=== PATIENT | male | born 1975 | race Caucasian/White ===

== ENCOUNTER 2022-02-10 12:41 | Emergency (ER) | payer OTHER, SELFPAY ==
--- NOTE | ~2022-02-10 | XR_ITS ---
EXAMINATION: XR chest 2V CLINICAL INFORMATION: Cough COMPARISON: Prior chest x-ray 04/28/2017 TECHNIQUE: XR chest 2V Lungs and Evelyn: Faint opacification over the right and left lower lobes concerning for mild infiltrates. No dense lobar consolidation. Pleura: Normal. Costophrenic angles are sharp. No pneumothorax. Heart: The heart is normal in size. Mediastinum: The mediastinum is within normal limits.. Bones: Skeletal structures included are normal for patient's age. XR/XR chest 2V IMPRESSION: Faint opacification over the right and left lower lobes concerning for mild infiltrates. No dense lobar consolidation or pleural effusion. Follow-up chest x-ray one month after completion of treatment recommended to ensure complete clearance.
--- NOTE | 2022-02-10 13:21 | ECG_ITS ---
Test Reason : cp Blood Pressure : / mmHG Vent. Rate : 089 BPM Atrial Rate : 089 BPM P-R Int : 160 ms QRS Dur : 082 ms QT Int : 360 ms P-R-T Axes : 070 034 063 degrees QTc Int : 438 ms Normal sinus rhythm Normal ECG When compared with ECG of 28-APR-2017 22:37, No significant change was found Referred By: Generic ED Physician Electronically Signed By:GRACY NAQVI
--- NOTE | 2022-02-10 13:40 | ED.GENADULT ---
HPI - General Adult General Chief complaint: Upper Respiratory Symptoms <JUAN Carpio - Last Filed: 02/10/22 13:43> Stated complaint: chest heavy cough <JUAN Carpio - Last Filed: 02/10/22 13:43> Time Seen by Provider: 02/10/22 15:56 <JUAN Carpio - Last Filed: 02/10/22 13:43> Source: patient <Alexandra Guaman NP - Last Filed: 02/10/22 16:42> Mode of arrival: ambulatory <Alexandra Guaman NP - Last Filed: 02/10/22 16:42> Limitations: no limitations <Alexandra Guaman NP - Last Filed: 02/10/22 16:42> History of Present Illness HPI narrative: 47-year-old male with history of migraines, degenerative disc disease presents with complaints of cough, chest discomfort with coughing, tactile fever and chills since Thursday evening. No shortness of breath, leg swelling or leg pain, vomiting or diarrhea. <Alexandra Guaman NP - Last Filed: 02/10/22 16:42> Related Data Home medications: Previous Rx's Medication Instructions Recorded albuterol sulfate 90 mcg/actuation 2 inh inhalation Q4H PRN shortness 02/10/22 breath activated powder inhaler of breath or wheezing #1 ea benzonatate 200 mg capsule 200 mg PO TID PRN cough #15 caps 02/10/22 doxycycline monohydrate 100 mg 100 mg PO BID #20 caps 02/10/22 capsule oseltamivir 75 mg capsule (Tamiflu) 75 mg PO BID 5 days #10 caps 02/10/22 <JUAN Carpio - Last Filed: 02/10/22 13:43> Allergies/adverse reactions: Allergies Allergy/AdvReac Type Severity Reaction Status Date / Time azithromycin [AZITHROMYCIN] Allergy Severe TACHYCARDIA Unverified 10/27/19 18:29 /HIVES penicillin V Allergy Unknown Verified 09/25/16 00:00 Penicillins [PCN] Allergy Unknown THROAT Unverified 10/27/19 18:29 CLOSES From NOVOCAIN Allergy Unknown INCEASED Uncoded 10/27/19 18:29 SEVERE MIGRAINES SEASONAL ALLERGIES Allergy Unknown RHINITIS Uncoded 10/27/19 18:29 <Zoraida Ayon PA - Last Filed: 02/10/22 13:43> Review of Systems Review of Systems: Yes all other systems are reviewed and are negative <Alexandra Guaman NP - Last Filed: 02/10/22 16:42> Constitutional: Constitutional: Reports no additional constitutional complaints, Denies body ache(s), Reports chills, Reports fever(s), Denies headache(s) and Denies weakness <Alexandra Guaman NP - Last Filed: 02/10/22 16:42> Eyes: Eyes: Reports no additional eye complaints and Denies change in vision <Alexandra Guaman NP - Last Filed: 02/10/22 16:42> ENT: Reports system reviewed and no additional complaints, except as documented, Denies dizziness, Denies headache(s), Denies nasal congestion, Denies nasal discharge and Denies neck pain <Alexandra Guaman NP - Last Filed: 02/10/22 16:42> Cardiovascular: Cardiovascular: Reports no additional cardiovascular complaints, Reports chest pain, Denies leg edema and Denies dyspnea <Alexandra Guaman NP - Last Filed: 02/10/22 16:42> Respiratory: Respiratory: Reports no additional respiratory complaints, Reports cough and Denies dyspnea <Alexandra Guaman NP - Last Filed: 02/10/22 16:42> Gastrointestinal: Gastrointestinal: Reports no additional gastrointestinal complaints, Denies abdominal pain, Denies diarrhea, Denies nausea and Denies vomiting <Alexandra Guaman NP - Last Filed: 02/10/22 16:42> Genitourinary: Genitourinary: Denies urinary incontinence <Alexandra Guaman NP - Last Filed: 02/10/22 16:42> Musculoskeletal: Musculoskeletal: Reports no additional musculoskeletal complaints, Denies back pain, Denies arthralgias, Denies joint swelling, Denies neck pain, Denies numbness and Denies tingling <Aelxandra Guaman NP - Last Filed: 02/10/22 16:42> Integumentary/Breasts: Skin/Breast: Reports system reviewed and no additional complaints, except as docu and Denies rash <Alexandra Guaman NP - Last Filed: 02/10/22 16:42> Neurologic: Reports system reviewed and no additional complaints, except as documented, Denies dizziness, Denies headache(s), Denies numbness, Denies tingling and Denies weakness <Alexandra Guaman NP - Last Filed: 02/10/22 16:42> [facility] Past Medical History Attestation statement: The following information was validated with the patient. <Alexandra Guaman NP - Last Filed: 02/10/22 16:42> Source: old records reviewed and nursing notes reviewed <Alexandra Guaman NP - Last Filed: 02/10/22 16:42> Social History Social History: Social History Advance Directives: No Advance Directives Information Provided: No <JUAN Carpio - Last Filed: 02/10/22 13:43> Physical Exam ED Vital Signs: Vital Signs - 24 hr 02/10/22 13:41 Temperature 98 F Pulse Rate 87 Respiratory Rate 20 Blood Pressure 130/99 H Pulse Oximetry 97 Oxygen Delivery Method Room Air BMI result Body Mass Index 33.7 <JUAN Carpio - Last Filed: 02/10/22 13:43> Vital Signs - 24 hr 02/10/22 13:41 Temperature 98 F Pulse Rate 87 Respiratory Rate 20 Blood Pressure 130/99 H Pulse Oximetry 97 Oxygen Delivery Method Room Air BMI result Body Mass Index 33.7 <Alexandra Guaman NP - Last Filed: 02/10/22 16:42> Const General: cooperative, healthy appearing, comfortable and no acute distress <Alexandra Guaman NP - Last Filed: 02/10/22 16:42> Orientation/consciousness: patient oriented x3 <Alexandra Guaman NP - Last Filed: 02/10/22 16:42> Limitations: no limitations <Alexandra Guaman NP - Last Filed: 02/10/22 16:42> HENMT Head: Yes normal to inspection <Alexandra Guaman NP - Last Filed: 02/10/22 16:42> Ears: hearing grossly normal bilaterally and TM's normal bilaterally <Alexandra Guaman NP - Last Filed: 02/10/22 16:42> General nose exam: Normal external nose present <Alexandra Guaman NP - Last Filed: 02/10/22 16:42> Throat: Yes posterior oropharynx normal, Yes tonsils normal and Yes uvula midline <Alexandra Guaman NP - Last Filed: 02/10/22 16:42> Eyes General: appearance normal, both eyes and all related structures <Alexandra Guaman NP - Last Filed: 02/10/22 16:42> Pupils: Equal, round and reactive pupils present <Alexandra Guaman NP - Last Filed: 02/10/22 16:42> Neck Neck: Yes normal visual inspection, Yes full ROM, Yes no lymphadenopathy and Yes no meningeal signs <Alexandra Guaman NP - Last Filed: 02/10/22 16:42> Chest Chest palpation & inspection: normal inspection of the chest and tenderness (Left chest tender to palpate) <Alexandra Guaman NP - Last Filed: 02/10/22 16:42> Resp Effort & Inspection: normal respiratory effort <Alexandra Guaman NP - Last Filed: 02/10/22 16:42> Auscultation: clear to auscultation bilaterally <Alexandra Guaman NP - Last Filed: 02/10/22 16:42> Cardio Rate: regular rate <Alexandra Guaman NP - Last Filed: 02/10/22 16:42> Rhythm: regular rhythm <Alexandra Guaman NP - Last Filed: 02/10/22 16:42> Peripheral pulses: Peripheral pulses 2+ throughout <Alexandra Guaman NP - Last Filed: 02/10/22 16:42> GI Inspection: Yes normal to inspection <Alexandra Guaman NP - Last Filed: 02/10/22 16:42> Palpation (GI): Soft to palpation and nontender <Alexandra Guaman NP - Last Filed: 02/10/22 16:42> General: Yes no CVA tenderness <Alexandra Guaman NP - Last Filed: 02/10/22 16:42> Back/Spine/Pelvis Back: no CVA tenderness <Alexandra Guaman NP - Last Filed: 02/10/22 16:42> Thoracic/Lumbar Spine: thoracic and lumbar spine normal to inspection <Alexandra Guaman NP - Last Filed: 02/10/22 16:42> Skin General skin exam: no rashes or lesions noted <Alexandra Guaman NP - Last Filed: 02/10/22 16:42> Neuro General: patient oriented x3, moves all extremities and no meningeal signs <Alexandra Guaman NP - Last Filed: 02/10/22 16:42> Cranial nerves: Yes Equal, round and reactive pupils present <Alexandra Guaman NP - Last Filed: 02/10/22 16:42> Cognition (Neuro): normal cognition <Alexandra Guaman NP - Last Filed: 02/10/22 16:42> Gait exam (Neuro): Normal gait present <Alexandra Guaman NP - Last Filed: 02/10/22 16:42> Extrem General: Yes normal to inspection, Yes no pedal edema and Yes no calf tenderness <Alexandra Guaman NP - Last Filed: 02/10/22 16:42> Course Course Course Narrative: [facility]-13:40PM - 47yoM presenting to the ED c c/o of generalized fatigue/malaise, sore throat, cough and chest congestion/rib chest wall pain and diarrhea with low grade fevers of 99.0 since Thursday. 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 Denies any other symptoms complaints or concerns at this time. Plan: Patient is stable. COVID/RSV/flu swab and chest x-ray ordered at this time. Patient can go to the waiting room to be evaluated in [facility]. <JUAN Carpio - Last Filed: 02/10/22 13:43> Reevaluation(s) Reevaluation #1: Testing for flu is positive. Chest x-ray consistent with bilateral lower lobe infiltrates. No hypoxia or tachypnea. Patient wants Tamiflu for the flu status. Aware of side effects. Will add antibiotic for the pneumonia. Reviewed worrisome signs and symptoms of when to return to the emergency room. Comfortable plan for discharge home. <Alexandra Guaman NP - Last Filed: 02/10/22 16:42> Medical Decision Making Medical Decision Making [facility] Narrative: 47-year-old male with history of migraines, degenerative disc disease here with cough, congestion, tactile temps, chills and chest discomfort with coughing since Thursday evening. Will obtain chest x-ray, send testing for flu, COVID, RSV. Vitals stable. Exam benign <Alexandra Guaman NP - Last Filed: 02/10/22 16:42> Differential Diagnosis Differential Diagnoses: The differential diagnosis associated with the presentation includes <Alexandra Guaman NP - Last Filed: 02/10/22 16:42> Pneumonia, influenza, viral syndrome Chest wall strain Perc score 0. Less likely PE <Alexandra Guaman NP - Last Filed: 02/10/22 16:42> Lab Data [facility] Lab Attestation statement: I reviewed the patient's lab results. <Alexandra Guaman NP - Last Filed: 02/10/22 16:42> Labs: Lab Results 02/10/22 Range/Units 14:08 Influenza Type A (PCR) POSITIVE A (Negative) Influenza Type B (PCR) NEGATIVE (Negative) RSV RNA Qual (PCR) NEGATIVE (Negative) SARS-CoV-2 RNA (RT-PCR) NEGATIVE (Negative) <JUAN Carpio - Last Filed: 02/10/22 13:43> Lab Results 02/10/22 Range/Units 14:08 Influenza Type A (PCR) POSITIVE A (Negative) Influenza Type B (PCR) NEGATIVE (Negative) RSV RNA Qual (PCR) NEGATIVE (Negative) SARS-CoV-2 RNA (RT-PCR) NEGATIVE (Negative) <Alexandra Guaman NP - Last Filed: 02/10/22 16:42> Independent Interpretation I performed an independent interpretation of an: EKG and Plain X-Ray (I independently reviewed the x-ray which shows infiltrate in the right and left lower lobes) <Alexandra Guaman NP - Last Filed: 02/10/22 16:42> Interpretation: I independently reviewed the EKG which shows normal sinus rhythm with a rate 89, normal MO, normal QRS, no QT <Alexandra Guaman NP - Last Filed: 02/10/22 16:42> Radiology Impression Discussion of test interpretation with radiology: I have reviewed the radiologist's reading. <Alexandra Guaman NP - Last Filed: 02/10/22 16:42> Radiologist Impression: [address] [address] XRay Report Signed Patient: Sonu Castillo MR#: [id number] : 1975 Acct:[id number] Age/Sex: 47 / M ADM Date: 02/10/22 Loc: .ED Attending Dr: Ordering Physician: Zoraida Ayon Date of Service: 02/10/22 Procedure(s): XR chest 2V Accession Number(s): [id number] cc: Zoraida Ayon~ EXAMINATION: XR chest 2V CLINICAL INFORMATION: Cough COMPARISON: Prior chest x-ray 04/28/2017? TECHNIQUE: XR chest 2V Lungs and Evelyn: Faint opacification over the right and left lower lobes concerning for mild infiltrates. No dense lobar consolidation. Pleura: Normal. Costophrenic angles are sharp. No pneumothorax. Heart: The heart is normal in size. Mediastinum: The mediastinum is within normal limits.. Bones: Skeletal structures included are normal for patient's age. XR/XR chest 2V IMPRESSION: ? Faint opacification over the right and left lower lobes concerning for mild infiltrates. No dense lobar consolidation or pleural effusion. Follow-up chest x-ray one month after completion of treatment recommended to ensure complete clearance. <Alexandra Guaman NP - Last Filed: 02/10/22 16:42> Discharge Plan Discharge Clinical Impression: Influenza, Pneumonia <JUAN Carpio - Last Filed: 02/10/22 13:43> Patient Disposition: Home, Self-Care <JUAN Carpio - Last Filed: 02/10/22 13:43> Instructions: Influenza (ED), Pneumonia (ED) <JUAN Carpio - Last Filed: 02/10/22 13:43> Additional Instructions: Testing for flu is positive. Your x-ray shows pneumonia. Your vitals are all stable Take the medications as prescribed Increase fluids, rest Motrin or Tylenol for fever <JUAN Carpio - Last Filed: 02/10/22 13:43> Prescriptions: New oseltamivir [Tamiflu] 75 mg capsule 75 mg PO BID 5 Days Qty: 10 0RF doxycycline monohydrate 100 mg capsule 100 mg PO BID Qty: 20 0RF benzonatate 200 mg capsule 200 mg PO TID PRN (Reason: cough) Qty: 15 0RF albuterol sulfate 90 mcg/actuation aerosol powdr breath activated 2 inh inhalation Q4H PRN (Reason: shortness of breath or wheezing) Qty: 1 0RF <JUAN Carpio - Last Filed: 02/10/22 13:43> Referrals: Physician,Unknown J [Primary Care Provider] - <JUAN Carpio - Last Filed: 02/10/22 13:43> Interventions: ED Discharge Assessment Last Done: 02/10/22 16:37 <JUAN Carpio - Last Filed: 02/10/22 13:43> Discharge Date/Time: 02/10/22 16:38 <JUAN Carpio - Last Filed: 02/10/22 13:43>
[2022-02-10 13:41] VITALS: BP 130/99; PULSE 87; RESP 20; TEMP 36.6; O2SAT 97; BMI 33.7
[2022-02-10 15:03] LABS: Influenza A PCR POSITIVE (Negative); Influenza B PCR NEGATIVE (Negative); Resp Syncy Virus RNA Qual PCR NEGATIVE (Negative); SARS COV2 PCR INHOUSE NEGATIVE (Negative)
== END 2022-02-10 16:38 | disposition home or self-care (01) ==
PROVIDERS: Physician Assistant Medical; Emergency Provider Internal Medicine
DX: J10.08 Influenza due to other identified influenza virus with other specified pneumonia (principal); J12.89 Other viral pneumonia; Z20.822 Contact with and (suspected) exposure to COVID-19
CPT/HCPCS: 0241U; 71046; 93005; 99283

== ENCOUNTER 2022-08-20 23:05 | Emergency (ER) | payer OTHER, SELFPAY ==
--- NOTE | ~2022-08-20 | XR_ITS ---
EXAMINATION: XR FOOT, RIGHT CLINICAL INFORMATION: Acute epigastric COMPARISON: None available. TECHNIQUE: AP, lateral, and oblique views of the right foot. FINDINGS: Osseous alignment is anatomic. No acute fracture is seen. No significant focal soft tissue abnormality identified. XR/XR foot RT 2V IMPRESSION: No acute findings identified.
[2022-08-20 23:29] VITALS: BP 127/71; PULSE 67; RESP 18; TEMP 36.8; O2SAT 97; BMI 34.3
--- NOTE | 2022-08-21 00:31 | ED.LOWEXIN ---
HPI - Extremity Injury (Lower) General Chief Complaint: Extremity Injury, Lower Stated Complaint: right foot pain Time Seen by Provider: 08/21/22 00:29 Source: patient Mode of arrival: ambulatory Limitations: no limitations History of Present Illness HPI Narrative: 47-year-old male presents with right foot pain, swelling, started few hours prior to patient's arrival, patient reports he may have rolled his ankle/foot earlier today although unsure and since then has been having some pain , tells me pains so bad he cant bear weight. He noticed the pain when he got up from his bed, since then has been having pain worse with movement and weight-bearing better at rest. Came in to ensure he didnt have a tendon tear because he says I tear tendons easily from the knee down . Denies numbness, tingling, fevers, chills chest pain, shortness of breath, calf pain, headache, vision changes, dizziness or weakness. No blunt trauma. Related Data Previous Rx's Medication Instructions Recorded albuterol sulfate 90 mcg/actuation 2 inh inhalation Q4H PRN shortness 02/10/22 breath activated powder inhaler of breath or wheezing #1 ea benzonatate 200 mg capsule 200 mg PO TID PRN cough #15 caps 02/10/22 doxycycline monohydrate 100 mg 100 mg PO BID #20 caps 02/10/22 capsule oseltamivir 75 mg capsule (Tamiflu) 75 mg PO BID 5 days #10 caps 02/10/22 ketorolac 10 mg tablet 10 mg PO TID PRN pain 5 days #15 08/21/22 tabs Allergies Allergy/AdvReac Type Severity Reaction Status Date / Time azithromycin [AZITHROMYCIN] Allergy Severe TACHYCARDIA Verified 08/20/22 23:34 /HIVES penicillin V Allergy Unknown Anaphylaxis Verified 08/20/22 23:34 Penicillins [PCN] Allergy Unknown THROAT Verified 08/20/22 23:34 CLOSES From NOVOCAIN Allergy Unknown INCEASED Uncoded 08/20/22 23:34 SEVERE MIGRAINES SEASONAL ALLERGIES Allergy Unknown RHINITIS Uncoded 08/20/22 23:34 Review of Systems Review of Systems: Constitutional : No Weight loss, No Fever, No Chills, No Fatigue, No Malaise ENT/Mouth : No sore throat, No Rhinorrhea Eyes: No Eye Pain, No Swelling, No Redness Cardiovascular : No Chest Pain, No SOB, No Dyspnea on Exertion, No Orthopnea, No Edema, No Palpitations Respiratory : No Cough, No Sputum, No Wheezing Gastrointestinal : No Nausea, No Vomiting, No Diarrhea, No Constipation, No abdominal Pain, No Hematochezia, No Melena Genitourinary : No Dysuria, No Urinary Frequency, No Hematuria, Musculoskeletal : + joint pain, No Myalgias, + Joint Swelling Skin : No Skin Lesions, No rash Neuro : No Weakness, No Numbness, No Dizziness, No Headache Psych : No Anxiety/Panic, No Depression All other systems reviewed and are negative Yes all other systems are reviewed and are negative [facility] Past Medical History Attestation statement: The following information was validated with the patient. Source: old records reviewed and nursing notes reviewed Physical Exam Vital Signs: Vital Signs: Last Vital Signs Temp 98.2 F 08/20/22 23:29 Pulse 67 08/20/22 23:29 Resp 18 08/20/22 23:29 BP 127/71 08/20/22 23:29 Pulse Ox 97 08/20/22 23:29 O2 Del Method Room Air 08/20/22 23:29 BMI result Body Mass Index 34.3 Vital signs stable Appearance: Alert.? Oriented X3.? No acute distress.? Head: Normocephalic, atraumatic, no step-offs or deformities Eyes: Pupils equal, round and reactive to light.? CVS: Normal heart rate and rhythm.? Pulses normal.? Respiratory: No respiratory distress.? Breath sounds normal.? Abdomen: Soft and nontender.? Skin: Skin warm and dry.? Normal skin color.? Normal skin turgor.? Extremities: No lower extremity edema.? No calf ttp, negative [place] b/l. 5/5 strength to bilateral upper and lower extremities 2+ dorsalis pedis, anterior tibialis and posterior tibialis pulses equal bilateral. No foot drop. Normal sensation to bilateral lower extremities distally. Capillary refill less than 2 seconds equal bilateral toe lower extremity digits. Full range of motion to bilateral ankles and toes. No appreciated step-offs, deformities, edema, laxity on exam.TTP of entire R foot, no errythema or warmth. Neuro: Oriented X 3.? No motor deficit.? No sensory deficit. CN 2-12 intact Medical Decision Making Medical Decision Making MDM Narrative: 47-year-old male presents with right foot pain for the past few hours, reports he thinks he may have rolled his ankle earlier today. Physical exam significant for No lower extremity edema.? No calf ttp. 5/5 strength to bilateral upper and lower extremities 2+ dorsalis pedis, anterior tibialis and posterior tibialis pulses equal bilateral. No foot drop. Normal sensation to bilateral lower extremities distally. Capillary refill less than 2 seconds equal bilateral toe lower extremity digits. Full range of motion to bilateral ankles and toes. No appreciated step-offs, deformities, , edema, laxity on exam. TTP of entire R foot, no errythema or warmth. Likely sprain or strain. Unlikely fractures or dislocation. History and physical exam not consistent with DVT, arterial occlusion, threatened limb, neurovascular compromise. Other differentials include inflammatory arthritis versus gout versus pseudogout. PERC negative. Plan imaging, Toradol. Differential Diagnosis Differential Diagnoses: The differential diagnosis associated with the presentation includes Likely sprain or strain. Unlikely fractures or dislocation. History and physical exam not consistent with DVT, arterial occlusion, threatened limb, neurovascular compromise.Other differentials include inflammatory arthritis versus gout versus pseudogout. Admission/Observation Consideration of admission/observation: Escalation of care including admission/observation considered Not indicated Independent Interpretation I performed an independent interpretation of an: Plain X-Ray (XR/XR foot RT 2V IMPRESSION: No acute findings identified.) Radiology Impression Discussion of test interpretation with radiology: I have reviewed the radiologist's reading. Prescription Management I considered prescription management with: Pain Medication Core Measures AMI core measures followed: Yes Measure exclusions: not indicated Critical Care Time Critical Care Time Critical Care Time: No Discharge Plan Discharge Clinical Impression: Acute pain of right foot Patient Disposition: Home, Self-Care Instructions: Arthralgia (ED), R.I.C.E. Treatment (ED) Additional Instructions: Take your medications as prescribed. If you were prescribed antibiotics today, it is important that you take your medication to their entirety, do not skip any doses, do not finish them early. Follow-up with your primary care provider this week. Return to the emergency department with new or worsening symptoms. Such as fevers, chills, chest pain, shortness of breath, nausea, vomiting, dizziness, headache, vision changes, lethargy In case of emergency call 911 Toradol has been sent to your pharmacy, you tolerated this well in the department. Please take this as prescribed do not take this with ibuprofen, or other NSAIDs, do not mix this with alcohol. Side effects of this medication including increased risk for bleeding and possible kidney injury. ?XR/XR foot RT 2V IMPRESSION: No acute findings identified. ? Prescriptions: New ketorolac 10 mg tablet 10 mg PO TID PRN (Reason: pain) 5 Days Qty: 15 0RF No Action oseltamivir [Tamiflu] 75 mg capsule 75 mg PO BID 5 Days Qty: 10 0RF doxycycline monohydrate 100 mg capsule 100 mg PO BID Qty: 20 0RF benzonatate 200 mg capsule 200 mg PO TID PRN (Reason: cough) Qty: 15 0RF albuterol sulfate 90 mcg/actuation aerosol powdr breath activated 2 inh inhalation Q4H PRN (Reason: shortness of breath or wheezing) Qty: 1 0RF Referrals: [facility] [Provider Group] - 2 days Physician,Unknown J [Primary Care Provider] - 2 days Stand Alone Forms: Work/School Release
[2022-08-21] MEDS: Ketorolac Tromethamine 30 MG/ML VIAL IM (00:46)
--- NOTE | 2022-08-21 00:49 | PC.NURSE ---
pt a&o , no sob or chest pain, no sign of distress, Reviewed discharge instructions with pt. pt verbalized understanding. Education on crutches.
[2022-08-21 00:53] VITALS: BP 138/81; PULSE 66; RESP 16; TEMP 36.2; O2SAT 98
== END 2022-08-21 00:58 | disposition home or self-care (01) ==
PROVIDERS: Emergency Provider Emergency Medicine Emergency Medical Services
DX: M79.671 Pain in right foot (principal); Z79.899 Other long term (current) drug therapy
CPT/HCPCS: 73620; 96372; 99283; 99284; J1885

== ENCOUNTER 2022-11-02 10:56 | Emergency (ER) | payer OTHER, SELFPAY ==
[2022-11-02 11:07] VITALS: BP 131/85; PULSE 84; RESP 18; TEMP 36.7; O2SAT 97; BMI 34.4
--- NOTE | 2022-11-02 11:13 | ED.GENADULT ---
HPI - General Adult General Chief complaint: Headache Stated complaint: migraine Time Seen by Provider: 11/02/22 11:31 Source: patient Limitations: no limitations History of Present Illness HPI narrative: 47-year-old male with history of migraine headaches presents with migraine headache, congestion and generalized myalgias. Symptoms started on . He was able to abort his headache with ibuprofen. However, the headache got worse again on Thursday associated with congestion. Patient describes the headache starting in the occipital area radiating to the front of his head. This is typical form. He reports having basilar headaches. He takes Zomig but his headaches are not improving with this medication. Currently he describes his headache as a 7/10. Denies any fevers or chills. Does have a cough no mucus production other than the congestion he feels. He denies any chest pain but area he does have some shortness of breath. He does have nausea but no vomiting. His headache is associated with photo and phonophobia. Currently his headache is typical for him. Related Data Previous Rx's Medication Instructions Recorded albuterol sulfate 90 mcg/actuation 2 inh inhalation Q4H PRN shortness 02/10/22 breath activated powder inhaler of breath or wheezing #1 ea benzonatate 200 mg capsule 200 mg PO TID PRN cough #15 caps 02/10/22 doxycycline monohydrate 100 mg 100 mg PO BID #20 caps 02/10/22 capsule oseltamivir 75 mg capsule (Tamiflu) 75 mg PO BID 5 days #10 caps 02/10/22 ketorolac 10 mg tablet 10 mg PO TID PRN pain 5 days #15 08/21/22 tabs nirmatrelvir 300 mg (150 mg See Rx Instructions PO .COMPLEX 11/02/22 x2)-ritonavir 100 mg tablet,dose #30 ea pack (Paxlovid) Allergies Allergy/AdvReac Type Severity Reaction Status Date / Time azithromycin [AZITHROMYCIN] Allergy Severe TACHYCARDIA Verified 11/02/22 11:07 /HIVES penicillin V Allergy Unknown Anaphylaxis Verified 11/02/22 11:07 Penicillins [PCN] Allergy Unknown THROAT Verified 11/02/22 11:07 CLOSES From NOVOCAIN Allergy Unknown INCEASED Uncoded 08/20/22 23:34 SEVERE MIGRAINES SEASONAL ALLERGIES Allergy Unknown RHINITIS Uncoded 08/20/22 23:34 Review of Systems Review of Systems: CONSTITUTIONAL: Denies weight loss, fever and chills. HEENT: Denies changes in vision and hearing. RESPIRATORY: Denies SOB + cough. CV: Denies palpitations no CP. GI: Denies abdominal pain,+ nausea, -vomiting and diarrhea. : Denies dysuria and urinary frequency. MSK: + myalgia and joint pain. SKIN: Denies rash and pruritus. NEUROLOGICAL: + headache - syncope. PSYCHIATRIC: Denies recent changes in mood. Denies anxiety and depression. All other ROS are negative unless in HPI [facility] Social History Social History Smoked in Last 30 Days: Yes Use of substances other than those prescribed or required for medical reasons: Yes Substance Use Type: Marijuana Advance Directives: No Physical Exam ED Vital Signs: Vital Signs - 24 hr 11/02/22 11:07 Temperature 98.1 F Pulse Rate 84 Respiratory Rate 18 Blood Pressure 131/85 Pulse Oximetry 97 Oxygen Delivery Method Room Air BMI result Body Mass Index 34.4 GEN: Well developed, no acute distress, alert, oriented HEENT: Normocephalic, atraumatic, normal external ears, nose appears normal, no oropharyngeal edema or exudates Eyes: Normal to appearance Neck: Supple, no lymphadenopathy Respiratory: Talks in complete sentences, no respiratory distress, clear to auscultation bilaterally Cardiovascular: Regular rate and rhythm, no murmurs rubs or gallops Abdomen: Soft, nontender, nondistended, no guarding, no rebound Back: No CVA tenderness Extremities: No clubbing cyanosis or edema Neurologic: No focal neurologic deficits, cranial nerves 2-12 intact, strength is 5/5 bilaterally Skin: No rash Course Course Course Narrative: RME: 47 yold male with pmh of complex migraines and seizure when having migraines presents to the ED for cough, bodyaches, and persistent migraines. patient was seen at [facility] and states he was escorted out before resuts were back. labs and covid and influenza ordered. Reevaluation(s) Reevaluation #1: Patient is feeling much better. Headache is at his baseline 4/10. Like to be discharged at this time. Will provide patient with a prescription for Paxil that to his pharmacy. He understands he can do [id number] symptomatic relief. Also understands the quarantine. As well. Time: 14:45 Medications Administered Discontinued Medications Generic Name Dose Route Start Last Admin Trade Name Malinda PRN Reason Stop Dose Admin Acetaminophen 975 mg 11/02/22 11:44 11/02/22 13:00 Acetaminophen 325 Mg Tablet PO 11/02/22 11:45 975 mg ONCE ONE Administration Dexamethasone Sodium Phosphate 10 mg 11/02/22 11:44 11/02/22 13:03 Dexamethasone Sod Phosphate 10 Mg/Ml Vial IVPUSH 11/02/22 11:45 10 mg ONCE ONE Administration Sodium Chloride 1,000 mls @ 999 mls/hr 11/02/22 11:45 11/02/22 13:56 Ns IV 11/02/22 12:45 Infused .Q1H1M PHU Infusion Magnesium Sulfate/Dextrose 1 gm in 100 mls @ 100 mls/hr 11/02/22 11:44 11/02/22 15:16 Magnesium Sulfate/D5w IV 11/02/22 12:43 Infused ONCE ONE Infusion Ketorolac Tromethamine 15 mg 11/02/22 11:44 11/02/22 13:02 Ketorolac Tromethamine 15 Mg/Ml Vial IVPUSH 11/02/22 11:45 15 mg ONCE ONE Administration Metoclopramide HCl 10 mg 11/02/22 11:44 11/02/22 13:05 Metoclopramide Hcl 10 Mg/2 Ml Vial IVPUSH 11/02/22 11:45 10 mg ONCE ONE Administration Medical Decision Making Medical Decision Making [facility] Narrative: 47-year-old male presents with congestion, myalgias, no fever, headache/migraine. Examination is benign. Differential diagnosis includes a viral illness including COVID, influenza, migraine, tension headache, cluster headache, sinusitis. There are no red flag symptoms to suggest subdural, epidural or subarachnoid hemorrhage. There is no definite indication for imaging studies at this time. Has no focal deficits to suggest mass effect. Plan will be to check viral serology, provide patient with analgesia and re-evaluate. Differential Diagnosis Differential Diagnoses: The differential diagnosis associated with the presentation includes (See above) Lab Data [facility] Lab Attestation statement: I reviewed the patient's lab results. 11/02/22 11:19 11/02/22 11:19 Labs: Lab Results 11/02/22 Range/Units 11:19 WBC 8.2 (4.8-10.8) X10*3/uL RBC 4.89 (4.60-5.80) X10*6/uL Hgb 14.1 (14.0-18.0) g/dl Hct 42.6 (42.0-52.0) % MCV 87.1 (80.0-98.0) fL MCH 28.8 (27.0-33.0) pg MCHC 33.1 (31.0-36.0) g/dl RDW 14.5 (11.0-16.0) % Plt Count 284 (160-400) X10*3/uL MPV 9.9 (9.4-12.4) fL Immature Gran % (Auto) 0.2 (0.0-0.4) % Neut % (Auto) 45.8 (45-73) % Lymph % (Auto) 38.2 (20-40) % Davison % (Auto) 14.7 H (2-11) % Eos % (Auto) 0.4 (0-4) % Baso % (Auto) 0.7 (0-2) % Lymph # (Auto) 3.1 (1.2-4.9) X10*3/uL Davison # (Auto) 1.2 (0.1-1.2) X10*3/uL Eos # (Auto) 0.0 (0.0-0.4) X10*3/uL Baso # (Auto) 0.1 (0.0-0.2) X10*3/uL Abs Immat Gran (auto) 0.02 (0.00-0.03) X10*3/uL Absolute Neuts (auto) 3.7 (2.0-8.3) x10*3/uL Absolute Nucleated RBC 0.000 (0.0-0.012) X10*3/uL Nucleated RBC % (auto) 0.0 (0.0-0.2) /100WBC Sodium 140 (135-145) mmol/L Potassium 3.4 (3.3-5.1) mmol/L Chloride 110 H (96-108) mmol/L Carbon Dioxide 20 L (22-29) mmol/L Anion Gap 13 (12-20) BUN 11 (9-16) mg/dL Creatinine 0.93 (0.5-1.4) mg/dL Estim Creat Clear Calc 122.5 Estimated GFR > 60 Random Glucose 107 (60-115) mg/dL Calcium 9.1 (8.4-10.2) mg/dL Total Bilirubin 0.1 (0.0-1.0) mg/dL AST 20 (5-37) U/L ALT 23 (0-40) U/L Alkaline Phosphatase 78 (39-117) U/L Total Protein 6.7 (6.5-8.0) g/dL Albumin 4.0 (3.5-5.0) g/dL COVID-19 (TEVIN) Positive A (Negative) COVID-19 Clin Com See Note Influenza Type A (NORA) Negative (Negative) Influenza Type B (NORA) Negative (Negative) Influenza A & B Note See Note Prescription Management I considered prescription management with: Pain Medication and Antiviral Chronic Conditions Patient?s care impacted by: Other (Migraine headache) Discharge Plan Discharge Clinical Impression: Migraine, COVID-19 virus infection Patient Disposition: Home, Self-Care Instructions: Migraine Headache (ED), Viral Syndrome (ED) Prescriptions: New Paxlovid 300 mg (150 mg x 2)-100 mg tablets,dose pack See Rx Instructions .ROUTE .COMPLEX Qty: 30 0RF Rx Instructions: take TWO 150 mg tablets of nirmatrelvir with ONE 100 mg tablet of ritonavir twice daily for 5 days No Action oseltamivir [Tamiflu] 75 mg capsule 75 mg PO BID 5 Days Qty: 10 0RF doxycycline monohydrate 100 mg capsule 100 mg PO BID Qty: 20 0RF benzonatate 200 mg capsule 200 mg PO TID PRN (Reason: cough) Qty: 15 0RF albuterol sulfate 90 mcg/actuation aerosol powdr breath activated 2 inh inhalation Q4H PRN (Reason: shortness of breath or wheezing) Qty: 1 0RF ketorolac 10 mg tablet 10 mg PO TID PRN (Reason: pain) 5 Days Qty: 15 0RF Referrals: Physician,None [Primary Care Provider] - (PMD 1 week if needed) Stand Alone Forms: Work/School Release
[2022-11-02 11:28] LABS: MANUAL DIFF FLAG NO
[2022-11-02 11:31] LABS: Basophils Absolute Auto 0.1 X10*3/uL (0.0-0.2); Basophils Percent Auto 0.7 % (0-2); Eosinophils Percent Auto 0.4 % (0-4); Hematocrit 42.6 % (42.0-52.0); Hemoglobin 14.1 g/dl (14.0-18.0); Imm Gran Abs Auto 0.02 X10*3/uL (0.00-0.03); Imm Gran Pct Auto 0.2 % (0.0-0.4); Lymphocytes Absolute Auto 3.1 X10*3/uL (1.2-4.9); Lymphocytes Percent Auto 38.2 % (20-40); Mean Corpuscular HGB Conc 33.1 g/dl (31.0-36.0); Mean Corpuscular Hemoglobin 28.8 pg (27.0-33.0); Mean Corpuscular Volume 87.1 fL (80.0-98.0); Mean Platelet Volume 9.9 fL (9.4-12.4); Monocytes Absolute Auto 1.2 X10*3/uL (0.1-1.2); Monocytes Percent Auto 14.7 % (2-11); Neutrophils Absolute Auto 3.7 x10*3/uL (2.0-8.3); Neutrophils Percent Auto 45.8 % (45-73); Platelet Count 284 X10*3/uL (160-400); Red Blood Count 4.89 X10*6/uL (4.60-5.80); Red Cell Distribution Width 14.5 % (11.0-16.0); White Blood Count 8.2 X10*3/uL (4.8-10.8)
[2022-11-02 11:42] LABS: COVID-19 Test Positive (Negative); IDNOW Serial# 08D9AD1C
[2022-11-02 11:48] LABS: Alanine Aminotransferase 23 U/L (0-40); Alkaline Phosphatase 78 U/L (39-117); Anion Gap 13 (12-20); Aspartate Amino Transferase 20 U/L (5-37); Bilirubin Total 0.1 mg/dL (0.0-1.0); Blood Urea Nitrogen 11 mg/dL (9-16); Calcium 9.1 mg/dL (8.4-10.2); Carbon Dioxide 20 mmol/L (22-29); Chloride 110 mmol/L (96-108); Creatinine Clr Calc Pharmacy 122.5; Estimated Glomerular Filt Rate > 60; Glucose Random 107 mg/dL (60-115); Potassium 3.4 mmol/L (3.3-5.1); Sodium 140 mmol/L (135-145); Total Protein 6.7 g/dL (6.5-8.0)
[2022-11-02 11:54] LABS: IDNOW Serial# BCCEAD1C; Influenza A Negative (Negative); Influenza B2 Negative (Negative)
[2022-11-02] MEDS: 0.9 % Sodium Chloride 1,000 ML 999 ML IV (12:55)
[2022-11-02] MEDS: Acetaminophen 325 MG TABLET 975 MG PO (13:00)
[2022-11-02] MEDS: Ketorolac Tromethamine 15 MG/ML VIAL IVPUSH (13:02)
[2022-11-02] MEDS: dexAMETHasone sod phosphate 10 MG/ML VIAL IVPUSH (13:03)
[2022-11-02] MEDS: Metoclopramide HCl 10 MG/2 ML VIAL IVPUSH (13:05)
--- NOTE | 2022-11-02 13:13 | PC.NURSE ---
pt a&o x4. 20G IV placed to LAC. pt medicated per mar. call weinstein within pt reach. rr even/unlabored. plan of care ongoing.
[2022-11-02] MEDS: Magnesium Sulfate/D5W 1 GM/100 ML PIGGYBACK IV (14:10)
== END 2022-11-02 15:19 | disposition home or self-care (01) ==
PROVIDERS: Physician Assistant; Emergency Provider Emergency Medicine
DX: G43.909 Migraine, unspecified, not intractable, without status migrainosus (principal); U07.1 COVID-19; Z79.899 Other long term (current) drug therapy
CPT/HCPCS: 80053; 85025; 87502; 87635; 96361; 96365; 96375; 99284; J1100; J1885; J2765; J3475

== ENCOUNTER 2023-08-04 18:54 | Emergency (ER) | payer OTHER, SELFPAY ==
--- NOTE | ~2023-08-04 | XR_ITS ---
EXAMINATION: XR LUMBOSACRAL SPINE CLINICAL INFORMATION: Back pain COMPARISON: None available. TECHNIQUE: Three views of the lumbosacral spine. FINDINGS: Mild retrolisthesis of L5 on S1. The sagittal alignment otherwise maintained. Vertebral body heights are maintained. No evidence of acute fracture. Moderate to-severe L5-S1 disc space narrowing. Facet degeneration at L5-S1. Sclerotic focus in the L4 vertebral body, nonspecific, could represent a bone island. Vascular calcification present. SI joints are intact. No acute pelvic fractures seen. Nonobstructive bowel gas pattern. XR/XR lumbar spine 2-3V IMPRESSION: Moderate-severe L5-S1 disc degeneration. No radiographic evidence of acute fracture.
[2023-08-04 18:57] VITALS: BP 175/100; PULSE 76; RESP 18; TEMP 36.5; O2SAT 97; BMI 35.7
[2023-08-04 21:02] VITALS: BP 158/103; PULSE 69; RESP 16; TEMP 36.1; O2SAT 97
[2023-08-04] MEDS: Cyclobenzaprine HCl 10 MG TABLET PO (21:36)
[2023-08-04] MEDS: Morphine Sulfate Immed Release 15 MG TABLET PO (21:36)
--- NOTE | 2023-08-04 21:50 | ED_ITS ---
HPI - Back Pain/Injury General Chief Complaint: Back Pain/Injury Stated Complaint: low back pain Time Seen by Provider: 08/04/23 21:08 Source: patient Mode of arrival: ambulatory Limitations: no limitations History of Present Illness ED Provider: dylan BERNSTEIN Narrative: Patient has chronic low back pain for years was doing okay otherwise woke up earlier today with increased pain in lower back no recent injury pain radiating to bilateral upper thigh no paresthesia no bladder or bowel involvement no recent injury Related Data Previous Rx's ?Medication ?Instructions ?Recorded albuterol sulfate 90 mcg/actuation 2 inh inhalation Q4H PRN shortness 02/10/22 breath activated powder inhaler of breath or wheezing #1 ea benzonatate 200 mg capsule 200 mg PO TID PRN cough #15 caps 02/10/22 doxycycline monohydrate 100 mg 100 mg PO BID #20 caps 02/10/22 capsule oseltamivir 75 mg capsule (Tamiflu) 75 mg PO BID 5 days #10 caps 02/10/22 ketorolac 10 mg tablet 10 mg PO TID PRN pain 5 days #15 08/21/22 tabs nirmatrelvir 300 mg (150 mg See Rx Instructions PO .COMPLEX 11/02/22 x2)-ritonavir 100 mg tablet,dose #30 ea pack (Paxlovid) cyclobenzaprine 10 mg tablet 10 mg PO Q8H #20 tabs 08/04/23 morphine 15 mg tablet,extended 15 mg PO Q8H #20 tabs 08/04/23 release Allergies Allergy/AdvReac Type Severity Reaction Status Date / Time azithromycin [AZITHROMYCIN] Allergy Severe TACHYCARDIA Verified 08/04/23 18:58 /HIVES penicillin V Allergy Unknown Anaphylaxis Verified 08/04/23 18:58 Penicillins [PCN] Allergy Unknown THROAT Verified 08/04/23 18:58 CLOSES From [place]OV[place]AIN Allergy Unknown INCEASED Uncoded 08/04/23 18:58 SEVERE MIGRAINES SEASONAL ALLERGIES Allergy Unknown RHINITIS Uncoded 08/04/23 18:58 Review of Systems Review of Systems: Yes all other systems are reviewed and are negative PMFSH Social History Social History Substance Use Type: Marijuana Advance Directives: No Advance Directives Information Provided: No Do you have a plan to hurt others: No Plan Physical Exam Vital Signs: Vital Signs: Last Vital Signs Temp 97.0 F 08/04/23 22:04 Pulse 69 08/04/23 22:04 Resp 16 08/04/23 22:04 BP 158/103 H 08/04/23 22:04 Pulse Ox 97 08/04/23 22:04 O2 Del Method Room Air 08/04/23 22:04 BMI result Body Mass Index 35.7 Appearance: Alert. Oriented X3. No acute distress. ENT: Pharynx normal. Oral Mucosa moist Neck: Normal inspection. Neck supple. CVS: Normal heart rate and rhythm. Pulses normal. Respiratory: No respiratory distress. Equal air entry bilateral, no wheezing/rales/rhonchi Abdomen: Soft and nontender. Bowel sounds are present, no mass palpable, no CVA tenderness Skin: Skin warm and dry. Normal skin color. Normal skin turgor. back: Diffuse lumbar spine tenderness SLR negative Extremities: No lower extremity edema. No calf tenderness Neuro: Oriented X 3. No motor deficit. No sensory deficit.No cerebellar signs , cranial nerves II-XII intact Medications Administered Discontinued Medications Generic Name Dose Route Start Last Admin Trade Name Freq PRN Reason Stop Dose Admin Cyclobenzaprine HCl 10 mg 08/04/23 21:28 08/04/23 21:36 Cyclobenzaprine Hcl 10 Mg Tablet PO 08/04/23 21:29 10 mg ONCE ONE Administration Morphine Sulfate 15 mg 08/04/23 21:28 08/04/23 21:36 Morphine Sulfate Immed Release 15 Mg Tablet PO 08/04/23 21:29 15 mg ONCE ONE Administration Medical Decision Making Differential Diagnosis Differential Diagnoses: The differential diagnosis associated with the presentation includes Lumbar canal stenosis/arthritis/lower back strain Discharge Plan Discharge Clinical Impression: Lumbar radiculopathy Patient Disposition: Home, Self-Care Instructions: Back Pain (ED), Lower Back Exercises (ED) Additional Instructions: Rest at home Take pain medication and Flexeril as prescribed Follow up with neuro remote sensing specialist Prescriptions: New morphine 15 mg tablet extended release 15 mg PO Q8H Qty: 20 0RF Rx Instructions: Partial Fill upon patient request. cyclobenzaprine 10 mg tablet 10 mg PO Q8H Qty: 20 0RF No Action oseltamivir [Tamiflu] 75 mg capsule 75 mg PO BID 5 Days Qty: 10 0RF doxycycline monohydrate 100 mg capsule 100 mg PO BID Qty: 20 0RF benzonatate 200 mg capsule 200 mg PO TID PRN (Reason: cough) Qty: 15 0RF albuterol sulfate 90 mcg/actuation aerosol powdr breath activated 2 inh inhalation Q4H PRN (Reason: shortness of breath or wheezing) Qty: 1 0RF ketorolac 10 mg tablet 10 mg PO TID PRN (Reason: pain) 5 Days Qty: 15 0RF Paxlovid 300 mg (150 mg x 2)-100 mg tablets,dose pack See Rx Instructions .ROUTE .COMPLEX Qty: 30 0RF Rx Instructions: take TWO 150 mg tablets of nirmatrelvir with ONE 100 mg tablet of ritonavir twice daily for 5 days Interventions: ED Discharge Assessment Last Done: 08/04/23 22:04 Discharge Date/Time: 08/04/23 22:05 Print Language: Telugu
[2023-08-04 22:04] VITALS: BP 158/103; PULSE 69; RESP 16; TEMP 36.1; O2SAT 97
== END 2023-08-04 22:05 | disposition home or self-care (01) ==
PROVIDERS: Emergency Provider Internal Medicine
DX: M54.16 Radiculopathy, lumbar region (principal); M54.50 Low back pain, unspecified; F12.90 Cannabis use, unspecified, uncomplicated
CPT/HCPCS: 72100; 99283; 99284

== ENCOUNTER 2023-08-13 19:15 | Emergency (ER) | payer OTHER, SELFPAY ==
[2023-08-13 19:23] VITALS: BP 186/100; PULSE 102; O2SAT 96
--- NOTE | 2023-08-13 19:26 | ED.GENADULT ---
HPI - General Adult General Chief complaint: Back Pain/Injury Stated complaint: low back pain/spasms Time Seen by Provider: 08/13/23 19:21 History of Present Illness ED Provider: Dr. Damian HPI narrative: 48 y/o M patient; PMH chronic lower back pain; presents from home reporting 24 hours of lower back spasm. Denies any direct trauma or injury. Has been ambulatory since pain began. Denies urinary or bowel incontinence. Denies: fever or chills, chest pain, SOB, cough/congestion, abdominal pain, nausea/vomiting, diarrhea. Patient last seen in this emergency department on 08/04/2023 for similar painful lower back spasms. Patient notes he does not currently have a PCP due to a recent change in his insurance. Related Data Previous Rx's ?Medication ?Instructions ?Recorded albuterol sulfate 90 mcg/actuation 2 inh inhalation Q4H PRN shortness 02/10/22 breath activated powder inhaler of breath or wheezing #1 ea benzonatate 200 mg capsule 200 mg PO TID PRN cough #15 caps 02/10/22 doxycycline monohydrate 100 mg 100 mg PO BID #20 caps 02/10/22 capsule oseltamivir 75 mg capsule (Tamiflu) 75 mg PO BID 5 days #10 caps 02/10/22 ketorolac 10 mg tablet 10 mg PO TID PRN pain 5 days #15 08/21/22 tabs nirmatrelvir 300 mg (150 mg See Rx Instructions PO .COMPLEX 11/02/22 x2)-ritonavir 100 mg tablet,dose #30 ea pack (Paxlovid) cyclobenzaprine 10 mg tablet 10 mg PO Q8H #20 tabs 08/04/23 morphine 15 mg tablet,extended 15 mg PO Q8H #20 tabs 08/04/23 release lidocaine 5 % topical patch 1 patch topical DAILY 14 days #15 08/13/23 (Lidoderm) ea oxycodone 5 mg capsule 5 mg PO Q8H PRN pain 3 days #9 caps 08/13/23 oxycodone 5 mg tablet 5 mg PO Q6H PRN pain #9 tabs 08/13/23 Allergies Allergy/AdvReac Type Severity Reaction Status Date / Time azithromycin [AZITHROMYCIN] Allergy Severe TACHYCARDIA Verified 08/13/23 19:36 /HIVES penicillin V Allergy Unknown Anaphylaxis Verified 08/13/23 19:36 Penicillins [PCN] Allergy Unknown THROAT Verified 08/13/23 19:36 CLOSES From [place]OV[place]AIN Allergy Unknown INCEASED Uncoded 08/04/23 18:58 SEVERE MIGRAINES SEASONAL ALLERGIES Allergy Unknown RHINITIS Uncoded 08/04/23 18:58 Review of Systems Review of Systems: Yes all other systems are reviewed and are negative Neurologic: Denies Sensory deficit (Neuro) [facility] Past Medical History Attestation statement: The following information was validated with the patient. Source: old records reviewed Social History Social History Alcohol intake: current Alcohol intake frequency: holidays/special occasions only Smoked in Last 30 Days: Yes Use of substances other than those prescribed or required for medical reasons: Yes Substance Use Type: Marijuana Advance Directives: No Advance Directives Information Provided: No Do you have a plan to hurt others: No Plan Physical Exam ED Vital Signs: Vital Signs - 24 hr 08/13/23 19:31 Temperature 98.1 F Pulse Rate 58 Respiratory Rate 19 Blood Pressure 170/75 H Pulse Oximetry 96 Oxygen Delivery Method Room Air BMI result Body Mass Index 35.4 Patient is afebrile and hemodynamically stable. Const General: cooperative and no acute distress Orientation/consciousness: patient oriented x3 HENMT Head: Yes normal to inspection and Yes atraumatic Eyes General: appearance normal, both eyes and all related structures Pupils: Equal, round and reactive pupils present EOM: EOMs intact bilaterally Neck Neck: Yes normal visual inspection, Yes full ROM, Yes supple and No tender Chest Chest palpation & inspection: normal inspection of the chest and normal palpation of entire chest wall Resp Effort & Inspection: normal respiratory effort, able to speak in complete sentences, no cough and no respiratory distress Auscultation: clear to auscultation bilaterally Cardio Rate: regular rate Rhythm: regular rhythm Peripheral pulses: Peripheral pulses 2+ throughout GI Inspection: Yes normal to inspection, No Abdominal wall edema and No distended Palpation (GI): Soft to palpation, not firm, nontender, no guarding and not rigid Auscultation: normal bowel sounds Back/Spine/Pelvis Other: Diffuse bilateral paraspinal tenderness without direct bony tenderness, step off or crepitus Neuro General: patient oriented x3 Cranial nerves: Yes CN's II-XII intact bilaterally and Yes Equal, round and reactive pupils present Gait exam (Neuro): Antalgic gait present Motor exam (neuro): 5/5 motor strength present throughout Sensory Exam: No Sensory deficit (Neuro) Coordination: [id number] test normal and [id number] test normal Course Course Course Narrative: Patient is afebrile and hemodynamically stable. Will attempt symptom control with lidoderm patch, tylenol, flexeril, and toradol. Reevaluation(s) Reevaluation #1: Patient reports no improvement in pain with above medications. Providing Valium 5mg PO and Oxycodone 10mg PO. Discussed providing patient with orthopedic referral and PCP referral. Reviewed patient's PDMP - patient has had one recent prescription for narcotics from 08/04/2023. Patient remains in extremis without clear followup. Discussed another one time prescription for short course narcotics. Patient voiced understanding and agreement. Patient then became agitated and chose to elope from the emergency department immediately after receiving Oxycodone and Valium. He ambulated out of the emergency department without difficulty and without assistance. Prescription for further narcotic pain medication - NOT sent to pharmacy. Medications Administered Discontinued Medications Generic Name Dose Route Start Last Admin Trade Name Freq PRN Reason Stop Dose Admin Acetaminophen 975 mg 08/13/23 19:22 08/13/23 19:43 Acetaminophen 325 Mg Tablet PO 08/13/23 19:23 975 mg ONCE ONE Administration Cyclobenzaprine HCl 10 mg 08/13/23 19:22 08/13/23 19:43 Cyclobenzaprine Hcl 10 Mg Tablet PO 08/13/23 19:23 10 mg ONCE ONE Administration Diazepam 5 mg 08/13/23 20:34 08/13/23 20:47 Diazepam 5 Mg Tablet PO 08/13/23 20:35 5 mg ONCE ONE Administration Ketorolac Tromethamine 15 mg 08/13/23 19:22 08/13/23 19:44 Ketorolac Tromethamine 15 Mg/Ml Vial IM 08/13/23 19:23 15 mg ONCE ONE Administration Lidocaine 1 patch 08/13/23 19:22 08/13/23 19:44 Lidocaine 4 % Patch Adh..Patch TRANSDERMA 08/13/23 19:23 1 patch ONCE ONE Administration Protocol Oxycodone HCl 10 mg 08/13/23 20:34 08/13/23 20:47 Oxycodone Hcl Immed Release 5 Mg Tablet PO 08/13/23 20:35 10 mg ONCE ONE Administration Discharge Plan Discharge Clinical Impression: Strain of lumbar region Patient Disposition: Elopement Instructions: Acute Low Back Pain (ED) Additional Instructions: Prescriptions: New lidocaine [Lidoderm] 5 % adhesive patch,medicated 1 patch topical DAILY 14 Days Qty: 15 0RF Rx Instructions: leave on most painful area for up to 12 hrs oxycodone 5 mg capsule 5 mg PO Q8H PRN (Reason: pain) 3 Days Qty: 9 0RF Rx Instructions: Partial Fill upon patient request. oxycodone 5 mg tablet 5 mg PO Q6H PRN (Reason: pain) Qty: 9 0RF Rx Instructions: Partial Fill upon patient request. No Action oseltamivir [Tamiflu] 75 mg capsule 75 mg PO BID 5 Days Qty: 10 0RF doxycycline monohydrate 100 mg capsule 100 mg PO BID Qty: 20 0RF benzonatate 200 mg capsule 200 mg PO TID PRN (Reason: cough) Qty: 15 0RF albuterol sulfate 90 mcg/actuation aerosol powdr breath activated 2 inh inhalation Q4H PRN (Reason: shortness of breath or wheezing) Qty: 1 0RF ketorolac 10 mg tablet 10 mg PO TID PRN (Reason: pain) 5 Days Qty: 15 0RF Paxlovid 300 mg (150 mg x 2)-100 mg tablets,dose pack See Rx Instructions .ROUTE .COMPLEX Qty: 30 0RF Rx Instructions: take TWO 150 mg tablets of nirmatrelvir with ONE 100 mg tablet of ritonavir twice daily for 5 days morphine 15 mg tablet extended release 15 mg PO Q8H Qty: 20 0RF Rx Instructions: Partial Fill upon patient request. cyclobenzaprine 10 mg tablet 10 mg PO Q8H Qty: 20 0RF Referrals: [facility] [Provider Group] - 2 days [facility] [place] [place]Provider Group] - 2 days Print Language: Bulgarian
[2023-08-13 19:31] VITALS: BP 170/75; PULSE 58; RESP 19; TEMP 36.7; O2SAT 96
[2023-08-13 19:32] VITALS: BMI 35.4
[2023-08-13] MEDS: Acetaminophen 325 MG TABLET 975 MG PO (19:43)
[2023-08-13] MEDS: Cyclobenzaprine HCl 10 MG TABLET PO (19:43)
[2023-08-13] MEDS: Lidocaine 4 % Patch ADH..PATCH 1 PATCH TRANSDERMA (19:44)
[2023-08-13] MEDS: Ketorolac Tromethamine 15 MG/ML VIAL IM (19:44)
[2023-08-13] MEDS: diazePAM 5 MG TABLET PO (20:47)
[2023-08-13] MEDS: oxyCODONE HCl Immed Release 5 MG TABLET 10 MG PO (20:47)
--- NOTE | 2023-08-13 21:03 | PC.NURSE ---
Patient left room and demanded to leave stating that he doesn't want to talk anymore and just wants to leave. Clinical Coordinator spoke with patient to understand what needs we can meet for patient and patient just continued to demand to leave. is with patient and will be driving him home at this time. Dr Damian aware of patient's departure.
--- NOTE | 2023-08-13 21:07 | PC.NURSE ---
I met with the pt who was wanting to leave. The patient stated he didnt want to talk anymore and just wants to go home. 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 Pt is alert and oriented using a cane to ambulate. is ok with taking him home. Pt was medicated prior to leaving and refusing to stay. Pt takes the same medications at home for his back pain.
[2023-08-13 21:20] VITALS: BP 0/0; PULSE 0; RESP 0; TEMP -17.7; TEMP 0; O2SAT 0
== END 2023-08-13 21:21 | disposition left against medical advice (07) ==
PROVIDERS: Emergency Provider Emergency Medicine
DX: S39.012A Strain of muscle, fascia and tendon of lower back, initial encounter (principal); M62.830 Muscle spasm of back; X58.XXXA Exposure to other specified factors, initial encounter; Y93.9 Activity, unspecified; Y92.89 Other specified places as the place of occurrence of the external cause; Y99.9 Unspecified external cause status; Z79.899 Other long term (current) drug therapy
CPT/HCPCS: 96372; 99284; J1885

== ENCOUNTER 2023-08-21 13:55 | Outpatient (AMB) | payer OTHER, SELFPAY ==
--- NOTE | 2023-08-21 13:58 | A.OFFVIS_ITS ---
Intake Visit Reasons: [employer]- acute back pain/ strain of back Intake Note: Sonu is a 48 year old male who presents to the office today for a new patient visit referred by [facility] for acute back pain/ strain of back. Pt states the back pain started 10 years ago. Pt states he has a Hx of degenerate disk, spinal stenosis, scoliosis, and sciatica. Pt states on 08/04/23 his back gave out without any known cause. Pt states the pain is a 4-10 on the pain scale and is constant. 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 Denied any injury. At some point, 10 years ago, told to have degenerative disc changes. Has had chiropractor and injections by Dr. Ishmael Barillas. Last was more than 5 years. He remembers the word facet , SI and possibly had epidural. Some lasted longer than others. Since then, daily back pain, 4/10. Usually across the back, mainly right side, down to knee. The last month, had two episodes that he had gone to ER, still same description. It is worst when seated or laying down. He can stand and walk. Chronic lower leg numbness due to ACL and leg fractures, so can't tell whether he has new numbness nowadays. Last MRI at [place] more than 5 years ago. At the ER, he was prescribed pain medications, muscle relaxers and Lidoderm patch. [facility] Social History Alcohol intake: current Alcohol intake frequency: holidays/special occasions only Substance Use Type: Marijuana Review of Systems Const All systems reviewed & are unremarkable except as noted in HPI and below Physical Exam Constitutional: Patient appears to be in no acute distress, well nourished and well developed. Patient was appropriately conversant and oriented. Good historian. MSK: No specific abnormalities found on inspection of the spine and all extremities. Tender right lumbar paraspinals and right SI joint. Lumbar ROM was full. Bilateral hip, knee and ankle ROM WNL. No ligamentous laxity or crepitance. No increased effusion. Straight-leg raising test positive right. FABERE test positive right. Strength is 5/5 in all muscle groups tested. No increased tone noted. Neurological: Neurologic examination of the upper and lower extremities was nonfocal with intact sensation, muscle stretch reflexes and without focal motor deficits . Siegel?s negative bilaterally. Babinski was down going bilaterally. Clonus was negative. Gait is non-antalgic without loss of balance. Results Reviewed Results Reviewed: I independently reviewed the results of the following: Reviewed lumbar x-rays done when patient went to the ER, showed decreased disc space L5-S1. Ordering Physician: Generic ED Physician Date of Service: 08/04/23 Procedure(s): XR lumbar spine 2-3V Accession Number(s): [id number] cc: Generic ED Physician; Physician,None ~ EXAMINATION: XR LUMBOSACRAL SPINE CLINICAL INFORMATION: Back pain COMPARISON: None available. TECHNIQUE: Three views of the lumbosacral spine. FINDINGS: Mild retrolisthesis of L5 on S1. The sagittal alignment otherwise maintained. Vertebral body heights are maintained. No evidence of acute fracture. Moderate to-severe L5-S1 disc space narrowing. Facet degeneration at L5-S1. Sclerotic focus in the L4 vertebral body, nonspecific, could represent a bone island. Vascular calcification present. SI joints are intact. No acute pelvic fractures seen. Nonobstructive bowel gas pattern. XR/XR lumbar spine 2-3V IMPRESSION: Moderate-severe L5-S1 disc degeneration. No radiographic evidence of acute fracture. I reviewed records from the following: ER notes 08/12 and 08/03 Assessment & Plan Assessment & Plan (1) Lumbar disc herniation: Code(s): M51.26 - Other intervertebral disc displacement, lumbar region Category: Medical (2) Lumbar radiculitis: Code(s): M54.16 - Radiculopathy, lumbar region Category: Medical Plan Acute on chronic right-sided pain, most likely a disc herniation L5-S1 versus sacroiliac joint dysfunction. Lumbar x-rays did show decreased disc space at L5-S1. Referring patient to physical therapy. It is reasonable to obtain further imaging such as lumbar MRI to rule out disc herniation. Assessment and plan discussed with patient, and patient was agreeable. All questions were answered thoroughly. Sushma Aguilera MD, GRIFFIN Board Certified, [place] Board [employer] and Rehabilitation (ABPMR) Board Certified, [place] Board [employer] Electrodiagnostic Medicine (ABEM) Orders: Orders MR lumbar spine wo con Today M51.26 - Other intervertebral disc displacement, lumbar region, M54.16 - Radiculopathy, lumbar region PT Evaluation and Treatment Today M51.26 - Other intervertebral disc displace ment, lumbar region, M54.16 - Radiculopathy, lumbar region Medications: Discontinued doxycycline monohydrate Discontinued Reason: Patient no longer taking 100 mg PO BID 20 caps 0RF benzonatate Discontinued Reason: Patient no longer taking 200 mg PO TID PRN 15 caps 0RF cough oseltamivir (Tamiflu) Discontinued Reason: Patient no longer taking 75 mg PO BID 5 days 10 caps 0RF oxycodone Partial Fill upon patient request. Discontinued Reason: Patient no longer taking 5 mg PO Q8H 3 days PRN 9 caps 0RF pain ketorolac Discontinued Reason: Patient no longer taking 10 mg PO TID 5 days PRN 15 tabs 0RF pain nirmatrelvir-ritonavir 300 mg (150 mg x 2)-100 mg (Paxlovid) Discontinued Reason: Patient no longer taking take TWO 150 mg tablets of nirmatrelvir with ONE 100 mg tablet of ritonavir twice daily for 5 days 30 ea 0RF cyclobenzaprine Discontinued Reason: Patient no longer taking 10 mg PO Q8H 20 tabs 0RF morphine ER Partial Fill upon patient request. Discontinued Reason: Patient no longer taking 15 mg PO Q8H 20 tabs 0RF oxycodone Partial Fill upon patient request. Discontinued Reason: Patient no longer taking 5 mg PO Q6H PRN 9 tabs 0RF pain Coding Level of Care Code New Pt Level 4 (88973) Diagnoses Lumbar disc herniation M51.26 Lumbar radiculitis M54.16
== END 2023-08-21 14:23 | disposition home or self-care (01) ==
PROVIDERS: Visit Provider Physical Medicine & Rehabilitation
DX: M51.26 Other intervertebral disc displacement, lumbar region (principal); M54.16 Radiculopathy, lumbar region
CPT/HCPCS: 99204

== ENCOUNTER → 2023-08-21 13:55 | Outpatient (BNVA) | payer OTHER, SELFPAY | PROVIDERS: Visit Provider Physical Medicine & Rehabilitation ==

== ENCOUNTER 2023-09-05 13:11 | Outpatient (REF) | payer OTHER, SELFPAY ==
--- NOTE | ~2023-09-05 | MR_ITS ---
EXAMINATION: MR LUMBAR SPINE WITHOUT CONTRAST CLINICAL INFORMATION: Radiculopathy, concern for disc herniation at L5-S1 COMPARISON: None TECHNIQUE: MRI of the lumbar spine was obtained using routine sequences without contrast. FINDINGS: Limited examination due to patient discomfort. No axial T1-weighted sequence was performed. Additionally, the sagittal STIR sequence is significantly motion degraded. Normal lumbar lordosis is preserved. Grade 1 retrolisthesis at L5-S1. Vertebral body heights are maintained. There is no suspicious osseous lesion. Disc desiccation and moderate to severe disc height loss at L5-S1 and mild disc height loss at L4-L5. Type II Modic endplate changes and opposing endplate Schmorl's nodes at L5-S1. Level by level detail as follows: L1-L2: No spinal canal or neural foraminal stenosis. L2-L3: No spinal canal or neural foraminal stenosis. L3-L4: Trace disc bulge with small left foraminal disc protrusion and mild facet arthrosis. No spinal canal stenosis. Minimal left without significant right neural foraminal encroachment. L4-L5: Disc bulge with right central/subarticular disc extrusion with associated annular fissure and superiorly migrated right subarticular/foraminal component encroaching upon the exiting right L4 nerve root. Mild to moderate facet arthrosis. Mild to moderate right eccentric spinal canal stenosis with right subarticular zone narrowing and compression of the traversing right L5 nerve root. No neural foraminal stenosis. L5-S1: Excluded from the [id number] in the axial plane, precluding diagnostic assessment of the spinal canal and subarticular zones. In the sagittal plane, there is a disc osteophyte complex with inferiorly migrated right subarticular disc extrusion and associated annular fissure. Mild to moderate bilateral neural foraminal stenosis with contact along the exiting L5 nerve roots. The conus medullaris terminates at the level of L1. The distal spinal cord is normal in appearance. No epidural fluid collection, hematoma, or mass. No significant abnormalities of the paraspinal musculature. Exophytic posterior right midpole renal cyst with fluid-fluid level containing dependent T2 hypointense hemorrhagic versus proteinaceous contents. The abdominal aorta is of normal contour and caliber. MR/MR lumbar spine wo con IMPRESSION: 1. Limited examination due to patient discomfort. No axial T1-weighted sequence was performed. Additionally, the sagittal STIR sequence is significantly motion degraded. The axial T2-weighted sequence does not include the L5-S1 disc space within the field of view, precluding assessment of the spinal canal and subarticular zones. 2. At L4-L5, there is a right central/subarticular disc extrusion with associated annular fissure and superiorly migrated right subarticular/foraminal component encoraching upon the exiting right L4 nerve root. Mild to moderate right eccentric spinal canal stenosis with right subarticular zone narrowing and compression of the traversing right L5 nerve root. 3. At L5-S1, there is a disc osteophyte complex with inferiorly migrated right subarticular disc extrusion and associated annular fissure. Mild to moderate bilateral neural foraminal stenosis with contact along the exiting L5 nerve roots. 4. Exophytic posterior right midpole renal cyst with air-fluid level containing dependent T2 hypointense hemorrhagic versus proteinaceous contents. Electronically signed by: Claudia Pearson MD 10/04/2023 07:42 PM EDT
== END 2023-09-05 13:12 | disposition home or self-care (01) ==
LOC: HO.MRI 13:11
PROVIDERS: PCP Student in an Organized Health Care Education/Training Program; Visit Provider Physical Medicine & Rehabilitation
DX: M54.16 Radiculopathy, lumbar region (principal); M51.26 Other intervertebral disc displacement, lumbar region
CPT/HCPCS: 72148

== ENCOUNTER 2023-09-24 13:00 | Outpatient (RCR) | payer OTHER, SELFPAY ==
--- NOTE | 2023-09-08 13:46 | MHC.PT.EP ---
[facility] [place] Office [place] Office [place] Office [address] Jose De Jesus Nunez [address] [phone] F: [phone] F: [phone] F: [phone] F: [phone] Physical Therapy Plan of Care Date of Evaluation: 09/08/23 Date of Surgery: Diagnosis: lumbar radiculitis, lumbar disc herniation Assessment: Patient is a 48 year old R handed male who presents with s/s consistent with lumbar radicululitis, lumbar disc herniation. He is disabled and not currently working. Patient past medical history includes chronic LBP and ACL surgery. Current impairments include pain, posture, ROM, strength, flexibility, activity tolerance and functional mobility. Functional limitations include decreased ability to walk, stand, transfer, lift, push, pull, squat, turn and sleep. Patient is motivated with good rehab potential. Skilled PT will address impairments and functional limitations in order to achieve goals. Frequency and Duration: The patient will be seen 2x/week for 5 weeks Short Term Goals: I with HEP - 3 weeks Demo proper transfer and lift mechanics for knee to waist - 3 weeks HS 90/90 lacking < 30 each - 3 weeks Alf Goals: Max pain with ADLs /10 - 5 weeks Oswestry 16% or better - 5 weeks 90/90 lacking 25 or better - 5 weeks Treatment Plan: Modalities to reduce pain, spasms and effusion. Manual therapy to restore motion and function. Therapeutic exercise to improve strength and flexibility. Neuromuscular re-education for posture and balance. Therapeutic activities to return to functional activities of daily living. Electronically signed by: Doug Pena, PT Please sign and return to therapist. Thank you for your referral.
--- NOTE | 2023-11-19 13:45 | MHC.PT.DC ---
[facility] [place] Office [place] Office [place] Office [address] Jose De Jesus Nunez [address] [phone] F: [phone] F: [phone] F: [phone] F: [phone] Physical Therapy Discharge Report Diagnosis: lumbar radiculitis, lumbar disc herniation Date of Surgery: Date of Evaluation: 09/08/23 Date of Discharge: 09/20/23 Treatments to Date: 2 Cancellations to Date: No Shows to Date: Discharge Status: Patient Elected to Stop Discharge Summary: 09/16/23: pt MRI still not yet read. we did start with stretching and gentle neutral spine strength. no adverse reactions. Patient is a 48 year old R handed male who presents with s/s consistent with lumbar radiculitis, lumbar disc herniation. He is disabled and not currently working. Patient past medical history includes chronic LBP and ACL surgery. Current impairments include pain, posture, ROM, strength, flexibility, activity tolerance and functional mobility. Functional limitations include decreased ability to walk, stand, transfer, lift, push, pull, squat, turn and sleep. Patient is motivated with good rehab potential. Skilled PT will address impairments and functional limitations in order to achieve goals. Electronically signed by: Doug Pena, PT Please sign and return to therapist. Thank you for your referral.
== END 2023-11-19 13:45 | disposition home or self-care (01) ==
LOC: HO.PTCHIC 13:00
PROVIDERS: PCP Student in an Organized Health Care Education/Training Program; Visit Provider Physical Medicine & Rehabilitation
DX: M54.16 Radiculopathy, lumbar region (principal); M51.26 Other intervertebral disc displacement, lumbar region
CPT/HCPCS: 97110; 97162

== ENCOUNTER 2023-10-14 11:33 | Outpatient (AMB) | payer OTHER, SELFPAY ==
--- NOTE | 2023-10-14 11:42 | MHC.OFFVIS ---
Intake Visit Reasons: OV- Lower back MRI review Intake Note: Sonu is a 48 year old male who presents today for review of his lumbar spine MRI done on 09/05/23. Patient reports his pain has improved however it is still present daily. Prolonged walking, sitting, standing, or laying exacerbates his symptoms, he expresses it is more of a pulling feeling versus pain. He has a couple sessions of PT but noticed his lower back/hip to his bilateral knees started going numb and feeling heavy after PT and this lasted for a few days after his visits. He wants to review his MRI and make sure he has clearance before continuing PT or what the next course of treatment is. 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 Denied any injury. At some point, 10 years ago, told to have degenerative disc changes. Has had chiropractor and injections by Dr. Ishmael Barillas. Last was more than 5 years. He remembers the word facet , SI and possibly had epidural. Some lasted longer than others. Since then, daily back pain, 4/10. Usually across the back, mainly right side, down to knee. The last month, had two episodes that he had gone to ER, still same description. It is worst when seated or laying down. He can stand and walk. Chronic lower leg numbness due to ACL and leg fractures, so can't tell whether he has new numbness nowadays. Last MRI at [place] more than 5 years ago. At the ER, he was prescribed pain medications, muscle relaxers and Lidoderm patch. Here for MRI review. PT has been helping a bit. Numbness both sides and legs feel very heavy with walking, [address] Will stay that way up to an hour even if he sits down. [facility] Social History Alcohol intake: current Alcohol intake frequency: holidays/special occasions only Substance Use Type: Marijuana Physical Exam Constitutional: Patient appears to be in no acute distress, well nourished and well developed. Patient was appropriately conversant and oriented. Good historian. MSK: No specific abnormalities found on inspection of the spine and all extremities. Tender right lumbar paraspinals and right SI joint. Lumbar ROM was full. Bilateral hip, knee and ankle ROM WNL. No ligamentous laxity or crepitance. No increased effusion. Straight-leg raising test positive right. FABERE test positive right. Strength is 5/5 in all muscle groups tested. No increased tone noted. Neurological: Neurologic examination of the upper and lower extremities was nonfocal with intact sensation, muscle stretch reflexes and without focal motor deficits . Siegel?s negative bilaterally. Gait is non-antalgic without loss of balance. Results Reviewed Results Reviewed: Reviewed MRI images with patient. Right L4-5 and L5-S1 discs were flat with bulging. Right L4-5 shows right sided disc herniation. Ordering Physician: Sushma Escobar Date of Service: 09/05/23 Procedure(s): MR lumbar spine wo con Accession Number(s): [id number] cc: Antonette Padilla MD; Sushma Escobar~ EXAMINATION: MR LUMBAR SPINE WITHOUT CONTRAST CLINICAL INFORMATION: Radiculopathy, concern for disc herniation at L5-S1 COMPARISON: None TECHNIQUE: MRI of the lumbar spine was obtained using routine sequences without contrast. FINDINGS: Limited examination due to patient discomfort. No axial T1-weighted sequence was performed. Additionally, the sagittal STIR sequence is significantly motion degraded. Normal lumbar lordosis is preserved. Grade 1 retrolisthesis at L5-S1. Vertebral body heights are maintained. There is no suspicious osseous lesion. Disc desiccation and moderate to severe disc height loss at L5-S1 and mild disc height loss at L4-L5. Type II Modic endplate changes and opposing endplate Schmorl's nodes at L5-S1. Level by level detail as follows: L1-L2: No spinal canal or neural foraminal stenosis. L2-L3: No spinal canal or neural foraminal stenosis. L3-L4: Trace disc bulge with small left foraminal disc protrusion and mild facet arthrosis. No spinal canal stenosis. Minimal left without significant right neural foraminal encroachment. L4-L5: Disc bulge with right central/subarticular disc extrusion with associated annular fissure and superiorly migrated right subarticular/foraminal component encroaching upon the exiting right L4 nerve root. Mild to moderate facet arthrosis. Mild to moderate right eccentric spinal canal stenosis with right subarticular zone narrowing and compression of the traversing right L5 nerve root. No neural foraminal stenosis. L5-S1: Excluded from the [id number] in the axial plane, precluding diagnostic assessment of the spinal canal and subarticular zones. In the sagittal plane, there is a disc osteophyte complex with inferiorly migrated right subarticular disc extrusion and associated annular fissure. Mild to moderate bilateral neural foraminal stenosis with contact along the exiting L5 nerve roots. The conus medullaris terminates at the level of L1. The distal spinal cord is normal in appearance. No epidural fluid collection, hematoma, or mass. No significant abnormalities of the paraspinal musculature. Exophytic posterior right midpole renal cyst with fluid-fluid level containing dependent T2 hypointense hemorrhagic versus proteinaceous contents. The abdominal aorta is of normal contour and caliber. MR/MR lumbar spine wo con IMPRESSION: 1. Limited examination due to patient discomfort. No axial T1-weighted sequence was performed. Additionally, the sagittal STIR sequence is significantly motion degraded. The axial T2-weighted sequence does not include the L5-S1 disc space within the field of view, precluding assessment of the spinal canal and subarticular zones. 2. At L4-L5, there is a right central/subarticular disc extrusion with associated annular fissure and superiorly migrated right subarticular/foraminal component encoraching upon the exiting right L4 nerve root. Mild to moderate right eccentric spinal canal stenosis with right subarticular zone narrowing and compression of the traversing right L5 nerve root. 3. At L5-S1, there is a disc osteophyte complex with inferiorly migrated right subarticular disc extrusion and associated annular fissure. Mild to moderate bilateral neural foraminal stenosis with contact along the exiting L5 nerve roots. 4. Exophytic posterior right midpole renal cyst with air-fluid level containing dependent T2 hypointense hemorrhagic versus proteinaceous contents. Electronically signed by: Claudia Pearson MD 10/04/2023 07:42 PM EDT RP Assessment & Plan Assessment & Plan (1) Lumbar radiculitis: Code(s): M54.16 - Radiculopathy, lumbar region Category: Medical (2) Lumbar disc herniation: Code(s): M51.26 - Other intervertebral disc displacement, lumbar region Category: Medical Plan Acute on chronic right-sided pain, with MRI showing right sided extruded disc L4-5. PT has helped a bit but not completely. He has undergone series of injections under Dr. Barillas in the last 10 years. At this point, it may be best to get opinion from neurosurgery. Referring to Dr. Falcon. May continue PT for now. Incidental finding of kidney cyst. Discussed with patient. He is in the process of getting a new PCP. Assessment and plan discussed with patient, and patient was agreeable. All questions were answered thoroughly. Sushma Aguilera MD, GRIFFIN Board Certified, [place] [employer] Medicine and Rehabilitation (ABPMR) Board Certified, [place] Board [employer] Electrodiagnostic Medicine (ABEM) Orders: Referrals Neurosurgery Referral M51.26 - Other intervertebral disc displacement, lumbar region, M54.16 - Radiculopathy, lumbar region Coding Level of Care Code Est Pt Level 4 (91683) Diagnoses Lumbar radiculitis M54.16 Lumbar disc herniation M51.26
== END 2023-10-14 12:13 | disposition home or self-care (01) ==
PROVIDERS: PCP Student in an Organized Health Care Education/Training Program; Visit Provider Physical Medicine & Rehabilitation
DX: M54.16 Radiculopathy, lumbar region (principal); M51.26 Other intervertebral disc displacement, lumbar region
CPT/HCPCS: 99213

== ENCOUNTER → 2023-10-14 11:33 | Outpatient (BNVA) | payer OTHER, SELFPAY | PROVIDERS: PCP Student in an Organized Health Care Education/Training Program; Visit Provider Physical Medicine & Rehabilitation ==

== ENCOUNTER 2023-10-19 10:35 | Outpatient (AMB) | payer OTHER, SELFPAY ==
--- NOTE | 2023-10-19 11:10 | A.SPINEOV_ITS ---
Intake Visit Reasons: Back pain Intake Note: Mr. Castillo is here today c/o back pain. 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 Allergies azithromycin [AZITHROMYCIN] Allergy (Severe, Verified 10/19/23 11:10) TACHYCARDIA/HIVES penicillin V Allergy (Unknown, Verified 10/19/23 11:10) Anaphylaxis Penicillins [PCN] Allergy (Unknown, Verified 10/19/23 11:10) THROAT CLOSES From NOVOCAIN Allergy (Unknown, Uncoded 10/14/23 11:47) INCEASED SEVERE MIGRAINES SEASONAL ALLERGIES Allergy (Unknown, Uncoded 10/14/23 11:47) RHINITIS Assessment & Plan Assessment & Plan (1) Lumbago: Code(s): M54.50 - Low back pain, unspecified Category: Medical Plan Sonu is a pleasant 48-year-old male who comes to our office in follow-up after being evaluated in the emergency department for exacerbation of his severe low back pain. He reports that he has had low back pain since he was 20 years old. He identifies an inciting incident of a severe lateral rotation injury while at work. 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 Since then he has intermittently suffered from low back pain. He has been to physical therapy several times and found that it only worsens his pain. He has been to the chiropractor and felt it was not helpful. He has had cortisone injections by Dr. Barillas which he did find were helpful for a period of time, however they gradually decreased ineffectiveness. At 1st he was getting 1-2 months of relief, then it was only a couple of weeks of relief, and most recently he only got a few days/hours of relief. He does report that the injections were at L4-5, L5-S1. He states that he had nearly complete relief of pain when they did work. He is currently utilizing Advil, Tylenol, and daily cannabis in order to help mitigate his pain. He denies any alleviating/a ggravating factors. He denies any shooting radicular symptoms down either leg. He denies any numbness/tingling/weakness. PMH: Bilateral tibia ORIF secondary to sports injury. Left-sided ACL repair. Chronic migraines, asthma, allergic rhinitis. Social hx: Patient smokes 1-2 packs of cigarettes per day. Uses cannabis daily. Denies any other substance use. Medications: Zolmitriptan, lidocaine patches, Advil, Tylenol. Allergies: Azithromycin, penicillin. Physical exam: The patient has 5/5 strength in his upper and lower extremities. His reflexes are 2+ intact. He has no significant sensational deficits. He is able to ambulate well and rises from a seated position without difficulty, however does elicit pain when doing so. (-) bilateral straight leg raise, (-) clonus, (-) Siegel's. Imaging review: MRI of the lumbar spine completed here at [facility] on 09/05/2023 shows severe degenerative disc disease at L4-5 and L5-S1, with greater than 50-75% estimated total disc height reduction. There is posterior disc bulging at both levels, causing effacement of the right-sided L5 nerve root at L4-5. L5-S1 can not be assessed on the axial view is the patient could no longer tolerate the MRI. There are type 2 degenerative Modic endplate changes noted at the superior endplate of S1. There is quite a bit of edema at the inferior endplate of L5. There is also notable facet hypertrophy at L4-5. Impression: Sonu is a pleasant 48-year-old male who comes in today as a follow-up visit from the emergency department. He complains of severe axial low back pain. He denies any radicular symptoms. He denies any sensational deficits or radiculopathy. This is been ongoing for many years, he is failed multiple rounds of different types of conservative treatment including physical therapy, injections, and medication management. He is at the point where he would like something done for his severe pain. The severe degeneration seen at L5-S1 is typically something that Dr. Falcon would treat with lumbar fusion. The question is whether or not L4-5 should also be addressed. I would like to rule out the possibility of instability at L4-5 given the degeneration seen there with subsequent facet hypertrophy indicative of micro instability/movement noted at this level. I will send the patient for a set of dynamic lumbar spine x-rays in review this case with Dr. Falcon. I will call the patient update him after we are able to review this. Thank you for allowing us to care for your patient. The total time spent with this visit with this patient was 45 minutes reviewing history, physical exam, MRI imaging review, and implementation of treatment plan or further diagnostic testing Jayesh Falcon MD,PhD [facility] Orders: Orders XR lumbar spine 4V min Today M54.50 - Low back pain, unspecified Coding Level of Care Code New Pt Level 4 (92682) Diagnoses Lumbago M54.50
== END 2023-10-19 11:38 | disposition home or self-care (01) ==
PROVIDERS: PCP Student in an Organized Health Care Education/Training Program; Referring Provider Physical Medicine & Rehabilitation; Visit Provider Physician Assistant
DX: M54.50 Low back pain, unspecified (principal)
CPT/HCPCS: 99204

== ENCOUNTER 2023-10-19 10:35 | Outpatient (REF) | payer OTHER, SELFPAY ==
--- NOTE | ~2023-10-19 | XR_ITS ---
EXAMINATION: Lumbosacral spine series CLINICAL INFORMATION: Low back pain COMPARISON: MRI lumbosacral spine August 2023. X-ray lumbosacral spine July 2023. TECHNIQUE: 5 views lumbosacral spine including flexion and extension views FINDINGS: Vertebral bodies normally aligned with normal height. Mild disc space narrowing at the L4-L5 level indicative of mild degenerative disc disease unchanged. Prominent disc space narrowing and endplate osteophytes at the L5-S1 level indicative of advanced degenerative disc disease unchanged. Remaining disc levels normal. Facets normal. No abnormal translation with flexion and extension. Surrounding bones and soft tissues unremarkable. XR/XR lumbar spine 4V min IMPRESSION: Spondylosis of lumbosacral spine with degenerative disc disease most prominent at the L5-S1 level unchanged. Electronically signed by: Jace Gomez MD 11/04/2023 07:02 AM EDT
== END 2023-10-19 10:36 | disposition home or self-care (01) ==
LOC: HO.HOSX 10:35
PROVIDERS: PCP Student in an Organized Health Care Education/Training Program; Visit Provider Physician Assistant
DX: M54.50 Low back pain, unspecified (principal); M51.37 Other intervertebral disc degeneration, lumbosacral region; M47.817 Spondylosis without myelopathy or radiculopathy, lumbosacral region
CPT/HCPCS: 72110

== ENCOUNTER → 2023-11-25 12:18 | Outpatient (BNV) | payer OTHER, SELFPAY | PROVIDERS: Admitting Provider Neurological Surgery; PCP Student in an Organized Health Care Education/Training Program; Visit Provider Internal Medicine | DX: R00.1 Bradycardia, unspecified (principal) | CPT/HCPCS: 93010 ==

== ENCOUNTER 2023-12-08 08:12 | Inpatient (IN) | payer OTHER, SELFPAY ==
--- NOTE | 2023-11-25 | ECG_ITS ---
Test Reason : PREOP Blood Pressure : / mmHG Vent. Rate : 058 BPM Atrial Rate : 058 BPM P-R Int : 162 ms QRS Dur : 084 ms QT Int : 408 ms P-R-T Axes : 064 021 059 degrees QTc Int : 400 ms Sinus bradycardia Otherwise normal ECG When compared with ECG of 10-FEB-2022 13:23, Vent. rate has decreased BY 31 BPM Referred By: Kacie Martines Electronically Signed By:GRACY NAQVI
[2023-11-25 11:42] VITALS: BP 167/88; PULSE 72; RESP 16; O2SAT 96; BMI 36.3
--- NOTE | 2023-11-25 12:02 | P.CONAN_ITS ---
Documented by User: Kacie Martines NP 12/07/23 08:51 HPI - Anesthesia Eval Consult details Narrative: 48yo M for L4-5,L5-S1 Oblique Lumbar Interbody Fusion, 12/08/23 No recent illness No CP/SOB with walking Reports vague generalized pain from ADHD Occassional SOB with back/LE pain Asthma as child Smoker daily, cigs and marijuana, rare ETOH Migraines cause aura-like seizure - last 6 months ago Daily headache Has not seen PCP since ~y2020 [facility] Active Problems Active Problems: All Active Problems Lumbago (Acute) Lumbar radiculitis (Acute) Lumbar disc herniation (Acute) COVID-19 virus infection (Acute) Past Medical History Medical History (Updated 11/25/23 @ 12:07 by Milana Messina RN) COVID-19 Allergic rhinitis Asthma Current tobacco use Scoliosis DJD (degenerative joint disease) Spinal stenosis Heartburn Concussion History of traumatic head injury Depression Numbness Cough SOB (shortness of breath) Wheezing Bronchitis History of marijuana use Kidney cysts ADHD Seizures Basilar artery migraine Migraine Family History Family history of problems with anesthesia: No Surgical History Surgical History History of repair of anterior cruciate ligament of left knee Hx of knee surgery History of Problems with Anesthesia: No Social History Social History Are you a primary day care director to a significant other at home: No Do you presently have visiting nurse or other home services: No Alcohol intake: current Alcohol intake frequency: holidays/special occasions o nly Patient Tobacco Use Status: Current everyday Tobacco user Tobacco use type: Cigarette Cigarette Packs Per Day: 1.5 Cigarettes Per Day: 30.0 Use of substances other than those prescribed or required for medical reasons: Yes Substance Use Type: Marijuana Substance Use Frequency: Daily Have you been hit, kicked, punched, or otherwise hurt by someone within the past year? If so, by whom?: No Are you DNR?: No Advance Directives: No Advance Directives Information Provided: No Advance Directives on File: No Recently lost weight without trying: No Eating poorly because of decreased appetite: No Nutrition Risks: No Nutritional Risk Poor oral hygiene: Yes (missing teeth upper and lower, lower post) Meds Allergies Allergy/AdvReac Type Severity Reaction Status Date / Time azithromycin [AZITHROMYCIN] Allergy Severe TACHYCARDIA Verified 12/08/23 07:52 /HIVES penicillin V Allergy Unknown Anaphylaxis Verified 12/08/23 07:52 Penicillins [PCN] Allergy Unknown THROAT Verified 12/08/23 07:52 CLOSES From NOVOCAIN Allergy Unknown INCEASED Uncoded 10/14/23 11:47 SEVERE MIGRAINES SEASONAL ALLERGIES Allergy Unknown RHINITIS Uncoded 10/14/23 11:47 Home Medications ?Medication ?Instructions ?Recorded ?Confirmed ?Last Taken ?Type zolmitriptan 5 mg nasal spray 1 spray intranasal Q2H PRN Headache 10/14/23 12/08/23 Unknown History (Zomig) ibuprofen 125 mg-acetaminophen 250 2 tab PO Q8H PRN Pain 11/25/23 12/08/23 12/03/23 History mg tablet (Dual Action Pain Reliever) Exam Height,Weight and Vital Signs: Height 5 ft 10 in Weight 114.759 kg Last Vital Signs Pulse 72 11/25/23 11:42 Resp 16 11/25/23 11:42 BP 167/88 H 11/25/23 11:42 Pulse Ox 96 11/25/23 11:42 O2 Del Method Room Air 11/25/23 11:42 Pertinent Lab Results Pertinent Lab Results: Lab Results 11/25/23 Range/Units 12:50 WBC 11.7 H (4.8-10.8) X10*3/uL RBC 5.07 (4.60-5.80) X10*6/uL Hgb 14.7 (14.0-18.0) g/dl Hct 43.9 (42.0-52.0) % MCV 86.6 (80.0-98.0) fL MCH 29.0 (27.0-33.0) pg MCHC 33.5 (31.0-36.0) g/dl RDW 14.3 (11.0-16.0) % Plt Count 347 (160-400) X10*3/uL MPV 9.7 (9.4-12.4) fL Absolute Nucleated RBC 0.000 (0.0-0.012) X10*3/uL Nucleated RBC % (auto) 0.0 (0.0-0.2) /100WBC Sodium 139 (135-145) mmol/L Potassium 4.0 (3.3-5.1) mmol/L Chloride 105 (96-108) mmol/L Carbon Dioxide 26 (22-29) mmol/L Anion Gap 12 (12-20) BUN 11 (9-16) mg/dL Creatinine 0.93 (0.5-1.4) mg/dL Estim Creat Clear Calc 124.5 Estimated GFR > 60 Random Glucose 106 (60-115) mg/dL Estimat Average Glucose 117 mg/dL Hemoglobin A1c % 5.7 (<6.0) % Calcium 9.6 (8.4-10.2) mg/dL Total Bilirubin 0.2 (0.0-1.0) mg/dL AST 17 (5-37) U/L ALT 28 (0-40) U/L Alkaline Phosphatase 104 (39-117) U/L Total Protein 7.1 (6.5-8.0) g/dL Albumin 4.2 (3.5-5.0) g/dL Blood Type O Positive Antibody Screen NEGATIVE Narrative Narrative: EKG 11/2023 Vent. Rate : 058 BPM Atrial Rate : 058 BPM P-R Int : 162 ms QRS Dur : 084 ms QT Int : 408 ms P-R-T Axes : 064 021 059 degrees QTc Int : 400 ms Sinus bradycardia Otherwise normal ECG When compared with ECG of 10-FEB-2022 13:23, Vent. rate has decreased BY 31 BPM Airway Mallampati Class: I TM Dist: >3cm Neck ROM: Full Loose/Missing/Broken Teeth: Yes (No top teeth. bottom teeth poor condition, pt states broken, but not loose) Heart: RRR Lungs: CTAB Assessment and Plan Assessment Anesthesia Assessment: Anesthesia Plan Discussed, Smoking Cess. Discussed and PAT Visit Final Anesthetic Review Family History of Problems with Anesthesia: No History of Problems with Anesthesia: No Documented by User: Donell Terrell MD 12/08/23 16:27 [facility] Past Medical History Medical History (Updated 11/25/23 @ 12:07 by Milana Messina RN) COVID-19 Allergic rhinitis Asthma Current tobacco use Scoliosis DJD (degenerative joint disease) Spinal stenosis Heartburn Concussion History of traumatic head injury Depression Numbness Cough SOB (shortness of breath) Wheezing Bronchitis History of marijuana use Kidney cysts ADHD Seizures Basilar artery migraine Migraine Surgical History Surgical History History of repair of anterior cruciate ligament of left knee Hx of knee surgery Social History Social History Are you a primary day care director to a significant other at home: No Do you presently have visiting nurse or other home services: No Alcohol intake: current Alcohol intake frequency: holidays/special occasions only Patient Tobacco Use Status: Current everyday Tobacco user Tobacco use type: Cigarette Cigarette Packs Per Day: 1.5 Cigarettes Per Day: 30.0 Use of substances other than those prescribed or required for medical reasons: Yes Substance Use Type: Marijuana Substance Use Frequency: Daily Have you been hit, kicked, punched, or otherwise hurt by someone within the past year? If so, by whom?: No Are you DNR?: No Advance Directives: No Advance Directives Information Provided: No Advance Directives on File: No Recently lost weight without trying: No Eating poorly because of decreased appetite: No Nutrition Risks: No Nutritional Risk Poor oral hygiene: Yes (missing teeth upper and lower, lower post) Meds Allergies Allergy/AdvReac Type Severity Reaction Status Date / Time azithromycin [AZITHROMYCIN] Allergy Severe TACHYCARDIA Verified 12/08/23 07:52 /HIVES penicillin V Allergy Unknown Anaphylaxis Verified 12/08/23 07:52 Penicillins [PCN] Allergy Unknown THROAT Verified 12/08/23 07:52 CLOSES From NOVOCAIN Allergy Unknown INCEASED Uncoded 10/14/23 11:47 SEVERE MIGRAINES SEASONAL ALLERGIES Allergy Unknown RHINITIS Uncoded 10/14/23 11:47 Home Medications ?Medication ?Instructions ?Recorded ?Confirmed ?Last Taken ?Type zolmitriptan 5 mg nasal spray 1 spray intranasal Q2H PRN Headache 10/14/23 12/08/23 Unknown History (Zomig) ibuprofen 125 mg-acetaminophen 250 2 tab PO Q8H PRN Pain 11/25/23 12/08/23 12/03/23 History mg tablet (Dual Action Pain Reliever) Assessment and Plan Final Anesthetic Review NPO: Yes ASA Class: III Final Preanesthetic Review: No Changes in Pt Med Stat, Meds/Allgs Chart Reviewed, Consent Obtained/Reviewed and Anes Risks/Benef Reviewed Patient Risk: Intermediate Procedure Risk: Low Anesthetic Plan Anesthetic Plan: GA Disposition: Standard PACU
[2023-11-25 13:45] LABS: Hematocrit 43.9 % (42.0-52.0); Hemoglobin 14.7 g/dl (14.0-18.0); Mean Corpuscular HGB Conc 33.5 g/dl (31.0-36.0); Mean Corpuscular Volume 86.6 fL (80.0-98.0); Mean Platelet Volume 9.7 fL (9.4-12.4); Platelet Count 347 X10*3/uL (160-400); Red Blood Count 5.07 X10*6/uL (4.60-5.80); Red Cell Distribution Width 14.3 % (11.0-16.0); White Blood Count 11.7 X10*3/uL (4.8-10.8)
[2023-11-25 14:01] LABS: Estimated Average Glucose 117 mg/dL; Hemoglobin A1C 147.2099 umol/L; Hemoglobin A1c % 5.7 % (<6.0)
[2023-11-25 14:30] LABS: Alanine Aminotransferase 28 U/L (0-40); Albumin Level 4.2 g/dL (3.5-5.0); Alkaline Phosphatase 104 U/L (39-117); Anion Gap 12 (12-20); Aspartate Amino Transferase 17 U/L (5-37); Bilirubin Total 0.2 mg/dL (0.0-1.0); Blood Urea Nitrogen 11 mg/dL (9-16); Calcium 9.6 mg/dL (8.4-10.2); Carbon Dioxide 26 mmol/L (22-29); Chloride 105 mmol/L (96-108); Creatinine Clr Calc Pharmacy 124.5; Estimated Glomerular Filt Rate > 60; Glucose Random 106 mg/dL (60-115); Sodium 139 mmol/L (135-145); Total Protein 7.1 g/dL (6.5-8.0)
[2023-12-08] VITALS (13 sets, daily range): BP systolic 157–196; BP diastolic 91–108; PULSE 60–89; RESP 14–20; TEMP 36.1–36.4; O2SAT 92–98; BMI 37.0
--- NOTE | ~2023-12-08 | XR_ITS ---
EXAMINATION: XR ABDOMEN KUB CLINICAL INDICATION: Status post ALIF. COMPARISON: Lumbar spine radiographs dated 10/19/2023; intraoperative fluoroscopy dated 12/08/2003. TECHNIQUE: AP view of the abdomen. FINDINGS: The bowel gas pattern is normal with no evidence of ileus or obstruction. No unusual soft tissue calcifications are noted. No acute osseous abnormality is seen. Anterior Low Profile devices are noted at L4-5 and L5-S1. XR/XR abdomen 1V IMPRESSION: Anterior Low Profile devices are noted at L4-5 and L5-S1. Electronically signed by: Kasi Dallas MD 12/09/2023 04:30 PM EDT
--- OUTSIDE RECORDS SUMMARY | 2023-12-08 08:14 | XMS_ITS | Continuity of Care Document ---
Author Organization [facility] Address Unknown Care Team Providers Care Electrophonic Engineer Name Role Phone Janae Guillermo MD Primary Care Physician [place]counter [facility] [id number] Date(s): 02/12/21 - 03/14/21 [facility] Attending Physician: Carlito Landrum Admitting Physician: Carlito Landrum Referring Physician: Carlito Landrum Allergies, Adverse Reactions, Alerts Substance Reaction Severity Status penicillins Active Zithromax Active Medications amitriptyline 10 mg oral tablet 10 mg, 1, tablet, By Mouth, Daily at bedtime, # 90 tablet, Refills 2, Tot. Refills 2, Maintenance, 02/12/21 12:30:00 EST, Route to Pharmacy Electronically, [id number], Partial fill upon patient request if the prescription is for a schedule... Start Date: 02/12/21 Status: Ordered Claritin 10 mg oral tablet 10 mg, 1, tablet, By Mouth, Daily, # 30 tablet, Refills 0, Maintenance, 09/01/19 11:11:00 EDT Start Date: 09/01/19 Status: Ordered ibuprofen 600 mg oral tablet 1 tablet = 600 mg, By Mouth, Every 8 hours, NEEDED, # 30 tablet, 0 Refills, Maintenance, 09/20/11 11:51:15 EDT, Tablet Start Date: 09/20/11 Status: Ordered methocarbamol 500 mg oral tablet 1 tablet = 500 mg, By Mouth, Daily, NEEDED, 0 Refills, Maintenance, 02/29/20 14:43:00 EST, Partial fill upon patient request if the prescription is for a schedule II opioid drug. Start Date: 02/29/20 Status: Ordered riboflavin 100 mg oral tablet 1 tablet = 100 mg, By Mouth, Daily in AM, # 30 tablet, 3 Refills, Maintenance, 10/29/20 16:22:00 EDT, [facility]/pharmacy #[id number], Partial fill upon patient request if the prescription is for a schedule II opioid drug., 178, cm, 02/29/20 14:37:00 EST, Height Start Date: 10/29/20 Stop Date: 02/26/21 Status: Ordered topiramate 100 mg oral tablet 2 tablet, By Mouth, 2 times a day, # 120 tablet, 0 Refills, [id number], 178, cm, 11/06/20 15:41:00 EDT, Height Start Date: 03/05/21 Status: Ordered Zomig 5 mg nasal spray = 5 mg, Naris, Left, Daily, spray into nostil once per day as needed for headache, # 6 each, 3 Refills, Maintenance, 04/20/20 16:34:00 EST, [place], [facility]/pharmacy #[id number], 178, cm, 02/29/20 14:37:00 EST, Height Start Date: 04/20/20 Stop Date: 08/18/20 Status: Ordered Problem List Condition Effective Dates Status Health Status Inform ant Migraine(Confirmed) Active Social History Social History Type Response Smoking Status 10 or more cigarette s (1/2 pack or more)/day in last 30 days entered on: 09/01/18 Sex
--- OUTSIDE RECORDS SUMMARY | 2023-12-08 08:14 | XMS_ITS | Continuity of Care Document ---
Author Organization [facility] Address [address] [facility], [address], [address] [place] [id number]- Care Team Providers Care Women'S Swim Coach Name Role Phone Janae Guillermo MD Primary Care Physician Encounter [place] Date(s): 08/20/22 - 09/19/22 [facility] [address], [address], [address] [place] [id number] Attending Physician: Carlito Landrum Admitting Physician: AdmtrCarlito Referring Physician: Admtr, Ar8 Allergies, Adverse Reactions, Alerts Substance Reaction Severity Status penicillins Active Zithromax Active Medications Claritin 10 mg oral tablet 10 mg, 1, tablet, By Mouth, Daily, # 30 tablet, Refills 0, Maintenance, 09/01/19 11:11:00 EDT Start Date: 09/01/19 Status: Ordered ibuprofen 600 mg oral tablet 1 tablet = 600 mg, By Mouth, Every 8 hours, NEEDED, # 30 tablet, 0 Refills, Maintenance, 09/20/11 11:51:15 EDT, Tablet Start Date: 09/20/11 Status: Ordered riboflavin 100 mg oral tablet 1 tablet = 100 mg, By Mouth, Daily in AM, # 30 tablet, 3 Refills, Maintenance, 10/29/20 16:22:00 EDT, [facility]/pharmacy #[id number], Partial fill upon patient request if the prescription is for a schedule II opioid drug., 178, cm, 02/29/20 14:37:00 EST, Height Start Date: 10/29/20 Stop Date: 02/26/21 Status: Ordered topiramate 100 mg oral tablet 2 tablet, By Mouth, 2 times a day, for 90 days, # 360 tablet, 3 Refills, Physician Stop 08/15/23 13:14:00 EDT, 08/20/22 13:14:00 EDT, [id number], Last refill without appointment, 178, cm, 08/15/21 11:03:00 EDT, Height Start Date: 08/20/22 Stop Date: 08/15/23 Status: Ordered Zomig 5 mg nasal spray = 5 mg, Naris, Left, Daily, spray into nostil once per day as needed for headache, # 6 each, 3 Refills, Maintenance, 04/20/20 16:34:00 EST, [place], [facility]acy #[id number], 178, cm, 02/29/20 14:37:00 EST, Height Start Date: 04/20/20 Stop Date: 08/18/20 Status: Ordered Problem List Condition Confirmation Course Effective Dates Status Health St atus Informant Migraine Confirmed Active Social History Social History Type Response Smoking Status 10 or more cigarette s (1/2 pack or more)/day in last 30 days entered on: 09/01/18 Sex Patient Care team information Care Team Personnel Name: Janae Guillermo MD Position: [facility] Physician - Primary Care Member Role: PCP Address: Address: [address] [place] [id number]- Care Team Related Persons Name: АЛЕКСАНДР MONTERO Address: home [address] [place] [id number] Name: PT STATES NONE, NONE Name: REGINE CAPUTO Address: [place] [address]
--- OUTSIDE RECORDS SUMMARY | 2023-12-08 08:14 | XMS_ITS | Continuity of Care Document ---
Author Organization [facility] Address Unknown Care Team Providers Care Rubber Down Name Role Phone Janae Guillermo MD Primary Care Physician Encounter [facility] Date(s): 01/28/21 - 02/27/21 [facility] Allergies, Adverse Reactions, Alerts Substance Reaction Severity Status penicillins Active Zithromax Active Medications amitriptyline 10 mg oral tablet 10 mg, 1, tablet, By Mouth, Daily at bedtime, # 90 tablet, Refills 2, Tot. Refills 2, Maintenance, 02/12/21 12:30:00 EST, Route to Pharmacy Electronically, [id number], Partial fill upon patient request if the [...] tablet, 3 Refills, Maintenance, 10/29/20 16:22:00 EDT, [facility]/pharmacy #[id number], Partial fill upon patient request if the prescription is for a schedule II opioid drug., 178, cm, 02/29/20 14:37:00 EST, Height Start Date: 10/29/20 Stop Date: 02/26/21 Status: Ordered topiramate 100 mg oral tablet 2 tablet, By Mouth, 2 times a day, for 30 days, # 120 tablet, 5 Refills, Hard Stop 05/25/21 12:16:00 EDT, 11/26/20 12:16:00 EDT, [facility]/pharmacy #[id number], 178, cm, 11/06/20 15:41:00 EDT, Height Start Date: 11/26/20 Stop Date: 05/25/21 Status: Ordered topiramate 100 mg oral tablet 2 tablet, By Mouth, 2 times a day, # 120 tablet, 0 Refills, Maintenance, 05/25/21 12:16:00 EDT, [id number], 178, cm, 11/06/20 15:41:00 EDT, Height Start Date: 05/25/21 Stop Date: 06/24/21 Status: Ordered Zomig 5 mg nasal spray = 5 mg, Naris, Left, Daily, spray into nostil once per day as needed for headache, # 6 each, 3 Refills, Maintenance, 04/20/20 16:34:00 EST, [place], [facility]/pharmacy #[id number], 178, cm, 02/29/20 14:37:00 EST, Height Start Date: 04/20/20 Stop Date: 08/18/20 Status: Ordered Problem List Condition Effective Dates Status Health Status Inform ant Migraine(Confirmed) Active Social History Social History Type Response Smoking Status 10 or more cigarette s (1/2 pack or more)/day in last 30 days entered on: 09/01/18 Sex
--- OUTSIDE RECORDS SUMMARY | 2023-12-08 08:14 | XMS_ITS | Continuity of Care Document ---
Author Organization [facility] Address [address] [facility], [address] d Floor, [address] [place] [id number]- Care Team Providers Care Cableman Name Role Phone Janae Guillermo MD Primary Care Physician [place] [facility] [place](s): 01/29/22 - 02/28/22 [facility] [address], 3[address], [address] [place] [id number]- Allergies, Adverse Reactions, Alerts Substance Reaction Severity Status penicillins Active Zithromax Active Medications amitriptyline 10 mg oral tablet 10 mg, 1, tablet, By Mouth, Daily at bedtime, # 90 tablet, Refills 2, Tot. Refills 2, Maintenance, 02/12/21 12:30:00 EST, Route to Pharmacy Electronically, [id number], Partial fill upon patient request if the [...] tablet, 3 Refills, Maintenance, 10/29/20 16:22:00 EDT, [id number], Partial fill upon patient request if the prescription is for a schedule II opioid drug., 178, cm, 02/29/20 14:37:00 EST, Height Start Date: 10/29/20 Stop Date: 02/26/21 Status: Ordered topiramate 100 mg oral tablet 2 tablet, By Mouth, 2 times a day, # 120 tablet, 4 Refills, 01/30/22 8:52:00 EST, [id number], 178, cm, 08/15/21 11:03:00 EDT, Height Start Date: 01/30/22 Status: Ordered Zomig 5 mg nasal spray = 5 mg, Naris, Left, Daily, spray into nostil once per day as needed for headache, # 6 each, 3 Refills, Maintenance, 04/20/20 16:34:00 EST, [place], [facility]/pharmacy #[id number], 178, cm, 02/29/20 14:37:00 EST, Height [...] Team Personnel Name: Janae Guillermo MD Position: S Primary Care Physician Member Role: PCP Address: Address: [address] [place] [id number]- Care Team Related Persons Name: АЛЕКСАНДР MONTERO Address: home [address] [place] [id number] Name: PT STATES NONE, NONE Name: REGINE CAPUTO Address: [place] [address]
--- OUTSIDE RECORDS SUMMARY | 2023-12-08 08:14 | XMS_ITS | Continuity of Care Document ---
Author Organization [facility] Address Unknown Care Team Providers Care Hair Boiler Name Role Phone Janae Guillermo MD Primary Care Physician [place] [facility] [place] [facility] [id number] Date(s): 11/06/20 - 12/06/20 [facility] Attending Physician: Carlito Landrum Admitting Physician: Carlito Landrum Referring Physician: Carlito Landrum Allergies, Adverse Reactions, Alerts Substance Reaction Severity Status penicillins Active Zithromax Active Medications amitriptyline 10 mg oral tablet 10 mg, 1, tablet, By Mouth, Daily at bedtime, # 30 tablet, Refills 4, Tot. Refills 4, Maintenance, 11/06/20 17:07:00 EDT, Route to Pharmacy Electronically, [facility]/pharmacy #[id number], Partial fill upon patient request if the prescription is for a schedule II... Start Date: 11/06/20 Status: Ordered Claritin 10 mg oral tablet [...] tablet, 3 Refills, Maintenance, 10/29/20 16:22:00 EDT, [facility]/pharmacy #[id number], Partial fill upon patient request if the prescription is for a schedule II opioid drug., 178, cm, 02/29/20 14:37:00 EST, Height Start Date: 10/29/20 Stop Date: 02/26/21 Status: Ordered topiramate 100 mg oral tablet 2 tablet, By Mouth, 2 times a day, # 120 tablet, 5 Refills, Maintenance, 11/26/20 12:16:00 EDT, [id number], 178, cm, 11/06/20 15:41:00 EDT, Height Start Date: 11/26/20 Stop Date: 05/25/21 Status: Ordered Zomig 5 mg nasal spray = 5 mg, Naris, Left, Daily, spray into nostil once per day as needed for headache, # 6 each, 3 Refills, Maintenance, 04/20/20 16:34:00 EST, [place], [id number], 178, cm, 02/29/20 14:37:00 EST, Height Start Date: 04/20/20 Stop Date: 08/18/20 Status: Ordered Problem List Condition Effective Dates Status Health Status Inform ant Migraine(Confirmed) Active Social History Social History Type Response Smoking Status 10 or more cigarette s (1/2 pack or more)/day in last 30 days entered on: 09/01/18 Sex
--- OUTSIDE RECORDS SUMMARY | 2023-12-08 08:14 | XMS_ITS | Continuity of Care Document ---
Author Organization [facility] Address Unknown Care Team Providers Care Specialty Plant Supervisor Name Role Phone Janae Guillermo MD [id number]14[facility] Attending Physician: Danyelle Zaman Admitting Physician: Danyelle Zaman Allergies, Adverse Reactions, Alerts Substance Reaction Severity Status penicillins Active Zithromax Active Medications amitriptyline 10 mg oral tablet 10 mg, 1, tablet, By Mouth, Daily at bedtime, # 90 tablet, Refills 2, Tot. Refills 2, Maintenance, 02/12/21 12:30:00 EST, Route to Pharmacy Electronically, [id number], Partial fill upon patient request if the [...] tablet, 3 Refills, Maintenance, 10/29/20 16:22:00 EDT, [facility]/pharmacy #[id number], Partial fill upon patient request if the prescription is for a schedule II opioid drug., 178, cm, 02/29/20 14:37:00 EST, Height Start Date: 10/29/20 Stop Date: 02/26/21 Status: Ordered topiramate 100 mg oral tablet 2 tablet, By Mouth, 2 times a day, # 120 tablet, 0 Refills, [id number], 178, cm, 11/06/20 15:41:00 EDT, Height Start Date: 03/05/21 Status: Ordered Zomig 5 mg nasal spray = 5 mg, Naris, Left, Daily, spray into nostil once per day as needed for headache, # 6 each, 3 Refills, Maintenance, 04/20/20 16:34:00 EST, [place], [facility]/pharmacy #[id number], 178, cm, 02/29/20 14:37:00 EST, Height Start Date: 04/20/20 Stop Date: 08/18/20 Status: Ordered Problem List Condition Effective Dates Status Health Status Inform ant Migraine(Confirmed) Active Social History Social History Type Response Smoking Status 10 or more cigarette s (1/2 pack or more)/day in last 30 days entered on: 09/01/18 Sex
--- OUTSIDE RECORDS SUMMARY | 2023-12-08 08:14 | XMS_ITS | Continuity of Care Document ---
Author Organization [facility] Address Unknown Care Team Providers Care Range Feeder Name Role Phone Janae Guillermo MD Primary Care Physician Encounter [facility] [place] Date(s): 11/26/20 - 12/26/20 [facility] Allergies, Adverse Reactions, Alerts Substance Reaction Severity Status penicillins Active Zithromax Active Medications amitriptyline 10 mg oral tablet 10 mg, 1, tablet, By Mouth, Daily at bedtime, # 30 tablet, Refills 4, Tot. Refills 4, Maintenance, 11/06/20 17:07:00 EDT, Route to Pharmacy Electronically, [facility]/pharmacy #[id number], Partial fill upon patient request if [...] tablet, 3 Refills, Maintenance, 10/29/20 16:22:00 EDT, [facility]/pharmacy #[id number], Partial fill upon patient request if the prescription is for a schedule II opioid drug., 178, cm, 01/20/21 14:37:00 EST, Height Start Date: 10/29/20 Stop [...] each, 3 Refills, Maintenance, 04/20/20 16:34:00 EST, [place], [id number], 178, cm, 02/29/20 14:37:00 EST, Height Start Date: 04/20/20 Stop Date: 08/18/20 Status: Ordered Problem List Condition Effective Dates Status Health Status Inform ant Migraine(Confirmed) Active Social History Social History Type Response Smoking Status 10 or more cigarette s (1/2 pack or more)/day in last 30 days entered on: 09/01/18 Sex
--- OUTSIDE RECORDS SUMMARY | 2023-12-08 08:14 | XMS_ITS | Continuity of Care Document ---
Author Organization [facility] Address Unknown Care Team Providers Care Curatorial Specialist Name Role Phone Janae Guillermo MD Primary Care Physician [place] [facility] [place] [facility] [id number] Date(s): 08/15/21 - 09/14/21 [facility] Attending Physician: Carlito Landrum Admitting Physician: Carlito Landrum Referring Physician: Carlito Landrum Allergies, Adverse Reactions, Alerts Substance Reaction Severity Status penicillins Active Zithromax Active Medications amitriptyline 10 mg oral tablet 10 mg, 1, tablet, By Mouth, Daily at bedtime, # 90 tablet, Refills 2, Tot. Refills 2, Maintenance, 02/12/21 12:30:00 EST, Route to Pharmacy Electronically, [id number], Partial fill upon patient request if the [...] tablet, 3 Refills, Maintenance, 10/29/20 16:22:00 EDT, [facility]/pharmacy #[id number], Partial fill upon patient request if the prescription is for a schedule II opioid drug., 178, cm, 02/29/20 14:37:00 EST, Height Start Date: 10/29/20 Stop Date: 02/26/21 Status: Ordered topiramate 100 mg oral tablet 2 tablet, By Mouth, 2 times a day, # 120 tablet, 4 Refills, 08/15/21 11:07:00 EDT, [facility] [id number], 178, cm, 08/15/21 11:03:00 EDT, Height Start Date: 08/15/21 Status: Ordered Zomig 5 mg nasal spray = 5 mg, Naris, Left, Daily, spray into nostil once per day as needed for headache, # 6 each, 3 Refills, Maintenance, 04/20/20 16:34:00 EST, [place], [facility]/pharmacy #[id number], 178, cm, 02/29/20 14:37:00 EST, Height Start Date: 04/20/20 Stop Date: 08/18/20 Status: Ordered Problem List Condition Effective Dates Status Health Status Inform ant Migraine(Confirmed) Active Social History Social History Type Response Smoking Status 10 or more cigarette s (1/2 pack or more)/day in last 30 days entered on: 09/01/18 Sex
--- OUTSIDE RECORDS SUMMARY | 2023-12-08 08:14 | XMS_ITS | Continuity of Care Document ---
Author Organization [facility] Address Unknown Care Team Providers Care Door Cutter Name Role Phone Janae Guillermo MD Primary Care Physician [place] [facility] [place](s): 10/29/20 - 11/28/20 [facility] Allergies, Adverse Reactions, Alerts Substance Reaction Severity Status penicillins Active Zithromax Active Medications amitriptyline 10 mg oral tablet 10 mg, 1, tablet, By Mouth, Daily at bedtime, # 30 tablet, Refills 4, Tot. Refills 4, Maintenance, 11/06/20 17:07:00 EDT, Route to Pharmacy Electronically, [facility]/pharmacy #[id number], Partial fill upon patient request [...] tablet, 3 Refills, Maintenance, 10/29/20 16:22:00 EDT, [facility]/pharmacy #[id number], Partial fill upon patient request [...] each, 3 Refills, Maintenance, 04/20/20 16:34:00 EST, [place], [id number], 178, cm, 02/29/20 14:37:00 EST, Height Start Date: 04/20/20 Stop Date: 08/18/20 Status: Ordered Problem List Condition Effective Dates Status Health Status Inform ant Migraine(Confirmed) Active Social History Social History Type Response Smoking Status 10 or more cigarette s (1/2 pack or more)/day in last 30 days entered on: 09/01/18 Sex
[2023-12-08] MEDS: vancomycin/NS 2,000 MG/500 ML PLAST..BAG 250 MG IV (08:25)
[2023-12-08] MEDS: Lactated Ringers 1,000 ML 100 ML IVCONT (08:26)
[2023-12-08] MEDS: Gabapentin 300 MG CAPSULE PO (08:26)
[2023-12-08] MEDS: methocarbamoL 750 MG TABLET PO (08:26)
--- NOTE | 2023-12-08 09:02 | PHA.MEDREC ---
Pharmacy Consult ? Medication Reconciliation Pharmacy has reviewed the medication reconciliation.
--- NOTE | 2023-12-08 11:46 | MHC.SHP ---
Pre-Procedural Eval Section A - 24 Hr Update-Section A only Date of Service: 12/08/23 The patient is an INPATIENT: Yes Section B - Complete if H&P > 30 days Chief Complaint: s/p L4-S1 OLIF Details of Present Illness: chronic back pain Allergies: Allergies Allergy/AdvReac Type Severity Reaction Status Date / Time azithromycin [AZITHROMYCIN] Allergy Severe TACHYCARDIA Verified 12/08/23 07:52 /HIVES penicillin V Allergy Unknown Anaphylaxis Verified 12/08/23 07:52 Penicillins [PCN] Allergy Unknown THROAT Verified 12/08/23 07:52 CLOSES From [place] Allergy Unknown INCEASED Uncoded 10/14/23 11:47 SEVERE MIGRAINES SEASONAL ALLERGIES Allergy Unknown RHINITIS Uncoded 10/14/23 11:47 Review of Systems Sugical H&P ROS: Negative: Constitution, Cardiovascular, Respiratory, Neurological, Psychiatric, Hem-Onc, Allergic/Immunologic, Gastrointestinal, Genitourinary, Musculoskeletal, Integumentary, Endocrine and Eyes/Ears/Nose/Throat Exam Surgical H&P Exam: Normal: HEENT, Normal: Heart, Normal: Lungs, Normal: Extremities, Normal: Abdomen, Normal: Skin and Normal: Neurological (awake, alert) Plan Diagnosis/Plan: Unchanged I have reviewed the history and physical and performed a pertinent physical examination on my patient. No changes have occurred unless specified. Oblique lumbar interbody fusion L-5, L5-S1 Time Spent With Patient Time: Total time managing care of this patient today ___5_ minutes.
--- NOTE | 2023-12-08 14:11 | W.PM.OPN ---
Operative Note Operative Note Date of Service: 12/08/23 Narrative: Preoperative Diagnosis: 1.) Lumbar degenerative disc disease L4-5 and L5-S1; lumbar radiculopathy and back pain Procedure: L4-5, L5-S1 discectomy, arthrodesis and implantation cage through an anterior lumbar approach (ALIF) ; anterior instrumentation L4-S1; allograft Indication for Surgery Lumbar degenerative disc disease Consent Informed Consent was obtained for this operation. I have explained the nature, purpose and benefits of the operation. I have discussed the risks and benefit of the operation including possible complications or adverse events with patient/family. Alternative(s) were discussed with the patient with their relative benefits and risks as well as the consequences of not accepting the operation were included in obtaining consent. Surgeon: JOSE MARIA CORDON MD, PHD Procedure Assisted By: JUANA AGUERO MD and david Metcalf Description of Procedure This 48-year-old male suffering from chronic intractable low back pain. The MRI shows severe lumbar degenerative disc disease L5-S1 and moderate degenerative disc disease L4-5 with a disc herniation on the right side. The patient was offered an anterior lumbar interbody fusion of these levels with anterior L4-S1 instrumentation. The procedure complications were explained. The patient was consented. The patient was brought to the operating room and endotracheally intubated. The patient was put in a supine position. Prep and drape was done followed by timeout. Dr. Aguero, co-surgeon, provided the access to the L5-S1 disc space through an anterior approach. He was assisted by physician marketing administrative assistant who performed manual retraction. He will dictate the approach in a separate operative note. When the L4 and L5-S1 disc spaces were exposed I took over the procedure. An L4-5 annulotomy was done followed by a partial discectomy. Sequential trial implants were inserted and advanced towards the posterior wall of the disc space. I completed the discectomy and prepare the endplates. Then a 30 x 24 x 13 height and a 8 degree lordosis Astura cage filled with allograft was inserted into the disc space. A separate attached 13 mm plate was locked down with 3 anchors with a length of 20 mm for anterior instrumentation. Then attention was turned to the L5-S1 segment. An annulotomy was done followed by a partial diskectomy. Sequential trial implants were inserted to open up the posterior wall. The remainder of the diskectomy was completed and the endplates were prepared. Then a 34 x 26 by 11 mm height and 8 degree lordosis Astura implant filled with allograft was inserted into the disc space under fluoroscopic guidance. An 11 mm plate was locked down with 3 anchors with a length of 25 mm for anterior instrumentation. The retractor was removed and hemostasis was done by Dr. Ellis who closed the incision. All sponge and needle counts were correct. The patient was extubated and transported in stable condition to recovery room. The physician marketing administrative assistant was critical for the following aspects of surgery : Mental Health Specialist with the anterior opening and closure of the incision. Anesthesia: General Estimated Blood Loss (ml): 50 mL Duration of Surgery: 2 hours Complications: None Postoperative Plan: Admit to inpatient for observation
--- NOTE | 2023-12-08 14:21 | W.PM.OPN ---
Operative Note Operative Note Date of Service: 12/08/23
--- NOTE | 2023-12-08 14:26 | P.OP_ITS ---
Operative Note Operative Note Date of Service: 12/08/23 Narrative: The patient was brought to the operating room, positioned on the table supine and general anesthesia was administered. The abdomen was clipped and then prepped and draped in the usual sterile fashion. After timeout was done, incision was made in the infraumbilical area just to the left of the midline 8 cm long. It was brought through subcutaneous tissue and the left anterior rectus sheath in line with the skin incision . The pre- peritoneal plane was entered, peritoneum was bluntly dissected off and iliac artery pulse was felt. Spermatic cord was preserved. Self-retaining retractor with two deep blades was inserted and peritoneum protected with moist gauzes. Left internal iliac vein was identified and dissection was carried along the medial surface of the iliac vein up to the bifurcation. The middle sacral vessels were transected and L5-S1 disc space was bluntly and sharply dissected using bipolar cautery staying directly on the surface of the spine. The midline of the disk space was marked with C-arm image guide. Left common iliac artery was then mobilized medially and segmental branches were [id number] as well as ileo-lumbar vein, Vena cava was reflected to the right exposing L4-L5 disk space. Dr. Falcon then proceeded with the corpectomy and fusionof the two levels, which will be dictated separately by him. After this was done, hemostasis was checked and was excellent. Left ureter was examined prior to closure and was intact. There was good left external iliac artery pulse. Diluted 0.5% Marcaine and Lidocaine was injected in the fascia and subcutaneous tissue. The incision was irrigated and closed by layers using a 2-0 Vicryl for transverse fascia, 0 Maxone for the external oblique, 3-0 Vicryl for subcutaneous tissue and 4-0 Monocryl for skin. Exo-fin glue was then applied.
--- NOTE | 2023-12-08 15:52 | P.DS_ITS ---
DS: Providers Provider Date of Service: 12/09/23 Date of admission: 12/08/23 08:12 Primary care physician: Antonette Brown MD DS: Summary Time Attestation Discharge Coordination Time (in mins): 15 Quality: Safe Use of Opioids Does Pt have an Active Cancer Diagnosis on the Problem List?: No Quality: Stroke Does the patient have a stroke diagnosis?: No Physical Exam Vital Signs: Vital Signs: Last Vital Signs Temp 97 F 12/08/23 15:00 Pulse 72 12/08/23 15:34 Resp 16 12/08/23 15:34 BP 196/106 H 12/08/23 15:34 Pulse Ox 96 12/08/23 15:34 O2 Del Method Nasal Cannula wit h Capnography 12/08/23 15:34 O2 Flow Rate 2 12/08/23 15:34 BMI result Body Mass Index 36.3 Discharge Plan Discharge Anticipated Discharge Date/Time: 12/08/23 15:53 Patient Disposition: Left Against Medical Advice Discharge Diagnosis: s/p L4-S1 ALIF Referrals: Antonette Padilla MD [Primary Care Provider] - 1 Week Discharge Medications: Continued ibuprofen-acetaminophen [Dual Action Pain Reliever] 125-250 mg Tablet 2 tab PO Q8H PRN (Reason: Pain) zolmitriptan [Zomig] 5 mg spray,non-aerosol 1 spray intranasal Q2H PRN (Reason: Headache) Rx Instructions: administer into one nostril (only); alternate nostrils; do not exceed 10 mg /24 hrs No Action oxycodone 5 mg tablet See Rx Instructions PO Q4H PRN (Reason: severe pain (scale score 7-10)) Qty: 30 0RF Rx Instructions: Take 1-2 tablets orally every 4 hours PRN; Partial Fill upon patient request. Discharge Orders: Discharge Order (Routine); Ordered 12/08/23 Ordered By: Jayesh Anthony Diet: Advance to usual diet Activity on Discharge: As tolerated Stand Alone Forms: Patient Portal Discharge page Print Language: Occitan Activity Restrictions/Additional Instructions: After your spinal surgery we ask you to observe the following restrictions/guidelines: Activity: It is normal to feel some discomfort as you increase your activity, but that will improve with time. We ask you avoid heavy lifting or acitivities that cause pain. As a general rule, 8lbs is a safe limit for lifting right after surgery. Walk as much as you feel comfortable but not to exhaustion. You will feel extra tired the first few days after surgery. Stay well hydrated. It is OK to walk up and down stairs You may return to driving when you are off narcotics (such as vicodin, oxycodone, dilaudid, etc), and you are back to normal functional capacity. If you have any concerns please check with office before driving. Return to work is specific to each patient and each surgery, so please speak with your doctor/PA at first follow up. Please bring paperwork such as FMLA at that time if you need it filled out. Medications: We recommend you take 1,000mg Tylenol every 8 hours for the first few weeks after surgery, if you do not have any liver issues and can tolerate this medication. Do not exceed 4,000mg daily. We will give you a short supply of narcotics after surgery (usually one weeks worth). If you need more please call the office but do not use more than pres cribed. You will need to give our office 48 hours notice if you need narcotics refilled and we do not fill narcotics on weekends or evenings. If you are on a narcotic, it is a good idea to take a stool softener such as colace or senna to avoid constipation If you take blood thinner such as aspirin, Plavix, Coumadin, Effient, Eliquis etc for conditions such as Afib, DVT, Pulmonary embolus, coronary disease, stents etc please speak with your surgeon about specific details as to when you can resume these medications. You can resume NSAIDs on post op day 1 (eg: Motrin, Naproxen, etc). Follow up: Please call the office, , after surgery to arrange a 3 week follow up for wound check. Wound Care: You may remove your dressing on the first day after surgery. ?You may ?leave open to air. Please do not remove the steri strips underneath. they will fall off on their own in one week. IT IS NORMAL FOR THE WOUND TO OOZE OR BE BLOODY FOR A FEW DAYS AFTER SURGERY. ?IF THIS HAPPENS JUST PLACE NEW DRESSING OVER IT TO AVOID STAINING CLOTHES. You may shower on post op day # 1 We ask that you do not let the water soak the wound. If it does get wet, just towel dry lightly. Please do not scrub your incision or place any type of chemical/ointment on the wound. No tub baths, pools or jacuzzis for one month. If you have any leaking or redness from your wound, or fevers, please call the office. Care Plan Goals: Returned to normal activity as tolerated Health Concerns: None Plan of Treatment: Follow-up in clinic in 2-3 weeks Assessment: The patient left against medical advice before an evaluation could be completed by this automatic typewriter inspector. I sent in pain medication to [facility] in [place]. We attempted to redirect patient and advised him to stay for further evaluation and pain control but he refused all attempted interventions. Discharge Date/Time: 12/08/23 18:34
[2023-12-08] MEDS: Ketorolac Tromethamine 15 MG/ML VIAL IVPUSH (16:12)
[2023-12-08] MEDS: oxyCODONE HCl Immed Release 5 MG TABLET PO (16:28)
[2023-12-08] MEDS: HYDROmorphone HCl 1 MG/ML SYRINGE IVPUSH (17:28)
[2023-12-08] MEDS: 0.9 % Sodium Chloride 1,000 ML 75 ML IVCONT (17:28)
--- NOTE | 2023-12-08 18:24 | PC.NURSE ---
Pt called this RN into room, stated he was going home tonight. Said he hasn't eaten in 24 hours and had asked for crackers 1 hour ago. Explained that his dinner would be up any time now and offered him snacks in the meantime. Pt stated that he is still going home and to remove his IV. Youth Support Worker PA was contacted and made aware. Explained to patient that he had an extensive surgery and the PA strongly suggests waiting until morning to situate pain control. Pt will likely not be able to get pain meds until morning. Pt still adament on leaving now. IV removed. Instructed on incision care, signs and symptoms. Signed AMA and left unit accompanied by .
--- NOTE | 2023-12-09 07:05 | HO.NEUROPN_ITS ---
Neurosurgery Operative Note Date of Service: 12/08/23 Narrative: Nursing staff reached out to this account underwriter at roughly 18:00 yesterday reporting that the patient was very agitated that his dinner time meal was not brought to his room in what he believes to be a timely fashion. He stated to nursing staff that he ?hates hospitals? and refused to stay any longer. I attempted to work with the nurse to have the patient stay but he refused. Nursing staff was instructed via tiger text to explain the risks of leaving after a 2 level fusion procedure that was done through the abdomen. The patient left against medical advice before an evaluation could be completed by this account underwriter. I sent in pain medication to [facility] in [place]. We attempted to redirect patient and advised him to stay for further evaluation and pain control but he refused all attempted interventions. Jyaesh Falcon MD,PhD [facility]
== END 2023-12-08 18:34 | disposition left against medical advice (07) | DRG 448 ==
LOC: HO.SSSA 15:53 → HO.S3 16:06
PROVIDERS: Nurse Practitioner; Admitting Provider Neurological Surgery; PCP Student in an Organized Health Care Education/Training Program; Visit Provider Neurological Surgery
PROC: 0SG00A0 Fusion of Lumbar Vertebral Joint with Interbody Fusion Device, Anterior Approach, Anterior Column, Open Approach (ICD-10-PCS; principal; 2023-12-08 11:00)
DX: M51.16 Intervertebral disc disorders with radiculopathy, lumbar region (principal); M48.061 Spinal stenosis, lumbar region without neurogenic claudication; F17.210 Nicotine dependence, cigarettes, uncomplicated; Z71.6 Tobacco abuse counseling; J45.909 Unspecified asthma, uncomplicated
CPT/HCPCS: 36415; 74018; 80053; 83036; 85027; 86850; 86900; 86901; 93005; C1713; C1889; J0131; J1171; J1805; J1885; J2003; J2405; J2704; J3010; J3370; L8699

== ENCOUNTER → 2023-12-08 08:12 | Outpatient (BNV) | payer OTHER, SELFPAY | PROVIDERS: Admitting Provider Neurological Surgery; PCP Student in an Organized Health Care Education/Training Program; Visit Provider Neurological Surgery | DX: M51.360 Other intervertebral disc degeneration, lumbar region with discogenic back pain only (principal) | CPT/HCPCS: 20930; 22558; 22585; 22845; 22853; 99024; 99499 ==

== ENCOUNTER 2023-12-28 15:45 | Emergency (ER) | payer OTHER, SELFPAY ==
[2023-12-28 17:00] VITALS: BP 174/104; PULSE 78; RESP 18; TEMP 36.7; O2SAT 95; BMI 34.4
--- NOTE | 2023-12-28 17:05 | ED.GENADULT ---
HPI - General Adult General Chief complaint: General Medical Stated complaint: abd incision open ? infection Time Seen by Provider: 12/28/23 18:06 Source: patient Mode of arrival: ambulatory Limitations: no limitations History of Present Illness ED Provider: Virginie Lynn PA-C HPI narrative: Patient is a 48 year old assigned male at with a history of recent lumbar spinal surgery on 12/08/2023 presenting to the emergency department today with incisional issues. Patient states that he was in the shower today when his surgical incision opened some and fluid the color of apple juice leaked out. Patient denies any dizziness, lightheadedness, abdominal pain, nausea, vomiting, fever, chills, blurry vision, double vision, loss of vision, chest pain, difficulty breathing, shortness of breath, back pain, night sweats, pain with urination, increased urinary frequency, increased urinary urgency, blood in his urine or stool, syncope or a near syncopal episode, recent trauma or falls, bowel incontinence, bladder incontinence, or any other complaints at this time. Patient states that he has an appointment with the spine center tomorrow (12/29/2023). Relieving factors: none Exacerbating factors: none Associated symptoms: denies other symptoms Treatments prior to arrival: none Related Data Home Medications ?Medication ?Instructions ?Recorded ?Confirmed zolmitriptan 5 mg nasal spray 1 spray intranasal Q2H PRN Headache 10/14/23 12/08/23 (Zomig) ibuprofen 125 mg-acetaminophen 250 2 tab PO Q8H PRN Pain 11/25/23 12/08/23 mg tablet (Dual Action Pain Reliever) Previous Rx's ?Medication ?Instructions ?Recorded oxycodone 5 mg tablet See Rx Instructions PO Q4H PRN 12/09/23 severe pain (scale score 7-10) #30 tabs doxycycline hyclate 100 mg tablet 100 mg PO BID 7 days #14 tabs 12/28/23 Allergies Allergy/AdvReac Type Severity Reaction Status Date / Time azithromycin [AZITHROMYCIN] Allergy Severe TACHYCARDIA Verified 12/28/23 17:05 /HIVES penicillin V Allergy Unknown Anaphylaxis Verified 12/28/23 17:05 Penicillins [PCN] Allergy Unknown THROAT Verified 12/28/23 17:05 CLOSES From NOVOCAIN Allergy Unknown INCEASED Uncoded 10/14/23 11:47 SEVERE MIGRAINES SEASONAL ALLERGIES Allergy Unknown RHINITIS Uncoded 10/14/23 11:47 Review of Systems Constitutional: Constitutional: Reports no additional constitutional complaints, Denies chills, Denies fever(s) and Denies night sweats Eyes: Eyes: Reports no additional eye complaints, Denies blurry vision, Denies change in vision, Denies diplopia, Denies eye discharge, Denies loss of vision and Denies eye pain ENT: Denies dizziness Cardiovascular: Cardiovascular: Reports no additional cardiovascular complaints, Denies chest pain, Denies lightheadedness, Denies Loss of Consciousness and Denies dyspnea Respiratory: Respiratory: Reports no additional respiratory complaints and Denies dyspnea Gastrointestinal: Gastrointestinal: Reports no additional gastrointestinal complaints, Denies abdominal pain, Denies melena, Denies hematochezia, Denies change in bowel habits and Denies change in stool character Comments: abdominal incision partially opened Genitourinary: Genitourinary: Reports no additional male genitourinary complaints, Denies hematuria, Denies oliguria, Denies difficulty urinating, Denies dysuria, Denies urinary frequency, Denies urinary hesitancy, Denies urinary incontinence and Denies urinary urgency Musculoskeletal: Musculoskeletal: Reports no additional musculoskeletal complaints, Denies numbness and Denies tingling Neurologic: Denies dizziness, Denies loss of vision, Denies numbness and Denies tingling Psychiatric: Psychiatric: Reports no additional psychiatric complaints Endocrine: Endocrine: Reports no additional endocrine complaints Hematologic/Lymphatic: Hematologic/Lymphatic: Reports no additional hematologic/lymphatic complaints Allergic/Immunologic: Allergic/Immunologic: Reports no additional allergic/immunologic complaints [facility] Past Medical History Attestation statement: The following information was validated with the patient. Source: old records reviewed and nursing notes reviewed Medical History COVID-19 Allergic rhinitis Asthma Current tobacco use Scoliosis DJD (degenerative joint disease) Spinal stenosis Heartburn Concussion History of traumatic head injury Depression Numbness Cough SOB (shortness of breath) Wheezing Bronchitis History of marijuana use Kidney cysts ADHD Seizures Basilar artery migraine Migraine Surgical History History of repair of anterior cruciate ligament of left knee Hx of knee surgery Social History Social History Household Members: Spouse Housing: House Are you a primary health care marketing specialist to a significant other at home: No Do you presently have visiting nurse or other home services: No Alcohol intake: current Alcohol intake frequency: holidays/special occasions only Patient Tobacco Use Status: Current everyday Tobacco user Tobacco use type: Cigarette Cigarette Packs Per Day: 1.5 Cigarettes Per Day: 30.0 Second Hand Smoke Exposure: No Substance Use Type: Marijuana Advance Directives: No Advance Directives Information Provided: Yes Physical Exam ED Vital Signs: Vital Signs - 24 hr 12/28/23 17:00 12/28/23 18:16 Temperature 98.0 F 98.1 F Pulse Rate 78 82 Respiratory Rate 18 20 Blood Pressure 174/104 H 160/91 H Pulse Oximetry 95 95 Oxygen Delivery Method Room Air Room Air BMI result Body Mass Index 34.4 Const General: cooperative, no acute distress, alert and awake Nutritional Appearance: well nourished Orientation/consciousness: patient oriented x3 Limitations: no limitations HENMT Head: Yes normal to inspection and Yes atraumatic Ears: hearing grossly normal bilaterally and external ears normal General nose exam: Normal external nose present, no nasal discharge noted and no epistaxis Face and sinus: Yes normal facial exam, No abrasion and No laceration Mouth: Normal oral and palatal mucosa present, no drooling and no muffled voice Eyes General: appearance normal, both eyes and all related structures Periorbital: periorbital findings normal Eyelids: Yes eyelids normal Conjunctivae: conjunctivae normal Pupils: Equal, round and reactive pupils present EOM: EOMs intact bilaterally Neck Neck: Yes normal visual inspection, Yes full ROM and Yes no lymphadenopathy Chest Chest palpation & inspection: normal inspection of the chest Resp Effort & Inspection: normal respiratory effort and able to speak in complete sentences GI Abdomen image: 1. surgical incision with intact scab erythema surrounding the incision with minimal warmth - no fluctuance appreciated Neuro General: patient oriented x3 and moves all extremities Cranial nerves: Yes Equal, round and reactive pupils present Cognition (Neuro): normal cognition Extrem General: Yes normal to inspection, Yes full ROM and Yes capillary refill normal Psych Appearance: grossly normal Mental Status: mental status grossly normal Affect: normal affect Attitude: cooperative Thought process: Normal thought process present Thought content: Normal thought content present Insight: Good insight present (Psych) Course Course Course Narrative: RME: Done by JUAN Singh. [age] year male presents to ED for evaluation abdominal wound. Patient states today while in the shower abdominal wound open and there was slight bleeding. Patient has surgery in the . Patient denies any trauma fever, chills, nausea, vomiting. Bleeding controlled. Patient to be evaluated [facility]. Negative for any hemorrhaging Medications Administered Discontinued Medications Generic Name Dose Route Start Last Admin Trade Name Malinda PRN Reason Stop Dose Admin Doxycycline Monohydrate 100 mg 12/28/23 18:08 12/28/23 18:21 Doxycycline Monohydrate 100 Mg Capsule PO 12/28/23 18:09 100 mg ONCE ONE Administration Medical Decision Making Medical Decision Making [facility] Narrative: Patient is a 48 year old assigned male at with a history of recent lumbar spinal surgery on 12/08/2023 presenting to the emergency department today with incisional issues. Patient's physical exam was as noted in the physical exam portion of this note. Patient's exam is most consistent with a cellulitis and wound seroma. No fluctuance consistent with abscess. I explained my physical exam findings to the patient. I answered all questions asked by the patient. I stressed the importance of the patient taking his medication as directed (either prescribed or as the over the counter packaging recommends). I stressed the importance of the patient following up with his primary care provider and with the spine center tomorrow (12/29/2023). I stressed the importance of the patient returning to the emergency department immediately if his symptoms were to worsen or if he were to develop any dizziness, shortness of breath, difficulty breathing, chest pain, blurry vision, loss of vision, nausea, vomiting, abdominal pain, fever, chills, back pain, or any other complaints. Patient verbalized agreement and understanding with this treatment plan and discharge. Differential Diagnosis Differential Diagnoses: The differential diagnosis associated with the presentation includes Incisional seroma Cellulitis of incision Admission/Observation Consideration of admission/observation: Escalation of care including admission/observation considered Patient would have been admitted to the hospital had his clinical presentation warranted hospital admission. Tests considered The following testing was considered but not selected: I considered obtaining a CT scan, CBC, ESR, CRP, and CMP however, the patient's current clinical presentation did not warrant this. I discussed this with the patient who verbalized understanding and agreement. Prescription Management I considered prescription management with: Antibiotic (patient given an antibiotic to cover for possible cellulitis) Discharge Plan Discharge Clinical Impression: Incisional infection Patient Disposition: Home, Self-Care Instructions: Wound Infection (DC) Additional Instructions: Follow up with your primary care provider and attend your spine appointment as scheduled on 12/29/2023. Return to the emergency department immediately if your symptoms worsen or if you develop any dizziness, shortness of breath, difficulty breathing, chest pain, blurry vision, loss of vision, nausea, vomiting, abdominal pain, fever, chills, back pain, or any other complaints. Prescriptions: New doxycycline hyclate 100 mg tablet 100 mg PO BID 7 Days Qty: 14 0RF No Action oxycodone 5 mg tablet See Rx Instructions PO Q4H PRN (Reason: severe pain (scale score 7-10)) Qty: 30 0RF Rx Instructions: Take 1-2 tablets orally every 4 hours PRN; Partial Fill upon patient request. ibuprofen-acetaminophen [Dual Action Pain Reliever] 125-250 mg Tablet 2 tab PO Q8H PRN (Reason: Pain) zolmitriptan [Zomig] 5 mg spray,non-aerosol 1 spray intranasal Q2H PRN (Reason: Headache) Rx Instructions: administer into one nostril (only); alternate nostrils; do not exceed 10 mg /24 hrs Referrals: [facility] [Provider Group] Jason Corea MD [Primary Care Provider] - Interventions: ED Discharge Assessment Last Done: 12/28/23 18:16 Discharge Date/Time: 12/28/23 18:21 Print Language: Filipino
[2023-12-28 18:16] VITALS: BP 160/91; PULSE 82; RESP 20; TEMP 36.7; O2SAT 95
[2023-12-28] MEDS: Doxycycline Monohydrate 100 MG CAPSULE PO (18:21)
== END 2023-12-28 18:21 | disposition home or self-care (01) ==
PROVIDERS: Emergency Provider Emergency Medicine Emergency Medical Services; PCP Internal Medicine
DX: T81.41XA Infection following a procedure, superficial incisional surgical site, initial encounter (principal); Y83.8 Other surgical procedures as the cause of abnormal reaction of the patient, or of later complication, without mention of misadventure at the time of the procedure; Y82.8 Other medical devices associated with adverse incidents; Y92.9 Unspecified place or not applicable
CPT/HCPCS: 99282; 99283

== ENCOUNTER 2023-12-29 14:41 | Outpatient (AMB) | payer OTHER, SELFPAY ==
--- NOTE | 2023-12-29 14:44 | A.SPINEOV_ITS ---
Intake Visit Reasons: 1st post op Intake Note: Mr. Castillo is here today for his 1st post op. Qa Developer Required: No Allergies azithromycin [AZITHROMYCIN] Allergy (Severe, Verified 12/28/23 17:05) TACHYCARDIA/HIVES penicillin V Allergy (Unknown, Verified 12/28/23 17:05) Anaphylaxis Penicillins [PCN] Allergy (Unknown, Verified 12/28/23 17:05) THROAT CLOSES From NOVOCAIN Allergy (Unknown, Uncoded 10/14/23 11:47) INCEASED SEVERE MIGRAINES SEASONAL ALLERGIES Allergy (Unknown, Uncoded 10/14/23 11:47) RHINITIS Assessment & Plan Assessment & Plan (1) S/P spinal fusion: Code(s): Z98.1 - Arthrodesis status Category: Medical Plan Sonu comes in today for a subsequent follow up visit after having an L4-5 L5- S1 ALIF completed by our service on 12/08/23. To recap he was seen in the emergency department yesterday for some serous fluid drainage from the incision site which began abruptly while he was taking a shower yesterday. They evaluated him, prescribed him some antibiotics to cover him for superficial cellulitis and sent him home. Today, Sonu comes to clinic for subsequent evaluation. He reports that he is not fill the antibiotic medications as of yet. His anterior incision site has a small 2-3 cm area of scabbing near the superior portion. It appears closed and well healing overall. He did report that under the scab is where some of the drainage was happening. I cleanse the area with alcohol and reapproximated the open portion of the scalp with Exofin. I would like Sonu to follow up with us again in 6 weeks to evaluate continued wound healing progress and obtain a set of x-rays. He agreed to fill that prescription of doxycycline that the emergency department provider prescribed for him as a precautionary measure. Jayesh Falcon MD,PhD [facility] Coding Level of Care Code Global (44623) Diagnoses S/P spinal fusion Z98.1
== END 2023-12-29 14:57 | disposition home or self-care (01) ==
PROVIDERS: PCP Student in an Organized Health Care Education/Training Program; Visit Provider Physician Assistant
DX: Z98.1 Arthrodesis status (principal)
CPT/HCPCS: 99024

== ENCOUNTER 2024-02-08 11:01 | Outpatient (REF) | payer OTHER, SELFPAY ==
--- NOTE | ~2024-02-08 | XR_ITS ---
EXAMINATION: XR LUMBAR SPINE 4 OR MORE VIEWS HISTORY: Z98.1 - Arthrodesis status COMPARISON: Comparison is made with the prior examination dated 10/29/2023. FINDINGS: AP, and neutral, flexion, and extension lateral views of the lumbar spine are submitted. Osseous mineralization is normal. In the interval since the prior study, the patient is status post anterior lumbar interbody fusion at L4-5 and L5-S1. Diffusion hardware is intact. There is likely subsidence involving the superior endplate of L5. The remaining vertebral bodies maintain normal height and alignment. There are mild degenerative changes with disc space narrowing. There are vascular calcifications. XR/XR lumbar spine 4V min IMPRESSION: Status post lumbar interbody fusion at L4-5 and L5-S1. Probable subsidence involving the superior endplate of L5. Comparison with prior outside postoperative studies is recommended. Electronically signed by: Sonu Aaron MD 02/16/2024 12:23 PM SHAYLA
== END 2024-02-08 11:02 | disposition home or self-care (01) ==
LOC: HO.HOSX 11:01
PROVIDERS: Visit Provider Physician Assistant
DX: Z98.1 Arthrodesis status (principal)
CPT/HCPCS: 72110

== ENCOUNTER 2024-02-08 14:18 | Outpatient (AMB) | payer OTHER, SELFPAY ==
--- NOTE | 2024-02-08 15:05 | HO.SPINEOV ---
Intake Visit Reasons: 2nd post op with xrays Intake Note: Mr. Castillo is here today for his 2nd post op appointment with xrays. 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 Required: No Allergies azithromycin [AZITHROMYCIN] Allergy (Severe, Verified 12/28/23 17:05) TACHYCARDIA/HIVES penicillin V Allergy (Unknown, Verified 12/28/23 17:05) Anaphylaxis Penicillins [PCN] Allergy (Unknown, Verified 12/28/23 17:05) THROAT CLOSES From NOVOCAIN Allergy (Unknown, Uncoded 10/14/23 11:47) INCEASED SEVERE MIGRAINES SEASONAL ALLERGIES Allergy (Unknown, Uncoded 10/14/23 11:47) RHINITIS Assessment & Plan Assessment & Plan (1) S/P spinal fusion: Code(s): Z98.1 - Arthrodesis status Category: Medical Plan Mr Castillo is 2 months out from his L5-S1, L4-5 anterior lumbar interbody fusion. He is very pleased with the surgery, it has taken his pain level from a 4 to a 2. He is now up and moving around better than normal. If he gets a little discomfort he will just take Advil/Tylenol combination medication usually that will be enough. His x-rays today look great. He is asking about going back to work. Currently he is unemployed but is looking to get back into some kind of job. I told him that he is only 2 months in and just in case he had to do lifting or bending in his new job we should give him a little more time. I will see him back in 2 months for an evaluation and we can see how he is doing at that point. We discussed activity guidelines, restrictions expectations after lumbar fusion. Tommy Falcon MD, PhD [facility] Orders: Orders XR lumbar spine 4V min Today Z98.1 - Arthrodesis status Coding Level of Care Code Global (17600) Diagnoses S/P spinal fusion Z98.1
== END 2024-02-08 16:00 | disposition home or self-care (01) ==
PROVIDERS: PCP Student in an Organized Health Care Education/Training Program; Visit Provider Physician Assistant
DX: Z98.1 Arthrodesis status (principal)
CPT/HCPCS: 99024

== ENCOUNTER → 2024-02-08 14:22 | Outpatient (BNV) | payer OTHER, SELFPAY | PROVIDERS: Visit Provider Radiology Diagnostic Radiology | DX: Z98.1 Arthrodesis status (principal) | CPT/HCPCS: 72110 ==

== ENCOUNTER 2024-03-25 09:31 | Outpatient (REF) | payer OTHER, SELFPAY ==
--- OUTSIDE RECORDS SUMMARY | 2024-03-25 09:58 | XMS_ITS | Clinical Summary ---
Author Organization [facility] Facility Address [address] [place] [id number] Care Team Providers Care Land Surveying Party Chief Name Role Phone Antonette Grullon Primary Care Provid er Allergies Active Allergy Reactions Criticality Noted Date Comments Azithromycin Hives 11/03/2023 TACHYCARDIA Procaine 11/03/2023 INCREASED SEVERE MIGRAINES Other 11/03/2023 SEASONAL ALLERGIES/RHINITIS Penicillin V Anaphylaxis High 11/03/2023 Medications ZOLMITRIPTAN PO Take by mouth Active Ibuprofen (ADVIL PO) Take by mouth Active Acetaminophen (TYLENOL PO) Take by mouth Active Active Problems Problem Noted Date Diagnosed Date Low back pain 11/03/2023 Migraine 11/03/2023 Asthma 11/03/2023 Allergic rhinitis 11/03/2023 Depressive disorder 10/12/2014 Degeneration of lumbar intervertebral disc 06/28 Basilar migraine 06/28/2014 Overview (11/27/2023): On Topamax, seeing Dr. Abreu, neurology at [place] Arthritis of left knee 06/28/2014 Arthritis of left hip 06/28/2014 Social History Tobacco Use Types Packs/Day Years Used Date Smoking Tobacco: Every Day Cigarettes Tobacco Cessation:Ready to Q uit: Not Asked; Counseling Given: Not Answered Alcohol Use Standard Drinks/Week Comments Yes 0 (1 standard drink = 0.6 oz pur e alcohol) special occa Sex and Gender Information Value Date Recorded Sex Assigned at Not on file Legal Sex Male 9:20 AM EDT Gender Identity Not on file Sexual Orientation Not on file Last Filed Vital Signs Vital Sign Reading Time Taken Comments Blood Pressure 163/98 11/27/2023 11:08 AM EDT Pulse 71 11/27/2023 11:08 AM EDT Temperature 36.3 ??C (97.3 ??F) 11/27/2023 11:08 AM E DT Respiratory Rate - - Oxygen Saturation 95% 11/27/2023 11:08 AM EDT Inhaled Oxygen Concentration - - Weight 115 kg (253 lb) 11/27/2023 11:08 AM EDT Height 177.8 cm (5' 10 ) 11/27/2023 11:08 AM EDT Body Mass Index 36.3 11/27/2023 11:08 AM EDT Plan of Treatment Health Maintenance Due Date Last Done Comments Pneumococcal Vaccine: Pediat rics (0 to 5 Years) and At-Risk Patients (6 to 64 Years) (1 of 2 - PCV) 01/30/1982 Hepatitis B Vaccine (1 of 3 - 19+ 3-dose series) 01/30/1995 Influenza Vaccine (#1) 2023 0, 12/20/2015, 10/23/2014 Insurance [facility] [place] [id number] [place]ICA[place] Care Teams Land Surveying Party Chief Relationship Specialty Start Date End Date Antonette Grullon [address] [place] [id number] PCP - General 11/03/23
--- OUTSIDE RECORDS SUMMARY | 2024-03-25 09:58 | XMS_ITS | Clinical Summary ---
Author Organization [employer] Address [address] [facility] [address] [place] [address] Care Team Providers Care Piece Worker Name Role Phone Jason Corea MD Primary Care Prov ider Allergies Active Allergy Reactions Criticality Noted Date Comments Azithromycin Shortness of breath High 12/29/2023 Other 11/03/2023 SEASONAL ALLERGIES/RHINITIS Penicillin G Anaphylaxis High 12/29/2023 Procaine 11/03/2023 INCREASED SEVERE MIGRAINES Medications gabapentin (Neurontin) 300 MG capsule Take 1 capsule (300 mg) by mouth 3 times daily. 90 capsule 1 03/24/2024 Active Blood Pressure kit 1 kit Once per day. 1 kit 03/24/2024 Active Active Problems Problem Noted Date Diagnosed Date Elevated blood pressure reading 03/24/2024 Assessment & Plan (03/24/2024 1:58 PM EST): Will order bp kit, encouaged to keep low sodium diet, exercise as tolerated, keep bp log, follow up in 1 month Chronic bilateral low back pain with bilateral s ciatica 03/24/2024 Assessment & Plan (03/24/2024 2:00 PM EST): Patient underwent surgery, pain has improved but still feeling shooting pain, continue ibuprofen/tylenol, will prescribe gabapentin, follow up with neurosurgery, er precautions reviewed Encounter for medical examination to establish c are 02/23/2024 Assessment & Plan (02/23/2024 12:05 AM EST): Last pcp follow up 2 years ago ER vsiit on 12/27 due to incsional infection, he underwent back surgery on 12/07 Hospitalization: - Pmhx: degenerative joint disease, back pain Pshx: acl 2006 left knee, right knee surgery 1986, low back 2023 All:- Meds: - Encounters Date Type Department Care Team Description 03/25/2024 Orders Only [facility] [address] [place] [address] Jason Corea MD Elevated blood pressure reading (Primary Dx) 03/24/2024 10:45 AM EST Office Visit [facility] [address] [place] [address] Jason Corea MD Elevated blood pressure reading (Primary Dx); Dietary counseling; Exercise counseling; Chronic bilateral low back pain with bilateral sciatica 03/24/2024 Travel 03/16/2024 Patient Outreach [facility] [address] [place] [address] Jason Corea MD Pre-visit Planning ([facility] unable to reach, number disconnected) 02/23/2024 Travel 12/29/2023 9:45 AM EST Telemedicine [facility] [address] [place] [address] Jason Corea MD Encounter for medical examination to establish care (Primary Dx) 12/29/2023 Travel from Last 3 Months Family History Medical History Relation Name Comments Osteoarthritis Brother Lung cancer Father passes away on 2019 Diverticulitis Mother Heart failure Mother Bone cancer Mother's Brother Melanoma Mother's Brother Relation Name Status Comments Brother Father Mother Mother's Brother Social History Tobacco Use Types Packs/Day Years Used Date Smoking Tobacco: Every Day Cigarettes 1 34.1 Started: 1990 Smokeless Tobacco: Never Tobacco Cessation:Ready to Q uit: Not Asked; Counseling Given: Not Answered Alcohol Use Standard Drinks/Week Comments Yes 0 (1 standard drink = 0.6 oz pur e alcohol) 4 times a year Depression Answer Date Recorded Patient Health Questionnaire-9 Score 3 03/24/2024 Patient Health Questionnaire-9 Score 3 03/24/2024 Last PHQ-9: Questionnaire Data Not on file 0 03/24/2024 Housing Stability Answer Date Recorded What is your housing situation today? I have duyen rice 12/29/[address] you li ve. Do you have problems with any of the following? None of the above 12/29/2023 Food Insecurity Answer Date Recorded Within the past 12 months, y ou worried that your food would run out before you got money to buy more: Never True 12/29/2023 Within the past 12 months,th e food you bought just didn't last and you didn't have enough money to get more: Never True Transportation Answer Date Recorded In the past 12 months, has l ack of transportation kept you from medical appts, meetings, work or from getting things needed for daily living? No 12/29/2023 Utilities Answer Date Recorded In the past 12 months, has t he electric, gas, oil or water company threatened to shut off services in your home? No 12/29/2023 Depression Answer Date Recorded Patient Health Questionnaire-2 Score 2 03/24/2024 Internet Access Answer Date Recorded Internet Access Q1 Yes 12/29/2023 Internet Access Q2 Not on file 12/29/2023 Sex and Gender Information Value Date Recorded Sex Assigned at Male 10/19/2023 3:19 PM EDT Legal Sex Male 3:14 PM EDT Gender Identity Male 12/29/2023 8:17 AM EST Sexual Orientation Straight 12/29/2023 8: 17 AM EST Last Filed Vital Signs Vital Sign Reading Time Taken Comments Blood Pressure 148/94 03/24/2024 11:00 AM EST Pulse 100 03/24/2024 11:00 AM EST Temperature 37.1 ??C (98.7 ??F) 03/24/2024 11:[address] Respiratory Rate 20 03/24/2024 11:00 AM EST Oxygen Saturation 98% 03/24/2024 11:00 AM EST Inhaled Oxygen Concentration - - Weight 114 kg (251 lb) 03/24/2024 11:00 AM EST Height 177.8 cm (5' 10 ) 03/24/2024 11:00 AM EST Body Mass Index 36.01 03/24/2024 11:00 AM EST Plan of Treatment Upcoming Encounters Date Type Department Care Team (Late st Contact Info) Description 04/21/2024 8:30 AM EDT Telemedicine [facility] [address] [place], [place] [phone] Jason Corea MD [address] [place] [address] Health Maintenance Due Date Last Done Comments CT Colonography 1976 Colonoscopy 1976 Colorectal Cancer Screening 1976 FIT DNA/Cologuard 1976 FIT 1976 FOBT 1976 HIV Screening 1976 Lipid Panel 1976 Sigmoidoscopy 1976 Alcohol/Substance Use Screening 1988 Family Planning (PISQ) 01/30/1991 Hepatitis C Screening 01/30/1994 DTaP/Tdap/Td Vaccines (1 - Tdap) 01/30/1995 Hepatitis B Vaccines (1 of 3 - 19+ 3-dose series) 01/30/1995 Pneumococcal Vaccine: Pediatrics (0 to 5 Years) and At-Risk Patients (6 to 49) Years) (2 of 2 - PCV) 02/14/2017 02/15/2016 COVID-19 Vaccine ( season) 2023 07/26/2021, 06/21/2020, 05/31/2020, Additional history exists Influenza Vaccine (#1) 2023 , 11/19/2018, 02/21/2017, Additional history exists SDOH Screening 12/28/2024 12/29/2023 Tobacco Screening 02/22/2025 02/23/2024 Depression Screening 03/24/2025 03/24/2024, 03/24/19 25 Zoster Vaccines (1 of 2) 01/30/2026 RSV Patients and Patients Aged 60 years or older (1 - 1-dose 75+ series) 01/30/2051 HIB Vaccines Aged Out No longer eligi ble based on patient's age to complete this topic HPV Vaccines Aged Out No longer eligi ble based on patient's age to complete this topic Hepatitis A Vaccines Aged Out No long er eligible based on patient's age to complete this topic IPV Vaccines Aged Out No longer eligi ble based on patient's age to complete this topic Meningococcal Vaccine Aged Out No reina erin eligible based on patient's age to complete this topic RSV under 20 months Aged Out No longe r eligible based on patient's age to complete this topic Rotavirus Vaccines Aged Out No longer eligible based on patient's age to complete this topic Insurance [facility] Care Teams Piece Worker Relationship Specialty Start Date End Date DrakeJason Zheng MD [address] [place] [id number] PCP - General Internal Medicine 12/29/23
--- OUTSIDE RECORDS SUMMARY | 2024-03-25 09:58 | XMS_ITS | Encounter Summary ---
Author Organization [facility] Address [address] [place] [address] Care Team Providers Care Tarp Repairer Name Role Phone Janae Guillermo MD Primary Care Provider Ramos cortez Encounter Details Date Type Department Care Team Description 02/12/2018 [facility] Medical Records [address] [place] [address] Abstract, Provider Social History Tobacco Use Types Packs/Day Years Used Date Smoking Tobacco: Every Day Cigarettes 0.5 25 Started: 08/18/1989 Smokeless Tobacco: Never Alcohol Use Standard Drinks/Week Comments Yes 0 (1 standard drink = 0.6 oz pure alcohol) 3 x/year beer, mixed drink, or wine Sex Assigned at Date Recorded Not on file documented as of this encounter Plan of Treatment Not on file documented as of this encounter Visit Diagnoses Not on filedocumented in this encounter Care Teams Tarp Repairer Relationship Specialty Start Date End Date Janae Guillermo MD PCP - General Internal Medicine 10/17/14 documented as of this encounter
--- OUTSIDE RECORDS SUMMARY | 2024-03-25 09:58 | XMS_ITS | Encounter Summary ---
Author Organization [facility] Address [address] [place] [address] Care Team Providers Care Table Games Dealer Name Role Phone Janae Guillermo MD Primary Care Provider Ramos cortez Reason for Visit * Reason Comments E-prescribe Rx Request Encounter Details Date Type Department Care Team Description 03/08/2019 Refill Adult Medicine [address] [phone] Janae Guillermo MD E-prescribe Rx Request Social History Tobacco Use Types Packs/Day Years Used Date Smoking Tobacco: Every Day Cigarettes 0.5 25 Started: 08/18/1989 Smokeless Tobacco: Never Alcohol Use Standard Drinks/Week Comments Yes 0 (1 standard drink = 0.6 oz pure alcohol) 3 x/year beer, mixed drink, or wine Sex Assigned at Date Recorded Not on file documented as of this encounter Miscellaneous Notes * Telephone Encounter - Najma Lopez PA-C - 03/09/2019 7:06 PM EST Spoke to patient regarding nicotine patch. He has little success keeping patch on his skin and does not need refill at this time. He has follow up with PCP in the next two weeks. * Telephone Encounter - Lacie Ellington M.A. - 03/09/2019 7:58 AM EST Lab Results Component Value Date NA 141 04/30/2017 K 4.7 04/30/2017 CO2 21.1 04/30/2017 CL 108 04/30/2017 BUN 24 04/30/2017 CREAT 0.9 04/30/2017 CA 9.3 04/30/2017 GFR > 60 04/30/2017 Last rx by Najma 21 mg 02/08/19 * Telephone Encounter - Youngmarc Abiola - 03/09/2019 7:51 AM EST Patient would like script to be: E-PRESCRIBED/FAXED TO PHARMACY WHEN WAS THE PATIENT'S LAST APPOINTMENT IN ADULT MEDICINE? 11/17/18 WHEN WAS THE LAST TIME THE PATIENT SAW THEIR PCP? Same as above Does patient have an upcoming appointment? Yes 03/21/2019 (THE MEDICATION REQUESTED IS ON THE MED LIST ABOVE) All of the medications requested were on the CURRENT MEDS list Did you check the Pharmacy information above?: YES Patient wants: 30 -day supply Is this a mail order prescription request ? NO If the refill is from a FAXED refill request what is the RX # listed on the fax? N/A Patients current insurance carrier is: Payor: [employer] FFS / Plan: [employer] / Product Type: MEDICAID RISK documented in this encounter Plan of Treatment Not on file documented as of this encounter Visit Diagnoses Not on filedocumented in this encounter Care Teams Table Games Dealer Relationship Specialty Start Date End Date Janae Guillermo MD PCP - General Internal Medicine 10/17/14 documented as of this encounter
--- OUTSIDE RECORDS SUMMARY | 2024-03-25 09:58 | XMS_ITS | Encounter Summary ---
Author Organization [facility] Address [address] [place] [address] Care Team Providers Care Warehouse Production Worker Name Role Phone Janae Guillermo MD Primary Care Provider Ramos cortez Encounter Details Date Type Department Care Team Description 02/16/2018 [employer] Report Medical Records [address] [place] [address] Oliver Laguna MD Social History Tobacco Use Types Packs/Day Years [...] on filedocumented in this encounter Care Teams Warehouse Production Worker Relationship Specialty Start Date End Date Janae Guillermo MD PCP - General Internal Medicine 10/17/14 documented as of this encounter
--- OUTSIDE RECORDS SUMMARY | 2024-03-25 09:58 | XMS_ITS | Encounter Summary ---
Author Organization [facility] Address [address] [place] [address] Care Team Providers Care Mover Helper Name Role Phone Janae Guillermo MD Primary Care Provider Ramos cortez Reason for Visit * Reason Onset Date Comments Mychart Rx Refill 04/12/2015 Encounter Details Date Type Department Care Team Description 04/12/2015 Refill Adult Medicine [address] [address] Janae Guillermo MD Mychart Rx Refill Social History Tobacco Use Types Packs/Day Years Used Date Smoking Tobacco: Every Day Cigarettes 0.5 25 Smokeless Tobacco: Never Alcohol Use Standard Drinks/Week Comments Yes 0 (1 standard drink = 0.6 oz pure alcohol) 3 x/year beer, mixed drink, or wine Sex Assigned at Date Recorded Not on file documented as of this encounter Miscellaneous Notes * Telephone Encounter - Queta Saenz M.A. - 04/12/2015 3:46 PM EST Refill due 04/13/2015 my chart msg sent * Telephone Encounter - Queta Saenz M.A. - 04/12/2015 3:45 PM ESTFrom: Sonu Castillo To: Janae Guillermo MD Sent: 04/12/2015 2:41 PM EST Subject: Medication Renewal Request Original authorizing provider: MD Sonu Martin would like a refill of the following medications: tramadol (ULTRAM) 50 MG tablet [Janae Guillermo MD] Preferred pharmacy: [id number] - [place], [place] - [address] [facility] Comment: I have enough of the prescription left to get me through tomorrow morning. I am putting in the request now because I will be at work for the rest of the night, and I want to comply with the contract/the office hours. documented in this encounter Plan of Treatment Not on file documented as of this encounter Visit Diagnoses Not on filedocumented in this encounter Care Teams Mover Helper Relationship Specialty Start Date End Date Janae Guillermo MD PCP - General Internal Medicine 10/17/14 documented as of this encounter
--- OUTSIDE RECORDS SUMMARY | 2024-03-25 09:58 | XMS_ITS | Encounter Summary ---
Author Organization [facility] Address [address] [place] [address] Care Team Providers Care Egg Breaker Name Role Phone Janae Guillermo MD Primary Care Provider Ramos cortez Encounter Details Date Type Department Care Team Description 10/09/2015 Pt. Non Urgent Medic al Question Adult Medicine [address] [address] Janae Guillermo MD Social History Tobacco Use Types Packs/Day [...] on filedocumented in this encounter Care Teams Egg Breaker Relationship Specialty Start Date End Date Janae Guillermo MD PCP - General Internal Medicine 10/17/14 documented as of this encounter
--- OUTSIDE RECORDS SUMMARY | 2024-03-25 09:58 | XMS_ITS | Clinical Summary ---
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 DX:Bicker staff's migraine Arthritis of left hip 06/28/2014 DX:Arthrit is of left hip Arthritis of left knee 06/28/2014 DX:Arthri tis of left knee DDD (degenerative disc disease), lumbar DX:DDD (degenerative disc disease), lumbar Syncope 10/12/2014 DX:Syncope; COMM ENT: Recurrent, secondary to migraines Depression 10/12/2014 DX:Depression Leukocytosis 10/12/2014 DX:Leukocytosis; COMMENT: Persistent mild, sees hematology Family History Medical History Relation Name Comments COPD Father smoker Heart failure Mother diverticulitis Other: bone cancer Uncle skin canc er Relation Name Status Comments Father Mother Uncle Social History Tobacco Use Types Packs/Day Years Used Date Smoking Tobacco: Every Day Cigarettes 0.5 34.6 Started: 08/18/1989 Smokeless Tobacco: Never Alcohol Use Standard Drinks/Week Comments Yes 0 (1 standard drink = 0.6 oz pur e alcohol) Sex and Gender Information Value Date Recorded Sex Assigned at Not on file Legal Sex Male 5:46 PM EST Gender Identity Not on file Sexual Orientation Not on file Obstetrics History Plan of Treatment Health Maintenance Due Date Last Done Comments DTaP,Tdap,and Td Vaccines (1 - Tdap) 01/30/1995 Hepatitis B Vaccines (1 of 3 - 19+ 3-dose series) 01/30/1995 Pneumococcal Vaccine: Pediatrics (0 to 5 Years) and At-Risk Patients (6 to 64 Years) (1 of 2 - PCV) 01/30/1995 Cholesterol Screening (Lipid Panel) 01/11/2022 Colorectal Cancer Screening: Colonoscopy 01/11/2022 Depression Screening 01/11/2022 HIV Screening 01/11/2022 Hepatitis C Screening 01/11/2022 Social Influencers of Health Screening 01/11/2022 COVID-19 Vaccine (3 - 2023-2 5 season) 2023 06/06/2020, 05/16/2020 Influenza Vaccine (#1) 2023 0, 12/20/2015, 10/23/2014 HIB Vaccines Aged Out No longer eligi [...] on patient's age to complete this topic MMR Vaccines Aged Out No longer eligi ble based on patient's age to complete this topic Meningococcal ACWY Vaccine Aged Out N o longer eligible based on patient's age to complete this topic Meningococcal B Vacine Aged Out No lo nger eligible based on patient's age to complete this topic RSV Immunization Patients Under 20 months Aged Out No longer eligible b ased on patient's age to complete this topic Varicella Vaccines Aged Out No longer eligible based on patient's age to complete this topic Care Teams Editor Book Relationship Specialty Start Date End Date Janae Guillermo MD [address] [place] [id number] PCP - General Internal Medicine 10/17/14
--- OUTSIDE RECORDS SUMMARY | 2024-03-25 09:58 | XMS_ITS | Encounter Summary ---
Author Organization [facility] Address [address] [place] [address] Care Team Providers Care Solar Engineer Name Role Phone Janae Guillermo MD Primary Care Provider Ramos cortez Reason for Visit * Reason Comments E-prescribe Rx Request Encounter Details Date Type Department Care Team Description 08/07/2015 Refill Adult Medicine [address] [phone] Tommy Joe PA-C [address] [place] [id number] E-prescribe Rx Request Social History Tobacco Use Types Packs/Day Years Used Date Smoking Tobacco: Every Day Cigarettes 0.5 25 Smokeless Tobacco: Never Alcohol Use Standard Drinks/Week Comments Yes 0 (1 standard drink = 0.6 oz pure alcohol) 3 x/year beer, mixed drink, or wine Sex Assigned at Date Recorded Not on file documented as of this encounter Miscellaneous Notes * Telephone Encounter - Sonia Hawkins - 08/07/2015 11:58 AM EDT Patient would like script to be: E-PRESCRIBED/FAXED TO PHARMACY WHEN WAS THE PATIENT'S LAST APPOINTMENT IN ADULT MEDICINE? 03/23/15 WHEN WAS THE LAST TIME THE PATIENT SAW THEIR PCP? Same as above Does patient have an upcoming appointment? [facility]ill [facility]. Appt due (THE MEDICATION REQUESTED IS ON THE MED LIST ABOVE) All of the medications requested were on the CURRENT MEDS list Did you check the Pharmacy information above?: YES Patient wants: 30 -day supply Is this a mail order prescription request ? NO Patients current insurance carrier is: Payor: [employer] FFS / Plan: [employer] CARE PLUS PLAN / Product Type: MEDICAID RISK documented in this encounter Plan of Treatment Not on file documented as of this encounter Visit Diagnoses Not on filedocumented in this encounter Care Teams Solar Engineer Relationship Specialty Start Date End Date Janae Guillermo MD PCP - General Internal Medicine 10/17/14 documented as of this encounter
--- OUTSIDE RECORDS SUMMARY | 2024-03-25 09:59 | XMS_ITS | Encounter Summary ---
Author Organization [employer] Address [address] [facility] [address] [place] [address] Care Team Providers Care Apparatus Cleaner Name Role Phone Jason Corea MD Primary Care Prov ider Reason for Visit * Reason Onset Date Comments new patient visit 12/14/2023 Encounter Details Date Type Department Care Team (Late Contact Info) Description 12/14/2023 Telephone [facility] [address] [place], [place] [phone] Jason Corea MD [address] [place], [place] [phone] new patient visit Social History Tobacco Use Types Packs/Day Years Used Date Smoking Tobacco: Never Assessed Sex and Gender Information Value Date Recorded Sex Assigned at Male 10/19/2023 3:19 PM EDT Legal Sex Male 3:14 PM EDT Gender Identity Male 12/29/2023 8:17 AM EST Sexual Orientation Straight 12/29/2023 8: 17 AM EST documented as of this encounter Miscellaneous Notes * Telephone Encounter - Yong Dove - 12/14/2023 9:14 AM EST TC placed to patient for scheduling of new patient visit. Agreed to 12/29/[address] Drake Pt needing Referral to Ortho surgeon . Recently had back surgery and has cyst in lungs . Apptmnt reminder and release form sent via mail . documented in this encounter Plan of Treatment Upcoming Encounters Date Type Department Care Team (Late Contact Info) Description 04/21/2024 8:30 AM EDT Telemedicine [facility] [address] [place], [place] [phone] Jason Corea MD [address] [place] [address] documented as of this encounter Visit Diagnoses Not on filedocumented in this encounter Care Teams Apparatus Cleaner Relationship Specialty Start Date End Date Jason Corea MD [address] [place] [address] PCP - General Internal Medicine 12/29/23 documented as of this encounter
--- OUTSIDE RECORDS SUMMARY | 2024-03-25 09:59 | XMS_ITS | Clinical Summary ---
Author Organization [facility] Address [address] [facility] [place] [address] Care Team Providers Care Computer Network Support Specialist Name Role Phone Janae Guillermo MD Primary Care Provider Ramos cortez Allergies Active Allergy Reactions Severity Noted Date Comments Azithromycin Rash/Dermatitis 03/18/2015 Developed diffuse rash 03/18/15 after completing z pack and codeine cough syrup Penicillins 01/29/2011 Medications Medication Sig Dispensed Refills Start Date End Date Status topiramate (TOPAMAX) 100 MG tablet Take 100 mg by mouth 2 times daily. 200 mg BID 0 Active ibuprofen (ADVIL,MOTRIN) 600 MG tablet TAKE 1 TABLET BY MOUTH EVERY 8 HOURS NEEDED FOR PAIN 90 Tab 0 10/09/2017 Active zolmitriptan (ZOMIG) 5 MG nasal solutionIndications: Chest wall pain,Bronchitis by Nasal route as needed. 0 Active nicotine (NICODERM CQ) 21 MG/24HR PLACE 1 PATCH ONTO THE SKIN EVERY 24 HOURS 28 Patch 0 02/08/2019 Active erythromycin (ROMYCIN) ophthalmic ointment 1/2 inch ribbon of ointment q3-4 hours in affected eye(s) x 7-10 days 3.5 g 0 03/21/2019 Active loratadine (CLARITIN) 10 MG tablet TAKE 1 TABLET BY MOUTH EVERY DAY 30 Tab 5 2020 Active buPROPion (WELLBUTRIN SR) 150 MG 12 hr tablet TAKE 1 TABLET BY MOUTH TWICE A DAY 60 Tab 5 2020 Active methocarbamol (ROBAXIN) 500 MG tablet Take 1 tablet by mouth daily as needed (muscle spasm). 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 Abreu, neurology at [place] Arthritis of left hip 06/28/2014 Arthritis of left knee 06/28/2014 DDD (degenerative disc disease), lumbar 06/28/2014 Immunizations Name Administration Dates Next Due COVID-19 (Pfizer) Pt Reported 06/06/2020, 021 Influenza (> 6 Months) 11/18/2019,12/20/2015, Influenza Flu (PT Reported) 11/19/2018 Family History Medical History Relation Name Comments COPD Father smoker CHF Mother diverticulitis bone cancer Uncle skin cancer Relation Name Status Comments Father Mother Uncle Social History Tobacco Use Types Packs/Day Years Used Date Smoking Tobacco: Every Day Cigarettes 0.5 25 Started: 08/18/1989 Smokeless Tobacco: Never Tobacco Cessation:Ready to Q uit: Yes; Counseling Given: Yes Alcohol Use Standard Drinks/Week Comments Yes 0 (1 standard drink = 0.6 oz pure alcohol) 3 x/year beer, mixed drink, or wine Sex Assigned at Date Recorded Not on file Last Filed Vital Signs Vital Sign Reading Time Taken Comments Blood Pressure 114/72 03/21/2019 8:36 AM EST Pulse 76 03/21/2019 8:36 AM EST Temperature 36.9 ??C (98.4 ??F) 03/21/2019 8:36 AM ES T Respiratory Rate 14 03/21/2019 8:36 AM EST Oxygen Saturation 97% 03/24/2017 11:07 AM EST Inhaled Oxygen Concentration - - Weight 89.4 kg (197 lb) 03/21/2019 8:36 AM EST Height 177.8 cm (5' 10 ) 03/21/2019 8:36 AM EST Body Mass Index 28.27 03/21/2019 8:36 AM EST Plan of Treatment Health Maintenance Due Date Last Done Comments BASELINE HEALTH EXAM 40-64 2016 09/23/2014, CHOLESTEROL SCREENING 09/24/2019 09/23/2014 DTAP/TDAP/TD (2 - Td or Tdap) 02/09/2022 (External Completion of Vaccination per patient) TOBACCO CHECK/ADVISE 10/24/2022 10/24/2020, 08/21/2020, 07/13/2020, Additional history exists Covid-19 Vaccine (3 - 2022-2 4 season) 2023 06/06/2020, 05/16/2020 INFLUENZA (#1) 2023 11/18/2019, 11/09, 11/19/2018, Additional history exists BMI CHECK/ADVISE 02/10/2024 06/16/2018, , 12/11/2016, Additional history exists DEPRESSION SCREENING/FOLLOWUP 02/10/2024, 01/27/2020, 11/23/2019, Additional history exists SOCIAL NEEDS SCREENING 02/10/2024 11/10/2019 PNEUMOCOCCAL VACCINE FOR HIG H RISK PATIENTS (#1) 01/30/2041 02/15/2016 Care Teams Computer Network Support Specialist Relationship Specialty Start Date End Date Janae Guillermo MD PCP - General Internal Medicine 10/17/14
--- OUTSIDE RECORDS SUMMARY | 2024-03-25 09:59 | XMS_ITS | Encounter Summary ---
Author Organization [facility] Address [address] [place] [address] Care Team Providers Care Business Test Analyst Name Role Phone Keren Sunshine MD Primary Care Provider Schuylera Eliazar oCpeland MD Primary Care Provider Unavail able Janae Guillermo MD Primary Care Provider Devon Link MD Primary Care Provider Barbie vailable Encounter Details Date Type Department Care Team Description 02/26/2011 [facility] Orthopedic Surgery [address] [place] [id number] Tommy Bryant MD Social History Tobacco Use Types Packs/Day [...] on filedocumented in this encounter Care Teams Business Test Analyst Relationship Specialty Start Date End Date Keren Sunshine MD PCP - General 12/09/06 06/25/14 Eliazar Siu MD PCP - General Internal Medicine 06/28/14 10/16/14 Janae Guillermo MD PCP - General Internal Medicine 10/17/14 Devon Croft MD PCP - General 06/26/14 06/27/14 documented as of this encounter
--- OUTSIDE RECORDS SUMMARY | 2024-03-25 09:59 | XMS_ITS | Encounter Summary ---
Author Organization [facility] Address [address] [place] [address] Care Team Providers Care Food Or Baggage Handling Rampman Name Role Phone Janae Guillermo MD Primary Care Provider Ramos cortez Encounter Details Date Type Department Care Team Description 04/02/2016 [facility] Medical Records [address] [place] [address] Abstract, Provider Social History Tobacco Use Types [...] on filedocumented in this encounter Care Teams Food Or Baggage Handling Rampman Relationship Specialty Start Date End Date Janae Guillermo MD PCP - General Internal Medicine 10/17/14 documented as of this encounter
--- OUTSIDE RECORDS SUMMARY | 2024-03-25 09:59 | XMS_ITS | Encounter Summary ---
[facility] Organization [facility] Address [address] [place] [address] Care Team Providers Care Retail Parts Pro Name Role Phone Keren Sunshine MD Primary Care Provider Unavaila Eliazar Copeland MD Primary Care Provider Unavail able Janae Guillermo MD Primary Care Provider UnavaDevon Downey MD Primary Care Provider Barbie vailable Encounter Details Date Type Department Care Team Description 06/17/2011 Release of Information Orthopedic Surgery - [address] [place] [id number] Abstract, Provider Social History Tobacco Use Types Packs/Day Years Used Date Smoking Tobacco: Never Assessed Sex Assigned at Date Recorded Not on file documented as of this encounter Plan of Treatment Not on file documented as of this encounter Visit Diagnoses Not on filedocumented in this encounter Care Teams Retail Parts Pro Relationship Specialty Start Date End Date Keren Sunshine MD PCP - General 12/09/06 06/25/14 Eliazar Siu MD PCP - General Internal Medicine 06/28/14 10/16/14 Janae Guillermo MD PCP - General Internal Medicine 10/17/14 Devon Croft MD PCP - General 06/26/14 06/27/14 documented as of this encounter
--- OUTSIDE RECORDS SUMMARY | 2024-03-25 09:59 | XMS_ITS | Encounter Summary ---
Author Organization [employer] Address [address] [facility] [address] [place] [address] Care Team Providers Care Box Icer Name Role Phone Jason Corea MD Primary Care Prov ider Encounter Details Date Type Department Care Team (Late st Contact Info) Description 03/24/2024 10:45 AM EST Office Visit [facility] CH[facility] MED & PEDS [address] [place], [place] [phone] Jason Corea MD [address] [place] [address] Elevated blood pressure reading (Primary Dx); Dietary counseling; Exercise counseling; Chronic bilateral low back pain with bilateral sciatica Social History Tobacco Use Types Packs/Day Years Used Date Smoking Tobacco: Every Day Cigarettes 1 34.1 Started: 1990 Smokeless Tobacco: Never Alcohol Use Standard Drinks/Week [...] AM EST documented as of this encounter Last Filed Vital Signs Vital Sign Reading [...] Mass Index 36.01 03/24/2024 11:00 AM EST documented in this encounter Progress Notes * Jason Arnold MD - 03/24/2024 10:45 AM EST Subjective Patient ID: Sonu Castillo is a 49 y.o. male who presents for No chief complaint on file.. Back Pain This is a chronic problem. The pain is present in the lumbar spine. The pain is at a severity of 5/10. The pain is mild. The symptoms are aggravated by position, twisting and sitting. Pertinent negatives include no bladder incontinence, bowel incontinence, numbness, paresis, paresthesias, tingling or weakness. Review of Systems Gastrointestinal: Negative for bowel incontinence. Genitourinary: Negative for bladder incontinence. Musculoskeletal: Positive for back pain. Neurological: Negative for tingling, weakness, numbness and paresthesias. Objective Physical Exam Constitutional: Appearance: Normal appearance. HENT: Right Ear: Tympanic membrane, ear canal and external ear normal. There is no impacted cerumen. Left Ear: Tympanic membrane, ear canal and external ear normal. There is no impacted cerumen. Cardiovascular: Rate and Rhythm: Normal rate and regular rhythm. Heart sounds: No murmur heard. Pulmonary: Effort: Pulmonary effort is normal. No respiratory distress. Breath sounds: No stridor. No wheezing or rhonchi. Abdominal: General: Abdomen is flat. There is no distension. Palpations: There is no mass. Tenderness: There is no abdominal tenderness. There is no guarding or rebound. Hernia: No hernia is present. Musculoskeletal: General: Tenderness present. No swelling. Normal range of motion. Cervical back: Normal range of motion. No rigidity or tenderness. Lymphadenopathy: Cervical: No cervical adenopathy. Skin: General: Skin is warm. Coloration: Skin is not jaundiced or pale. Neurological: General: No focal deficit present. Mental Status: He is alert and oriented to person, place, and time. Psychiatric: Mood and Affect: Mood normal. Behavior: Behavior normal. Assessment/Plan Problem List Items Addressed This Visit Elevated blood pressure reading - Primary Will order bp kit, encouaged to keep low sodium diet, exercise as tolerated, keep bp log, follow upin 1 month Chronic bilateral low back pain with bilateral sciatica Patient underwent surgery, pain has improved but still feeling shooting pain, continue ibuprofen/tylenol, will prescribe gabapentin, follow up with neurosurgery, er precautions reviewed Other Visit Diagnoses Dietary counseling Exercise counseling documented in this encounter Miscellaneous Notes * Assessment & Plan Note - Jason Arnold MD - 03/24/2024 2:00 PM ESTAssociated Problem(s): Chronic bilateral low back pain with bilateral sciatica Patient underwent surgery, pain has improved but still feeling shooting pain, continue ibuprofen/tylenol, will prescribe gabapentin, follow up with neurosurgery, er precautions reviewed * Assessment & Plan Note - Jason Arnold MD - 03/24/2024 1:53 PM ESTAssociated Problem(s): Elevated blood pressure reading Will order bp kit, encouaged to keep low sodium diet, exercise as tolerated, keep bp log, follow upin 1 month documented in this encounter Plan of Treatment Upcoming Encounters Date Type Department Care Team (Late st Contact Info) Description 04/21/2024 8:30 AM EDT Telemedicine [facility] MED & PEDS [address] [place] [address] Jason Corea MD [address] [place] [address] documented as of this encounter Visit Diagnoses Diagnosis Elevated blood pressure reading- Primary Elevated blood pressure reading without diagnosis of hypertension Dietary counseling Dietary surveillance and counseling Exercise counseling Chronic bilateral low back pain with bilateral sciatica documented in this encounter Additional Health Concerns Assessment Noted Time PHQ-9 Depression Total Score: 3 03/24/19 25 11:02 AM EST documented as of this encounter Care Teams Box Icer Relationship Specialty Start Date End Date Jason Corea MD [address] [place] [address] PCP - General Internal Medicine 12/29/23 documented as of this encounter
--- OUTSIDE RECORDS SUMMARY | 2024-03-25 09:59 | XMS_ITS | Encounter Summary ---
[facility] Organization [facility] Address [address] [place] [address] Care Team Providers Care Financial Quantitative Analyst Name Role Phone Janae Guillermo MD Primary Care Provider Ramos cortez Encounter Details Date Type Department Care Team Description 09/29/2016 Release of Information Medical Records [address] [place] [address] Abstract, Provider Social History Tobacco Use Types [...] on filedocumented in this encounter Care Teams Financial Quantitative Analyst Relationship Specialty Start Date End Date Janae Guillermo MD PCP - General Internal Medicine 10/17/14 documented as of this encounter
--- OUTSIDE RECORDS SUMMARY | 2024-03-25 09:59 | XMS_ITS | Encounter Summary ---
Author Organization [facility] Address [address] [place] [address] Care Team Providers Care Document Controller Name Role Phone Eliazar Siu MD Primary Care Provider aJnae Jaime MD Primary Care Provider Ramos cortez Encounter Details Date Type Department Care Team Description 06/30/2014 Release of Information Medical Records [address] [place] [address] Abstract, Provider Social History Tobacco Use Types Packs/Day Years Used Date Smoking Tobacco: Every Day Cigarettes 1 25 Smokeless Tobacco: Never Alcohol Use Standard Drinks/Week Comments Yes 0 (1 standard drink = 0.6 oz pur e alcohol) occ Sex Assigned at Date Recorded Not on file documented as of this encounter Plan of Treatment Not on file documented as of this encounter Visit Diagnoses Not on filedocumented in this encounter Care Teams Document Controller Relationship Specialty Start Date End Date Eliazar Siu MD PCP - General Internal Medicine 06/28/14 10/16/14 Janae Guillermo MD PCP - General Internal Medicine 10/17/14 documented as of this encounter
--- OUTSIDE RECORDS SUMMARY | 2024-03-25 09:59 | XMS_ITS | Encounter Summary ---
Author Organization [facility] Address [address] [place] [address] Care Team Providers Care Geospatial Imagery Intelligence Analyst Name Role Phone Janae Guillermo MD Primary Care Provider Ramos cortez Encounter Details Date Type Department Care Team Description 07/24/2016 Shoe Designer Report Medical Records [address] [place] [address] Oliver Laguna MD Social History Tobacco Use [...] on filedocumented in this encounter Care Teams Geospatial Imagery Intelligence Analyst Relationship Specialty Start Date End Date Janae Guillermo MD PCP - General Internal Medicine 10/17/14 documented as of this encounter
--- OUTSIDE RECORDS SUMMARY | 2024-03-25 09:59 | XMS_ITS | Encounter Summary ---
Author Organization [facility] Address [address] [place] [address] Care Team Providers Care Information Broker Name Role Phone Keren Sunshine MD Primary Care Provider Eliazar [place] MD Primary Care Provider Unavail Janae Barry MD Primary Care Provider Devon Link MD Primary Care Provider Barbie vailable Encounter Details Date Type Department Care Team Description 04/02/2011 Telephone Orthopedic Surgery - [address] [place] [id number] Tommy Bryant MD Social History Tobacco Use Types Packs/Day Years Used Date Smoking Tobacco: Never Assessed Sex Assigned at Date Recorded Not on file documented as of this encounter Miscellaneous Notes * Telephone Encounter - Antonella Manny Mota - 04/02/2011 10:48 AM EST Patient called office, spoke with scalder, requesting appointment for his knee pain. He states he went to both [facility] ER and [facility] ER yesterday, but the wait times were too long forhim, so he was not seen. Patient became aggravated with police matron staff, phone call was triaged to dane sinclair staff. Nurse then spoke with patient. He stated that he was unable to bear any weight on his left lower extremity due to increased knee pain. He also states he fell on his face yesterday because he was unable to walk on the knee. Patient was offered an immediate appointment, but he refused, saying he was unable to walk to make it to this office. He was then advised that if he could not walk and did not have any family members to assist him, he should call an ambulance for assistance. Patient became very upset, stating he would like pain medication instead. He was advised on otc analgesics with precautions, as well as offered another appointment for tomorrow. He again refused, and got further agitated regarding the treatment he received several weeks ago at [facility]. His surgery was cancelled by the anesthesiologist because the patient was vomiting prior to surgery. He was advised to seek medical advice for these symptoms from his primary care physician as well as pre-operative medical clearance before the surgery would be scheduled again. Patient also states he was seeking a second opinion with another orthopedic surgeon regarding his left knee. He was encouraged to do so if he felt this was the appropriate course of action. Patient continued to remain very frustrated and aggravated. Nurse apologized multiple times, trying to calm the patient down, and again offered him an appointment to be seen for his knee. Patient then hung up the phone. Discussed this situation with Dr Bryant. documented in this encounter Plan of Treatment Not on file documented as of this encounter Visit Diagnoses Not on filedocumented in this encounter Care Teams Information Broker Relationship Specialty Start Date End Date Keren Sunshine MD PCP - General 12/09/06 06/25/14 Eliazar Siu MD PCP - General Internal Medicine 06/28/14 10/16/14 Janae Guillermo MD PCP - General Internal Medicine 10/17/14 Devon Croft MD PCP - General 06/26/14 06/27/14 documented as of this encounter
--- OUTSIDE RECORDS SUMMARY | 2024-03-25 09:59 | XMS_ITS | Encounter Summary ---
Author Organization [facility] Address [address] [place] [address] Care Team Providers Care Jewelry Jobber Name Role Phone Janae Guillermo MD Primary Care Provider Ramos cortez Reason for Visit * Reason Comments E-prescribe Rx Request Encounter Details Date Type Department Care Team Description 02/17/2017 Refill Adult Medicine [address] [id number] Janae Guillermo MD E-prescribe Rx Request Social [...] encounter Miscellaneous Notes * Telephone Encounter - Nelly Sullivan - 02/17/2017 9:18 AM EST Patient would like script to be: pharmacy WHEN WAS THE PATIENT'S LAST APPOINTMENT IN ADULT MEDICINE? 01/22/17 WHEN WAS THE LAST TIME THE PATIENT SAW THEIR PCP? 06/18/16 Does patient have an upcoming appointment? 04/30/17 (THE MEDICATION REQUESTED IS ON THE MED LIST ABOVE) All of the medications requested were on the CURRENT MEDS list Did you check the Pharmacy information above?: YES Patient wants: 90 -day supply Is this a mail order prescription request ? NO Patients current insurance carrier is: Payor: [employer] FFS / Plan: [employer] PLUS PLAN / Product Type: MEDICAID RISK documented in this encounter Plan of Treatment Not on file documented as of this encounter Visit Diagnoses Not on filedocumented in this encounter Care Teams Jewelry Jobber Relationship Specialty Start Date End Date Janae Guillermo MD PCP - General Internal Medicine 10/17/14 documented as of this encounter
--- OUTSIDE RECORDS SUMMARY | 2024-03-25 09:59 | XMS_ITS | Encounter Summary ---
Author Organization [employer] Address [address] [facility] [address] [place] [address] Care Team Providers Care Courtesy Driver Name Role Phone Jason Corea MD Primary Care Prov ider Reason for Visit * Reason Comments Pre-visit Planning SDOH unable to reach , number disconnected Encounter Details Date Type Department Care Team (Late st Contact Info) Description 03/16/2024 Patient Outreach [facility] CHC MED & PEDS [address] [place], [place] [phone] Jason Corae MD [address] [place] [address] Pre-visit Planning (SDOH unable to reach, number disconnected) Social History Tobacco Use Types Packs/Day Years Used Date Smoking Tobacco: Every Day Cigarettes 1 34.1 Started: 1990 Smokeless Tobacco: Never Alcohol Use Standard Drinks/Week Comments Yes 0 (1 standard drink = 0.6 oz pur e alcohol) 4 times a year Housing Stability Answer Date Recorded What is [...] t he electric, gas, oil or water [employer] threatened to shut off services in your home? No 12/29/2023 Internet Access Answer Date Recorded Internet Access Q1 Yes 12/29/2023 Internet Access Q2 Not on file 12/29/2023 Sex and Gender Information Value Date Recorded Sex Assigned at Male 10/19/2023 3:19 PM EDT Legal Sex Male 3:14 PM EDT Gender Identity Male 12/29/2023 8:17 AM EST Sexual Orientation Straight 12/29/2023 8: 17 AM EST documented as of this encounter Progress Notes * Yolanda Eldridge - 03/16/2024 3:28 PM EST CC Yolanda Fisher placed outbound call to patient to complete pre-visit planning. No answer at this time. Patient name and were not confirmed. CC left voicemail requesting return call. Direct contactinformation provided. documented in this encounter Plan of Treatment Upcoming Encounters Date Type Department Care Team (Late st Contact Info) Description 04/21/2024 8:30 AM EDT Telemedicine [facility] MED & PEDS [address] [place] [address] Jason Corea MD [address] [place] [address] documented as of this encounter Visit Diagnoses Not on filedocumented in this encounter Care Teams Courtesy Driver Relationship Specialty Start Date End Date Jason Corea MD [address] [place] [address] PCP - General Internal Medicine 12/29/23 documented as of this encounter
--- OUTSIDE RECORDS SUMMARY | 2024-03-25 09:59 | XMS_ITS | Encounter Summary ---
Author Organization [employer] Address [address] [facility] 7t [place] [address] Care Team Providers Care Warehouse Team Member Name Role Phone Jason Corea MD Primary Care Prov ider Encounter Details Date Type Department Care Team (Late st Contact Info) Description 12/08/2023 Orders Only [facility] External Provider, [facility] Social History Tobacco Use Types Packs/Day Years Used Date Smoking Tobacco: Never Assessed Housing Stability Answer Date Recorded What is [...] AM EST documented as of this encounter Plan of Treatment Upcoming Encounters Date Type Department Care Team ([facility] st Contact Info) Description 04/21/2024 8:30 AM EDT Telemedicine [facility] CHC MED & PEDS [address] [place] [address] Jason Corea MD [address] [place] [address] documented as of this encounter Procedures Procedure Name Priority Date/Time Associated Diagnosis Comments FL GUIDANCE IN OR Routine 12/08/2023 12: 15 PM EDT documented in this encounter Results * FL Guidance in OR (12/08/2023 12:15 PM EDT) Anatomical Region Laterality Modality X-Ray Angiograph y 12/08/2023 12:1 5 PM EDT Narrative 03/09/2024 9:22 AM EST ? [facility] ?[address] ?[place] [address] ? Fluoroscopy Report ? Signed ? Patient: Sonu Castillo ?MR#: [id number] ?? [id number] ? : 1975 ?Acct:[id number] ? Age/Sex: 48 / M ?ADM Date: 12/08/23 ? Loc: HO.S3 ?369-1 ? Attending Dr: Rocky Falcon MD, PhD ? Ordering Physician: Rocky Falcon MD, PhD ?? Date of Service: 12/08/23 ?? Procedure(s): FL guidance in OR ?? Accession Number(s): [id number] ? cc: Rocky Falcon MD, PhD; Antonette Padilla MD ? EXAMINATION: ?? FLUORO GUIDANCE IN OR ? CLINICAL INFORMATION: ?? L4-L5, L5-S1 oblique lumbar interbody fusion. ? COMPARISON: ?? None available. ? TECHNIQUE: ?? Fluoroscopy supervised by: Dr. Falcon. ?? Fluoroscopy time: 33.3 seconds. ?? Cumulative Dose: 34.8 mGy. ?? DAP: 15.147 Gy-cm2 (enriquez-centimeter squared). ?? Images: 2. ? FINDINGS: ?? There are interbody devices present at L4-L5 and L5-S1. ? FL/FL guidance in OR ?? IMPRESSION: ?? Fluoroscopy during procedure. Please see procedure report for ?? additional information. ? Electronically signed by: ??Ebenezer Worthington MD ??03/09/2024 09:20 AM EST ? Dictated By: ?Ebenezer Worthington MD ? Signed By: ?<Electronically signed by Ebenezer Worthington MD in OV> ? 03/09/24 0920 ? DD/ 1215 ? TD/TT: 12/08/23 1420 ? Bobbin Dumper: SS ? Procedure Note Donotwayneinterpreter, Image - 03/09/[address] [address] Fluoroscopy Report Signed Patient: Sonu Castillo FMR#: [id number] : 1975Acct:[id number] Age/Sex: 48 / MADM Date: 12/08/23 Loc: HO.S3 369-[address]: Rocky Falcon MD, PhD Ordering Physician: Rocky Falcon MD, PhD Date of Service: 12/08/23 Procedure(s): FL guidance in OR Accession Number(s): [id number] cc: Rocky Falcon MD, PhD; Antonette Padilla MD EXAMINATION: FLUORO GUIDANCE IN OR CLINICAL INFORMATION: L4-L5, L5-S1 oblique lumbar interbody fusion. COMPARISON: None available. TECHNIQUE: Fluoroscopy supervised by: Dr. Falcon. Fluoroscopy time: 33.3 seconds. Cumulative Dose: 34.8 mGy. DAP: 15.147 Gy-cm2 (enriquez-centimeter squared). Images: 2. FINDINGS: There are interbody devices present at L4-L5 and L5-S1. FL/FL guidance in OR IMPRESSION: Fluoroscopy during procedure. Please see procedure report for additional information. Electronically signed by: Ebenezer Worthington MD 03/09/2024 09:20 AM EST Dictated By: Ebenezer Worthington MD Signed By: <Electronically signed by Ebenezer Worthington MD in OV> 03/09/24 0920 DD/ 1215 TD/TT: 12/08/23 1420 Bobbin Dumper: RONEY [facility] External Provider IMG IR PROCEDURES Edited Result - Final documented in this encounter Visit Diagnoses Not on filedocumented in this encounter Care Teams Warehouse Team Member Relationship Specialty Start Date End Date Jason Corea MD [address] [place] [address] PCP - General Internal Medicine 12/29/23 documented as of this encounter
--- OUTSIDE RECORDS SUMMARY | 2024-03-25 09:59 | XMS_ITS | Encounter Summary ---
Author Organization [employer] Address [address] [facility] 7t [place] [address] Care Team Providers Care Deli Associate Name Role Phone Jason Corea MD Primary Care Prov ider Encounter Details Date Type Department Care Team (Latest Contact Info) Description 03/24/2024 Travel Social History Tobacco Use Types Packs/Day Years [...] Info) Description 04/21/2024 8:30 AM EDT Telemedicine [facility] MED & PEDS [address] [place] [address] Jason Corea MD [address] [place] [address] documented as of this encounter Visit Diagnoses Not on filedocumented in this encounter Additional Health Concerns Assessment Noted Time PHQ-9 Depression Total Score: 3 03/24/19 25 11:02 AM EST documented as of this encounter Care Teams Deli Associate Relationship Specialty Start Date End Date Jason Corea MD [address] [place] [address] PCP - General Internal Medicine 12/29/23 documented as of this encounter
--- OUTSIDE RECORDS SUMMARY | 2024-03-25 09:59 | XMS_ITS | Encounter Summary ---
Author Organization [facility] Address [address] [place] [address] Care Team Providers Care Bit Shaver Name Role Phone Keren Sunshine MD Primary Care Provider Unavaila Eliazar Copeland MD Primary Care Provider Unavail able Janae Guillermo MD Primary Care Provider UnavaDevon Downey MD Primary Care Provider Barbie vailable Encounter Details Date Type Department Care Team Description 06/17/2011 Release of Information Orthopedic Surgery - [address] [place] [phone] Abstract, Provider Social History Tobacco Use Types Packs/Day Years Used Date Smoking Tobacco: Never Assessed Sex Assigned at Date Recorded Not on file documented as of this encounter Plan of Treatment Not on file documented as of this encounter Visit Diagnoses Not on filedocumented in this encounter Care Teams Bit Shaver Relationship Specialty Start Date End Date Keren Sunshine MD PCP - General 12/09/06 06/25/14 Eliazar Siu MD PCP - General Internal Medicine 06/28/14 10/16/14 Janae Guillermo MD PCP - General Internal Medicine 10/17/14 Devon Croft MD PCP - General 06/26/14 06/27/14 documented as of this encounter
--- OUTSIDE RECORDS SUMMARY | 2024-03-25 09:59 | XMS_ITS | Encounter Summary ---
Author Organization [facility] Address [address] [place] [address] Care Team Providers Care Senior Accounting Associate Name Role Phone Janae Guillermo MD Primary Care Provider Ramos cortez Reason for Visit * Reason Onset Date Comments TEST RESULTS 09/26/2016 Encounter Details Date Type Department Care Team Description 09/26/2016 Pt. Non Urgent Medic al Question Adult Medicine [address] [address] Janae Guillermo MD Social History Tobacco Use Types Packs/Day Years Used Date Smoking Tobacco: Every Day Cigarettes 0.5 25 Smokeless Tobacco: Never Alcohol Use Standard Drinks/Week Comments Yes 0 (1 standard drink = 0.6 oz pure alcohol) 3 x/year beer, mixed drink, or wine Sex Assigned at Date Recorded Not on file documented as of this encounter Progress Notes * Queta Saenz M.A. - 09/26/2016 11:49 AM EDTFrom: Sonu Castillo To: Janae Guillermo MD Sent: 09/26/2016 8:57 AM EDT Subject: Left knee pain The orthopedic doctor that I was seen by yesterday a Dr. Valadez was not clear on when I can or if I can return to work and only really wanted to do a cortisone injection in my knee instead of truly listening to what I was telling him about my knee and what I think needs to be done what are your thoughts documented in this encounter Plan of Treatment Not on file documented as of this encounter Visit Diagnoses Not on filedocumented in this encounter Care Teams Senior Accounting Associate Relationship Specialty Start Date End Date Janae Guillermo MD PCP - General Internal Medicine 10/17/14 documented as of this encounter
--- OUTSIDE RECORDS SUMMARY | 2024-03-25 09:59 | XMS_ITS | Encounter Summary ---
Author Organization [facility] Address [address] [place] [address] Care Team Providers Care Blood Coordinator Name Role Phone Janae Guillermo MD Primary Care Provider Ramos cortez Encounter Details Date Type Department Care Team Description 11/05/2015 Refill Adult Medicine [facility] [address] [place] [address] Juanita Mccarthy PA-C [address] [place] [address] Social History Tobacco Use Types Packs/Day Years Used Date Smoking Tobacco: Every Day Cigarettes 0.5 25 Smokeless Tobacco: Never Alcohol Use Standard Drinks/Week Comments Yes 0 (1 standard drink = 0.6 oz pure alcohol) 3 x/year beer, mixed drink, or wine Sex Assigned at Date Recorded Not on file documented as of this encounter Miscellaneous Notes * Telephone Encounter - Kelsey Jansen L.P.N. - 11/05/2015 3:12 PM EDT Not due till 11/06/2015 * Telephone Encounter - Kelsey Jansen L.P.N. - 11/05/2015 3:11 PM EDTFrom: Sonu Castillo To: Juanita Mccarthy PA-C Sent: 11/05/2015 1:38 PM EDT Subject: Medication Renewal Request Original authorizing provider: GALDINO Echevarria would like a refill of the following medications: tramadol (ULTRAM) 50 MG tablet [Juanita Mccarthy PA-C] Preferred pharmacy: [id number] AT [facility] Comment: documented in this encounter Plan of Treatment Not on file documented as of this encounter Visit Diagnoses Not on filedocumented in this encounter Care Teams Blood Coordinator Relationship Specialty Start Date End Date Janae Guillermo MD PCP - General Internal Medicine 10/17/14 documented as of this encounter
--- OUTSIDE RECORDS SUMMARY | 2024-03-25 09:59 | XMS_ITS | Encounter Summary ---
Author Organization [facility] Address [address] [place] [address] Care Team Providers Care Technical Services Representative Name Role Phone Janae Guillermo MD Primary Care Provider Ramos cortez Encounter Details Date Type Department Care Team Description 01/25/2016 Braid Cutter Report Medical Records [address] [place] [address] Oliver Laguna MD Social History Tobacco Use [...] on filedocumented in this encounter Care Teams Technical Services Representative Relationship Specialty Start Date End Date Janae Guillermo MD PCP - General Internal Medicine 10/17/14 documented as of this encounter
--- OUTSIDE RECORDS SUMMARY | 2024-03-25 09:59 | XMS_ITS | Encounter Summary ---
Author Organization [facility] Address [address] [place] [address] Care Team Providers Care Clarifier Operator Helper Name Role Phone Janae Guillermo MD Primary Care Provider Ramos cortez Encounter Details Date Type Department Care Team Description 06/05/2020 Rehabilitation Services Coordinator Report Medical Records [address] [place] [address] Kasi Malcolm [address] [place] [address] Social History Tobacco Use Types Packs/Day Years [...] on filedocumented in this encounter Care Teams Clarifier Operator Helper Relationship Specialty Start Date End Date Janae Guillermo MD PCP - General Internal Medicine 10/17/14 documented as of this encounter
--- OUTSIDE RECORDS SUMMARY | 2024-03-25 09:59 | XMS_ITS | Encounter Summary ---
Author Organization [employer] Address [address] [facility] 7t [place] [address] Care Team Providers Care Spool Tender Name Role Phone Jason Corea MD Primary Care Prov ider Encounter Details Date Type Department Care Team (Late st Contact Info) Description 03/25/2024 Orders Only [facility] CHC MED & PEDS [address] [place], [place] [phone] Jason Corea MD [address] [place] [address] Elevated blood pressure reading (Primary Dx) Social History Tobacco Use Types Packs/Day Years [...] Upcoming Encounters Date Type Department Care Team ([facility] st Contact Info) Description 04/21/2024 8:30 AM EDT Telemedicine [facility] MED & PEDS [address] [place] [address] DrakeJason Zheng MD [address] [place], [place] [phone] Scheduled Orders Name Type Priority Associated Diagnoses Orde r Schedule CBC auto differential Lab Routine Elevated blood pressure reading Expected: 03/25/2024 (Approximate), Expires: 03/25/2025 Comprehensive Metabolic Panel Lab Routine Elevated blood pressure reading Expected: 03/25/2024 (Approximate), Expires: 03/25/2025 Lipid Panel, Standard Lab Routine Elevated blood pressure reading Expected: 03/25/2024 (Approximate), Expires: 03/25/2025 TSH W/Reflex to FT4 Lab Routine Elevated blood pressure reading Expected: 03/25/2024 (Approximate), Expires: 03/25/2025 Hemoglobin A1c Lab Routine Elevated blood pressure reading Expected: 03/25/2024 (Approximate), Expires: 03/25/2025 HIV-1/2 Antigen and Antibodies, Fourth Generation, with Reflexes Lab Routine Elevated blood pressure reading Expected: 03/25/2024 (Approximate), Expires: 03/25/2025 Hepatitis C Antibody with Reflex to HCV, RNA, Quantitative, Real-Time PCR Lab Routine Elevated blood pressure reading Expected: 03/25/2024, Expires: 03/25/2025 documented as of this encounter Visit Diagnoses Diagnosis Elevated blood pressure reading- Primary Elevated blood pressure reading without diagnosis of hypertension documented in this encounter Additional Health Concerns Assessment Noted Time PHQ-9 Depression Total Score: 3 03/24/19 25 11:02 AM EST documented as of this encounter Care Teams Spool Tender Relationship Specialty Start Date End Date Jason Corea MD [address] [place] [address] PCP - General Internal Medicine 12/29/23 documented as of this encounter
--- OUTSIDE RECORDS SUMMARY | 2024-03-25 09:59 | XMS_ITS | Encounter Summary ---
Author Organization [facility] Address [address] [place] [address] Care Team Providers Care Academic Assistant Name Role Phone Janae Guillermo MD Primary Care Provider Ramos cortez Encounter Details Date Type Department Care Team Description 10/24/2014 OIL FURNACE INSTALLER/MassPat Report Medical Records [address] [place] [address] Abstract, Provider Social History Tobacco Use Types [...] on filedocumented in this encounter Care Teams Academic Assistant Relationship Specialty Start Date End Date Janae Guillermo MD PCP - General Internal Medicine 10/17/14 documented as of this encounter
[2024-03-25 14:12] LABS: MANUAL DIFF FLAG NO
[2024-03-25 14:23] LABS: Basophils Absolute Auto 0.1 X10*3/uL (0.0-0.2); Basophils Percent Auto 0.6 % (0-2); Eosinophils Absolute Auto 0.2 X10*3/uL (0.0-0.4); Eosinophils Percent Auto 1.4 % (0-4); Hematocrit 43.1 % (42.0-52.0); Hemoglobin 14.5 g/dl (14.0-18.0); Imm Gran Abs Auto 0.04 X10*3/uL (0.00-0.03); Imm Gran Pct Auto 0.3 % (0.0-0.4); Lymphocytes Absolute Auto 3.5 X10*3/uL (1.2-4.9); Mean Corpuscular HGB Conc 33.6 g/dl (31.0-36.0); Mean Corpuscular Hemoglobin 28.8 pg (27.0-33.0); Mean Corpuscular Volume 85.7 fL (80.0-98.0); Mean Platelet Volume 9.8 fL (9.4-12.4); Monocytes Percent Auto 7.7 % (2-11); Neutrophils Absolute Auto 7.9 x10*3/uL (2.0-8.3); Platelet Count 336 X10*3/uL (160-400); Red Blood Count 5.03 X10*6/uL (4.60-5.80); Red Cell Distribution Width 14.9 % (11.0-16.0); White Blood Count 12.7 X10*3/uL (4.8-10.8)
[2024-03-25 14:41] LABS: Estimated Average Glucose 120 mg/dL; Hemoglobin A1C 148.6061 umol/L; Hemoglobin A1c % 5.8 % (<6.0); Total Hemoglobin (HGBA1C) 3773.3829 umol/L
[2024-03-25 14:57] LABS: Alanine Aminotransferase 27 U/L (0-40); Alkaline Phosphatase 111 U/L (39-117); Anion Gap 12 (12-20); Aspartate Amino Transferase 28 U/L (5-37); Bilirubin Total 0.2 mg/dL (0.0-1.0); Blood Urea Nitrogen 13 mg/dL (9-16); Calcium 9.2 mg/dL (8.4-10.2); Carbon Dioxide 25 mmol/L (22-29); Chloride 105 mmol/L (96-108); Cholesterol 166 mg/dL (<200); Estimated Glomerular Filt Rate > 60; Glucose Random 76 mg/dL (60-115); HDL Cholesterol 46 mg/dL (>40); LDL Cholesterol Calculated 109 mg/dL (<100); Potassium 4.3 mmol/L (3.3-5.1); Sodium 138 mmol/L (135-145); Total Protein 7.2 g/dL (6.5-8.0); Triglycerides 58 mg/dL (<150)
[2024-03-26 03:37] LABS: HIV AB/AG Nonreactive (Nonreactive); HIV Num 1 0.04 S/CO (0.00-0.99); ~HepC Num1 0.06 S/CO (0.00-0.79); ~Hepatitis C Antibody Nonreactive (Nonreactive)
== END 2024-03-25 09:32 | disposition home or self-care (01) ==
LOC: HO.CHCLDS 09:31
PROVIDERS: Visit Provider Internal Medicine
DX: R03.0 Elevated blood-pressure reading, without diagnosis of hypertension (principal); Z13.1 Encounter for screening for diabetes mellitus; Z13.6 Encounter for screening for cardiovascular disorders
CPT/HCPCS: 36415; 80053; 80061; 83036; 84443; 85025; 86803; 87389

== ENCOUNTER 2024-04-04 13:25 | Outpatient (AMB) | payer OTHER, SELFPAY ==
--- NOTE | 2024-04-04 13:45 | A.SPINEOV_ITS ---
Intake Visit Reasons: 2 months f/up Intake Note: Mr. Castillo is here today for his 2 month F/u. Bank Teller Machine Mechanic Required: No Allergies azithromycin [AZITHROMYCIN] Allergy (Severe, Verified 12/28/23 17:05) TACHYCARDIA/HIVES penicillin V Allergy (Unknown, Verified 12/28/23 17:05) Anaphylaxis Penicillins [PCN] Allergy (Unknown, Verified 12/28/23 17:05) THROAT CLOSES From NOVOCAIN Allergy (Unknown, Uncoded 10/14/23 11:47) INCEASED SEVERE MIGRAINES SEASONAL ALLERGIES Allergy (Unknown, Uncoded 10/14/23 11:47) RHINITIS Assessment & Plan Assessment & Plan (1) S/P spinal fusion: Code(s): Z98.1 - Arthrodesis status Category: Medical Plan Mr Castillo is now 4 months out from his anterior lumbar interbody fusion L4-5, L5-S1. His back pain is manageable but he does have bad days, especially now in the winter with a cold. He is glad that he had surgery and does feel that it h elped him out quite a bit. I sent him for x-rays today in the hardware looks like it is in good position. At this point he has no restrictions, he can resume looking for work and can see us back on an as-needed basis. Total amount of time spent in this visit was 20 minutes in discussion of symptoms, lumbar x-ray imaging results and subsequent plan of care Tommy Falcon MD,PhD [facility] Orders: Orders XR lumbar spine 4V min Today Z98.1 - Arthrodesis status Coding Level of Care Code Est Pt Level 3 (33066) Diagnoses S/P spinal fusion Z98.1
--- OUTSIDE RECORDS SUMMARY | 2024-04-04 15:25 | XMS_ITS | Encounter Summary ---
Author Organization [facility] Address [address] [place] [address] Care Team Providers Care Claims Auditor Name Role Phone Jaane Guillermo MD Primary Care Provider Ramos cortez Encounter Details Date Type Department Care Team Description 07/24/2016 Java Lead Developer Report Medical Records [address] [place] [address] Oliver Laguna MD Social History Tobacco Use [...] on filedocumented in this encounter Care Teams Claims Auditor Relationship Specialty Start Date End Date Janae Guillermo MD PCP - General Internal Medicine 10/17/14 documented as of this encounter
--- OUTSIDE RECORDS SUMMARY | 2024-04-04 15:25 | XMS_ITS | Encounter Summary ---
Author Organization [employer] Address [address] [facility] 7t [place] [address] Care Team Providers Care Licensed Pharmacist Name Role Phone Jason Corea MD Primary [...] Info) Description 04/21/2024 8:30 AM EDT Telemedicine [facility] MED & PEDS [address] [place] [address] Jason Corea MD [address] [place] [address] documented as of this encounter Visit Diagnoses Not on filedocumented in this encounter Additional Health Concerns Assessment Noted Time PHQ-9 Depression Total Score: 3 03/24/19 25 11:02 AM EST documented as of this encounter Care Teams Licensed Pharmacist Relationship Specialty Start Date End Date Jason Corea MD [address] [place] [address] PCP - General Internal Medicine 12/29/23 documented as of this encounter
--- OUTSIDE RECORDS SUMMARY | 2024-04-04 15:25 | XMS_ITS | Encounter Summary ---
Author Organization [employer] Address [address] [facility] 7t [place] [address] Care Team Providers Care Liquefied Natural Gas Operator Name Role Phone Jason Corea MD Primary Care Prov ider Encounter Details Date Type Department Care Team (Late st Contact Info) Description 12/08/2023 Orders Only [facility] External Provider, [facility] Social History Tobacco Use Types Packs/Day Years [...] Upcoming Encounters Date Type Department Care Team ([facility] st Contact Info) Description 04/21/2024 8:30 AM EDT Telemedicine [facility] CHC MED & PEDS [address] [place] [address] Jason Corea MD [address] [place] [address] documented as of this encounter Procedures Procedure Name Priority Date/Time Associated Diagnosis Comments FL GUIDANCE IN OR Routine 12/08/2023 12: 15 PM EDT documented in this encounter Results * FL Guidance in OR (12/08/2023 12:15 PM EDT) Anatomical Region Laterality Modality X-Ray Angiograph y 12/08/2023 12:1 5 PM EDT Narrative 03/09/2024 9:22 AM EST ? [facility] ?[address] ?[place] [address] ? Fluoroscopy Report ? Signed ? Patient: Sonu Csatillo ?MR#: [id number] ?? [id number] ? : 1975 ?Acct:[id number] ? Age/Sex: 48 / M ?ADM Date: 12/08/23 ? Loc: HO.S3 ?369-1 ? Attending Dr: Rocky Falcon MD, PhD ? Ordering Physician: Rocky Falcon MD, PhD ?? Date of Service: 12/08/23 ?? Procedure(s): FL guidance in OR ?? Accession Number(s): [id number] ? cc: Rocky Falcon MD, PhD; Antonette [...] DD/ 1215 ? TD/TT: 12/08/23 1420 ? Real Estate Instructor: SS ? Procedure Note Donotwayneinterpreter, Image - 03/09/[address] [address] Fluoroscopy Report Signed Patient: Sonu Castillo FMR#: [id number] : 1975Acct:[id number] Age/Sex: 48 / MADM Date: 12/08/23 Loc: HO.S3 369-[address]: Rocky Falcon MD, PhD Ordering Physician: Rocky Falcon MD, PhD Date of Service: 12/08/23 Procedure(s): FL guidance in OR Accession Number(s): [id number] cc: Rocky Falcon MD, PhD; Antonette Padilla [...] 03/09/24 0920 DD/ 1215 TD/TT: 12/08/23 1420 Real Estate Instructor: RONEY [facility] External Provider IMG IR PROCEDURES Edited Result - Final documented in this encounter Visit Diagnoses Not on filedocumented in this encounter Care Teams Liquefied Natural Gas Operator Relationship Specialty Start Date End Date Jason Corea MD [address] [place] [address] PCP - General Internal Medicine 12/29/23 documented as of this encounter
--- OUTSIDE RECORDS SUMMARY | 2024-04-04 15:25 | XMS_ITS | Clinical Summary ---
Author Organization [facility] Address [address] [facility] [place] [address] Care Team Providers Care Excelsior Machine Operator Name Role Phone Janae Guillermo MD Primary [...] On Topamax, seeing Dr. Abreu, neurology at [facility] Arthritis of left hip 06/28/2014 Arthritis of [...] RISK PATIENTS (#1) 01/30/2041 02/15/2016 Care Teams Excelsior Machine Operator Relationship Specialty Start Date End Date Janae Guillermo MD PCP - General Internal Medicine 10/17/14
--- OUTSIDE RECORDS SUMMARY | 2024-04-04 15:25 | XMS_ITS | Encounter Summary ---
Author Organization [employer] Address [address] [facility] 7t [place] [address] Care Team Providers Care Wireless Sales Manager Name Role Phone Jason Corea MD Primary Care Prov ider Reason for Visit * Reason Comments Pre-visit Planning SDOH unable to reach , number disconnected Encounter Details Date Type Department Care Team (Late st Contact Info) Description 03/16/2024 Patient Outreach [facility] CHC MED & PEDS [address] [place], [place] [phone] Jason Corea MD [address] [place] [address] Pre-visit Planning (SDOH unable to reach, number [...] t he electric, gas, oil or water [employer] threatened to shut off services in your [...] Info) Description 04/21/2024 8:30 AM EDT Telemedicine [facility] MED & PEDS [address] [place] [address] Jason Corea MD [address] [place] [address] documented as of this encounter Visit Diagnoses Not on filedocumented in this encounter Care Teams Wireless Sales Manager Relationship Specialty Start Date End Date Jason Corea MD [address] [place] [address] PCP - General Internal Medicine 12/29/23 documented as of this encounter
--- OUTSIDE RECORDS SUMMARY | 2024-04-04 15:25 | XMS_ITS | Encounter Summary ---
Author Organization [facility] Address [address] [place] [address] Care Team Providers Care Hot Repairman Name Role Phone Janae Guillermo MD Primary Care Provider Ramos cortez Reason for Visit * Reason Comments E-prescribe Rx Request Encounter Details Date Type Department Care Team Description 02/17/2017 Refill Adult Medicine [address] [phone] Janae Guillermo MD E-prescribe Rx Request Social [...] NO Patients current insurance carrier is: Payor: [employer] FFS / Plan: Tame PLUS PLAN / Product Type: MEDICAID RISK documented in this encounter Plan of Treatment Not on file documented as of this encounter Visit Diagnoses Not on filedocumented in this encounter Care Teams Hot Repairman Relationship Specialty Start Date End Date Janae Guillermo MD PCP - General Internal Medicine 10/17/14 documented as of this encounter
--- OUTSIDE RECORDS SUMMARY | 2024-04-04 15:25 | XMS_ITS | Encounter Summary ---
Author Organization [facility] Address [address] [place] [address] Care Team Providers Care Rainbow Trout Farm Manager Name Role Phone Janae Guillermo MD Primary Care Provider Ramos cortez Reason for Visit * Reason Comments E-prescribe Rx Request Encounter Details Date Type Department Care Team Description 03/08/2019 Refill Adult Medicine [address] [phone] Janae Guillermo MD E-prescribe Rx Request Social [...] N/A Patients current insurance carrier is: Payor: [employer] FFS / Plan: [employer] / Product Type: MEDICAID RISK documented in this encounter Plan of Treatment Not on file documented as of this encounter Visit Diagnoses Not on filedocumented in this encounter Care Teams Rainbow Trout Farm Manager Relationship Specialty Start Date End Date Janae Guillermo MD PCP - General Internal Medicine 10/17/14 documented as of this encounter
--- OUTSIDE RECORDS SUMMARY | 2024-04-04 15:25 | XMS_ITS | Encounter Summary ---
Author Organization [facility] Address [address] [place] [address] Care Team Providers Care Mathematical Engineer Name Role Phone Janae Guillermo MD Primary Care Provider Ramos cortez Encounter Details Date Type Department Care Team Description 12/15/2019 Refill Adult Medicine [address] [address] Janae Guillermo MD Social History Tobacco Use [...] encounter Miscellaneous Notes * Telephone Encounter - Virginie Boogie M.A. - 12/16/2019 3:28 PM EST Script being in [facility] pending Pt bringing in proof of out town from 11/30/19 to present per PCP.PCP wrote script for today as she is remote on Thursday when PT states he will bring the proof into the office. [id number] FYI *PT is also asking to speak with the Cath Lab Radiological Technologist of the practice when he arrives. * Telephone Encounter - Janae Guillermo - 12/16/2019 2:04 PM EST Script printed. * Telephone Encounter - Lacie Ellington M.A. - 12/16/2019 9:09 AM EST I called pt,Virginie Boogie, BUNNY was my witness and documentating the conversation, asked him if he is able to come into the office with proof that he was out of the area 11/30/19 when we had calledto request a pill count. Pt advises he is a couple hundred miles away , out of state ,and will not be back in [place] [facility]. He asked that his be able to pickling tank operator his prescription, I advised pt that we need proof that he was out of the area when we had called him in for the pillcount, pt advises he is unable to do this. I asked pt if he could fax the information to our office, he advised he has no money to fax the information. I advised pt PCP cannot refill Tramadol (his con tracted medication) until we have the proof requested by pcp/per CSC. Pt then accused me of treating him like a criminal, and that I was harassing him. Pt states that when he brings in his proof of being out of the area, he would like to speak to the Director of the place * Telephone Encounter - Janae Guillermo - 12/15/2019 4:35 PM EST Is he still out of town if so how is he picking this up? He was to bring in some proof of him beingout of town since the last pill count date * Telephone Encounter - Virginie Boogie M.A. - 12/15/2019 1:42 PM EST LRF 11/18/19 Controlled substance contract and last issue date of medication reviewed. Patient is due for medication. Lab Results Component Value Date URBENZO NONE DETECTED 03/21/2019 UROPIATES NONE DETECTED 03/21/2019 URBARBITUATE NONE DETECTED 03/21/2019 PAINAMPHETAM NONE DETECTED 03/21/2019 PAINCOCAINE NONE DETECTED 03/21/2019 PAINCANNABIN NONE DETECTED 03/21/2019 Masspat 10/27/19 ANGELITO 11/23/19 NOV - TBD documented in this encounter Plan of Treatment Not on file documented as of this encounter Visit Diagnoses Not on filedocumented in this encounter Care Teams Mathematical Engineer Relationship Specialty Start Date End Date Janae Guillermo MD PCP - General Internal Medicine 10/17/14 documented as of this encounter
--- OUTSIDE RECORDS SUMMARY | 2024-04-04 15:25 | XMS_ITS | Encounter Summary ---
Author Organization [facility] Address [address] [place] [address] Care Team Providers Care Central Office Repairer Supervisor Name Role Phone Janae Guillermo MD Primary Care Provider Ramos cortez Encounter Details Date Type Department Care Team Description 09/29/2016 Release of Information Medical Records [address] [place] [address] Abstract, Provider Social History Tobacco Use Types [...] on filedocumented in this encounter Care Teams Central Office Repairer Supervisor Relationship Specialty Start Date End Date Janae Guillermo MD PCP - General Internal Medicine 10/17/14 documented as of this encounter
--- OUTSIDE RECORDS SUMMARY | 2024-04-04 15:25 | XMS_ITS | Encounter Summary ---
Author Organization [employer] Address [address] [facility] [address] [place] [address] Care Team Providers Care Tube Cutter Operator Name Role Phone Jason Corea MD Primary Care Prov ider Encounter Details Date Type Department Care Team (Late st Contact Info) Description 03/24/2024 10:45 AM EST Office Visit [facility] MED & PEDS [address] [place], [place] [phone] Jason Corea MD [address] [place] [address] Elevated blood pressure reading (Primary Dx); Dietary [...] Info) Description 04/21/2024 8:30 AM EDT Telemedicine [facility] MED & PEDS [address] [place] [address] Jason Corea MD [address] [place] [address] documented as of this encounter Visit Diagnoses [...] documented as of this encounter Care Teams Tube Cutter Operator Relationship Specialty Start Date End Date Jason Corea MD [address] [place] [address] PCP - General Internal Medicine 12/29/23 documented as of this encounter
--- OUTSIDE RECORDS SUMMARY | 2024-04-04 15:25 | XMS_ITS | Encounter Summary ---
Author Organization [facility] Address [address] [place] [address] Care Team Providers Care Pai Gow Dealer Name Role Phone Janae Guillermo MD Primary Care Provider Ramos cortez Encounter Details Date Type Department Care Team Description 09/12/2019 Telephone Adult Medicine [address] [phone] Janae Guillermo MD Social History Tobacco Use [...] encounter Miscellaneous Notes * Telephone Encounter - Lacie Ellington M.A. - 09/27/2019 11:11 AM EDT Pt was notified to appear with all control substance medications in their original containers for arandom Pill Count. Patient to bring in the following medication/s: Tramadol 50 MG Pt was advised that they need to appear by 11:00AM on 09/28/2019. Instructed that failure to do so will jeopordize their Control Substance Contract with us. Pt expressed understanding and confirmed that they will arrive by that time. * Telephone Encounter - Janae Guillermo - 09/25/2019 9:34 AM EDT Pill count is part of his contract. Please ask him to come in for pill count within 24 hours and ifnot able to do so, he willb efound in violation * Telephone Encounter - Sarahy Sanchez Thomas - 09/12/2019 9:23 AM EDT Spoke with patient to arrange a time for him to come in for a pill count. 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 He states he absolutely can not come to the office due to this. Patient was advised if this was not completed within 24 hours, he will be held in violation. Patient states this is very suspicious to him that he is being called in.This is the first time he has been called .He states due to someones error on last refill he was shorted one day on his script. Looking back in history I explained the reasons why this happened (to allow fill on weekday) Patient states he feels like he is being accused of something He was remninded this condition is noted in the contrat he signed and could be done at anytime. He states he will not come in until he speaks with Dr Guillermo. I advised patient pcp is on vacation for 2 weeks, he could speak to Thu Laura. Again he believes this is suspicious and convenient that she is away and refuses to speak to a PA. He states she always gives him a hard time about filling his prescription and tells me she doesn't like to fill medications for people in pain. Patient advised this was not the case, there are guidelines providers are required to follow, mandated by medical fee clerk. Patient was again encouraged to complete [id number] hours. Patient continues to state he feels as he is being accused of something and this is suspicious and line disconnected. Lab Results Component Value Date URBENZO NONE DETECTED 03/21/2019 UROPIATES NONE DETECTED 03/21/2019 URBARBITUATE NONE DETECTED 03/21/2019 PAINAMPHETAM NONE DETECTED 03/21/2019 PAINCOCAINE NONE DETECTED 03/21/2019 PAINCANNABIN NONE DETECTED 03/21/2019 documented in this encounter Plan of Treatment Not on file documented as of this encounter Visit Diagnoses Not on filedocumented in this encounter Care Teams Pai Gow Dealer Relationship Specialty Start Date End Date Janae Guillermo MD PCP - General Internal Medicine 10/17/14 documented as of this encounter
--- OUTSIDE RECORDS SUMMARY | 2024-04-04 15:25 | XMS_ITS | Clinical Summary ---
Author Organization [facility] Address [address] [place] [address] Care Team Providers Care Sports Therapist Name Role Phone Janae Guillermo MD Primary Care Provider [phone] Surgical History Surgery Date Site/Laterality Comments KNEE [...] age to complete this topic Care Teams Sports Therapist Relationship Specialty Start Date End Date Janae Guillermo MD [address] [place] [phone] PCP - General Internal Medicine 10/17/14
--- OUTSIDE RECORDS SUMMARY | 2024-04-04 15:25 | XMS_ITS | Encounter Summary ---
Author Organization [facility] Address [address] [place] [address] Care Team Providers Care Jacquard Card Lacer Name Role Phone Janae Guillermo MD Primary Care Provider Ramos cortez Reason for Visit * Reason Comments E-prescribe Rx Request Encounter Details Date Type Department Care Team Description 01/19/2017 Refill Adult Medicine [address] [phone] Janae Guillermo MD E-prescribe Rx Request Social [...] encounter Miscellaneous Notes * Telephone Encounter - Naya [place] - 01/19/2017 1:15 PM EST Patient would like script to be: E-PRESCRIBED/FAXED TO PHARMACY WHEN WAS THE PATIENT'S LAST APPOINTMENT IN ADULT MEDICINE? 10/08/16 WHEN WAS THE LAST TIME THE PATIENT SAW THEIR PCP? 06/18/16 Does patient have an upcoming appointment? Yes 01/22/17 (THE MEDICATION REQUESTED IS ON THE MED LIST ABOVE) All of the medications requested were on the CURRENT MEDS list Did you check the Pharmacy information above?: YES Patient wants: 30 -day supply Is this a mail order prescription request ? NO Patients current insurance carrier is: Payor: Lien [employer] FFS / Plan: [employer] PLUS PLAN / Product Type: MEDICAID RISK documented in this encounter Plan of Treatment Not on file documented as of this encounter Visit Diagnoses Not on filedocumented in this encounter Care Teams Jacquard Card Lacer Relationship Specialty Start Date End Date Janae Guillermo MD PCP - General Internal Medicine 10/17/14 documented as of this encounter
--- OUTSIDE RECORDS SUMMARY | 2024-04-04 15:25 | XMS_ITS | Encounter Summary ---
Author Organization [facility] Address [address] [place] [address] Care Team Providers Care Advertising Space Clerk Name Role Phone Janae Guillermo MD Primary Care Provider Ramos cortez Encounter Details Date Type Department Care Team Description 04/16/2017 Assembly Line Leader Report Medical Records [address] [place] [address] Oliver Laguna MD Social History Tobacco Use [...] on filedocumented in this encounter Care Teams Advertising Space Clerk Relationship Specialty Start Date End Date Janae Guillermo MD PCP - General Internal Medicine 10/17/14 documented as of this encounter
--- OUTSIDE RECORDS SUMMARY | 2024-04-04 15:25 | XMS_ITS | Clinical Summary ---
Author Organization [employer] Address [address] [facility] [address] [place] [address] Care Team Providers Care Electromechanisms Design Drafter Name Role Phone Jason Corea MD Primary [...] acl 2006 left knee, right knee surgery 1985, low back 2023 All:- Meds: - Encounters Date Type Department Care Team Description 03/25/2024 Orders Only [facility] MED & PEDS [address] [place] [address] Jason Corea MD Elevated blood pressure reading (Primary Dx) 03/24/2024 10:45 AM EST Office Visit [facility] MED & PEDS [address] [place] [address] Jason Corea MD Elevated blood pressure reading (Primary Dx); Dietary counseling; Exercise counseling; Chronic bilateral low back pain with bilateral sciatica 03/24/2024 Travel 03/16/2024 Patient Outreach [facility] MED & PEDS [address] [place] [address] Jason Corea MD Pre-visit Planning ([facility] unable to reach, number disconnected) 02/23/2024 Travel from Last 3 Months Family History [...] Info) Description 04/21/2024 8:30 AM EDT Telemedicine [facility] CHC MED & PEDS [address] [place] [address] Jason Corea MD [address] [place] [address] Health Maintenance Due Date Last Done Comments CT Colonography 1976 Colonoscopy 1976 Colorectal Cancer Screening 1976 FIT DNA/Cologuard 1976 FIT 1976 FOBT 1976 Sigmoidoscopy 1976 Alcohol/Substance Use Screening 1988 Family Planning (PISQ) 01/30/1991 DTaP/Tdap/Td Vaccines (1 - Tdap) 01/30/1995 Hepatitis B Vaccines (1 of 3 - 19+ 3-dose series) 01/30/1995 Pneumococcal Vaccine: Pediatrics (0 to 5 Years) and At-Risk Patients (6 to 49) Years) (2 of 2 - PCV) 02/14/2017 02/15/2016 COVID-19 Vaccine (5 - season) 2023 07/26/2021, 06/21/2020, 05/31/2020, Additional history exists Influenza Vaccine (#1) 2023 , 11/19/2018, 02/21/2017, Additional history exists SDOH Screening 12/28/2024 12/29/2023 Tobacco Screening 02/22/2025 02/23/2024 Depression Screening 03/24/2025 03/24/2024, 03/24/19 Diabetes: Hemoglobin A1C 03/25/2025 03/25/2024 Zoster Vaccines (1 of 2) 01/30/2026 Lipid Panel 03/25/2029 03/25/2024 RSV Patients and Patients Aged 60 years or older (1 - 1-dose 75+ series) 01/30/2051 HIV Screening Completed 03/25/2024 Hepatitis C Screening Completed 03/25/2024 HIB Vaccines Aged Out No longer eligi [...] on patient's age to complete this topic Procedures Procedure Name Priority Date/Time Associated Diagnosis Comments HEPATITIS C AB W/REFL TO HCV RNA, QN, PCR Routine 03/25/2024 9:32 AM EST Elevated blood pressure reading HIV 1/2 ANTIGEN/ANTIBODY, FOURTH GENERATION W/RFL Routine 03/25/2024 9:32 AM EST Elevated blood pressure reading HEMOGLOBIN A1C Routine 03/25/2024 9:32 AM EST Elevated blood pressure reading TSH W/REFLEX TO FT4 Routine 03/25/2024 9 :32 AM EST Elevated blood pressure reading LIPID PANEL, STANDARD Routine 03/25/2024 9:32 AM EST Elevated blood pressure reading COMPREHENSIVE METABOLIC PANEL Routine 03/25/2024 9:32 AM EST Elevated blood pressure reading CBC WITH AUTO DIFFERENTIAL Routine 03/25/2024 9:32 AM EST Elevated blood pressure reading from Last 3 Months Results * TSH W/Reflex to FT4 (03/25/2024 9:32 AM EST) TSH reflex Free T4 0.60 0.32 - 4.0 uIU/mL [facility] Blood Venous blood specimen / Unknown 03/25/2024 9:32 AM EST 03/25/2024 2:12 PM EST us Jason Arnold MD LAB BLOOD ORDERABL ES Final Result [facility] [address] [place] [phone] * (ABNORMAL) CBC auto differential (03/25/2024 9:32 AM EST) White Blood Count 12.7(H) 4.8 - 10.8 X10*3/uL [facility] Red Blood Count 5.03 4.60 - 5.80 X10*6/uL [facility] Hemoglobin 14.5 14.0 - 18.0 g/dl [facility] Hematocrit 43.1 42.0 - 52.0 % [facility] Mean Corpuscular Volume 85.7 80.0 - 98.0 fL [facility] Mean Corpuscular Hemoglobin 28.8 27.0 - 33.0 pg [facility] Mean Corpuscular HGB Conc 33.6 31.0 - 36.0 g/dl [facility] Red Cell Distribution Width 14.9 11.0 - 16.0 % [facility] Platelet Count 336 160 - 400 X10*3/uL [facility] Mean Platelet Volume 9.8 9.4 - 12.4 fL [facility] Neutrophils Percent Auto 62.0 45 - 73 % [facility] Imm Gran Pct Auto 0.3 0.0 - 0.4 % [facility] Lymphocytes Percent Auto 28.0 20 - 40 % [facility] Monocytes Percent Auto 7.7 2 - 11 % [facility] Eosinophils Percent Auto 1.4 0 - 4 % [facility] Basophils Percent Auto 0.6 0 - 2 % [facility] NRBC Pct Auto 0.0 0.0 - 0.2 /100WBC [facility] Neutrophils Absolute Auto 7.9 2.0 - 8.3 x10*3/uL [facility] Imm Gran Abs Auto 0.04(H) 0.00 - 0.03 X10*3/uL [facility] Lymphocytes Absolute Auto 3.5 1.2 - 4.9 X10*3/uL [facility] Monocytes Absolute Auto 1.0 0.1 - 1.2 X10*3/uL [facility] Eosinophils Absolute Auto 0.2 0.0 - 0.4 X10*3/uL [facility] Basophils Absolute Auto 0.1 0.0 - 0.2 X10*3/uL [facility] NRBC Abs Auto 0.000 0.0 - 0.012 X10*3/uL [facility] Blood Venous blood specimen / Unknown 03/25/2024 9:32 AM EST 03/25/2024 1:55 PM EST us Jason Arnold MD LAB BLOOD ORDERABL ES Final Result Performing Organization Address [facility] Co de Phone Number [facility] [address] [place] [phone] * Hepatitis C Antibody with Reflex to HCV, RNA, Quantitative, Real-Time PCR (03/25/2024 9:32 AM EST) Hepatitis C Antibody Nonreactive Nonreactive [facility] Comment:Antibodies to HCV no t detected; does not exclude early acuteHCV infection. Blood Venous blood specimen / Unknown 03/25/2024 9:32 AM EST 03/25/2024 2:12 PM EST Jason Arnold MD LAB BLOOD ORDERABL ES Final Result Performing Organization Address [facility] de Phone Number [facility] [address] [place] [phone] * HIV-1/2 Antigen and Antibodies, Fourth Generation, with Reflexes (03/25/2024 9:32 AM EST) HIV AB/AG Nonreactive Nonreactive [facility] Comment:HIV-1 p24 Ag and/or HIV-1/HIV-2 Ab not detected.A test result that is nonreactive does not exclude thepossibility of exposure to or infection with HIV-1 and/orHIV-2. Nonreactive results in this assay for individualswith prior exposure to HIV-1 and/or HIV-2 may be due toantigen and antibody levels that are below the limit ofdetection of this assay.The [employer] HIV Ag/Ab Combo assay result andsupplemental assay results should be interpreted inconjunction with the patient's clinical presentation,history and other laboratory results. If the results areinconsistent with clinical evidence, additional testing issuggested to confirm the result. Blood Venous blood specimen / Unknown 03/25/2024 9:32 AM EST 03/25/2024 2:12 PM EST Jason Arnold MD LAB BLOOD ORDERABL ES Final Result Performing Organization Address [facility] Co de Phone Number [facility] [address] [place] [phone] * Hemoglobin A1c (03/25/2024 9:32 AM EST) Hemoglobin A1c 5.8 <6.0 % [facility] Comment:Hemoglobin A1C Refer ence Range Adults: 4.8 - 6.0 % Non diabetic: < 6.0 % Goal: < 7.0 %Additional Action Suggested: > 8.0 %Note: Hemoglobin A1c results are invalid for patients with abnormal amounts of HbF. Blood transfusions may impact the HbA1c concentration in the patient sample. Estimated Average Glucose 120 mg/dL [facility] Comment:eAG = Estimated ave rage glucose which is %A1C expressed asaverage glucose, using the formula of the D3H-EhlyxafJaiknlp Glucose study (ADAG), Diabetes Care, Vol.31,#8,Sep. 2007 Blood Venous blood specimen / Unknown 03/25/2024 9:32 AM EST 03/25/2024 1:55 PM EST Jason Arnold MD LAB BLOOD ORDERABL ES Final Result Performing Organization Address [facility] Co de Phone Number [facility] [address] [place] [phone] * (ABNORMAL) Lipid Panel, Standard (03/25/2024 9:32 AM EST) Triglycerides 58 <150 mg/dL [facility] Comment:Desirable Triglyceri de: less than 150 mg/dLBorderline High Triglyceride 150-199 mg/dLHigh Triglyceride: 200-499 mg/dLVery High Triglyceride: greater than or equal to 5OO mg/dL Cholesterol 166 <200 mg/dL [facility] Comment:Desirable Cholestero l: less than 200 mg/dLBorderline High Cholesterol: 200-239 mg/dLHigh Cholesterol: greater than 239 mg/dL LDL Cholesterol Calculated 109(H) <100 mg/dL [facility] Comment:Desirable LDL: less than 100 mg/dLNear Optimal/Above Optimal LDL: 110- 129 mg/dLBorderline High LDL: 130-159 mg/dLHigh LDL: 160-189 mg/dLVery High LDL: greater than or equal to 190 mg/dL HDL Cholesterol 46 >40 mg/dL [facility] Comment:Desirable HDL: great er than 40 mg/dL Note: This HDL assay may give artificially low results in patients with liver disease. Blood Venous blood specimen / Unknown 03/25/2024 9:32 AM EST 03/25/2024 2:12 PM EST us Jason Arnold MD LAB BLOOD ORDERABL ES Final Result [facility] [address] [place] [phone] * Comprehensive Metabolic Panel (03/25/2024 9:32 AM EST) Sodium 138 135 - 145 mmol/L [facility] Potassium 4.3 3.3 - 5.1 mmol/L [facility] Chloride 105 96 - 108 mmol/L [facility] Carbon Dioxide 25 22 - 29 mmol/L [facility] Anion Gap 12 12 - 20 [facility] Urea Nitrogen (BUN) 13 9 - 16 mg/dL [facility] Creatinine, Serum 0.80 0.5 - 1.4 mg/dL [facility] Estimated Glomerular Filt Rate >60 [facility] Comment:Chronic Kidney Disea se: Estimated GFR < 60 mL/min/1.02x7Ueswcz Kidney Disease: Estimated GFR < 15 mL/min/1.73m2 Glucose 76 60 - 115 mg/dL [facility] Calcium 9.2 8.4 - 10.2 mg/dL [facility] Bilirubin, Total 0.2 0.0 - 1.0 mg/dL [facility] Aspartate Amino Transferase 28 5 - 37 U/L [facility] Alanine Aminotransferase 27 0 - 40 U/L [facility] Total Protein 7.2 6.5 - 8.0 g/dL [facility] Albumin Level 4.0 3.5 - 5.0 g/dL [facility] Alkaline Phosphatase 111 39 - 117 U/L [facility] Blood Venous blood specimen / Unknown 03/25/2024 9:32 AM EST 03/25/2024 2:12 PM EST Jason Arnold MD LAB BLOOD ORDERABL ES Final Result [facility] [address] [place] [phone] from Last 3 Months Insurance [employer] Care Teams Electromechanisms Design Drafter Relationship Specialty Start Date End Date Jason Corea MD [address] [place] [phone] PCP - General Internal Medicine 12/29/23
--- OUTSIDE RECORDS SUMMARY | 2024-04-04 15:25 | XMS_ITS | Encounter Summary ---
Author Organization [facility] Address [address] [place] [address] Care Team Providers Care Fashion Designer Name Role Phone Janae Guillermo MD Primary Care Provider Ramos cortez Encounter Details Date Type Department Care Team Description 02/12/2018 [facility] Medical Records [address] [place] [address] Abstract, Provider Social History Tobacco Use Types [...] on filedocumented in this encounter Care Teams Fashion Designer Relationship Specialty Start Date End Date Janae Guillermo MD PCP - General Internal Medicine 10/17/14 documented as of this encounter
--- OUTSIDE RECORDS SUMMARY | 2024-04-04 15:25 | XMS_ITS | Encounter Summary ---
Author Organization [facility] Address [address] [place] [address] Care Team Providers Care Tab Card Press Operator Name Role Phone Eliazar Siu MD Primary Care Provider Janae Jaime MD Primary Care Provider Ramos cortez Encounter Details Date Type Department Care Team Description 06/30/2014 Release of Information Medical Records [address] [place] [address] Abstract, Provider Social History Tobacco Use Types [...] on filedocumented in this encounter Care Teams Tab Card Press Operator Relationship Specialty Start Date End Date Eliazar Siu MD PCP - General Internal Medicine 06/28/14 10/16/14 Janae Guillermo MD PCP - General Internal Medicine 10/17/14 documented as of this encounter
--- OUTSIDE RECORDS SUMMARY | 2024-04-04 15:25 | XMS_ITS | Encounter Summary ---
[facility] Address [address] [place] [address] Care Team Providers Care Computer Tape Librarian Name Role Phone Janae Guillermo MD Primary Care Provider Ramos cortez Encounter Details Date Type Department Care Team Description 11/06/2020 Dental Surgeon Report Medical Records [address] [place] [address] Howie Taylor MD Social History Tobacco Use Types Packs/Day Years Used Date Smoking Tobacco: Every Day Cigarettes 0.5 25 Started: 08/18/1989 Smokeless Tobacco: Never Alcohol Use Standard Drinks/Week Comments Yes 0 (1 standard drink = 0.6 oz pure alcohol) 3 x/year beer, mixed drink, or wine Sex Assigned at Date Recorded Not on file COVID-19 Exposure Response Date Recorded In the last month, have you been in contact with someone who was confirmed or suspected to have Coronavirus / COVID-19? Unable to assess 10/24/2020 8:07 AM EDT documented as of this encounter Plan of Treatment Not on file documented as of this encounter Visit Diagnoses Not on filedocumented in this encounter Care Teams Computer Tape Librarian Relationship Specialty Start Date End Date Janae Guillermo MD PCP - General Internal Medicine 10/17/14 documented as of this encounter
--- OUTSIDE RECORDS SUMMARY | 2024-04-04 15:25 | XMS_ITS | Encounter Summary ---
[facility] Organization [facility] Address [address] [place] [address] Care Team Providers Care Core Analysis Operator Name Role Phone Keren Sunshine MD Primary Care Provider Schuylera Eliazar Copeland MD Primary Care Provider Unavail able Janae Guillermo MD Primary Care Provider Devon Link MD Primary Care Provider Barbie vailable Encounter Details Date Type Department Care Team Description 02/26/2011 [facility] Orthopedic Surgery [address] [place] [address] Tommy Bryant MD Social History Tobacco Use [...] on filedocumented in this encounter Care Teams Core Analysis Operator Relationship Specialty Start Date End Date Keren Sunshine MD PCP - General 12/09/06 06/25/14 Eliazar Siu MD PCP - General Internal Medicine 06/28/14 10/16/14 Janae Guillermo MD PCP - General Internal Medicine 10/17/14 Devon Croft MD PCP - General 06/26/14 06/27/14 documented as of this encounter
--- OUTSIDE RECORDS SUMMARY | 2024-04-04 15:25 | XMS_ITS | Encounter Summary ---
[facility] Organization [facility] Address [address] [place] [address] Care Team Providers Care Cut Out Machine Operator Name Role Phone Janae Guillermo MD Primary Care Provider Ramos cortez Encounter Details Date Type Department Care Team Description 02/16/2018 Parts Delivery Driver Report Medical Records [address] [place] [address] Oliver Laguna MD Social History Tobacco Use [...] on filedocumented in this encounter Care Teams Cut Out Machine Operator Relationship Specialty Start Date End Date Janae Guillermo MD PCP - General Internal Medicine 10/17/14 documented as of this encounter
--- OUTSIDE RECORDS SUMMARY | 2024-04-04 15:25 | XMS_ITS | Encounter Summary ---
[facility] Address [address] [place] [address] Care Team Providers Care Personnel Placement Specialist Name Role Phone Janae Guillermo MD Primary Care Provider Ramos cortez Encounter Details Date Type Department Care Team Description 10/09/2015 Pt. Non Urgent Medic al Question Adult Medicine [address] [address] Janae Guillermo MD Social History Tobacco Use [...] on filedocumented in this encounter Care Teams Personnel Placement Specialist Relationship Specialty Start Date End Date Janae Guillermo MD PCP - General Internal Medicine 10/17/14 documented as of this encounter
--- OUTSIDE RECORDS SUMMARY | 2024-04-04 15:25 | XMS_ITS | Encounter Summary ---
Author Organization [facility] Address [address] [place] [address] Care Team Providers Care Distribution Center Assistant Name Role Phone Janae Guillermo MD Primary Care Provider Ramos cortez Reason for Visit * Reason Comments E-prescribe Rx Request Encounter Details Date Type Department Care Team Description 08/21/2020 Refill Adult Medicine [address] [address] Janae Guillermo MD E-prescribe Rx Request Social [...] encounter Miscellaneous Notes * Telephone Encounter - Tennille Larson - 08/29/2020 1:39 PM EDT 10/24/2020 10:00 AM Janae Guillermo MD * Telephone Encounter - JUAN Aragon - 08/28/2020 2:43 PM EDT Needs appt for further refills. * Telephone Encounter - Queenie Moser M.A. - 08/28/2020 11:37 AM EDT Last office visit 11/23/19 Next office visit 10/24/20 * Telephone Encounter - Ernesto Blanco - 08/27/2020 4:12 PM EDT Patient would like script to be: E-PRESCRIBED/FAXED TO PHARMACY WHEN WAS THE PATIENT'S LAST APPOINTMENT IN ADULT MEDICINE? [phone] WHEN WAS THE LAST TIME THE PATIENT SAW THEIR PCP? Same as above Does patient have an upcoming appointment? Yes [phone] (THE MEDICATION REQUESTED IS ON THE MED [...] N/A Patients current insurance carrier is: Payor: [employer] FFS / Plan: [facility] / Product Type: MEDICAID RISK documented in this encounter Plan of Treatment Not on file documented as of this encounter Visit Diagnoses Not on filedocumented in this encounter Care Teams Distribution Center Assistant Relationship Specialty Start Date End Date Janae Guillermo MD PCP - General Internal Medicine 10/17/14 documented as of this encounter
--- OUTSIDE RECORDS SUMMARY | 2024-04-04 15:25 | XMS_ITS | Encounter Summary ---
[facility] Address [address] [place] [address] Care Team Providers Care Aviation Maintenance Technician Name Role Phone Janae Guillermo MD Primary Care Provider Ramos cortez Reason for Visit * Reason Comments E-prescribe Rx Request Encounter Details Date Type Department Care Team Description 08/07/2015 Refill Adult Medicine [address] [id number] Tommy Joe PA-C [address] [place] [address] [phone] E-prescribe Rx Request Social History Tobacco Use [...] an upcoming appointment? [facility] to refill request. Appt due (THE MEDICATION REQUESTED IS ON THE MED LIST ABOVE) All of the medications requested were on the CURRENT MEDS list Did you check the Pharmacy information above?: YES Patient wants: 30 -day supply Is this a mail order prescription request ? NO Patients current insurance carrier is: Payor: [employer] FFS / Plan: [employer] / Product Type: MEDICAID RISK documented in this encounter Plan of Treatment Not on file documented as of this encounter Visit Diagnoses Not on filedocumented in this encounter Care Teams Aviation Maintenance Technician Relationship Specialty Start Date End Date Janae Guillermo MD PCP - General Internal Medicine 10/17/14 documented as of this encounter
--- OUTSIDE RECORDS SUMMARY | 2024-04-04 15:25 | XMS_ITS | Encounter Summary ---
Author Organization [facility] Address [address] [place] [address] Care Team Providers Care Lead Material Handler Name Role Phone Keren Sunshine MD Primary Care Provider Unavaila Eliazar Copeland MD Primary Care Provider Unavail able Janae Guillermo MD Primary Care Provider UnaDevon Servin MD Primary Care Provider Barbie vailable Encounter Details Date Type Department Care Team Description 06/17/2011 Release of Information Orthopedic Surgery - [address] [place] [address] Abstract, Provider Social History Tobacco Use Types Packs/Day Years Used Date Smoking Tobacco: Never Assessed Sex Assigned at Date Recorded Not on file documented as of this encounter Plan of Treatment Not on file documented as of this encounter Visit Diagnoses Not on filedocumented in this encounter Care Teams Lead Material Handler Relationship Specialty Start Date End Date Keren Sunshine MD PCP - General 12/09/06 06/25/14 Eliazar Siu MD PCP - General Internal Medicine 06/28/14 10/16/14 Janae Guillermo MD PCP - General Internal Medicine 10/17/14 Devon Croft MD PCP - General 06/26/14 06/27/14 documented as of this encounter
--- OUTSIDE RECORDS SUMMARY | 2024-04-04 15:25 | XMS_ITS | Encounter Summary ---
Author Organization [employer] Address [address] [facility] [address] [place] [address] Care Team Providers Care Risk And Insurance Consultant Name Role Phone Jason Corea MD Primary Care Prov ider Reason for Visit * Reason Onset Date Comments new patient visit 12/14/2023 Encounter Details Date Type Department Care Team (Late Contact Info) Description 12/14/2023 Telephone [facility] MEDICINE [address] [place], [place] [phone] Jason Corea MD [address] [place], [place] [phone] new patient visit Social History Tobacco Use [...] Info) Description 04/21/2024 8:30 AM EDT Telemedicine [facility] CH[facility] MED & PEDS [address] [place], [place] [phone] Jason Corea MD [address] [place] [address] documented as of this encounter Visit Diagnoses Not on filedocumented in this encounter Care Teams Risk And Insurance Consultant Relationship Specialty Start Date End Date Jason Corea MD [address] [place] [address] PCP - General Internal Medicine 12/29/23 documented as of this encounter
--- OUTSIDE RECORDS SUMMARY | 2024-04-04 15:25 | XMS_ITS | Encounter Summary ---
Author Organization [facility] Address [address] [place] [address] Care Team Providers Care Geek Squad Autotech Name Role Phone Janae Guillermo MD Primary Care Provider Ramos cortez Encounter Details Date Type Department Care Team Description 09/29/2018 [facility] Medical Records [address] [place] [address] Abstract, Provider Social History Tobacco Use Types [...] on filedocumented in this encounter Care Teams Geek Squad [employer] Relationship Specialty Start Date End Date Janae Guillermo MD PCP - General Internal Medicine 10/17/14 documented as of this encounter
--- OUTSIDE RECORDS SUMMARY | 2024-04-04 15:25 | XMS_ITS | Encounter Summary ---
Author Organization [facility] Address [address] [place] [address] Care Team Providers Care Cigar Packer And Shader Name Role Phone Keren Sunshine MD Primary Care Provider Eliazar Hudson MD Primary Care Provider Unavail Janae Barry MD Primary Care Provider Devon Link MD Primary Care Provider Barbie vailable Encounter Details Date Type Department Care Team Description 04/02/2011 Telephone Orthopedic Surgery - [address] [place] [address] Tommy Bryant MD Social History Tobacco Use Types Packs/Day Years Used Date Smoking Tobacco: Never Assessed Sex Assigned at Date Recorded Not on file documented as of this encounter Miscellaneous Notes * Telephone Encounter - Antonella Manny Mota - 04/02/2011 10:48 AM EST Patient called office, spoke with front desk specialist, requesting appointment for his knee pain. He states he went to both [facility] ER and [facility] ER yesterday, but the wait times were too long forhim, so he was not seen. Patient became aggravated with provider network analyst staff, phone call was triaged to dane [...] treatment he received several weeks ago at [facility]. His surgery was cancelled by the anesthesiologist [...] on filedocumented in this encounter Care Teams Cigar Packer And Shader Relationship Specialty Start Date End Date Keren Sunshine MD PCP - General 12/09/06 06/25/14 Eliazar Siu MD PCP - General Internal Medicine 06/28/14 10/16/14 Janae Guillermo MD PCP - General Internal Medicine 10/17/14 Devon Croft MD PCP - General 06/26/14 06/27/14 documented as of this encounter
--- OUTSIDE RECORDS SUMMARY | 2024-04-04 15:25 | XMS_ITS | Encounter Summary ---
Author Organization [facility] Address [address] [place] [address] Care Team Providers Care Electrical Integrator Name Role Phone Janae Guillermo MD Primary Care Provider Ramos cortez Encounter Details Date Type Department Care Team Description 09/10/2015 Refill Adult Medicine [address] [id number] Trang Cavazos APRN Social History Tobacco Use Types Packs/Day Years Used Date Smoking Tobacco: Every Day Cigarettes 0.5 25 Smokeless Tobacco: Never Alcohol Use Standard Drinks/Week Comments Yes 0 (1 standard drink = 0.6 oz pure alcohol) 3 x/year beer, mixed drink, or wine Sex Assigned at Date Recorded Not on file documented as of this encounter Miscellaneous Notes * Telephone Encounter - Huma Duncan M.A. - 09/10/2015 2:27 PM EDTFrom: Sonu Castillo To: Trang Cavazos APRN Sent: 09/10/2015 2:04 PM EDT Subject: Medication Renewal Request Original authorizing provider: KATELYNN Fair would like a refill of the following medications: tramadol (ULTRAM) 50 MG tablet [Trang Cavazos APRN] Preferred pharmacy: [id number] [address] [place] [address] AT [facility] Comment: documented in this encounter Plan of Treatment Not on file documented as of this encounter Visit Diagnoses Not on filedocumented in this encounter Care Teams Electrical Integrator Relationship Specialty Start Date End Date Janae Guillermo MD PCP - General Internal Medicine 10/17/14 documented as of this encounter
--- OUTSIDE RECORDS SUMMARY | 2024-04-04 15:25 | XMS_ITS | Encounter Summary ---
[facility] Address [address] [place] [address] Care Team Providers Care Certified Prosthetist/Orthotist Name Role Phone Janae Guillermo MD Primary Care Provider Ramos cortez Encounter Details Date Type Department Care Team Description 10/19/2014 Cork Compounder Report Medical Records [address] [place] [address] Cata Will PA-C [address] [place] [address] Social History Tobacco Use Types Packs/Day Years [...] on filedocumented in this encounter Care Teams Certified Prosthetist/Orthotist Relationship Specialty Start Date End Date Janae Guillermo MD PCP - General Internal Medicine 10/17/14 documented as of this encounter
--- OUTSIDE RECORDS SUMMARY | 2024-04-04 15:25 | XMS_ITS | Encounter Summary ---
Author Organization [facility] Address [address] [place] [address] Care Team Providers Care Anesthesia Resident Name Role Phone Janae Guillermo MD Primary Care Provider Ramos cortez Encounter Details Date Type Department Care Team Description 11/05/2015 Refill Adult Medicine [facility] [address] [place] [address] Juanita Mccarthy PA-C [address] [place] [address] Social History Tobacco Use Types Packs/Day Years [...] MG tablet [Juanita Mccarthy PA-C] Preferred pharmacy: [facility][id number] AT [facility] Comment: documented in this encounter Plan of Treatment Not on file documented as of this encounter Visit Diagnoses Not on filedocumented in this encounter Care Teams Anesthesia Resident Relationship Specialty Start Date End Date Janae Guillermo MD PCP - General Internal Medicine 10/17/14 documented as of this encounter
--- OUTSIDE RECORDS SUMMARY | 2024-04-04 15:25 | XMS_ITS | Encounter Summary ---
[facility] Address [address] [place] [address] Care Team Providers Care Assistant Men'S Soccer Coach Name Role Phone Janae Guillermo MD Primary Care Provider Ramos cortez Encounter Details Date Type Department Care Team Description 04/13/2019 [facility] Medical Records [address] [place] [address] Abstract, Provider Social History Tobacco Use Types [...] on filedocumented in this encounter Care Teams Assistant Men'S Soccer Coach Relationship Specialty Start Date End Date Janae Guillermo MD PCP - General Internal Medicine 10/17/14 documented as of this encounter
--- OUTSIDE RECORDS SUMMARY | 2024-04-04 15:25 | XMS_ITS | Clinical Summary ---
Author Organization [facility] Address [address] [place] [address] Care Team Providers Care Wildland Firefighter Name Role Phone Antonette Grullon Primary Care [...] On Topamax, seeing Dr. Abreu, neurology at [place] Arthritis of left knee 06/28/2014 Arthritis of [...] Vaccine (#1) 2023 0, 12/20/2015, 10/23/2014 Insurance [facility] [phone] [place]ICAID [place] Care Teams Wildland Firefighter Relationship Specialty Start Date End Date Antonette Grullon [address] [place] [id number] PCP - General 11/03/23
--- OUTSIDE RECORDS SUMMARY | 2024-04-04 15:25 | XMS_ITS | Encounter Summary ---
Author Organization [employer] Address [address] [facility] 7[address] [place] [address] Care Team Providers Care Qc Tech Name Role Phone Jason Corea MD Primary Care Prov ider Encounter Details Date Type Department Care Team (Late st Contact Info) Description 03/25/2024 Orders Only [facility] [address] [place], [place] [phone] Jason Corea MD [address] [place] [address] Elevated blood pressure reading (Primary Dx) Social [...] Upcoming Encounters Date Type Department Care Team ([facility] st Contact Info) Description 04/21/2024 8:30 AM EDT Telemedicine [facility] MED [facility] [address] [place] [address] Jason Corea MD [address] [place], [place] [phone] documented as of this encounter Procedures Procedure Name Priority Date/Time Associated Diagnosis Comments TSH W/REFLEX TO FT4 Routine 03/25/2024 9 :32 AM EST Elevated blood pressure reading CBC WITH AUTO DIFFERENTIAL Routine 03/25/2024 9:32 AM EST Elevated blood pressure reading HEPATITIS C AB W/REFL TO HCV RNA, QN, PCR Routine 03/25/2024 9:32 AM EST Elevated blood pressure reading HIV 1/2 ANTIGEN/ANTIBODY, FOURTH GENERATION W/RFL Routine 03/25/2024 9:32 AM EST Elevated blood pressure reading HEMOGLOBIN A1C Routine 03/25/2024 9:32 AM EST Elevated blood pressure reading LIPID PANEL, STANDARD Routine 03/25/2024 9:32 AM EST Elevated blood pressure reading COMPREHENSIVE METABOLIC PANEL Routine 03/25/2024 9:32 AM EST Elevated blood pressure reading documented in this encounter Results * Hepatitis C Antibody with Reflex to HCV, RNA, Quantitative, Real-Time PCR (03/25/2024 9:32 AM EST) Hepatitis C Antibody Nonreactive Nonreactive [facility] Comment:Antibodies to HCV no t detected; does not exclude early acuteHCV infection. Blood Venous blood specimen / Unknown 03/25/2024 9:32 AM EST 03/25/2024 2:12 PM EST us Jason Arnold MD LAB BLOOD ORDERABL ES Final Result Performing Organization Address [facility]/ZIP Co de Phone Number [facility] [address] [place] [phone] * HIV-1/2 Antigen and Antibodies, Fourth Generation, with Reflexes (03/25/2024 9:32 AM EST) Pathologist [facility] HIV AB/AG Nonreactive Nonreactive [facility] Comment:HIV-1 p24 Ag and/or HIV-1/HIV-2 Ab not detected.A test result that is nonreactive does not exclude thepossibility of exposure to or infection with HIV-1 and/orHIV-2. Nonreactive results in this assay for individualswith prior exposure to HIV-1 and/or HIV-2 may be due toantigen and antibody levels that are below the limit ofdetection of this assay.The [employer] HIV Ag/Ab Combo assay result andsupplemental assay results should be interpreted inconjunction with the patient's clinical presentation,history and other laboratory results. If the results areinconsistent with clinical evidence, additional testing issuggested to confirm the result. Blood Venous blood specimen / Unknown 03/25/2024 9:32 AM EST 03/25/2024 2:12 PM EST us Jason Arnold MD LAB BLOOD ORDERABL ES Final Result Performing Organization Address [facility]/ZIP Co de Phone Number [facility] [address] [place] [phone] * Hemoglobin A1c (03/25/2024 9:32 AM EST) Hemoglobin A1c 5.8 <6.0 % [facility] Comment:Hemoglobin A1C Refer ence Range Adults: 4.8 - 6.0 % Non diabetic: < 6.0 % Goal: < 7.0 %Additional Action Suggested: > 8.0 %Note: Hemoglobin A1c results are invalid for patients with abnormal amounts of HbF. Blood transfusions may impact the HbA1c concentration in the patient sample. Estimated Average Glucose 120 mg/dL [facility] Comment:eAG = Estimated ave rage glucose which is %A1C expressed asaverage glucose, using the formula of the W1V-FzvipqmRmncqtg Glucose study (ADAG), Diabetes Care, Vol.31,#8,Sep. 2007 Blood Venous blood specimen / Unknown 03/25/2024 9:32 AM EST 03/25/2024 1:55 PM EST Jason Arnold MD LAB BLOOD ORDERABL ES Final Result Performing Organization Address City/[facility]/ZIP Co de Phone Number [facility] [address] [place] [phone] * TSH W/Reflex to FT4 (03/25/2024 9:32 AM EST) TSH reflex Free T4 0.60 0.32 - 4.0 uIU/mL [facility] Blood Venous blood specimen / Unknown 03/25/2024 9:32 AM EST 03/25/2024 2:12 PM EST Jason Arnold MD LAB BLOOD ORDERABL ES Final Result Performing Organization Address City/[facility]/ZIP Co de Phone Number [facility] [address] [place] [phone] * (ABNORMAL) Lipid Panel, Standard (03/25/2024 9:32 AM EST) Triglycerides 58 <150 mg/dL [facility] Comment:Desirable Triglyceri de: less than 150 mg/dLBorderline High Triglyceride 150-199 mg/dLHigh Triglyceride: 200-499 mg/dLVery High Triglyceride: greater than or equal to 5OO mg/dL Cholesterol 166 <200 mg/dL [facility] Comment:Desirable Cholestero l: less than 200 mg/dLBorderline High Cholesterol: 200-239 mg/dLHigh Cholesterol: greater than 239 mg/dL LDL Cholesterol Calculated 109(H) <100 mg/dL [facility] Comment:Desirable LDL: less than 100 mg/dLNear Optimal/Above Optimal LDL: 110- 129 mg/dLBorderline High LDL: 130-159 mg/dLHigh LDL: 160-189 mg/dLVery High LDL: greater than or equal to 190 mg/dL HDL Cholesterol 46 >40 mg/dL [facility] Comment:Desirable HDL: great er than 40 mg/dL Note: This HDL assay may give artificially low results in patients with liver disease. Blood Venous blood specimen / Unknown 03/25/2024 9:32 AM EST 03/25/2024 2:12 PM EST us Jason Arnold MD LAB BLOOD ORDERABL ES Final Result [facility] [address] [place] [phone] * Comprehensive Metabolic Panel (03/25/2024 9:32 AM EST) Sodium 138 135 - 145 mmol/L [facility] Potassium 4.3 3.3 - 5.1 mmol/L [facility] Chloride 105 96 - 108 mmol/L [facility] Carbon Dioxide 25 22 - 29 mmol/L [facility] Anion Gap 12 12 - 20 [facility] Urea Nitrogen (BUN) 13 9 - 16 mg/dL [facility] Creatinine, Serum 0.80 0.5 - 1.4 mg/dL [facility] Estimated Glomerular Filt Rate >60 [facility] Comment:Chronic Kidney Disea se: Estimated GFR < 60 mL/min/1.46u8Gvipqn Kidney Disease: Estimated GFR < 15 mL/min/1.73m2 Glucose 76 60 - 115 mg/dL [facility] Calcium 9.2 8.4 - 10.2 mg/dL [facility] Bilirubin, Total 0.2 0.0 - 1.0 mg/dL [facility] Aspartate Amino Transferase 28 5 - 37 U/L [facility] Alanine Aminotransferase 27 0 - 40 U/L [facility] Total Protein 7.2 6.5 - 8.0 g/dL [facility] Albumin Level 4.0 3.5 - 5.0 g/dL [facility] Alkaline Phosphatase 111 39 - 117 U/L [facility] Blood Venous blood specimen / Unknown 03/25/2024 9:32 AM EST 03/25/2024 2:12 PM EST us Jason Arnold MD LAB BLOOD ORDERABL ES Final Result [facility] [address] [place] [phone] * (ABNORMAL) CBC auto differential (03/25/2024 9:32 AM EST) White Blood Count 12.7(H) 4.8 - 10.8 X10*3/uL [facility] Red Blood Count 5.03 4.60 - 5.80 X10*6/uL [facility] Hemoglobin 14.5 14.0 - 18.0 g/dl [facility] Hematocrit 43.1 42.0 - 52.0 % [facility] Mean Corpuscular Volume 85.7 80.0 - 98.0 fL [facility] Mean Corpuscular Hemoglobin 28.8 27.0 - 33.0 pg [facility] Mean Corpuscular HGB Conc 33.6 31.0 - 36.0 g/dl [facility] Red Cell Distribution Width 14.9 11.0 - 16.0 % [facility] Platelet Count 336 160 - 400 X10*3/uL [facility] Mean Platelet Volume 9.8 9.4 - 12.4 fL [facility] Neutrophils Percent Auto 62.0 45 - 73 % [facility] Imm Gran Pct Auto 0.3 0.0 - 0.4 % [facility] Lymphocytes Percent Auto 28.0 20 - 40 % [facility] Monocytes Percent Auto 7.7 2 - 11 % [facility] Eosinophils Percent Auto 1.4 0 - 4 % [facility] Basophils Percent Auto 0.6 0 - 2 % [facility] NRBC Pct Auto 0.0 0.0 - 0.2 /100WBC [facility] Neutrophils Absolute Auto 7.9 2.0 - 8.3 x10*3/uL [facility] Imm Gran Abs Auto 0.04(H) 0.00 - 0.03 X10*3/uL [facility] Lymphocytes Absolute Auto 3.5 1.2 - 4.9 X10*3/uL [facility] Monocytes Absolute Auto 1.0 0.1 - 1.2 X10*3/uL [facility] Eosinophils Absolute Auto 0.2 0.0 - 0.4 X10*3/uL [facility] Basophils Absolute Auto 0.1 0.0 - 0.2 X10*3/uL [facility] NRBC Abs Auto 0.000 0.0 - 0.012 X10*3/uL [facility] Blood Venous blood specimen / Unknown 03/25/2024 9:32 AM EST 03/25/2024 1:55 PM EST us Jason Arnold MD LAB BLOOD ORDERABL ES Final Result [facility] [address] [place], [place] [phone] documented in this encounter Visit Diagnoses Diagnosis Elevated blood pressure reading- Primary Elevated blood pressure reading without diagnosis of hypertension documented in this encounter Additional Health Concerns Assessment Noted Time PHQ-9 Depression Total Score: 3 03/24/19 25 11:02 AM EST documented as of this encounter Care Teams Qc Tech Relationship Specialty Start Date End Date Jason Corea MD [address] [place] [phone] PCP - General Internal Medicine 12/29/23 documented as of this encounter
--- OUTSIDE RECORDS SUMMARY | 2024-04-04 15:26 | XMS_ITS | Encounter Summary ---
Author Organization [facility] Address [address] [place] [address] Care Team Providers Care Tuber Helper Name Role Phone Janae Guillermo MD Primary Care Provider Ramos cortez Encounter Details Date Type Department Care Team Description 10/24/2014 THREAD SPINNER/[facility] Report Medical Records [address] [place] [address] Abstract, Provider Social History Tobacco Use Types [...] on filedocumented in this encounter Care Teams Tuber Helper Relationship Specialty Start Date End Date Janae Guillermo MD PCP - General Internal Medicine 10/17/14 documented as of this encounter
== END 2024-04-04 14:28 | disposition home or self-care (01) ==
PROVIDERS: PCP Student in an Organized Health Care Education/Training Program; Visit Provider Physician Assistant
DX: Z98.1 Arthrodesis status (principal)
CPT/HCPCS: 99213

== ENCOUNTER 2024-04-04 13:25 | Outpatient (REF) | payer OTHER, SELFPAY ==
--- NOTE | ~2024-04-04 | XR_ITS ---
CLINICAL HISTORY: Z98.1 - Arthrodesis status 4 views lumbar spine Comparison: None Findings: No fractures or spondylolisthesis. Disc cages and fusion hardware L4-5 and L5-S1 No significant facet arthropathy Remaining disc spaces are preserved. Pedicles and transverse processes intact. Lordotic curvature is preserved. Normal bone mineralization. Normal soft tissues. Sacroiliac joints unremarkable. No instability on flexion and extension views. Impression: 1. No compression fractures or spondylolisthesis. 2. No translation on flexion and extension views. 3. Disc cages and fusion hardware L4-5 and L5-S1. This document has been electronically signed by: David Larson MD on 04/06/2024 10:55:02
--- OUTSIDE RECORDS SUMMARY | 2024-04-04 16:12 | XMS_ITS | Clinical Summary ---
Author Organization [facility] Address [address] [place] [address] Care Team Providers Care Rug Weaver Name Role Phone Janae Guillermo MD Primary Care Provider [phone] Surgical History Surgery Date Site/Laterality Comments KNEE [...] age to complete this topic Care Teams Rug Weaver Relationship Specialty Start Date End Date Janae Guillermo MD [address] [place] [phone] PCP - General Internal Medicine 10/17/14
--- OUTSIDE RECORDS SUMMARY | 2024-04-04 16:12 | XMS_ITS | Encounter Summary ---
Author Organization [employer] Address [address] [facility] 7t [place] [address] Care Team Providers Care Sausage Canner Name Role Phone Jason Coera MD Primary Care Prov ider Encounter Details Date Type Department Care Team (Late st Contact Info) Description 12/08/2023 Orders Only [facility] External Provider, [facility] Social History Tobacco Use Types Packs/Day [...] Upcoming Encounters Date Type Department Care Team ([facility] st Contact Info) Description 04/21/2024 8:30 AM EDT Telemedicine [facility] [address] [place] [address] Jason Corea MD [address] [place] [address] documented as of this encounter Procedures Procedure Name Priority Date/Time Associated Diagnosis Comments FL GUIDANCE IN OR Routine 12/08/2023 12: 15 PM EDT documented in this encounter Results * FL Guidance in OR (12/08/2023 12:15 PM EDT) Anatomical Region Laterality Modality X-Ray Angiograph y 12/08/2023 12:1 5 PM EDT Narrative 03/09/2024 9:22 AM EST ? [facility] ?[address] ?[place] [address] ? Fluoroscopy Report ? Signed ? Patient: Sonu Castillo ?MR#: [id number] ?? [id number] ? : 1975 ?Acct:[id number] ? Age/Sex: 48 / M ?ADM Date: 12/08/23 ? Loc: HO.S3 ?369-1 ? Attending Dr: Rocky Falcon MD, PhD ? Ordering Physician: Rocky Falcon MD, PhD ?? Date of Service: 12/08/23 ?? Procedure(s): FL guidance in OR ?? Accession Number(s): [id number] ? cc: Rocky Falcon MD, PhD; Antonette [...] DD/ 1215 ? TD/TT: 12/08/23 1420 ? Treater Helper: SS ? Procedure Note Donotwayneinterpreter, Image - 03/09/[address] [address] Fluoroscopy Report Signed Patient: Sonu Castillo FMR#: [id number] : 1975Acct:[id number] Age/Sex: 48 / MADM Date: 12/08/23 Loc: HO.S3 369-[address]: Rocky Falcon MD, PhD Ordering Physician: Rocky Falcon MD, PhD Date of Service: 12/08/23 Procedure(s): FL guidance in OR Accession Number(s): [id number] cc: Rocky Falcon MD, PhD; Antonette Padilla [...] 03/09/24 0920 DD/ 1215 TD/TT: 12/08/23 1420 Treater Helper: R[facility] External Provider IMG IR PROCEDURES Edited Result - Final documented in this encounter Visit Diagnoses Not on filedocumented in this encounter Care Teams Sausage Canner Relationship Specialty Start Date End Date Jason Corea MD [address] [place] [phone] PCP - General Internal Medicine 12/29/23 documented as of this encounter
--- OUTSIDE RECORDS SUMMARY | 2024-04-04 16:12 | XMS_ITS | Encounter Summary ---
Author Organization [employer] Address [address] [facility] [address] [place] [address] Care Team Providers Care Head Of Visual Merchandising Name Role Phone Jason Corea MD Primary Care Prov ider Reason for Visit * Reason Onset Date Comments new patient visit 12/14/2023 Encounter Details Date Type Department Care Team (Late Contact Info) Description 12/14/2023 Telephone [facility] [address] [place], [place] [phone] Jason Corea MD [address] [place], [place] [phone] new patient visit Social History Tobacco Use [...] Info) Description 04/21/2024 8:30 AM EDT Telemedicine [facility] [address] [place], [place] [phone] Jason Corea MD [address] [place] [address] documented as of this encounter Visit Diagnoses Not on filedocumented in this encounter Care Teams Head Of Visual Merchandising Relationship Specialty Start Date End Date Jason Corea MD [address] [place] [address] PCP - General Internal Medicine 12/29/23 documented as of this encounter
--- OUTSIDE RECORDS SUMMARY | 2024-04-04 16:12 | XMS_ITS | Encounter Summary ---
Author Organization [employer] Address [address] [facility] [address] [place] [address] Care Team Providers Care Explosive Expert Name Role Phone Jason Corea MD Primary Care Prov ider Reason for Visit * Reason Comments Pre-visit Planning SDOH unable to reach , number disconnected Encounter Details Date Type Department Care Team (Late st Contact Info) Description 03/16/2024 Patient Outreach [facility]S [address] [place], [place] [phone] Jason Corea MD [address] [place] [address] Pre-visit Planning (SDOH unable to reach, number [...] t he electric, gas, oil or water Live [employer] threatened to shut off services in your [...] 04/21/2024 8:30 AM EDT Telemedicine [facility] MED & PEDS [address] [place] [address] Jason Corea MD [address] [place] [address] documented as of this encounter Visit Diagnoses Not on filedocumented in this encounter Care Teams Explosive Expert Relationship Specialty Start Date End Date Jason Corea MD [address] [place] [address] PCP - General Internal Medicine 12/29/23 documented as of this encounter
--- OUTSIDE RECORDS SUMMARY | 2024-04-04 16:12 | XMS_ITS | Clinical Summary ---
Author Organization [employer] Address [address] [facility] 7t [place] [address] Care Team Providers Care Wood Carving Machine Operator Name Role Phone Jason Corea MD [...] Team Description 03/25/2024 Orders Only [facility] MED & PEDS [address] [place] [address] Jason Corea MD Elevated blood pressure reading (Primary Dx) 03/24/2024 10:45 AM EST Office Visit [facility] MED & PEDS [address] [place] [address] Jason Corea MD Elevated blood pressure reading (Primary Dx); Dietary counseling; Exercise counseling; Chronic bilateral low back pain with bilateral sciatica 03/24/2024 Travel 03/16/2024 Patient Outreach [facility] MED & [facility]ED[facility] [address] [place] [address] Jason Corea MD Pre-visit Planning ([facility] unable to reach, number disconnected) 02/23/2024 Travel [...] Info) Description 04/21/2024 8:30 AM EDT Telemedicine [facility]EDS [address] [place] [address] Jason Corea MD [address] [place] [address] Health Maintenance Due Date Last Done Comments [...] Free T4 0.60 0.32 - 4.0 uIU/mL [facility] Blood Venous blood specimen / Unknown 03/25/2024 9:32 AM EST 03/25/2024 2:12 PM EST us Jason Arnold MD LAB BLOOD ORDERABL ES Final Result [facility] [address] [place] [phone] * (ABNORMAL) CBC auto differential (03/25/2024 9:32 AM EST) White Blood Count 12.7(H) 4.8 - 10.8 X10*3/uL [facility] Red Blood Count 5.03 4.60 - 5.80 X10*6/uL [facility] Hemoglobin 14.5 14.0 - 18.0 g/dl [facility] Hematocrit 43.1 42.0 - 52.0 % [facility] Mean Corpuscular Volume 85.7 80.0 - 98.0 fL [facility] Mean Corpuscular Hemoglobin 28.8 27.0 - 33.0 pg [facility] Mean Corpuscular HGB Conc 33.6 31.0 - 36.0 g/dl [facility] Red Cell Distribution Width 14.9 11.0 - 16.0 % [facility] Platelet Count 336 160 - 400 X10*3/uL [facility] Mean Platelet Volume 9.8 9.4 - 12.4 fL [facility] Neutrophils Percent Auto 62.0 45 - 73 % [facility] Imm Gran Pct Auto 0.3 0.0 - 0.4 % [facility] Lymphocytes Percent Auto 28.0 20 - 40 % [facility] Monocytes Percent Auto 7.7 2 - 11 % [facility] Eosinophils Percent Auto 1.4 0 - 4 % [facility] Basophils Percent Auto 0.6 0 - 2 % [facility] NRBC Pct Auto 0.0 0.0 - 0.2 /100WBC [facility] Neutrophils Absolute Auto 7.9 2.0 - 8.3 x10*3/uL [facility] Imm Gran Abs Auto 0.04(H) 0.00 - 0.03 X10*3/uL [facility] Lymphocytes Absolute Auto 3.5 1.2 - 4.9 X10*3/uL [facility] Monocytes Absolute Auto 1.0 0.1 - 1.2 X10*3/uL [facility] Eosinophils Absolute Auto 0.2 0.0 - 0.4 X10*3/uL [facility] Basophils Absolute Auto 0.1 0.0 - 0.2 X10*3/uL [facility] NRBC Abs Auto 0.000 0.0 - 0.012 X10*3/uL [facility] Blood Venous blood specimen / Unknown 03/25/2024 9:32 AM EST 03/25/2024 1:55 PM EST us Jason Arnold MD LAB BLOOD ORDERABL ES Final Result Performing Organization Address [facility] Co de Phone Number [facility] [address] [place] [phone] * Hepatitis C Antibody with Reflex to HCV, RNA, Quantitative, Real-Time PCR (03/25/2024 9:32 AM EST) Hepatitis C Antibody Nonreactive Nonreactive [facility] Comment:Antibodies to HCV no t detected; does not exclude early acuteHCV infection. Blood Venous blood specimen / Unknown 03/25/2024 9:32 AM EST 03/25/2024 2:12 PM EST Jason Arnold MD LAB BLOOD ORDERABL ES Final Result Performing Organization Address [facility] de Phone Number [facility] [address] [place] [phone] * HIV-1/2 Antigen and Antibodies, Fourth Generation, with Reflexes (03/25/2024 9:32 AM EST) HIV AB/AG Nonreactive Nonreactive [facility] Comment:HIV-1 p24 Ag and/or HIV-1/HIV-2 Ab not detected.A test result that is nonreactive does not exclude thepossibility of exposure to or infection with HIV-1 and/orHIV-2. Nonreactive results in this assay for individualswith prior exposure to HIV-1 and/or HIV-2 may be due toantigen and antibody levels that are below the limit ofdetection of this assay.The [employer] HIV Ag/Ab Combo assay result andsupplemental assay results should be interpreted inconjunction with the patient's clinical presentation,history and other laboratory results. If the results areinconsistent with clinical evidence, additional testing issuggested to confirm the result. Blood Venous blood specimen / Unknown 03/25/2024 9:32 AM EST 03/25/2024 2:12 PM EST Jason Arnold MD LAB BLOOD ORDERABL ES Final Result Performing Organization Address [facility] Co de Phone Number [facility] [address] [place] [phone] * Hemoglobin A1c (03/25/2024 9:32 AM EST) Hemoglobin A1c 5.8 <6.0 % [facility] Comment:Hemoglobin A1C Refer ence Range Adults: 4.8 - 6.0 % Non diabetic: < 6.0 % Goal: < 7.0 %Additional Action Suggested: > 8.0 %Note: Hemoglobin A1c results are invalid for patients with abnormal amounts of HbF. Blood transfusions may impact the HbA1c concentration in the patient sample. Estimated Average Glucose 120 mg/dL [facility] Comment:eAG = Estimated ave rage glucose which is %A1C expressed asaverage glucose, using the formula of the E5V-LwkcfrjWximrhn Glucose study (ADAG), Diabetes Care, Vol.31,#8,Sep. 2007 Blood Venous blood specimen / Unknown 03/25/2024 9:32 AM EST 03/25/2024 1:55 PM EST Jason Arnold MD LAB BLOOD ORDERABL ES Final Result Performing Organization Address [facility] Co de Phone Number [facility] [address] [place] [phone] * (ABNORMAL) Lipid Panel, Standard (03/25/2024 9:32 AM EST) Triglycerides 58 <150 mg/dL [facility] Comment:Desirable Triglyceri de: less than 150 mg/dLBorderline High Triglyceride 150-199 mg/dLHigh Triglyceride: 200-499 mg/dLVery High Triglyceride: greater than or equal to 5OO mg/dL Cholesterol 166 <200 mg/dL [facility] Comment:Desirable Cholestero l: less than 200 mg/dLBorderline High Cholesterol: 200-239 mg/dLHigh Cholesterol: greater than 239 mg/dL LDL Cholesterol Calculated 109(H) <100 mg/dL [facility] Comment:Desirable LDL: less than 100 mg/dLNear Optimal/Above Optimal LDL: 110- 129 mg/dLBorderline High LDL: 130-159 mg/dLHigh LDL: 160-189 mg/dLVery High LDL: greater than or equal to 190 mg/dL HDL Cholesterol 46 >40 mg/dL [facility] Comment:Desirable HDL: great er than 40 mg/dL Note: This HDL assay may give artificially low results in patients with liver disease. Blood Venous blood specimen / Unknown 03/25/2024 9:32 AM EST 03/25/2024 2:12 PM EST us Jason Arnold MD LAB BLOOD ORDERABL ES Final Result [facility] [address] [place] [phone] * Comprehensive Metabolic Panel (03/25/2024 9:32 AM EST) Sodium 138 135 - 145 mmol/L [facility] Potassium 4.3 3.3 - 5.1 mmol/L [facility] Chloride 105 96 - 108 mmol/L [facility] Carbon Dioxide 25 22 - 29 mmol/L [facility] Anion Gap 12 12 - 20 [facility] Urea Nitrogen (BUN) 13 9 - 16 mg/dL [facility] Creatinine, Serum 0.80 0.5 - 1.4 mg/dL [facility] Estimated Glomerular Filt Rate >60 [facility] Comment:Chronic Kidney Disea se: Estimated GFR < 60 mL/min/1.89x6Jgicfl Kidney Disease: Estimated GFR < 15 mL/min/1.73m2 Glucose 76 60 - 115 mg/dL [facility] Calcium 9.2 8.4 - 10.2 mg/dL [facility] Bilirubin, Total 0.2 0.0 - 1.0 mg/dL [facility] Aspartate Amino Transferase 28 5 - 37 U/L [facility] Alanine Aminotransferase 27 0 - 40 U/L [facility] Total Protein 7.2 6.5 - 8.0 g/dL [facility] Albumin Level 4.0 3.5 - 5.0 g/dL [facility] Alkaline Phosphatase 111 39 - 117 U/L [facility] Blood Venous blood specimen / Unknown 03/25/2024 9:32 AM EST 03/25/2024 2:12 PM EST Jason Arnold MD LAB BLOOD ORDERABL ES Final Result [facility] [address] [place] [phone] from Last 3 Months Insurance [facility] Care Teams Wood Carving Machine Operator Relationship Specialty Start Date End Date Jason Corea MD [address] [place] [phone] PCP - General Internal Medicine 12/29/23
--- OUTSIDE RECORDS SUMMARY | 2024-04-04 16:12 | XMS_ITS | Encounter Summary ---
Author Organization [employer] Address [address] [facility] 7t [place] [address] Care Team Providers Care Television Engineer Name Role Phone Jason Corea MD Primary [...] Info) Description 04/21/2024 8:30 AM EDT Telemedicine [facility] & PEDS [address] [place] [address] Jason Corea MD [address] [place] [address] documented as of this encounter Visit Diagnoses Not on filedocumented in this encounter Additional Health Concerns Assessment Noted Time PHQ-9 Depression Total Score: 3 03/24/19 25 11:02 AM EST documented as of this encounter Care Teams Television Engineer Relationship Specialty Start Date End Date Jason Corea MD [address] [place] [address] PCP - General Internal Medicine 12/29/23 documented as of this encounter
--- OUTSIDE RECORDS SUMMARY | 2024-04-04 16:12 | XMS_ITS | Encounter Summary ---
Author Organization [employer] Address [address] [facility] 7[address] [place] [address] Care Team Providers Care Director Sales And Marketing Name Role Phone Jason Corea MD Primary Care Prov ider Encounter Details Date Type Department Care Team (Late st Contact Info) Description 03/25/2024 Orders Only [facility] [address] [place], [place] [phone] Jason Corea MD [address] [place] [address] Elevated blood pressure reading (Primary Dx) Social [...] Info) Description 04/21/2024 8:30 AM EDT Telemedicine [facility] MED & PEDS [address] [place] [address] Jason Corea MD [address] [place], [place] [phone] documented as of this encounter Procedures Procedure [...] AM EST) Hepatitis C Antibody Nonreactive Nonreactive [facility] Comment:Antibodies to HCV no t detected; does not exclude early acuteHCV infection. Blood Venous blood specimen / Unknown 03/25/2024 9:32 AM EST 03/25/2024 2:12 PM EST us Jason Arnold MD LAB BLOOD ORDERABL ES Final Result Performing Organization Address [facility] [place]/ZIP Co de Phone Number [facility] [address] [place] [phone] * HIV-1/2 Antigen and Antibodies, Fourth Generation, with Reflexes (03/25/2024 9:32 AM EST) Pathologist [facility] HIV AB/AG Nonreactive Nonreactive [facility] Comment:HIV-1 p24 Ag and/or HIV-1/HIV-2 Ab not detected.A test result that is nonreactive does not exclude thepossibility of exposure to or infection with HIV-1 and/orHIV-2. Nonreactive results in this assay for individualswith prior exposure to HIV-1 and/or HIV-2 may be due toantigen and antibody levels that are below the limit ofdetection of this assay.The [employer] HIV Ag/Ab Combo assay result andsupplemental assay results should be interpreted inconjunction with the patient's clinical presentation,history and other laboratory results. If the results areinconsistent with clinical evidence, additional testing issuggested to confirm the result. Blood Venous blood specimen / Unknown 03/25/2024 9:32 AM EST 03/25/2024 2:12 PM EST us Jason Arnold MD LAB BLOOD ORDERABL ES Final Result Performing Organization Address [facility]/ZIP Co de Phone Number [facility] [address] [place] [phone] * Hemoglobin A1c (03/25/2024 9:32 AM EST) Hemoglobin A1c 5.8 <6.0 % [facility] Comment:Hemoglobin A1C Refer ence Range Adults: 4.8 - 6.0 % Non diabetic: < 6.0 % Goal: < 7.0 %Additional Action Suggested: > 8.0 %Note: Hemoglobin A1c results are invalid for patients with abnormal amounts of HbF. Blood transfusions may impact the HbA1c concentration in the patient sample. Estimated Average Glucose 120 mg/dL [facility] Comment:eAG = Estimated ave rage glucose which is %A1C expressed asaverage glucose, using the formula of the X0B-CeusiuzGmeufgx Glucose study (ADAG), Diabetes Care, Vol.31,#8,Sep. 2007 Blood Venous blood specimen / Unknown 03/25/2024 9:32 AM EST 03/25/2024 1:55 PM EST Jason Arnold MD LAB BLOOD ORDERABL ES Final Result Performing Organization Address City/[facility]/ZIP Co de Phone Number [facility] [address] [place] [phone] * TSH W/Reflex to FT4 (03/25/2024 9:32 AM EST) TSH reflex Free T4 0.60 0.32 - 4.0 uIU/mL [facility] Blood Venous blood specimen / Unknown 03/25/2024 9:32 AM EST 03/25/2024 2:12 PM EST Jason Arnold MD LAB BLOOD ORDERABL ES Final Result Performing Organization Address [facility]/ZIP Co de Phone Number [facility] [address] [place] [phone] * (ABNORMAL) Lipid Panel, Standard (03/25/2024 9:32 AM EST) Triglycerides 58 <150 mg/dL [facility] Comment:Desirable Triglyceri de: less than 150 mg/dLBorderline High Triglyceride 150-199 mg/dLHigh Triglyceride: 200-499 mg/dLVery High Triglyceride: greater than or equal to 5OO mg/dL Cholesterol 166 <200 mg/dL [facility] Comment:Desirable Cholestero l: less than 200 mg/dLBorderline High Cholesterol: 200-239 mg/dLHigh Cholesterol: greater than 239 mg/dL LDL Cholesterol Calculated 109(H) <100 mg/dL [facility] Comment:Desirable LDL: less than 100 mg/dLNear Optimal/Above Optimal LDL: 110- 129 mg/dLBorderline High LDL: 130-159 mg/dLHigh LDL: 160-189 mg/dLVery High LDL: greater than or equal to 190 mg/dL HDL Cholesterol 46 >40 mg/dL [facility] Comment:Desirable HDL: great er than 40 mg/dL Note: This HDL assay may give artificially low results in patients with liver disease. Blood Venous blood specimen / Unknown 03/25/2024 9:32 AM EST 03/25/2024 2:12 PM EST us Jason Arnold MD LAB BLOOD ORDERABL ES Final Result [facility] [address] [place] [phone] * Comprehensive Metabolic Panel (03/25/2024 9:32 AM EST) Sodium 138 135 - 145 mmol/L [facility] Potassium 4.3 3.3 - 5.1 mmol/L [facility] Chloride 105 96 - 108 mmol/L [facility] Carbon Dioxide 25 22 - 29 mmol/L [facility] Anion Gap 12 12 - 20 [facility] Urea Nitrogen (BUN) 13 9 - 16 mg/dL [facility] Creatinine, Serum 0.80 0.5 - 1.4 mg/dL [facility] Estimated Glomerular Filt Rate >60 [facility] Comment:Chronic Kidney Disea se: Estimated GFR < 60 mL/min/1.76a0Ddxwgu Kidney Disease: Estimated GFR < 15 mL/min/1.73m2 Glucose 76 60 - 115 mg/dL [facility] Calcium 9.2 8.4 - 10.2 mg/dL [facility] Bilirubin, Total 0.2 0.0 - 1.0 mg/dL [facility] Aspartate Amino Transferase 28 5 - 37 U/L [facility] Alanine Aminotransferase 27 0 - 40 U/L [facility] Total Protein 7.2 6.5 - 8.0 g/dL [facility] Albumin Level 4.0 3.5 - 5.0 g/dL [facility] Alkaline Phosphatase 111 39 - 117 U/L [facility] Blood Venous blood specimen / Unknown 03/25/2024 9:32 AM EST 03/25/2024 2:12 PM EST us Jason Arnold MD LAB BLOOD ORDERABL ES Final Result [facility] [address] [place] [phone] * (ABNORMAL) CBC auto differential (03/25/2024 9:32 AM EST) White Blood Count 12.7(H) 4.8 - 10.8 X10*3/uL [facility] Red Blood Count 5.03 4.60 - 5.80 X10*6/uL [facility] Hemoglobin 14.5 14.0 - 18.0 g/dl [facility] Hematocrit 43.1 42.0 - 52.0 % [facility] Mean Corpuscular Volume 85.7 80.0 - 98.0 fL [facility] Mean Corpuscular Hemoglobin 28.8 27.0 - 33.0 pg [facility] Mean Corpuscular HGB Conc 33.6 31.0 - 36.0 g/dl [facility] Red Cell Distribution Width 14.9 11.0 - 16.0 % [facility] Platelet Count 336 160 - 400 X10*3/uL [facility] Mean Platelet Volume 9.8 9.4 - 12.4 fL [facility] Neutrophils Percent Auto 62.0 45 - 73 % [facility] Imm Gran Pct Auto 0.3 0.0 - 0.4 % [facility] Lymphocytes Percent Auto 28.0 20 - 40 % [facility] Monocytes Percent Auto 7.7 2 - 11 % [facility] Eosinophils Percent Auto 1.4 0 - 4 % [facility] Basophils Percent Auto 0.6 0 - 2 % [facility] NRBC Pct Auto 0.0 0.0 - 0.2 /100WBC [facility] Neutrophils Absolute Auto 7.9 2.0 - 8.3 x10*3/uL [facility] Imm Gran Abs Auto 0.04(H) 0.00 - 0.03 X10*3/uL [facility] Lymphocytes Absolute Auto 3.5 1.2 - 4.9 X10*3/uL [facility] Monocytes Absolute Auto 1.0 0.1 - 1.2 X10*3/uL [facility] Eosinophils Absolute Auto 0.2 0.0 - 0.4 X10*3/uL [facility] Basophils Absolute Auto 0.1 0.0 - 0.2 X10*3/uL [facility] NRBC Abs Auto 0.000 0.0 - 0.012 X10*3/uL [facility] Blood Venous blood specimen / Unknown 03/25/2024 9:32 AM EST 03/25/2024 1:55 PM EST us Jason Arnold MD LAB BLOOD ORDERABL ES Final Result [facility] [address] [place], [place] [phone] documented in this encounter Visit Diagnoses Diagnosis Elevated blood pressure reading- Primary Elevated blood pressure reading without diagnosis of hypertension documented in this encounter Additional Health Concerns Assessment Noted Time PHQ-9 Depression Total Score: 3 03/24/19 25 11:02 AM EST documented as of this encounter Care Teams Director Sales And Marketing Relationship Specialty Start Date End Date Jason Corea MD [address] [place] [phone] PCP - General Internal Medicine 12/29/23 documented as of this encounter
--- OUTSIDE RECORDS SUMMARY | 2024-04-04 16:12 | XMS_ITS | Encounter Summary ---
Author Organization [employer] Address [address] [facility] [address] [place] [address] Care Team Providers Care Title One Teacher Name Role Phone Jason Corea MD Primary Care Prov ider Encounter Details Date Type Department Care Team (Late st Contact Info) Description 03/24/2024 10:45 AM EST Office Visit [facility] [address] [place], [place] [phone] Jason Corea MD [address] [place] [address] Elevated blood pressure reading (Primary Dx); Dietary [...] Description 04/21/2024 8:30 AM EDT Telemedicine [facility] [address] [place] [address] Jason Corea MD [address] [place] [address] documented as of this encounter Visit Diagnoses [...] documented as of this encounter Care Teams Title One Teacher Relationship Specialty Start Date End Date Jason Corea MD [address] [place] [address] PCP - General Internal Medicine 12/29/23 documented as of this encounter
--- OUTSIDE RECORDS SUMMARY | 2024-04-04 16:12 | XMS_ITS | Clinical Summary ---
Author Organization [facility] Facility Address [address] [place] [phone] Care Team Providers Care Platen Drier Operator Name Role Phone Antonette Grullon Primary Care [...] On Topamax, seeing Dr. Abreu, neurology at [place] Arthritis of left knee 06/28/2014 Arthritis of [...] Vaccine (#1) 2023 0, 12/20/2015, 10/23/2014 Insurance [facility] [place] [phone] [place]ICAID [place] Care Teams Platen Drier Operator Relationship Specialty Start Date End Date Antonette Grullon [address] [place] [phone] PCP - General 11/03/23
== END 2024-04-04 13:26 | disposition home or self-care (01) ==
LOC: HO.HOSX 13:25
PROVIDERS: PCP Student in an Organized Health Care Education/Training Program; Visit Provider Physician Assistant
DX: Z98.1 Arthrodesis status (principal)
CPT/HCPCS: 72110

== ENCOUNTER → 2024-04-04 14:11 | Outpatient (BNV) | payer OTHER, SELFPAY | PROVIDERS: PCP Student in an Organized Health Care Education/Training Program; Visit Provider Radiology Diagnostic Radiology | DX: Z98.1 Arthrodesis status (principal) | CPT/HCPCS: 72110 ==

== ENCOUNTER 2024-09-28 09:58 | Outpatient (AMB) | payer OTHER, SELFPAY ==
--- NOTE | 2024-09-28 10:09 | MHC.OFFVIS ---
Vital Signs 09/28/24 10:14 Height 5 ft 11 in Weight 248 lb BMI 34.6 BP 142/80 H Blood Pressure Location Rt brachial Position Sitting Pulse 76 Pulse Source Pulse Oximeter Pulse Oximetry (%) 96 Oxygen Delivery Method Room Air Intake Visit Reasons: Colonoscopy Screening Intake Note: New pt for initial colo screening. Hx of GERD. CC: Pt denies any GI sx or concerns at this time. Chemist Proteins Required: No Accompanied by: Self / Same As Patient Allergies azithromycin (AZITHROMYCIN) Allergy (Severe, Verified 12/28/23 17:05) TACHYCARDIA/HIVES penicillin V Allergy (Unknown, Verified 12/28/23 17:05) Anaphylaxis Penicillins (PCN) Allergy (Unknown, Verified 12/28/23 17:05) THROAT CLOSES From NOVOCAIN Allergy (Unknown, Uncoded 10/14/23 11:47) INCEASED SEVERE MIGRAINES SEASONAL ALLERGIES Allergy (Unknown, Uncoded 10/14/23 11:47) RHINITIS HPI HPI Colonoscopy Screening: Details: 49 year old? male here today for pre colonoscopy screening.? Patient was sent to us by his PCP.? This is his first colonoscopy screening.? Patient denies any gastrointestinal symptoms in the past or at present.? Denies any personal or family history of gastrointestinal disease, colon polyps, or CRC.? Denies history of difficulty with sedation or anesthesia in the past.? Negative for history of sleep apnea.? Denies any history of cardiac, renal, pulmonary, or hepatic disease.?? No history of infectious? diseases like hepatitis A, B, C, HIV or tuberculosis.? Patient is not on any anticoagulation [facility] Medical History COVID-19 Allergic rhinitis Asthma Current tobacco use Scoliosis DJD (degenerative joint disease) Spinal stenosis Heartburn Concussion History of traumatic head injury Depression Numbness Cough SOB (shortness of breath) Wheezing Bronchitis History of marijuana use Kidney cysts ADHD Seizures Basilar artery migraine Migraine Surgical History H/O Spinal surgery History of repair of anterior cruciate ligament of left knee Hx of knee surgery Social History Household Members: Spouse Housing: House Are you a primary career resource technician to a significant other at home: No Do you presently have visiting nurse or other home services: No Alcohol intake: current Alcohol intake frequency: holidays/special occasions only Patient Tobacco Use Status: Current everyday Tobacco user Tobacco use type: Cigarette Cigarette Packs Per Day: 1.5 Cigarettes Per Day: 30.0 Second Hand Smoke Exposure: No Substance Use Type: Marijuana Review of Systems Const Denies weight gain and Denies weight loss ENT Reports no additional complaints, Denies dysphagia and Denies odynophagia Card Reports no additional complaints Resp Reports no additional complaints GI Denies abdominal pain, Denies belching, Denies melena, Denies bloating, Denies change in bowel habits, Denies dysphagia, Denies excessive flatus, Denies dyspepsia, Denies heartburn, Denies diarrhea, Denies loose stools, Denies nausea, Denies odynophagia and Denies vomiting Reports no additional complaints Musc Reports no additional complaints Neuro Reports no additional complaints Psych Reports no additional complaints Endo Reports no additional complaints Physical Exam Vital Signs: Last Vital Signs Pulse 76 09/28/24 10:14 BP 142/80 H 09/28/24 10:14 Pulse Ox 96 09/28/24 10:14 Oxygen Delivery Method Room Air 09/28/24 10:14 BMI result Body Mass Index 34.6 Const General: healthy appearing and no acute distress Nutritional Appearance: well nourished and obese Orientation/consciousness: patient oriented x3 Resp Effort & Inspection: normal respiratory effort, able to speak in complete sentences, no tracheal deviation and symmetric chest movement Auscultation: clear to auscultation bilaterally Cardio Rate: regular rate GI Inspection: Yes normal to inspection, No distended and Yes obesity Palpation (GI): Soft to palpation, not firm, nontender and No hepatosplenomegaly present Auscultation: normal bowel sounds General: Yes no CVA tenderness Back/Spine/Pelvis Back: no CVA tenderness Skin General skin exam: elasticity normal, turgor normal and dry skin Neuro General: patient oriented x3 Psych Appearance: grossly normal Mental Status: mental status grossly normal Assessment & Plan Assessment & Plan (1) Screen for colon cancer: Code(s): Z12.11 - Encounter for screening for malignant neoplasm of colon Plan Patient denies any GI, cardiac or respiratory symptoms.? Denies any issues with anesthesia in the past.? Denies any history of sleep apnea.? No history infectious diseases in the past or present.? Not on any anticoagulation therapy.? No family or personal history of colon cancer or polyps.? Patient denies melena, hematochezia, unintentional weight loss or ribbon like stools.? Discussed at length the pre-procedure,? prep, diet & medications as well as what to expect prior, during and after the procedure.?? Stressed the importance of good bowel prep.? Recommended the use of Vaseline or Calmoseptine OTC & baby wipes with bowel movements to promote comfort.? ?Patient verbalizes understanding and agrees to plan of care.? He was given the opportunity to ask questions and all questions answered.? We will see him after the procedure.? Medications: New bisacodyl (Dulcolax (bisacodyl)) take 4 tabs at noon the day before your colonoscopy 20 mg (4 x 5 mg) PO ONCE 4 tabs 0RF constipation 1 day Z12.11 - Encounter for screening for malignant neoplasm of colon polyethylene glycol 3350 (Miralax) As directed by gastroenterology department at [facility] 238 grams PO ONCE 238 grams 0RF Z12.11 - Encounter for screening for malignant neoplasm of colon Coding Level of Care Code New Pt Level 3 (84437) Diagnoses Screen for colon cancer Z12.11 Time Spent (min) 40 Comment 30 minutes spent with patient and additional 10 minutes spent reviewing his records
[2024-09-28 10:14] VITALS: BP 142/80; PULSE 76; O2SAT 96; BMI 34.6
--- OUTSIDE RECORDS SUMMARY | 2024-09-28 10:58 | XMS_ITS | Clinical Summary ---
Author Organization [facility] Address [address] [place] [address] Care Team Providers Care Associate Media Director Name Role Phone Janae Guillermo MD Primary Care Provider [phone] Surgical History Surgery Date Site/Laterality Comments KNEE [...] Date Smoking Tobacco: Every Day Cigarettes 0.5 35.1 Started: 08/18/1989 Smokeless Tobacco: Never Alcohol Use [...] 5 Years) and At-Risk Patients (6 to 49 Years) (1 of 2 - PCV) 01/30/1995 Cholesterol Screening (Lipid Panel) 01/11/2022 Colorectal Cancer Screening: Colonoscopy 01/11/2022 HIV Screening 01/11/2022 Hepatitis C Screening 01/11/2022 Social Influencers of Health Screening 01/11/2022 COVID-19 Vaccine (3 - 2023-2 5 season) 2023 06/06/2020, 05/16/2020 Depression Screening 02/10/2024 Influenza Vaccine (#1) 2024 0, 12/20/2015, 10/23/2014 HIB Vaccines Aged Out [...] age to complete this topic Meningococcal B Vaccine Aged Out No l onger eligible based on patient's age to complete this topic RSV Immunization Patients Under 20 months Aged Out No longer eligible b ased on patient's age to complete this topic Varicella Vaccines Aged Out No longer eligible based on patient's age to complete this topic Care Teams Associate Media Director Relationship Specialty Start Date End Date Janae Guillermo MD [address] [place] [address] PCP - General Internal Medicine 10/17/14
--- OUTSIDE RECORDS SUMMARY | 2024-09-28 10:58 | XMS_ITS | Clinical Summary ---
Author Organization [employer] Address [address] [place] [address] Care Team Providers Care Local Government Legislator Name Role Phone Jason Corea MD Primary Care Prov ider Allergies Active Allergy Reactions Criticality Noted Date Comments Azithromycin Shortness of breath High 12/29/2023 Other 11/03/2023 SEASONAL ALLERGIES/RHINITIS Penicillin G Anaphylaxis High 12/29/2023 Procaine 11/03/2023 INCREASED SEVERE MIGRAINES Medications Blood Pressure kit 1 kit Once per day. 1 kit 03/24/19 25 Active amLODIPine (Norvasc) 10 MG tablet Take 1 tablet (10 mg) by mouth Once per day. 90 tablet 3 07/15/19 25 026 Active gabapentin (Neurontin) 300 MG capsule Take 2 capsules (600 mg) by mouth 3 times daily. 540 capsule 2 09/08/19 25 Active gabapentin (Neurontin) 300 MG capsule TAKE ONE CAPSULE BY MOUTH THREE TIMES DAILY 90 capsule 1 08/02/19 25 025 Discontinued(Re order (will not trigger notification to Pharmacy)) Active Problems Problem Noted Date Diagnosed Date Primary hypertension 05/03/2024 Assessment & Plan (07/15/2024 3:05 PM EDT): Not at target, will increase amlodipine to 10mg, continue low sodium diet and exercise as tolerated, follow up in 1 month Assessment & Plan (06/07/2024 1:54 PM EDT): Patient refers after starting losartan he was feeling fatigue, will switch to amlodipine, follow up in 1 month, keep low sodium diet and exercise as tolerated Assessment & Plan (05/03/2024 10:42 AM EDT): Uncontrolled, has been ranging 142/90-184/107, encouraged lifestyle modifications, will start on losartan 25mg, target <140/90, follow up in 1 month Screening for colon cancer 05/03/2024 Assessment & Plan (05/03/2024 10:43 AM EDT): Screening colon cancer referral will be sent Elevated blood pressure reading 03/24/2024 Assessment & [...] Encounters Date Type Department Care Team Description 09/07/2024 3:30 PM EDT Telemedicine [facility] [address] [place] [address] Jason Corea MD 09/07/2024 Travel 09/06/2024 Telephone [facility] [address] [place] [address] Jason Corea MD Chart Prep 07/30/2024 Refill [facility] [address] [place] [address] Jason Corea MD 07/14/2024 3:30 PM EDT Telemedicine [facility] [address] [place] [address] Jason Corea MD Primary hypertension (Primary Dx) 07/14/2024 Travel from Last 3 Months Immunizations Immunization Administration Dates Next Due INFLUENZA INJECTABLE QUADRIV ALANT CCIIV4 MDCK Multi-dose vial 11/19/2018 INFLUENZA VACCINE QUADRIVALE NT RECOMBINANT PRESERVATIVE FREE RIV4 11/18/2019 Influenza injectable quadrivalent preservative f ree 02/21/2017 Influenza, IIV3, injectable 12/20/2015, 5 Influenza, Unspecified 11/19/2018 Influenza, seasonal, injectable, preservative fr ee 12/20/2015,10/23/2014 Pfizer Covid-19 Vaccine 12+ 05/16/2020 Pneumococcal Polysaccharide PPSV23 02/15/2016 Family History Medical History Relation Name Comments Osteoarthritis Brother Lung cancer Father passes away on 2019 Diverticulitis Mother Heart failure Mother Bone cancer Mother's Brother Melanoma Mother's Brother Relation Name Status Comments Brother Father Mother Mother's Brother Social History Tobacco Use Types Packs/Day Years Used Date Smoking Tobacco: Every Day Cigarettes 1 34.6 Started: 1990 Smokeless Tobacco: Never Tobacco Cessation:Ready [...] Sign Reading Time Taken Comments Blood Pressure 132/85 09/07/2024 3:20 PM EDT Pulse 100 03/24/2024 11:00 AM EST Temperature 37.1 C (98.7 F) 03/24/2024 11:00 AM EST Respiratory Rate 20 03/24/2024 11:00 AM EST Oxygen Saturation 98% 03/24/2024 11:00 AM EST Inhaled Oxygen Concentration - - Weight 114 kg (251 lb) 03/24/2024 11:00 AM EST Height 177.8 cm (5' 10 ) 03/24/2024 11:00 AM EST Body Mass Index 36.01 03/24/2024 11:00 AM EST Plan of Treatment Health Maintenance Due Date Last Done Comments CT Colonography 1976 Colonoscopy 1976 Colorectal Cancer Screening 1976 FIT DNA/Cologuard 1976 FIT 1976 FOBT 1976 Sigmoidoscopy 1976 Disability Screening 1976 Family Planning (PISQ) 01/30/1991 DTaP/Tdap/Td Vaccines (1 - Tdap) 01/30/1995 Hepatitis B Vaccines (1 of 3 - 19+ 3-dose series) 01/30/1995 Pneumococcal Vaccine: Pediatrics (0 to 5 Years) and At-Risk Patients (6 to 49) Years (2 of 2 - PCV) 02/14/2017 02/15/2016 COVID-19 Vaccine ( season) 2023 07/26/2021, 06/21/2020, 05/31/2020, Additional history exists Influenza Vaccine (#1) 2024 , 11/19/2018, 11/19/2018, Additional history exists SDOH Screening 12/28/2024 12/29/2023 Tobacco Screening 02/22/2025 02/23/2024 Depression Screening 03/24/2025 03/24/2024, 03/24/19 Diabetes: Hemoglobin A1C 03/25/2025 03/25/2024 Alcohol/Substance Use Screening 07/14/2025 07/14/2024 Zoster Vaccines (1 of 2) 01/30/2026 Lipid [...] blood pressure reading from Last 3 Months or Most Recently Relevant to Health Maintenance Results * Hepatitis C Antibody with Reflex to HCV, RNA, Quantitative, Real-Time PCR (03/25/2024 9:32 AM EST) Hepatitis C Antibody Nonreactive Nonreactive [facility] Comment:Antibodies to HCV no t detected; does not exclude early acuteHCV infection. Blood Venous blood specimen / Unknown 03/25/2024 9:32 AM EST 03/25/2024 2:12 PM EST Jason Arnold MD LAB BLOOD ORDERABL ES Final Result Performing Organization Address [facility] Co de Phone Number [facility] [address] [place] [phone] * HIV-1/2 Antigen and Antibodies, Fourth Generation, with Reflexes (03/25/2024 9:32 AM EST) Pathologist [facility] HIV AB/AG Nonreactive Nonreactive [facility] Comment:HIV-1 p24 Ag and/or HIV-1/HIV-2 Ab not detected.A test result that is nonreactive does not exclude thepossibility of exposure to or infection with HIV-1 and/orHIV-2. Nonreactive results in this assay for individualswith prior exposure to HIV-1 and/or HIV-2 may be due toantigen and antibody levels that are below the limit ofdetection of this assay.The [facility] [employer] HIV Ag/Ab Combo assay result andsupplemental assay results should be interpreted inconjunction with the patient's clinical presentation,history and other laboratory results. If the results areinconsistent with clinical evidence, additional testing issuggested to confirm the result. Blood Venous blood specimen / Unknown 03/25/2024 9:32 AM EST 03/25/2024 2:12 PM EST Jason Arnold MD LAB BLOOD ORDERABL ES Final Result Performing Organization Address [facility] Co de Phone Number [facility] [address] [place] [phone] * Hemoglobin A1c (03/25/2024 9:32 AM EST) Hemoglobin A1c 5.8 <6.0 % [facility] Comment:Hemoglobin A1C Refer ence Range Adults: 4.8 - 6.0 % Non diabetic: < 6.0 % Goal: < 7.0 %Additional Action Suggested: > 8.0 %Note: Hemoglobin A1c results are invalid for patients with abnormal amounts of HbF. Blood transfusions may impact the HbA1c concentration in the patient sample. Estimated Average Glucose 120 mg/dL [facility] Comment:eAG = Estimated ave rage glucose which is %A1C expressed asaverage glucose, using the formula of the [id number] Glucose study (ADAG), Diabetes Care, Vol.31,#8,2007 Blood Venous blood specimen / Unknown 03/25/2024 9:32 AM EST 03/25/2024 1:55 PM EST us Jason Arnold MD LAB BLOOD ORDERABL ES Final Result [facility] [address] [place] [phone] * (ABNORMAL) Lipid Panel, Standard (03/25/2024 9:32 AM EST) Triglycerides 58 <150 mg/dL [facility] Comment:Desirable Triglyceri de: less than 150 mg/dLBorderline High Triglyceride 150-199 mg/dLHigh Triglyceride: 200-499 mg/dLVery High Triglyceride: greater than or equal to 5OO mg/dL Cholesterol 166 <200 mg/dL [facility] Comment:Desirable Cholestero l: less than 200 mg/dLBorderline High Cholesterol: 200-239 mg/dLHigh Cholesterol: greater than 239 mg/dL LDL Cholesterol Calculated 109(H) <100 mg/dL [facility] Comment:Desirable LDL: less than 100 mg/dLNear Optimal/Above Optimal LDL: 110- 129 mg/dLBorderline High LDL: 130-159 mg/dLHigh LDL: 160-189 mg/dLVery High LDL: greater than or equal to 190 mg/dL HDL Cholesterol 46 >40 mg/dL [facility] Comment:Desirable HDL: great er than 40 mg/dL Note: This HDL assay may give artificially low results in patients with liver disease. Blood Venous blood specimen / Unknown 03/25/2024 9:32 AM EST 03/25/2024 2:12 PM EST us Jason Arnold MD LAB BLOOD ORDERABL ES Final Result [facility] [address] [place] [phone] from Last 3 Months or Most Recently Relevant to Health Maintenance Insurance [facility] HMO Care Teams Local Government Legislator Relationship Specialty Start Date End Date Jason Corea MD [address] [place] [id number] PCP - General Internal Medicine 12/29/23
--- OUTSIDE RECORDS SUMMARY | 2024-09-28 10:58 | XMS_ITS | Clinical Summary ---
Author Organization [facility] Address [address] [place] [address] Care Team Providers Care Bridge Welder Name Role Phone Antonette Grullon Primary Care [...] On Topamax, seeing Dr. Abreu, neurology at [place] Arthritis of left knee 06/28/2014 Arthritis of [...] 71 11/27/2023 11:08 AM EDT Temperature 36.3 C (97.3 F) 11/27/2023 11:08 AM EDT Respiratory Rate - - Oxygen Saturation 95% 11/27/2023 11:08 AM EDT Inhaled Oxygen Concentration - - Weight 115 kg (253 lb) 11/27/2023 11:08 AM EDT Height 177.8 cm (5' 10 ) 11/27/2023 11:08 AM EDT Body Mass Index 36.3 11/27/2023 11:08 AM EDT Plan of Treatment Health Maintenance Due Date Last Done Comments Hepatitis B Vaccine (1 of 3 - 19+ 3-dose series) 01/30/1995 Pneumococcal Vaccine: Peds ( 0 to 5 Years) and At-Risk Patients (6 to 49 Years) (1 of 2 - PCV) 01/30/1995 Influenza Vaccine (#1) 2024 0, 12/20/2015, 10/23/[address] [facility] [place] [address] [place] [address] Medicaid [place] Care Teams Bridge Welder Relationship Specialty Start Date End Date Antonette Grullon [address] [place] [phone] PCP - General 11/03/23
--- OUTSIDE RECORDS SUMMARY | 2024-09-28 10:58 | XMS_ITS ---
Author Name [facility] Organization Unknown Care Team Organization Name Specialty Phone Email Start Date End Da te [facility] Karen Novak MD Primary Care 12/17/2021 09/28/2023
== END 2024-09-28 10:41 | disposition home or self-care (01) ==
LOC: HO.HGI 09:59
PROVIDERS: PCP Student in an Organized Health Care Education/Training Program; Visit Provider Nurse Practitioner Family
DX: Z01.818 Encounter for other preprocedural examination (principal); Z12.11 Encounter for screening for malignant neoplasm of colon
CPT/HCPCS: 99203

== ENCOUNTER 2024-11-10 08:40 | Day surgery (SDC) | payer OTHER, SELFPAY ==
--- OUTSIDE RECORDS SUMMARY | 2024-11-01 10:32 | XMS_ITS | Clinical Summary ---
Author Organization [facility] Address [address] [place] [address] Care Team Providers Care Us Customs And Border Officer Name Role Phone Janae Guillermo MD Primary Care Provider [phone] Surgical History Surgery Date Site/Laterality Comments KNEE [...] Date Smoking Tobacco: Every Day Cigarettes 0.5 35.2 Started: 08/18/1989 Smokeless Tobacco: Never Alcohol Use [...] 01/11/2022 Social Influencers of Health Screening 01/11/2022 Depression Screening 02/10/2024 COVID-19 Vaccine (3 - 2024-2 6 season) 2024 06/06/2020, 05/16/2020 Influenza Vaccine (#1) 2024 0, 12/20/2015, 10/23/2014 [...] age to complete this topic Care Teams Us Customs And Border Officer Relationship Specialty Start Date End Date Janae Guillermo MD [address] [place] [address] PCP - General Internal Medicine 10/17/14
--- OUTSIDE RECORDS SUMMARY | 2024-11-01 10:32 | XMS_ITS | Encounter Summary ---
Author Organization [employer] Address [address] [facility] [address] [place] [address] Care Team Providers Care Turbogenerator Operator Name Role Phone Jason Corea MD Primary Care Prov ider Encounter Details Date Type Department Care Team (Late st Contact Info) Description 03/25/2024 Orders Only [facility] [address] [place], [place] [phone] Jason Corea MD [address] [place] [address] Elevated blood pressure reading (Primary Dx) Social History Tobacco Use Types Packs/Day Years Used Date Smoking Tobacco: Every Day Cigarettes 1 34.7 Started: 1990 Smokeless Tobacco: Never Alcohol Use [...] on file documented as of this encounter Procedures Procedure Name Priority Date/Time Associated Diagnosis Comments XR LUMBAR SPINE COMPLETE 4+ VIEWS Routine 04/06/2024 10:55 AM EST TSH W/REFLEX TO FT4 Routine 03/25/2024 9 [...] reading documented in this encounter Results * XR Lumbar Spine Complete 4+ Views (04/06/2024 10:55 AM EST) Anatomical Region Laterality Modality Spine, L-spine Radiographic Amanda ging 04/06/2024 10:5 5 AM EST Narrative 04/06/2024 10:55 AM EST [facility] [address] [place], [place] XRay Report Signed Patient: Sonu Castillo MR#: [id number] : 1975 Acct:[id number] Age/Sex: 49 / M ADM Date: 04/04/24 Loc: [facility] Attending Dr: Tommy MARTINEZ Ordering Physician: Tommy Rucker Date of Service: 04/04/24 Procedure(s): XR lumbar spine 4V min Accession Number(s): [id number] cc: Tommy Rucker; Antonette Padilla MD CLINICAL HISTORY: Z98.1 - Arthrodesis status 4 views lumbar spine Comparison: None Findings: No fractures or spondylolisthesis. Disc cages and fusion hardware L4-5 and L5-S1 No significant facet arthropathy Remaining disc spaces are preserved. Pedicles and transverse processes intact. Lordotic curvature is preserved. Normal bone mineralization. Normal soft tissues. Sacroiliac joints unremarkable. No instability on flexion and extension views. Impression: 1. No compression fractures or spondylolisthesis. 2. No translation on flexion and extension views. 3. Disc cages and fusion hardware L4-5 and L5-S1. This document has been electronically signed by: David Larson MD on 04/06/2024 10:55:02 Dictated By: David Larson MD Signed By: <Electronically signed by David Larson MD in OV> 04/06/24 1055 DD/ 1055 TD/TT: 04/06/24 1055 Perforating Machine Operator: Procedure Note Donotuseinterpreter, Image - 04/06/2024 [facility] [address] [place] [address] XRay Report Signed Patient: Sonu Castillo FMR#: [id number] : 1975Acct:[id number] Age/Sex: 49 / MADM Date: 04/04/24 Loc: [facility] Attending Dr: Tommy MARTINEZ Ordering Physician: Tommy Rucker Date of Service: 04/04/24 Procedure(s): XR lumbar spine 4V min Accession Number(s): [id number] cc: Tommy Rucker; Antonette Padilla MD CLINICAL HISTORY: Z98.1 - Arthrodesis status 4 views lumbar spine Comparison: None Findings: No fractures or spondylolisthesis. Disc cages and fusion hardware L4-5 and L5-S1 No significant facet arthropathy Remaining disc spaces are preserved. Pedicles and transverse processes intact. Lordotic curvature is preserved. Normal bone mineralization. Normal soft tissues. Sacroiliac joints unremarkable. No instability on flexion and extension views. Impression: 1. No compression fractures or spondylolisthesis. 2. No translation on flexion and extension views. 3. Disc cages and fusion hardware L4-5 and L5-S1. This document has been electronically signed by: David Larson MD on 04/06/2024 10:55:02 Dictated By: David Larson MD Signed By: <Electronically signed by David Larson MD in OV> 04/06/24 1055 DD/ 1055 TD/TT: 04/06/24 1055 Perforating Machine Operator: [facility] External Provider IMG XR PROCEDURES Final Result * Hepatitis C Antibody with Reflex to HCV, RNA, Quantitative, Real-Time PCR (03/25/2024 9:32 AM EST) Hepatitis C Antibody Nonreactive Nonreactive [facility] Comment:Antibodies to HCV no t detected; does not exclude early acuteHCV infection. Blood Venous blood specimen / Unknown 03/25/2024 9:32 AM EST 03/25/2024 2:12 PM EST Jason Arnold MD LAB BLOOD ORDERABL ES Final Result [facility] [address] [place] [address] [phone] * HIV-1/2 Antigen and Antibodies, Fourth Generation, with Reflexes (03/25/2024 9:32 AM EST) HIV AB/AG Nonreactive Nonreactive [facility] Comment:HIV-1 p24 Ag and/or HIV-1/HIV-2 Ab not detected.A test result that is nonreactive does not exclude thepossibility of exposure to or infection with HIV-1 and/orHIV-2. Nonreactive results in this assay for individualswith prior exposure to HIV-1 and/or HIV-2 may be due toantigen and antibody levels that are below the limit ofdetection of this assay.The [employer] HIV Ag/Ab Combo assay result andsupplemental assay results should be interpreted inconjunction with the patient's clinical presentation,history and other laboratory results. If the results areinconsistent with clinical evidence, additional testing issuggested to confirm the result. Blood Venous blood specimen / Unknown 03/25/2024 9:32 AM EST 03/25/2024 2:12 PM EST Jason Arnold MD LAB BLOOD ORDERABL ES Final Result [facility] [address] [place] [phone] * Hemoglobin A1c (03/25/2024 9:32 AM EST) Hemoglobin A1c 5.8 <6.0 % [facility] Comment:Hemoglobin A1C Refer ence Range Adults: 4.8 - 6.0 % Non diabetic: < 6.0 % Goal: < 7.0 %Additional Action Suggested: > 8.0 %Note: Hemoglobin A1c results are invalid for patients with abnormal amounts of HbF. Blood transfusions may impact the HbA1c concentration in the patient sample. Estimated Average Glucose 120 mg/dL [facility] Comment:eAG = Estimated ave rage glucose which is %A1C expressed asaverage glucose, using the formula of the P4W-BtzlmqlUfjnqet Glucose study (ADAG), Diabetes Care, Vol.31,#8,Sep. 2007 Blood Venous blood specimen / Unknown 03/25/2024 9:32 AM EST 03/25/2024 1:55 PM EST us Jason Arnold MD LAB BLOOD ORDERABL ES Final Result Performing Organization Address [facility]/ZIP Co de Phone Number [facility] [address] [place] [phone] * TSH W/Reflex to FT4 (03/25/2024 9:32 AM EST) TSH reflex Free T4 0.60 0.32 - 4.0 uIU/mL [facility] Blood Venous blood specimen / Unknown 03/25/2024 9:32 AM EST 03/25/2024 2:12 PM EST us Jason Arnold MD LAB BLOOD ORDERABL ES Final Result Performing Organization Address [facility] Co de Phone Number [facility] [address] [place] [phone] * (ABNORMAL) Lipid Panel, Standard (03/25/2024 9:32 AM EST) Triglycerides 58 <150 mg/dL [facility] Comment:Desirable Triglyceri de: less than 150 mg/dLBorderline High Triglyceride 150-199 mg/dLHigh Triglyceride: 200-499 mg/dLVery High Triglyceride: greater than or equal to 5OO mg/dL Cholesterol 166 <200 mg/dL [facility] Comment:Desirable Cholestero l: less than 200 mg/dLBorderline High Cholesterol: 200-239 mg/dLHigh Cholesterol: greater than 239 mg/dL LDL Cholesterol Calculated 109(H) <100 mg/dL [facility] Comment:Desirable LDL: less than 100 mg/dLNear Optimal/Above Optimal LDL: 110- 129 mg/dLBorderline High LDL: 130-159 mg/dLHigh LDL: 160-189 mg/dLVery High LDL: greater than or equal to 190 mg/dL HDL Cholesterol 46 >40 mg/dL [facility] Comment:Desirable HDL: great er than 40 mg/dL Note: This HDL assay may give artificially low results in patients with liver disease. Blood Venous blood specimen / Unknown 03/25/2024 9:32 AM EST 03/25/2024 2:12 PM EST us Jason Arnold MD LAB BLOOD ORDERABL ES Final Result [facility] [address] [place] [phone] * Comprehensive Metabolic Panel (03/25/2024 9:32 AM EST) Sodium 138 135 - 145 mmol/L [facility] Potassium 4.3 3.3 - 5.1 mmol/L [facility] Chloride 105 96 - 108 mmol/L [facility] Carbon Dioxide 25 22 - 29 mmol/L [facility] Anion Gap 12 12 - 20 [facility] Urea Nitrogen (BUN) 13 9 - 16 mg/dL [facility] Creatinine, Serum 0.80 0.5 - 1.4 mg/dL [facility] Estimated Glomerular Filt Rate >60 [facility] Comment:Chronic Kidney Disea se: Estimated GFR < 60 mL/min/1.45f7Wuxhdc Kidney Disease: Estimated GFR < 15 mL/min/1.73m2 Glucose 76 60 - 115 mg/dL [facility] Calcium 9.2 8.4 - 10.2 mg/dL [facility] Bilirubin, Total 0.2 0.0 - 1.0 mg/dL [facility] Aspartate Amino Transferase 28 5 - 37 U/L [facility] Alanine Aminotransferase 27 0 - 40 U/L [facility] Total Protein 7.2 6.5 - 8.0 g/dL [facility] Albumin Level 4.0 3.5 - 5.0 g/dL [facility] Alkaline Phosphatase 111 39 - 117 U/L [facility] Blood Venous blood specimen / Unknown 03/25/2024 9:32 AM EST 03/25/2024 2:12 PM EST us Jason Arnold MD LAB BLOOD ORDERABL ES Final Result [facility] [address] [place], [place] [phone] * (ABNORMAL) CBC auto differential (03/25/2024 9:32 AM EST) White Blood Count 12.7(H) 4.8 - 10.8 X10*3/uL [facility] Red Blood Count 5.03 4.60 - 5.80 X10*6/uL [facility] Hemoglobin 14.5 14.0 - 18.0 g/dl [facility] Hematocrit 43.1 42.0 - 52.0 % [facility] Mean Corpuscular Volume 85.7 80.0 - 98.0 fL [facility] Mean Corpuscular Hemoglobin 28.8 27.0 - 33.0 pg [facility] Mean Corpuscular HGB Conc 33.6 31.0 - 36.0 g/dl [facility] Red Cell Distribution Width 14.9 11.0 - 16.0 % [facility] Platelet Count 336 160 - 400 X10*3/uL [facility] Mean Platelet Volume 9.8 9.4 - 12.4 fL [facility] Neutrophils Percent Auto 62.0 45 - 73 % [facility] Imm Gran Pct Auto 0.3 0.0 - 0.4 % [facility] Lymphocytes Percent Auto 28.0 20 - 40 % [facility] Monocytes Percent Auto 7.7 2 - 11 % [facility] Eosinophils Percent Auto 1.4 0 - 4 % [facility] Basophils Percent Auto 0.6 0 - 2 % [facility] NRBC Pct Auto 0.0 0.0 - 0.2 /100WBC [facility] Neutrophils Absolute Auto 7.9 2.0 - 8.3 x10*3/uL [facility] Imm Gran Abs Auto 0.04(H) 0.00 - 0.03 X10*3/uL [facility] Lymphocytes Absolute Auto 3.5 1.2 - 4.9 X10*3/uL [facility] Monocytes Absolute Auto 1.0 0.1 - 1.2 X10*3/uL [facility] Eosinophils Absolute Auto 0.2 0.0 - 0.4 X10*3/uL [facility] Basophils Absolute Auto 0.1 0.0 - 0.2 X10*3/uL [facility] NRBC Abs Auto 0.000 0.0 - 0.012 X10*3/uL [facility] Blood Venous blood specimen / Unknown 03/25/2024 9:32 AM EST 03/25/2024 1:55 PM EST us Jason Arnold MD LAB BLOOD ORDERABL ES Final Result [facility] [address] [place] [phone] documented in this encounter Visit Diagnoses Diagnosis Elevated blood pressure reading- Primary Elevated blood pressure reading without diagnosis of hypertension documented in this encounter Additional Health Concerns Assessment Noted Time PHQ-9 Depression Total Score: 3 03/24/19 25 11:02 AM EST documented as of this encounter Care Teams Turbogenerator Operator Relationship Specialty Start Date End Date Jason Corea MD [address] [place] [phone] PCP - General Internal Medicine 12/29/23 documented as of this encounter
--- OUTSIDE RECORDS SUMMARY | 2024-11-01 10:32 | XMS_ITS | Clinical Summary ---
Author Organization [employer] Address [address] [facility] 7t [place] [address] Care Team Providers Care Front Desk Clerk Name Role Phone Jason Corea MD Primary Care Prov ider Allergies Active Allergy Reactions Criticality Noted Date Comments Azithromycin Shortness of breath High 12/29/2023 Other 11/03/2023 SEASONAL ALLERGIES/RHINITIS Penicillin G Anaphylaxis High 12/29/2023 Procaine 11/03/2023 INCREASED SEVERE MIGRAINES Medications Blood Pressure kit 1 kit Once per day. 1 kit 03/24/2024 Active amLODIPine (Norvasc) 10 MG tablet Take 1 tablet (10 mg) by mouth Once per day. 90 tablet 3 07/14/2024 07/15/19 26 Active gabapentin (Neurontin) 300 MG capsule Take 2 capsules (600 mg) by mouth 3 times daily. 540 capsule 2 09/07/2024 Active Active Problems Problem Noted Date Diagnosed Date Primary hypertension 05/03/2024 Assessment & Plan (10/12/2024 12:04 PM EDT): Controlled, results have remained below 140/90, no changes will be made, continue low sodium diet and exercise as tolerated Assessment & Plan (07/15/2024 3:05 PM EDT): [...] Team Description 09/07/2024 3:30 PM EDT Telemedicine [facility] [address] [place] [address] Jason Corea MD Primary hypertension (Primary Dx) 09/07/2024 Travel 09/06/2024 Telephone [facility] [address] [place] [address] Jason Corea MD Chart Prep from Last 3 Months Immunizations Immunization Administration [...] 1 34.7 Started: 1990 Smokeless Tobacco: Never Tobacco Cessation:Ready [...] PCV) 02/14/2017 02/15/2016 COVID-19 Vaccine ( season) 2024 07/26/2021, 06/21/2020, 05/31/2020, Additional history exists Influenza Vaccine (#1) 2024 , 11/19/2018, 11/19/2018, Additional history exists SDOH Screening 12/28/2024 12/29/2023 Tobacco Screening 02/22/2025 02/23/2024 Depression Screening 03/24/2025 03/24/2024, 03/24/19 25 Diabetes: Hemoglobin A1C 03/25/2025 03/25/2024 Alcohol/Substance Use [...] AM EST) Hepatitis C Antibody Nonreactive Nonreactive [facility] Comment:Antibodies to HCV no t detected; does not exclude early acuteHCV infection. Blood Venous blood specimen / Unknown 03/25/2024 9:32 AM EST 03/25/2024 2:12 PM EST Jason Arnold MD LAB BLOOD ORDERABL ES Final Result Performing Organization Address City/[facility]/ZIP Co de Phone Number [facility] [address] [place] [phone] * HIV-1/2 Antigen and Antibodies, Fourth Generation, with Reflexes (03/25/2024 9:32 AM EST) HIV AB/AG Nonreactive Nonreactive [facility] Comment:HIV-1 p24 Ag and/or HIV-1/HIV-2 Ab not detected.A test result that is nonreactive does not exclude thepossibility of exposure to or infection with HIV-1 and/orHIV-2. Nonreactive results in this assay for individualswith prior exposure to HIV-1 and/or HIV-2 may be due toantigen and antibody levels that are below the limit ofdetection of this assay.[employer] HIV Ag/Ab Combo assay result andsupplemental assay results should be interpreted inconjunction with the patient's clinical presentation,history and other laboratory results. If the results areinconsistent with clinical evidence, additional testing issuggested to confirm the result. Blood Venous blood specimen / Unknown 03/25/2024 9:32 AM EST 03/25/2024 2:12 PM EST us Jason Arnold MD LAB BLOOD ORDERABL ES Final Result Performing Organization Address City/[facility]/ZIP Co de Phone Number [facility] [address] [place] [phone] * Hemoglobin A1c (03/25/2024 9:32 AM EST) Hemoglobin A1c 5.8 <6.0 % [facility] Comment:Hemoglobin A1C Refer ence Range Adults: 4.8 - 6.0 % Non diabetic: < 6.0 % Goal: < 7.0 %Additional Action Suggested: > 8.0 %Note: Hemoglobin A1c results are invalid for patients with abnormal amounts of HbF. Blood transfusions may impact the HbA1c concentration in the patient sample. Estimated Average Glucose 120 mg/dL [facility] Comment:eAG = Estimated ave rage glucose which is %A1C expressed asaverage glucose, using the formula of the O8Z-WkbnnseYfvynav Glucose study (ADAG), Diabetes Care, Vol.31,#8,Sep. 2007 Blood Venous blood specimen / Unknown 03/25/2024 9:32 AM EST 03/25/2024 1:55 PM EST Jason Arnold MD LAB BLOOD ORDERABL ES Final Result [facility] [address] [place] [phone] * (ABNORMAL) Lipid Panel, Standard (03/25/2024 9:32 AM EST) Triglycerides 58 <150 mg/dL [facility] Comment:Desirable Triglyceri de: less than 150 mg/dLBorderline High Triglyceride 150-199 mg/dLHigh Triglyceride: 200-499 mg/dLVery High Triglyceride: greater than or equal to 5OO mg/dL Cholesterol 166 <200 mg/dL [facility] Comment:Desirable Cholestero l: less than 200 mg/dLBorderline High Cholesterol: 200-239 mg/dLHigh Cholesterol: greater than 239 mg/dL LDL Cholesterol Calculated 109(H) <100 mg/dL [facility] Comment:Desirable LDL: less than 100 mg/dLNear Optimal/Above Optimal LDL: 110- 129 mg/dLBorderline High LDL: 130-159 mg/dLHigh LDL: 160-189 mg/dLVery High LDL: greater than or equal to 190 mg/dL HDL Cholesterol 46 >40 mg/dL [facility] Comment:Desirable HDL: great er than 40 mg/dL Note: This HDL assay may give artificially low results in patients with liver disease. Blood Venous blood specimen / Unknown 03/25/2024 9:32 AM EST 03/25/2024 2:12 PM EST Jason Arnold MD LAB BLOOD ORDERABL ES Final Result [facility] [address] [place] [phone] from Last 3 Months or Most Recently Relevant to Health Maintenance Insurance [facility] HMO Care Teams Front Desk Clerk Relationship Specialty Start Date End Date Jason Corea MD [address] [place] [phone] PCP - General Internal Medicine 12/29/23
--- OUTSIDE RECORDS SUMMARY | 2024-11-01 10:33 | XMS_ITS | Clinical Summary ---
Author Organization [facility] Address [address] [place] [phone] Care Team Providers Care Furnace And Wash Equipment Operator Name Role Phone Antonette Grullon Primary [...] On Topamax, seeing Dr. Abreu, neurology at [place] Arthritis of left knee 06/28/2014 Arthritis of [...] Vaccine (#1) 2024 0, 12/20/2015, 10/23/2014 Insurance [facility] [place] [phone] Medicaid [place] Care Teams Furnace And Wash Equipment Operator Relationship Specialty Start Date End Date Antonette Grullon [address] [place] [phone] PCP - General 11/03/23
[2024-11-08 14:32] VITALS: BMI 34.6
--- NOTE | 2024-11-09 11:50 | P.CONAN_ITS ---
Documented by User: Carly Lira NP 11/09/24 11:51 HPI - Anesthesia Eval Consult details Narrative: 49 yr old male for colonoscopy PMF Active Problems Active Problems: All Active Problems S/P spinal fusion (Acute) Lumbago (Acute) Lumbar radiculitis (Acute) Lumbar disc herniation (Acute) COVID-19 virus infection (Acute) Past Medical History Medical History COVID-19 Allergic rhinitis Asthma Current tobacco use Scoliosis DJD (degenerative joint disease) Spinal stenosis Heartburn Concussion History of traumatic head injury Depression Numbness Cough SOB (shortness of breath) Wheezing Bronchitis History of marijuana use Kidney cysts ADHD Seizures Basilar artery migraine Migraine Family History Family history of problems with anesthesia: No Surgical History Surgical History (Updated 11/08/24 @ 14:34 by Jeanie Howard RN) H/O Spinal surgery History of repair of anterior cruciate ligament of left knee Hx of knee surgery History of Problems with Anesthesia: No Social History Social History Household Members: Spouse Housing: House Are you a primary pediatric critical care nurse to a significant other at home: No Do you presently have visiting nurse or other home services: No Alcohol intake: current Alcohol intake frequency: holidays/special occasions only Patient Tobacco Use Status: Current everyday Tobacco user Tobacco use type: Cigarette Cigarette Packs Per Day: 1 Cigarettes Per Day: 20.0 Second Hand Smoke Exposure: No Use of substances other than those prescribed or required for medical reasons: Yes Substance Use Type: Marijuana Are you DNR?: No Advance Directives: No Advance Directives Information Provided: Yes Poor oral hygiene: Yes Meds Allergies Allergy/AdvReac Type Severity Reaction Status Date / Time azithromycin (AZITHROMYCIN) Allergy Severe TACHYCARDIA Verified 12/28/23 17:05 /HIVES Penicillins (PCN) Allergy Severe Anaphylaxis Verified 11/08/24 14:31 From [facility] Allergy Severe INCEASED Uncoded 11/08/24 14:31 SEVERE MIGRAINES SEASONAL ALLERGIES Allergy Intermediate RHINITIS Uncoded 11/08/24 14:31 Home Medications ?Medication ?Instructions ?Recorded ?Confirmed ?Last Taken ?Type losartan 25 mg tablet 25 mg PO DAILY 09/22/2410/12 Unknown History gabapentin 600 mg tablet 600 mg PO TID 09/28/2411/08 Unknown History Exam Height,Weight and Vital Signs: Height 5 ft 11 in Weight 112.491 kg Assessment and Plan Final Anesthetic Review Family History of Problems with Anesthesia: No History of Problems with Anesthesia: No Documented by User: Jack Arzate MD 11/10/24 10:15 [facility] Past Medical History Medical History COVID-19 Allergic rhinitis Asthma Current tobacco use Scoliosis DJD (degenerative joint disease) Spinal stenosis Heartburn Concussion History of traumatic head injury Depression Numbness Cough SOB (shortness of breath) Wheezing Bronchitis History of marijuana use Kidney cysts ADHD Seizures Basilar artery migraine Migraine Surgical History Surgical History (Updated 11/08/24 @ 14:34 by Jeanie Howard RN) H/O Spinal surgery History of repair of anterior cruciate ligament of left knee Hx of knee surgery Social History Social History Household Members: Spouse Housing: House Are you a primary pediatric critical care nurse to a significant other at home: No Do you presently have visiting nurse or other home services: No Alcohol intake: current Alcohol intake frequency: holidays/special occasions only Patient Tobacco Use Status: Current everyday Tobacco user Tobacco use type: Cigarette Cigarette Packs Per Day: 1 Cigarettes Per Day: 20.0 Second Hand Smoke Exposure: No Use of substances other than those prescribed or required for medical reasons: Yes Substance Use Type: Marijuana Are you DNR?: No Advance Directives: No Advance Directives Information Provided: Yes Poor oral hygiene: Yes Meds Allergies Allergy/AdvReac Type Severity Reaction Status Date / Time azithromycin (AZITHROMYCIN) Allergy Severe TACHYCARDIA Verified 12/28/23 17:05 /HIVES Penicillins (PCN) Allergy Severe Anaphylaxis Verified 11/08/24 14:31 From [facility] Allergy Severe INCEASED Uncoded 11/08/24 14:31 SEVERE MIGRAINES SEASONAL ALLERGIES Allergy Intermediate RHINITIS Uncoded 11/08/24 14:31 Home Medications ?Medication ?Instructions ?Recorded ?Confirmed ?Last Taken ?Type losartan 25 mg tablet 25 mg PO DAILY 09/22/2410/12 Unknown History gabapentin 600 mg tablet 600 mg PO TID 09/28/2411/08 Unknown History Exam Airway Mallampati Class: II TM Dist: <=3cm Neck ROM: Full Loose/Missing/Broken Teeth: Yes (Very poor dentition, rotted teeth.), Upper and Lower Heart: ok Lungs: ok Assessment and Plan Assessment Anesthesia Assessment: Anesthesia Plan Discussed and Chart Reviewed Final Anesthetic Review NPO: Yes ASA Class: III Final Preanesthetic Review: No Changes in Pt Med Stat, Meds/Allgs Chart Reviewed, Consent Obtained/Reviewed and Anes Risks/Benef Reviewed Patient Risk: Intermediate Procedure Risk: Low Anesthetic Plan Anesthetic Plan: MAC: and Agree w/ Assess. and Plan Disposition: Standard PACU
--- NOTE | 2024-11-10 09:11 | MHC.SHP ---
Pre-Procedural Eval Section A - 24 Hr Update-Section A only Date of Service: 11/10/24 Section B - Complete if H&P > 30 days Chief Complaint: screening Details of Present Illness: COVID-19 Allergic rhinitis Asthma Current tobacco use Scoliosis DJD (degenerative joint disease) Spinal stenosis Heartburn Concussion History of traumatic head injury Depression Numbness Cough SOB (shortness of breath) Wheezing Bronchitis History of marijuana use Kidney cysts ADHD Seizures Basilar artery migraine Migraine Surgical History H/O Spinal surgery History of repair of anterior cruciate ligament of left knee Hx of knee surgery Present Medications: see Short Stay Collaborative assessment Allergies: Allergies Allergy/AdvReac Type Severity Reaction Status Date / Time azithromycin (AZITHROMYCIN) Allergy Severe TACHYCARDIA Verified 12/28/23 17:05 /HIVES Penicillins (PCN) Allergy Severe Anaphylaxis Verified 11/08/24 14:31 From NOVOCAIN Allergy Severe INCEASED Uncoded 11/08/24 14:31 SEVERE MIGRAINES SEASONAL ALLERGIES Allergy Intermediate RHINITIS Uncoded 11/08/24 14:31 Review of Systems Review of Systems Comment: Ten point ROS negative Exam Exam Comment: Gen appear: No acute distress HEENT: no icterus Chest: No overt resp distress Abd: soft, nontender, nondistended Psych: Stable affect, answering questions appropriately Neuro: A/Ox3 noted to move all extremities spontaneously Ext: no peripheral edema Plan I have reviewed the history and physical and performed a pertinent physical examination on my patient. No changes have occurred unless specified. Time Spent With Patient Time: Total time managing care of this patient today ____ minutes.
[2024-11-10 09:46] VITALS: BP 151/80; PULSE 68; RESP 16; TEMP 36.4; O2SAT 98
[2024-11-10] MEDS: Lactated Ringers 1,000 ML 100 ML IVCONT (09:56)
--- NOTE | 2024-11-10 10:55 | P.OP_ITS ---
Operative Note Operative Note Date of Service: 11/10/24 Narrative: Procedure: Colonoscopy Indication: Screening Endoscopist: Rosa M Epstein MD Anesthesia Provider: Dr Jack Arzate Anesthesia type: MAC Instrument: Olympus [id number]-H190L Consent: Indication, risks vs benefits, and alternatives were discussed with the patient who gave written informed consent to proceed. EKG, pulse, pulse oximetry and blood pressure were monitored throughout the procedure. Please see anesthesia flowsheet. Procedure: The patient was brought to the procedure room and placed in the left lateral decubitus position. IV medications were administered by the anesthesia provider in attendance. A digital rectal exam was performed which was normal. The colonoscope was then inserted through the anus and advanced through the colon to the cecum at 75 cm,and terminal ileum. Mucosa was carefully examined under high definition white light as the instrument was slowly withdrawn in a retrograde panoramic fashion. Retroflexion was performed in ascending colon and rectum. The procedure was not difficult. There were no immediate obvious complications. The quality of the prep was BBPS: 3+2+3 = adequate Withdrawal time 11 minutes. Limitations: No limitations. Findings: Mucosa: Normal to cecum and terminal ileum. Protruding lesions: * 1 semi-pedunculated polyp of size 12 mm in rectum. Hot snare polypectomy was performed. The polyp was inadvertently removed piecemeal. An endoclip was placed at the polypectomy defect. * Large internal hemorrhoids without stigmata of recent bleeding. Excavated lesions: * Moderate diverticulosis of sigmoid colon. Impression: 1. Normal colon and terminal ileum mucosa 2. Total of 1 polyp removed piecemeal 3. Internal hemorrhoids 4. Diverticulosis Recommendations: - Follow path results. - Flexible sigmoidoscopy in 6 months
[2024-11-10 11:05] VITALS: BP 111/66; PULSE 56; RESP 18; TEMP 37.1; O2SAT 93
[2024-11-10 11:20] VITALS: BP 121/57; PULSE 52; RESP 16; TEMP 36.1; O2SAT 98
== END 2024-11-10 11:52 | disposition home or self-care (01) ==
PROVIDERS: PCP Internal Medicine; Visit Provider Internal Medicine
PROC: 0DJD8ZZ Inspection of Lower Intestinal Tract, Via Natural or Artificial Opening Endoscopic (ICD-10-PCS; CPT 45378; principal; 2024-11-10 11:10)
DX: Z12.11 Encounter for screening for malignant neoplasm of colon (principal); D12.8 Benign neoplasm of rectum; K57.30 Diverticulosis of large intestine without perforation or abscess without bleeding; K64.8 Other hemorrhoids; Z88.0 Allergy status to penicillin; Z88.1 Allergy status to other antibiotic agents
CPT/HCPCS: 45385; 88305; J0168; J2003; J2704

== ENCOUNTER → 2024-11-10 08:40 | Outpatient (BNV) | payer OTHER, SELFPAY | PROVIDERS: PCP Internal Medicine; Visit Provider Internal Medicine | DX: Z12.11 Encounter for screening for malignant neoplasm of colon (principal); D12.8 Benign neoplasm of rectum; K57.30 Diverticulosis of large intestine without perforation or abscess without bleeding; K64.8 Other hemorrhoids | CPT/HCPCS: 45385 ==

== ENCOUNTER 2024-12-31 09:50 | Outpatient (REF) | payer OTHER, SELFPAY ==
--- OUTSIDE RECORDS SUMMARY | 2024-12-26 08:30 | XMS_ITS | Encounter Summary ---
Author Organization [employer] Address [address] [place] [address] Care Team Providers Care Photovoltaic Technician Name Role Phone Jason Corea MD Primary Care Prov ider Reason for Referral * Consultation (Routine) - Authorized Specialty Diagnoses / Procedures Referred By Karen sanchez Referred To Contact Orthopaedic Surgery Diagnoses Chronic pain of left knee Jason Corea MD [address] [place] [address] Phone: tel: fax: [facility] [address] [place] [address] [place] [phone] Phone: tel: Referral ID Status Reason Start Date Expiration Date Visits Requested Visits Authorized [id number] Authorized Specialty Services Required 12/26/2025 1 1 * Imaging (Routine) - Authorized Specialty Diagnoses / Procedures Referred By Karen sanchez Referred To Contact Radiology Diagnoses Chronic pain of left knee Procedures MR Knee w/o Contrast Left Jason Corea MD [address] [place] [address] Phone: tel: fax: [address] [phone] Phone: tel: fax: Referral ID Status Reason Start Date Expiration Date V isits Requested Visits Authorized [id number] Authorized 12/26/2024 12/26/2025 1 1 Encounter Details Date Type Department Care Team (Late st Contact Info) Description 12/26/2024 8:30 AM EST Office Visit [facility] [address] [place] [address] Jason Corea MD [address] [place] [address] Primary hypertension (Primary Dx); Chronic pain of left knee; Screening for colon cancer; Encounter for immunization Social History Tobacco Use Types Packs/Day Years Used Date Smoking Tobacco: Every Day Cigarettes 1 34.9 Started: 1990 Smokeless Tobacco: Never Alcohol Use [...] 8:17 AM EST Sexual Orientation Straight 12/29/2023 8 :17 AM EST documented as of this encounter Last Filed Vital Signs Vital Sign Reading Time Taken Comments Blood Pressure 142/84 12/26/2024 8:53 AM EST Pulse 68 12/26/2024 8:53 AM EST Temperature 37.1 C (98.7 F) 12/26/2024 8:53 AM EST Respiratory Rate 16 12/26/2024 8:53 AM EST Oxygen Saturation - - Inhaled Oxygen Concentration - - Weight 112 kg (248 lb) 12/26/2024 8:53 AM EST Height 177.8 cm (5' 10 ) 12/26/2024 8:53 AM EST Body Mass Index 35.58 12/26/2024 8:53 AM EST documented in this encounter Progress Notes * Jason Arnold MD - 12/26/2024 8:30 AM EST Subjective Patient ID: Sonu Castillo is a 49 y.o. male who presents for No chief complaint on file.. Hypertension This is a chronic problem. Pertinent negatives include no chest pain, headaches, palpitations or shortness of breath. Review of Systems Respiratory: Negative for shortness of breath. Cardiovascular: Negative for chest pain and palpitations. Neurological: Negative for headaches. Objective Physical Exam Constitutional: Appearance: Normal appearance. Cardiovascular: Rate and Rhythm: Normal rate. Heart sounds: No murmur heard. Musculoskeletal: General: Tenderness present. No deformity. Right lower leg: No edema. Left lower leg: No edema. Neurological: General: No focal deficit present. Mental Status: He is alert and oriented to person, place, and time. Psychiatric: Mood and Affect: Mood normal. Behavior: Behavior normal. Assessment/Plan Problem List Items Addressed This Visit Primary hypertension - Primary Slightly above target, encouraged to keep a low sodium diet and exercise as tolerated, keep blood pressure log, target <140/90, no changes in treatment will be made, new labs ordered Relevant Medications amLODIPine (Norvasc) 10 MG tablet Other Relevant Orders Comprehensive Metabolic Panel Lipid Panel, Standard Screening for colon cancer Patient had colonoscopy done, found with a polup recommended to get it repeated in 6 months, he is referring that he does not want to perform procedure anymore, he understands the risk. Chronic pain of left knee Patient tripped and fell over a month ago, had a popping sensation on his left knee, will order MRIand will refer to ortho, continue home remedies Relevant Orders MR Knee w/o Contrast Left Referral to Orthopaedic Surgery documented in this encounter Miscellaneous Notes * Assessment & Plan Note - Jason Arnold MD - 12/26/2024 9:08 AM ESTAssociated Problem(s): Screening for colon cancer Patient had colonoscopy done, found with a polup recommended to get it repeated in 6 months, he is referring that he does not want to perform procedure anymore, he understands the risk. * Assessment & Plan Note - Jason Arnold MD - 12/26/2024 9:05 AM ESTAssociated Problem(s): Chronic pain of left knee Patient tripped and fell over a month ago, had a popping sensation on his left knee, will order MRIand will refer to ortho, continue home remedies * Assessment & Plan Note - Jason Arnold MD - 12/26/2024 9:03 AM ESTAssociated Problem(s): Primary hypertension Slightly above target, encouraged to keep a low sodium diet and exercise as tolerated, keep blood pressure log, target <140/90, no changes in treatment will be made, new labs ordered * Addendum Note - Julissa De Jesus MA - 12/26/2024 8:30 AM ESTAddended by: JULISSA DE JESUS on: 12/26/2024 09:27 AM Modules accepted: Orders documented in this encounter Plan of Treatment Scheduled Orders Name Type Priority Associated Diagnoses Orde r Schedule Comprehensive Metabolic Panel Lab Routine Primary hypertension Expected: 12/26/2024 (Approximate), Expires: 12/26/2025 Lipid Panel, Standard Lab Routine Primary hypertension Expected: 12/26/2024 (Approximate), Expires: 12/26/2025 MR Knee w/o Contrast Left Imaging Routine Chronic pain of left knee Expected: 12/26/2024, Expires: 12/26/2025 Scheduled Referrals Name Type Priority Associated Diagnoses Order Schedule Referral to Orthopaedic Surgery Outpatient Referral Routine Chronic pain of left knee Expected: 12/26/2024 (Approximate), Expires: 12/26/2025 documented as of this encounter Visit Diagnoses Diagnosis Primary hypertension- Primary Unspecified essential hypertension Chronic pain of left knee Screening for colon cancer Special screening for malignant neoplasms, colon Encounter for immunization documented in this encounter Additional Health Concerns Assessment Noted Time PHQ-9 Depression Total Score: 3 03/24/19 25 11:02 AM EST documented as of this encounter Care Teams Photovoltaic Technician Relationship Specialty Start Date End Date Jason Corea MD [address] [place] [phone] PCP - General Internal Medicine 12/29/23 documented as of this encounter
--- OUTSIDE RECORDS SUMMARY | 2024-12-31 09:52 | XMS_ITS | Encounter Summary ---
Author Organization [employer] Address [address] [place] [address] Care Team Providers Care Stock Turner Name Role Phone Jaosn Corea MD Primary Care Prov ider Encounter Details Date Type Department Care Team (Late st Contact Info) Description 03/25/2024 Orders Only [facility] [address] [place], [place] [phone] Jason Corea MD [address] [place] [address] Elevated blood pressure reading (Primary Dx) Social [...] AM EST Narrative 04/06/2024 10:55 AM EST [facility] [address] [place] [address] XRay Report Signed Patient: Sonu Castillo MR#: [id number] : 1975 Acct:[id number] Age/Sex: 49 / M ADM Date: 04/04/24 Loc: HO.HOSX Attending Dr: Tommy MARTINEZ Ordering Physician: Tommy Rucker Date of Service: 04/04/24 Procedure(s): XR lumbar spine 4V min Accession Number(s): [id number] cc: Tommy Rucker; Antonette Padilla MD CLINICAL [...] 04/06/24 1055 DD/ 1055 TD/TT: 04/06/24 1055 Slaughterer Religious Ritual: Procedure Note Donotuseinterpreter, Image - 04/06/2024 [facility] [address] [place] [address] XRay Report Signed Patient: Sonu Castillo FMR#: [id number] : 1975Acct:[id number] Age/Sex: 49 / MADM Date: 04/04/24 Loc: HO.HOSX Attending Dr: Tommy MARTINEZ Ordering Physician: Tommy Rucker Date of Service: 04/04/24 Procedure(s): XR lumbar spine 4V min Accession Number(s): [id number] cc: Tommy Rucker; Antonette Padilla MD CLINICAL [...] 04/06/24 1055 DD/ 1055 TD/TT: 04/06/24 1055 Slaughterer Religious Ritual: [facility] External Provider IMG XR PROCEDURES Final Result * Hepatitis C Antibody with Reflex to HCV, RNA, Quantitative, Real-Time PCR (03/25/2024 9:32 AM EST) Hepatitis C Antibody Nonreactive Nonreactive [facility] Comment:Antibodies to HCV no t detected; does not exclude early acuteHCV infection. Blood Venous blood specimen / Unknown 03/25/2024 9:32 AM EST 03/25/2024 2:12 PM EST Jason Arnold MD LAB BLOOD ORDERABL ES Final Result [facility] [address] [place] [phone] * HIV-1/2 Antigen and Antibodies, Fourth Generation, with Reflexes (03/25/2024 9:32 AM EST) HIV AB/AG Nonreactive Nonreactive [facility] Comment:HIV-1 p24 Ag and/or HIV-1/HIV-2 Ab not detected.A test result that is nonreactive does not exclude thepossibility of exposure to or infection with HIV-1 and/orHIV-2. Nonreactive results in this assay for individualswith prior exposure to HIV-1 and/or HIV-2 may be due toantigen and antibody levels that are below the limit ofdetection of this assay.[facility] HIV Ag/Ab Combo assay result andsupplemental assay results should be interpreted inconjunction with the patient's clinical presentation,history and other laboratory results. If the results areinconsistent with clinical evidence, additional testing issuggested to confirm the result. Blood Venous blood specimen / Unknown 03/25/2024 9:32 AM EST 03/25/2024 2:12 PM EST us Jason Arnold MD LAB BLOOD ORDERABL ES Final Result [facility] [address] [place] [phone] * Hemoglobin A1c (03/25/2024 9:32 AM EST) Hemoglobin A1c 5.8 <6.0 % [facility] Comment:Hemoglobin A1C Refer ence Range Adults: 4.8 - 6.0 % Non diabetic: < 6.0 % Goal: < 7.0 %Additional Action Suggested: > 8.0 %Note: Hemoglobin A1c results are invalid for patients with abnormal amounts of HbF. Blood transfusions may impact the HbA1c concentration in the patient sample. Estimated Average Glucose 120 mg/dL [facility] Comment:eAG = Estimated ave rage glucose which is %A1C expressed asaverage glucose, using the formula of the [id number] Glucose study (ADAG), Diabetes Care, Vol.31,#8,2007 Blood Venous blood specimen / Unknown 03/25/2024 9:32 AM EST 03/25/2024 1:55 PM EST Jason Arnold MD LAB BLOOD ORDERABL ES Final Result Performing Organization Address [facility]/[employer] Co de Phone Number [facility] [address] [place] [phone] * TSH W/Reflex to FT4 (03/25/2024 9:32 AM EST) TSH reflex Free T4 0.60 0.32 - 4.0 uIU/mL [facility] Blood Venous blood specimen / Unknown 03/25/2024 9:32 AM EST 03/25/2024 2:12 PM EST us Jason Arnold MD LAB BLOOD ORDERABL ES Final Result Performing Organization Address City/[facility]/ZIP Co de Phone Number [facility] [address] [place] [phone] * (ABNORMAL) Lipid Panel, Standard (03/25/2024 9:32 AM EST) Triglycerides 58 <150 mg/dL [facility] Comment:Desirable Triglyceri de: less than 150 mg/dLBorderline High Triglyceride 150-199 mg/dLHigh Triglyceride: 200-499 mg/dLVery High Triglyceride: greater than or equal to 5OO mg/dL Cholesterol 166 <200 mg/dL [facility] Comment:Desirable Cholestero l: less than 200 mg/dLBorderline High Cholesterol: 200-239 mg/dLHigh Cholesterol: greater than 239 mg/dL LDL Cholesterol Calculated 109(H) <100 mg/dL [facility] Comment:Desirable LDL: less than 100 mg/dLNear Optimal/Above Optimal LDL: 110- 129 mg/dLBorderline High LDL: 130-159 mg/dLHigh LDL: 160-189 mg/dLVery High LDL: greater than or equal to 190 mg/dL HDL Cholesterol 46 >40 mg/dL [facility] Comment:Desirable HDL: great er than 40 mg/dL Note: This HDL assay may give artificially low results in patients with liver disease. Blood Venous blood specimen / Unknown 03/25/2024 9:32 AM EST 03/25/2024 2:12 PM EST us Jason Arnold MD LAB BLOOD ORDERABL ES Final Result [facility] [address] [place] [phone] * Comprehensive Metabolic Panel (03/25/2024 9:32 AM EST) Sodium 138 135 - 145 mmol/L [facility] Potassium 4.3 3.3 - 5.1 mmol/L [facility] Chloride 105 96 - 108 mmol/L [facility] Carbon Dioxide 25 22 - 29 mmol/L [facility] Anion Gap 12 12 - 20 [facility] Urea Nitrogen (BUN) 13 9 - 16 mg/dL [facility] Creatinine, Serum 0.80 0.5 - 1.4 mg/dL [facility] Estimated Glomerular Filt Rate >60 [facility] Comment:Chronic Kidney Disea se: Estimated GFR < 60 mL/min/[id number] Kidney Disease: Estimated GFR < 15 mL/min/1.73m2 Glucose 76 60 - 115 mg/dL [facility] Calcium 9.2 8.4 - 10.2 mg/dL [facility] Bilirubin, Total 0.2 0.0 - 1.0 mg/dL [facility] Aspartate Amino Transferase 28 5 - 37 U/L [facility] Alanine Aminotransferase 27 0 - 40 U/L [facility] Total Protein 7.2 6.5 - 8.0 g/dL [facility] Albumin Level 4.0 3.5 - 5.0 g/dL [facility] Alkaline Phosphatase 111 39 - 117 U/L [facility] Blood Venous blood specimen / Unknown 03/25/2024 9:32 AM EST 03/25/2024 2:12 PM EST us Jason Arnold MD LAB BLOOD ORDERABL ES Final Result [facility] [address] [place] [phone] [phone] * (ABNORMAL) CBC auto differential (03/25/2024 9:32 AM EST) White Blood Count 12.7(H) 4.8 - 10.8 X10*3/uL [facility] Red Blood Count 5.03 4.60 - 5.80 X10*6/uL [facility] Hemoglobin 14.5 14.0 - 18.0 g/dl [facility] Hematocrit 43.1 42.0 - 52.0 % [facility] Mean Corpuscular Volume 85.7 80.0 - 98.0 fL [facility] Mean Corpuscular Hemoglobin 28.8 27.0 - 33.0 pg [facility] Mean Corpuscular HGB Conc 33.6 31.0 - 36.0 g/dl [facility] Red Cell Distribution Width 14.9 11.0 - 16.0 % [facility] Platelet Count 336 160 - 400 X10*3/uL [facility] Mean Platelet Volume 9.8 9.4 - 12.4 fL [facility] Neutrophils Percent Auto 62.0 45 - 73 % [facility] Imm Gran Pct Auto 0.3 0.0 - 0.4 % [facility] Lymphocytes Percent Auto 28.0 20 - 40 % [facility] Monocytes Percent Auto 7.7 2 - 11 % [facility] Eosinophils Percent Auto 1.4 0 - 4 % [facility] Basophils Percent Auto 0.6 0 - 2 % [facility] NRBC Pct Auto 0.0 0.0 - 0.2 /100WBC [facility] Neutrophils Absolute Auto 7.9 2.0 - 8.3 x10*3/uL [facility] Imm Gran Abs Auto 0.04(H) 0.00 - 0.03 X10*3/uL [facility] Lymphocytes Absolute Auto 3.5 1.2 - 4.9 X10*3/uL [facility] Monocytes Absolute Auto 1.0 0.1 - 1.2 X10*3/uL [facility] Eosinophils Absolute Auto 0.2 0.0 - 0.4 X10*3/uL [facility] Basophils Absolute Auto 0.1 0.0 - 0.2 X10*3/uL [facility] NRBC Abs Auto 0.000 0.0 - 0.012 X10*3/uL [facility] Blood Venous blood specimen / Unknown 03/25/2024 9:32 AM EST 03/25/2024 1:55 PM EST us Jason Arnold MD LAB BLOOD ORDERABL ES Final Result Performing Organization Address City/State/[facility] Co de Phone Number [facility] [address] [place] [phone] documented in this encounter Visit Diagnoses Diagnosis Elevated blood pressure reading- Primary Elevated blood pressure reading without diagnosis of hypertension documented in this encounter Additional Health Concerns Assessment Noted Time PHQ-9 Depression Total Score: 3 03/24/19 25 11:02 AM EST documented as of this encounter Care Teams Stock Turner Relationship Specialty Start Date End Date Jason Corea MD [address] [place] [phone] PCP - General Internal Medicine 12/29/23 documented as of this encounter
--- OUTSIDE RECORDS SUMMARY | 2024-12-31 09:53 | XMS_ITS | Clinical Summary ---
Author Organization [facility] Address [address] [place] [address] Care Team Providers Care Car Shunter Name Role Phone Janae Guillermo MD Primary Care Provider [phone] Surgical History Surgery Date Site/Laterality Comments KNEE [...] Date Smoking Tobacco: Every Day Cigarettes 0.5 35.4 Started: 08/18/1989 Smokeless Tobacco: Never Alcohol Use Standard Drinks/Week Comments Yes 0 (1 standard drink = 0.6 oz pur e alcohol) Sex and Gender Information Value Date Recorded Sex Assigned at Not on file Legal Sex Male 5:46 PM EST Gender Identity Not on file Sexual Orientation Not on file Obstetrics History Plan of Treatment Health Maintenance Due Date Last Done Comments Colorectal Cancer Screening: Colonoscopy 1975 DTaP,Tdap,and Td Vaccines (1 - Tdap) 01/30/1995 Hepatitis B Vaccines (1 of 3 - 19+ 3-dose series) 01/30/1995 Pneumococcal Vaccine: Pediatrics (0 to 5 Years) and At-Risk Patients (6 to 49 Years) (1 of 2 - PCV) 01/30/1995 Cholesterol Screening (Lipid Panel) 01/11/2022 HIV Screening 01/11/2022 Hepatitis C Screening 01/11/2022 Social Influencers of Health Screening 01/11/2022 Depression Screening 02/10/2024 COVID-19 Vaccine (3 - 2024-2 6 season) 2024 06/06/2020, 05/16/2020 Influenza Vaccine (#1) 2024 0, 12/20/2015, 10/23/2014 RSV Immunization Adult Patients (1 - 1-dose 75+ series) 01/30/2051 HIB [...] age to complete this topic Care Teams Car Shunter Relationship Specialty Start Date End Date Janae Guillermo MD [address] [place] [address] PCP - General Internal Medicine 10/17/14
--- OUTSIDE RECORDS SUMMARY | 2024-12-31 09:53 | XMS_ITS | Encounter Summary ---
Author Organization [employer] Address [address] [place] [address] Care Team Providers Care Director And Professor Name Role Phone Jason Corea MD Primary Care Prov ider Encounter Details Date Type Department Care Team (Latest Contact Info) Description 12/26/2024 Travel Social History Tobacco Use Types Packs/Day [...] as of this encounter Care Teams Director And Professor Relationship Specialty Start Date End Date Jason Corea MD [address] [place] [phone] PCP - General Internal Medicine 12/29/23 documented as of this encounter
--- OUTSIDE RECORDS SUMMARY | 2024-12-31 09:53 | XMS_ITS | Clinical Summary ---
Author Organization [facility] Address [address] [place] [phone] Care Team Providers Care Steel Layer Name Role Phone Antonette Grullon Primary Care [...] On Topamax, seeing Dr. Abreu, neurology at [place] Arthritis of left knee 06/28/2014 Arthritis of [...] Vaccine (#1) 2024 0, 12/20/2015, 10/23/2014 Insurance [facility] [place] [phone] Medicaid [place] Care Teams Steel Layer Relationship Specialty Start Date End Date Antonette Grullon [address] [place] [phone] PCP - General 11/03/23
--- OUTSIDE RECORDS SUMMARY | 2024-12-31 09:53 | XMS_ITS | Clinical Summary ---
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 1 kit 03/24/19 25 Active gabapentin (Neurontin) 300 MG capsule Take 2 capsules (600 mg) by mouth 3 times daily. 540 capsule 2 09/08/19 25 Active amLODIPine (Norvasc) 10 MG tablet Take 1 tablet (10 mg) by mouth Once per day. 90 tablet 3 12/27/19 25 026 Active amLODIPine (Norvasc) 10 MG tablet Take 1 tablet (10 mg) by mouth Once per day. 90 tablet 3 07/15/19 25 025 Discontinued(Re order (will not trigger notification to Pharmacy)) Active Problems Problem Noted Date Diagnosed Date Chronic pain of left knee 12/26/2024 Assessment & Plan (12/26/2024 9:05 AM EST): Patient tripped and fell over a month ago, had a popping sensation on his left knee, will order MRI and will refer to ortho, continue home remedies Primary hypertension 05/03/2024 Assessment & Plan (12/26/2024 9:03 AM EST): Slightly above target, encouraged to keep a low sodium diet and exercise as tolerated, keep blood pressure log, target <140/90, no changes in treatment will be made, new labs ordered Assessment & Plan (10/12/2024 12:04 PM EDT): [...] for colon cancer 05/03/2024 Assessment & Plan (12/26/2024 9:08 AM EST): Patient had colonoscopy done, found with a polup recommended to get it repeated in 6 months, he is referring that he does not want to perform procedure anymore, he understands the risk. Assessment & Plan (05/03/2024 10:43 AM EDT): [...] Encounters Date Type Department Care Team Description 12/26/2024 8:30 AM EST Office Visit [facility] [address] [place], [place] [phone] Jason Corea MD Primary hypertension (Primary Dx); Chronic pain of left knee; Screening for colon cancer; Encounter for immunization 12/26/2024 Travel 12/25/2024 Travel 12/19/2024 Patient Outreach [facility] MEDIC[facility] [address], [place] [phone] Jason Corea MD Pre-visit Planning (SDOH Screening negative and Tobacco screening positive) 11/10/2024 Orders Only GENERIC EXTERNAL DATA DEPARTMENT Provider, Generic External Data from Last 3 Months Immunizations Immunization Administration Dates Next Due INFLUENZA INJECTABLE QUADRIV ALANT CCIIV4 MDCK Multi-dose vial 11/19/2018 INFLUENZA VACCINE QUADRIVALE NT RECOMBINANT PRESERVATIVE FREE RIV4 11/18/2019 Influenza injectable quadriv alent preservative free 02/21/2017 Influenza, IIV3, injectable 12/20/2015, 5 Influenza, Unspecified 11/19/2018 Influenza, seasonal, injecta ble, preservative free 12/26/2024,12/20/2015,10/23/2014 Pfizer Covid-19 Vaccine 12+ 05/16/2020 Pneumococcal Polysaccharide PPSV23 02/15/2016 Tdap 12/26/2024 Family History Medical History Relation Name Comments Osteoarthritis Brother Lung cancer Father passes away on 2019 Diverticulitis Mother Heart failure Mother Bone cancer Mother's Brother Melanoma Mother's Brother Relation Name Status Comments Brother Father Mother Mother's Brother Social History Tobacco Use Types Packs/Day Years Used Date Smoking Tobacco: Every Day Cigarettes 1 34.9 Started: 1990 Smokeless Tobacco: Never Tobacco Cessation:Ready [...] 16 12/26/2024 8:53 AM EST Oxygen Saturation 98% 03/24/2024 11:00 AM EST Inhaled Oxygen Concentration - - Weight 112 kg (248 lb) 12/26/2024 8:53 AM EST Height 177.8 cm (5' 10 ) 12/26/2024 8:53 AM EST Body Mass Index 35.58 12/26/2024 8:53 AM EST Plan of Treatment Health Maintenance Due Date Last Done Comments CT Colonography 1975 Colonoscopy 1975 Colorectal Cancer Screening 1975 FIT DNA/Cologuard 1975 FIT 1975 FOBT 1975 Sigmoidoscopy 1975 Family Planning (PISQ) 01/30/1991 Hepatitis B Vaccines (1 of 3 - 19+ 3-dose series) 01/30/1995 Pneumococcal Vaccine: Pediatrics (0 to 5 Years) and At-Risk Patients (6 to 49) Years (2 of 2 - PCV) 02/14/2017 02/15/2016 COVID-19 Vaccine ( season) 2024 07/26/2021, 06/21/2020, 05/31/2020, Additional history exists Tobacco Screening 02/22/2025 02/23/2024 Depression Screening 03/24/2025 03/24/2024, 03/24/19 25 Diabetes: Hemoglobin A1C 03/25/2025 03/25/2024 Alcohol/Substance Use Screening 07/14/2025 07/14/2024 SDOH Screening 12/19/2025 12/19/2024 Disability Screening 12/25/2025 12/25/2024 Zoster Vaccines (1 of 2) 01/30/2026 Lipid Panel 03/25/2029 03/25/2024 DTaP/Tdap/Td Vaccines (2 - Td or Tdap) 12/26/2034 12/26/2024 RSV Patients and Patients Aged 60 years or older (1 - 1-dose 75+ series) 01/30/2051 HIV Screening Completed 03/25/2024 Hepatitis C Screening Completed 03/25/2024 Influenza Vaccine Completed 12/26/2024, , 11/19/2018, Additional history exists HIB Vaccines Aged Out No longer eligi [...] Procedure Name Priority Date/Time Associated Diagnosis Comments HEMATOXYLIN AND EOSIN STAIN Routine 11/10/2024 10:54 AM EDT HEPATITIS C AB W/REFL TO HCV RNA, [...] Recently Relevant to Health Maintenance Results * Hematoxylin and Eosin Stain (11/10/2024 10:54 AM EDT) 11/10/2024 10:5 4 AM EDT 11/10/2024 1:37 PM EDT [facility] - 11/14/2024 3:31 PM EDT ----- ------- Name: Sonu Castillo Age/Sex: 49/M : 1975 Unit#: [id number] Attend Dr: Rosa M Epstein MD Re11/10/24 Status: [facility] Location: [facility] Disch: ----- ------- SPEC : [id number] RECD: 11/10/24 STATUS: ROWENA PHAN NUM: [id number] PATRICIO: 11/10/24-1054 [facility] DR: Rosa M Epstein MD ENTERED: 11/10/24-1511 SP TYPE: Surgical OTHR DR: Jason Corea MD ORDERED: HE Stain/3, Gross Micro L4 Diagnosis Rectum, polypectomy: Tubular adenoma; negative for high-grade dysplasia or carcinoma. Clinical History Pre-Op Dx: Screening Post-Op Dx: Diverticulosis, polyp, hemorrhoids Microscopic Description Microscopic sections reviewed. Material Received Rectal polyp Gross Description Received in formalin labeled rectal polyp is a polypoid portion of pink-ware soft tissue measuring 0.5 x 0.5 x 0.3 cm in greatest dimension. The outer surface is smooth and glistening. The underside is ware-white and unremarkable. The underside is inked blue. The specimen is bisected, wrapped in lens paper and entirely submitted for microscopic examination, 2 pieces in cassette A. ([facility]) IHC S/NG Disclaimer NOTE: Unless otherwise stated, all tissue is formalin-fixed and paraffin-embedded. Some or all of the immunohistochemical tests reported herein may have been developed and their performance characteristics determined by [facility]. They have not been cleared or approved by the U.S. Food and Drug Administration (FDA). However, the FDA has determined that such clearance or approval is not necessary. This laboratory is certified under the Clinical Laboratory Improvement Amendments of 1988 (CLIA) as qualified to perform high complexity clinical laboratory testing. Copies To: Jason Corea MD [address] [address] CONTINUED ON NEXT PAGE ----- ------- Name: Sonu Castillo Age/Sex: 49/M : 1975 Unit#: [id number] Attend Dr: Rosa M Epstein MD Re11/10/24 Status: [facility] Location: [facility] Disch: ----- ------- SPEC : [id number] RECD: 11/10/245 STATUS: ROWENA SYLVESTER NUM: [id number] PATRICIO: 11/10/24-[address] [facility] [address]: Rosa M Epstein MD ENTERED: 11/10/24-1496 SP TYPE: Surgical OTHR DR: Jason Corea MD ORDERED: JARED Stain/3, Gross Micro L4 Copies To: (Continued) Rosa M Epstein MD [facility] [address] [place] [phone] [email or web address] ----- ------- Signed (signature on file) Dave Cervantes MD 11/14/24 1531 ----- ------- END OF REPORT Generic External Data Provider LAB BLOOD ORDERAB LES Final Result Performing Organization Address [facility]/ZIP Co de Phone Number [facility] [address] [place] [phone] * Hepatitis C Antibody with Reflex to HCV, RNA, Quantitative, Real-Time PCR (03/25/2024 9:32 AM EST) Pathologist [facility] Hepatitis C Antibody Nonreactive Nonreactive [facility] Comment:Antibodies to HCV no t detected; does not exclude early acuteHCV infection. Blood Venous blood specimen / Unknown 03/25/2024 9:32 AM EST 03/25/2024 2:12 PM EST Jason Arnold MD LAB BLOOD ORDERABL ES Final Result Performing Organization Address [facility] Co de Phone Number [facility] [address] [place] [phone] * HIV-1/2 Antigen and Antibodies, Fourth Generation, with Reflexes (03/25/2024 9:32 AM EST) HIV AB/AG Nonreactive Nonreactive [facility] Comment:HIV-1 p24 Ag and/or HIV-1/HIV-2 Ab not detected.A test result that is nonreactive does not exclude thepossibility of exposure to or infection with HIV-1 and/orHIV-2. Nonreactive results in this assay for individualswith prior exposure to HIV-1 and/or HIV-2 may be due toantigen and antibody levels that are below the limit ofdetection of this assay.The [email or web address] HIV Ag/Ab Combo assay result andsupplemental assay results should be interpreted inconjunction with the patient's clinical presentation,history and other laboratory results. If the results areinconsistent with clinical evidence, additional testing issuggested to confirm the result. Blood Venous blood specimen / Unknown 03/25/2024 9:32 AM EST 03/25/2024 2:12 PM EST Jason Arnold MD LAB BLOOD ORDERABL ES Final Result Performing Organization Address [facility] Co de Phone Number [facility] [address] [place] [phone] * Hemoglobin A1c (03/25/2024 9:32 AM EST) Hemoglobin A1c 5.8 <6.0 % [facility] Comment:Hemoglobin A1C Refer ence Range Adults: 4.8 - 6.0 % Non diabetic: < 6.0 % Goal: < 7.0 %Additional Action Suggested: > 8.0 %Note: Hemoglobin A1c results are invalid for patients with abnormal amounts of HbF. Blood transfusions may impact the HbA1c concentration in the patient sample. Estimated Average Glucose 120 mg/dL [facility] Comment:eAG = Estimated ave rage glucose which is %A1C expressed asaverage glucose, using the formula of the L5C-CazjhboBjkwfic Glucose study (ADAG), Diabetes Care, Vol.31,#8,Sep. 2007 Blood Venous blood specimen / Unknown 03/25/2024 9:32 AM EST 03/25/2024 1:55 PM EST Jason Arnold MD LAB BLOOD ORDERABL ES Final Result Performing Organization Address [facility] Co de Phone Number [facility] [address] [place] [phone] * (ABNORMAL) Lipid Panel, Standard (03/25/2024 9:32 AM EST) Triglycerides 58 <150 mg/dL [facility] Comment:Desirable Triglyceri de: less than 150 mg/dLBorderline High Triglyceride 150-199 mg/dLHigh Triglyceride: 200-499 mg/dLVery High Triglyceride: greater than or equal to 5OO mg/dL Cholesterol 166 <200 mg/dL [facility] Comment:Desirable Cholestero l: less than 200 mg/dLBorderline High Cholesterol: 200-239 mg/dLHigh Cholesterol: greater than 239 mg/dL LDL Cholesterol Calculated 109(H) <100 mg/dL [facility] Comment:Desirable LDL: less than 100 mg/dLNear Optimal/Above Optimal LDL: 110- 129 mg/dLBorderline High LDL: 130-159 mg/dLHigh LDL: 160-189 mg/dLVery High LDL: greater than or equal to 190 mg/dL HDL Cholesterol 46 >40 mg/dL [facility] Comment:Desirable HDL: great er than 40 mg/dL Note: This HDL assay may give artificially low results in patients with liver disease. Blood Venous blood specimen / Unknown 03/25/2024 9:32 AM EST 03/25/2024 2:12 PM EST Jason Arnold MD LAB BLOOD ORDERABL ES Final Result [facility] [address] [place], [place] [phone] from Last 3 Months or Most Recently Relevant to Health Maintenance Insurance [facility] HMO Care Teams Factory Assembler Relationship Specialty Start Date End Date DrakeJason Zheng MD [address] [place] [address] BUNNY Pham [phone] PCP - General Internal Medicine 12/29/23
[2024-12-31 10:59] LABS: Alanine Aminotransferase 32 U/L (0-40); Albumin Level 4.3 g/dL (3.5-5.0); Alkaline Phosphatase 114 U/L (39-117); Anion Gap 12 (12-20); Aspartate Amino Transferase 28 U/L (5-37); Blood Urea Nitrogen 13 mg/dL (9-16); Calcium 9.4 mg/dL (8.4-10.2); Carbon Dioxide 28 mmol/L (22-29); Chloride 105 mmol/L (96-108); Cholesterol 189 mg/dL (<200); Estimated Glomerular Filt Rate > 60; HDL Cholesterol 40 mg/dL (>40); Potassium 4.9 mmol/L (3.3-5.1); Sodium 140 mmol/L (135-145); Total Protein 7.2 g/dL (6.5-8.0); Triglycerides 82 mg/dL (<150)
== END 2024-12-31 09:51 | disposition home or self-care (01) ==
LOC: HO.LAB 09:50
PROVIDERS: PCP Internal Medicine; Visit Provider Internal Medicine
DX: I10 Essential (primary) hypertension (principal)
CPT/HCPCS: 36415; 80053; 80061

== ENCOUNTER 2025-01-23 06:11 | Emergency (ER) | payer OTHER, SELFPAY ==
--- NOTE | ~2025-01-23 | CT_ITS ---
EXAMINATION: CT LUMBAR SPINE WITHOUT CONTRAST CLINICAL INFORMATION: Severe low back pain, status post fusion one year ago. COMPARISON: No prior CT. MR lumbar 09/05/2023. Lumbar radiographs 04/04/2024. TECHNIQUE: Spiral CT imaging of the lumbar spine performed in axial plane without contrast. Multiplanar reformatted images were constructed from the axial data set. This CT examination was performed using dose optimization techniques as appropriate, variously including the following: *Automated exposure control *Adjustment of mA and/or kV according to patient size (this includes techniques or standardized protocols for targeted exams where dose is matched to indication/reason for exam; i.e. extremities or head) *Use of iterative reconstruction technique FINDINGS: There is no scoliosis. There is a normal lordosis. There is no subluxation identified. There is no fracture, compression deformity, or suspicious bone lesion. Sagittal alignment is normal. There is a bone island in the L4 vertebral body. There has been fusion of L4-5 and L5-S1 with disc prostheses with oblique endplate anchors present . The hardware appears well seated, without gross evidence of migration or periprosthetic complication. No definite bony fusion through the L4-5 or L5-S1 disc spaces is evident although there has likely been bone grafting material placed within the prosthetic elements. There is no evidence of significant disc herniation, central canal, or subarticular recess stenosis at any level above the fusion. Minimal disc bulging is present posteriorly at L4-5 without any significant central canal or subarticular recess stenosis allowing for streak artifact present from the intervertebral hardware. Neural foramen are patent at L4-5. Mild posterior disc osteophytic ridge complex is present at L5-S1 without any significant central canal or subarticular recess stenosis allowing for streak artifact present from the intervertebral hardware. Mild neural foraminal narrowing is patent at L5-S1 bilaterally. No paravertebral or paraspinous soft tissue abnormality is evident. There is an incompletely imaged cyst arising from the posterior mid right kidney. The aorta is mild to moderately calcified but normal in caliber without aneurysm. The remainder the imaged retroperitoneal contents appear normal. CT/CT lumbar spine wo IV con IMPRESSION: 1. Fusion of L4-5 and L5-S1 without evidence of any bony or periprosthetic complication by CT. 2. No evidence of significant central canal, or subarticular recess stenosis at any level. Mild bilateral neural foraminal narrowing is present at L5-S1. Electronically signed by: Abdirahman Chandler MD 01/23/2025 08:35 AM [facility]
[2025-01-23 06:18] VITALS: BP 138/68; PULSE 82; RESP 16; TEMP 36.3; O2SAT 92; BMI 33.9
[2025-01-23 07:12] VITALS: BP 135/72; PULSE 68; RESP 14; TEMP 36.4; O2SAT 97
--- NOTE | 2025-01-23 07:13 | ED.GENADULT ---
HPI - General Adult General Chief complaint: Back Pain/Injury Stated complaint: back pain Time Seen by Provider: 01/23/25 07:09 Source: patient, RN notes reviewed and old records reviewed Mode of arrival: ambulatory Limitations: no limitations History of Present Illness ED Provider: Jacquelyn HPI narrative: Patient is a 49-year-old male status post lumbar fusion of L4/5, L5/S1 in November of 2023, seizures, asthma, migraines, ADHD presenting to the emergency department with complaint of severe lower back pain which began this morning. Reports that he is having pain radiating down bilateral lower extremities with paresthesias. Denies any saddle anesthesia, bowel or bladder incontinence. Denies fever. Denies recent fall or other trauma. States that he was shoveling ?light? snow yesterday but states he does not feel he over-exerted himself. Took his prescribed gabapentin at home without relief. States that he has had minor pain since his surgery but none this severe. MD complaint: back pain Onset (ago): hour(s) Related Data Home Medications ?Medication ?Instructions ?Recorded ?Confirmed losartan 25 mg tablet 25 mg PO DAILY 09/22/24 11/08/24 gabapentin 600 mg tablet 600 mg PO TID 09/28/24 11/08/24 Previous Rx's ?Medication ?Instructions ?Recorded cyclobenzaprine 10 mg tablet 10 mg PO TID PRN muscle spasm #10 01/23/25 tabs lidocaine 5 % topical patch 1 patch topical DAILY #15 ea 01/23/25 oxycodone 5 mg tablet 5 mg PO Q8H PRN severe pain (scale 01/23/25 score 7-10) #3 tabs prednisone 10 mg tablet See Rx Instructions .Route 01/23/25 .COMPLEX #15 tabs Allergies Allergy/AdvReac Type Severity Reaction Status Date / Time azithromycin (AZITHROMYCIN) Allergy Severe TACHYCARDIA Verified 01/23/25 06:23 /HIVES Penicillins (PCN) Allergy Severe Anaphylaxis Verified 01/23/25 06:23 From NOVOCAIN Allergy Severe INCEASED Uncoded 01/23/25 06:23 SEVERE MIGRAINES SEASONAL ALLERGIES Allergy Intermediate RHINITIS Uncoded 01/23/25 06:23 Review of Systems Review of Systems: As per HPI Yes all other systems are reviewed and are negative Constitutional: Constitutional: Reports as per HPI [facility] Past Medical History Medical History (Updated 01/23/25 @ 08:50 by Maria Elena Valladares NP) COVID-19 Allergic rhinitis Asthma Current tobacco use Scoliosis DJD (degenerative joint disease) Spinal stenosis Heartburn Concussion History of traumatic head injury Depression Numbness Cough SOB (shortness of breath) Wheezing Bronchitis History of marijuana use Kidney cysts ADHD Seizures Basilar artery migraine Migraine Surgical History (Updated 11/08/24 @ 14:34 by Jeanie Howard RN) H/O Spinal surgery History of repair of anterior cruciate ligament of left knee Hx of knee surgery Social History Social History Household Members: Spouse Housing: House Are you a primary home visit field care manager to a significant other at home: No Do you presently have visiting nurse or other home services: No Alcohol intake: current Alcohol intake frequency: holidays/special occasions only Patient Tobacco Use Status: Current everyday Tobacco user Tobacco use type: Cigarette Cigarette Packs Per Day: 1 Cigarettes Per Day: 20.0 Smoked in Last 30 Days: Yes Second Hand Smoke Exposure: No Use of substances other than those prescribed or required for medical reasons: Yes Substance Use Type: Marijuana Substance Use Frequency: Daily Advance Directives: No Advance Directives Information Provided: No Do you have a plan to hurt others: No Plan Physical Exam ED Vital Signs: Vital Signs - 24 hr 01/23/25 06:18 01/23/25 07:12 Temperature 97.4 F 97.6 F Pulse Rate 82 68 Respiratory Rate 16 14 Blood Pressure 138/68 135/72 Pulse Oximetry 92 97 Oxygen Delivery Method Room Air Room Air BMI result Body Mass Index 33.9 Vital signs have been reviewed and appear to be correct. Blood pressure normal. Heart rate normal. Respiratory rate normal. Temperature normal. Oxygen saturation normal. Const General: cooperative, healthy appearing and no acute distress Orientation/consciousness: oriented to person, oriented to place, oriented to time and patient oriented x3 Limitations: no limitations HENMT Head: Yes normocephalic and Yes atraumatic Ears: external ears normal General nose exam: Normal external nose present Face and sinus: Yes face symmetric Mouth: oropharynx normal and moist mucous membranes Throat: Yes uvula midline Eyes Pupils: Equal, round and reactive pupils present Neck Neck: Yes normal visual inspection and Yes supple Resp Effort & Inspection: normal respiratory effort and able to speak in complete sentences Auscultation: clear to auscultation bilaterally Cardio Rate: regular rate Rhythm: regular rhythm Heart sounds: S1 normal heart sound present and S2 normal heart sound present GI Palpation (GI): Soft to palpation and nontender Auscultation: normoactive bowel sounds General: Yes no CVA tenderness Back/Spine/Pelvis Back: no CVA tenderness Thoracic/Lumbar Spine: thoraco-lumbar ROM normal, pain with thoraco-lumbar ROM, No thoracic spinal tenderness and lumbar spinal tenderness at L3, at L4 and at L5 Pelvis: no pain with anterior-posterior compression and no pain with lateral compression Sacroiliac joints: bilaterally tender to palpation Skin General skin exam: elasticity normal and turgor normal Neuro General: oriented to person, oriented to place, oriented to time, patient oriented x3, tone normal, moves all extremities, Normal light touch and pain sensation, no focal motor deficits, CN's II-XI intact bilaterally and deep tendon reflexes 2+ bilaterally Cranial nerves: Yes Equal, round and reactive pupils present Cognition (Neuro): normal cognition Motor exam (neuro): 5/5 motor strength present throughout, Normal motor muscle tone present throughout and Motor abnormalities not present Extrem General: Yes full ROM, Yes no pedal edema and Yes no calf tenderness Psych Mental Status: mental status grossly normal Affect: normal affect Thought process: Normal thought process present Medications Administered Discontinued Medications Generic Name Dose Route Start Last Admin Trade Name Malinda PRN Reason Stop Dose Admin Diazepam 5 mg 01/23/25 07:41 01/23/25 07:50 Diazepam 10 Mg/2 Ml Cartridge IM 01/23/25 07:42 5 mg STAT STA Administration Hydromorphone HCl 1 mg 01/23/25 07:41 01/23/25 07:50 Hydromorphone Hcl 1 Mg/Ml Syringe IM 01/23/25 07:42 1 mg ONCE ONE Administration Protocol Prednisone 60 mg 01/23/25 07:41 01/23/25 07:50 Prednisone 20 Mg Tablet PO 01/23/25 07:42 60 mg ONCE ONE Administration Medical Decision Making Medical Decision Making [facility] Narrative: Patient is a 49-year-old male status post lumbar fusion of L4/5, L5/S1 in November of 2023, seizures, asthma, migraines, ADHD presenting to the emergency department with complaint of severe lower back pain which began this morning. On exam patient is awake, A+Ox3, VS WNL, afebrile, normal neurological exam without focal deficits, physical exam findings as above. Given reported symptoms and physical exam findings, initial differential includes but is not limited to initial differential includes lumbar strain, lumbar radiculopathy, degenerative disc disease, disc herniation, spinal stenosis, spondylosis. Less likely vertebral fracture. Do not suspect malignancy/mass, SEA, cauda equina/cord compression. Will medicate for pain with valium, dilaudid, prenisone and obtain CT lumbar spine. Lumbar CT without evidence of periprosthetic complication or central canal stenosis. My interpretation is in agreement with the radiologist's interpretation. Patient reports significant improvement in pain after medications given in the ED and has increased range of motion without pain. He is comfortable with discharge home at this time. Advised follow up with Dr. Falcon as needed. Return precautions discussed. Patient verbalized understanding of and agreement with plan. Differential Diagnosis Differential Diagnoses: The differential diagnosis associated with the presentation includes as per [facility] Admission/Observation Consideration of admission/observation: Escalation of care including admission/observation considered Patient would have been admitted to the hospital and transferred to appropriate facility had their clinical presentation warranted hospital admission. Independent Interpretation I performed an independent interpretation of an: CT Scan Interpretation: Lumbar CT without evidence of periprosthetic complication or central canal stenosis. Radiology Impression Discussion of test interpretation with radiology: I have reviewed the radiologist's reading. Radiologist Impression: CT/CT lumbar spine wo IV con IMPRESSION: 1. Fusion of L4-5 and L5-S1 without evidence of any bony or periprosthetic complication by CT. 2. No evidence of significant central canal, or subarticular recess stenosis at any level. Mild bilateral neural foraminal narrowing is present at L5-S1. External Record Review External record reviewed: Inpatient record, Office record and Outpatient record Prescription Management I considered prescription management with: Pain Medication and Other Critical Care Time Critical Care Time Critical Care Time: Yes Total Critical Care Time: 35 Attestation: I have personally provided critical care time exclusive of time spent on separately billable procedures. Time includes review of lab data, radiology results, discussion with consultants, and monitoring for potential decompensation. Intervention performed as documented. Discharge Plan Discharge Clinical Impression: Strain of lumbar region, Lumbar radiculopathy Patient Disposition: Home, Self-Care Instructions: Low Back Strain (ED), Acute Low Back Pain (ED), Lumbar Radiculopathy (ED) Additional Instructions: You were evaluated in the emergency department today for back pain. Your evaluation did not show signs of medical conditions requiring emergent intervention at this time. We recommended that you use ibuprofen or Tylenol per package directions every 6 hours as needed for pain. If necessary, you can alternate these medications so that you take one medication every 3 hours. For instance, at noon take ibuprofen, then at 3:00 p.m. take Tylenol, then at 6:00 p.m. take ibuprofen. You have been prescribed a muscle relaxer called Flexeril (cyclobenzaprine) which you may take every 8 hours as needed for spasms. Do not drive, drink alcohol, or operate heavy machinery while taking this as it can cause drowsiness. You have been prescribed 5% topical lidocaine patches which you can wear for up to 12 hours in a 24 hour period. Do not apply heat directly over the patches. You have been prescribed a few oxycodone for severe pain. Do not take this with the Flexeril as it can cause excessive drowsiness. You have also been prescribed a tapering dose of prednisone which is a steroid to decrease inflammation. Please schedule an appointment for follow-up with your primary care physician or call Dr. Falcon this week for further evaluation of your symptoms. Return to the emergency department if you experience worsening back pain, difficulty walking, fevers, numbness, tingling, incontinence, groin numbness or tingling, or any other concerning symptoms. Prescriptions: New prednisone 10 mg tablet See Rx Instructions .ROUTE .COMPLEX Qty: 15 0RF Rx Instructions: 50mg (5 tabs) x1 day, then 40 mg (4 tabs) x1 day, then 30 mg (3 tabs) x1 day, then 20 mg (2 tabs) times 1 day, then 10 mg (1 tab) x1 day lidocaine 5 % adhesive patch,medicated 1 patch topical DAILY Qty: 15 0RF Rx Instructions: leave on most painful area for up to 12 hrs cyclobenzaprine 10 mg tablet 10 mg PO TID PRN (Reason: muscle spasm) Qty: 10 0RF oxycodone 5 mg tablet 5 mg PO Q8H PRN (Reason: severe pain (scale score 7-10)) Qty: 3 0RF Rx Instructions: Partial Fill upon patient request. No Action losartan 25 mg tablet 25 mg PO DAILY gabapentin 600 mg tablet 600 mg PO TID Stand Alone Forms: Work/School Release Print Language: Uzbek
--- NOTE | 2025-01-23 07:14 | PC.NURSE ---
Patient presents to ED c/o back pain Pain rated 7/10 Denies injury or heavy lifting Patinent has hx of back spasms, surgery performed in 2023 to correct VSS and up to date Provider in to see patient Plan of care on going
--- OUTSIDE RECORDS SUMMARY | 2025-01-23 07:41 | XMS_ITS | Clinical Summary ---
Author Organization [employer] Address [address] [place] [address] Care Team Providers Care Manager Commodities Name Role Phone Jason Corea MD Primary [...] Description 12/26/2024 8:30 AM EST Office Visit [facility] [address] [place], [place] [phone] Jason Corea MD Primary hypertension (Primary Dx); Chronic pain of left knee; Screening for colon cancer; Encounter for immunization 12/26/2024 Travel 12/25/2024 Travel 12/19/2024 Patient Outreach [facility] [address] [place], [place] [phone] Jason Corea MD Pre-visit Planning (SDOH Screening [...] Date Smoking Tobacco: Every Day Cigarettes 1 35 Started: 1990 Smokeless Tobacco: Never Tobacco Cessation:Ready [...] Vaccines (1 of 2) 01/30/2026 Lipid Panel 12/31/2029 12/31/2024, 03/25/2024 DTaP/Tdap/Td Vaccines (2 - Td or [...] Procedure Name Priority Date/Time Associated Diagnosis Comments LIPID PANEL, STANDARD Routine 12/31/2024 10:12 AM EST Primary hypertension COMPREHENSIVE METABOLIC PANEL Routine 12/31/2024 10:12 AM EST Primary hypertension HEMATOXYLIN AND EOSIN STAIN Routine 11/10/2024 10:54 [...] Recently Relevant to Health Maintenance Results * (ABNORMAL) Lipid Panel, Standard (12/31/2024 10:12 AM EST) Triglycerides 82 <150 mg/dL [facility] Comment:Desirable Triglyceri de: less than 150 mg/dLBorderline High Triglyceride 150-199 mg/dLHigh Triglyceride: 200-499 mg/dLVery High Triglyceride: greater than or equal to 5OO mg/dL Cholesterol 189 <200 mg/dL [facility] Comment:Desirable Cholestero l: less than 200 mg/dLBorderline High Cholesterol: 200-239 mg/dLHigh Cholesterol: greater than 239 mg/dL LDL Cholesterol Calculated 133(H) <100 mg/dL [facility] Comment:Desirable LDL: less than 100 mg/dLNear Optimal/Above Optimal LDL: 110- 129 mg/dLBorderline High LDL: 130-159 mg/dLHigh LDL: 160-189 mg/dLVery High LDL: greater than or equal to 190 mg/dL HDL Cholesterol 40(L) >40 mg/dL [facility] Comment:Desirable HDL: great er than 40 mg/dL Note: This HDL assay may give artificially low results in patients with liver disease. Blood Venous blood specimen / Unknown 12/31/2024 10:12 AM EST 12/31/2024 10:12 AM EST Jason Arnold MD LAB BLOOD ORDERABL ES Final Result [facility] [address] [place] [phone] * (ABNORMAL) Comprehensive Metabolic Panel (12/31/2024 10:12 AM EST) Sodium 140 135 - 145 mmol/L [facility] Potassium 4.9 3.3 - 5.1 mmol/L [facility] Chloride 105 96 - 108 mmol/L [facility] Carbon Dioxide 28 22 - 29 mmol/L [facility] Anion Gap 12 12 - 20 [facility] Urea Nitrogen (BUN) 13 9 - 16 mg/dL [facility] Creatinine, Serum 0.84 0.5 - 1.4 mg/dL [facility] Estimated Glomerular Filt Rate >60 [facility] Comment:Chronic Kidney Disea se: Estimated GFR < 60 mL/min/1.04o3Lzinpp Kidney Disease: Estimated GFR < 15 mL/min/1.73m2 Glucose 118(H) 60 - 115 mg/dL [facility] Calcium 9.4 8.4 - 10.2 mg/dL [facility] Bilirubin, Total 0.4 0.0 - 1.0 mg/dL [facility] Aspartate Amino Transferase 28 5 - 37 U/L [facility] Alanine Aminotransferase 32 0 - 40 U/L [facility] Total Protein 7.2 6.5 - 8.0 g/dL [facility] Albumin Level 4.3 3.5 - 5.0 g/dL [facility] Alkaline Phosphatase 114 39 - 117 U/L [facility] Blood Venous blood specimen / Unknown 12/31/2024 10:12 AM EST 12/31/2024 10:12 AM EST us Jason Arnold MD LAB BLOOD ORDERABL ES Final Result [facility] [address] [place] [phone] * Hematoxylin and Eosin Stain (11/10/2024 10:54 AM EDT) 11/10/2024 10:5 4 AM EDT 11/10/2024 1:37 PM EDT Narrative [facility] - 11/14/2024 3:31 PM EDT ----- ------- Name: Sonu Castillo Age/Sex: 49/M : 1975 Unit#: [id number] Attend Dr: Rosa M Epstein MD Re11/10/24 Status: [facility] Location: [facility] Disch: ----- ------- SPEC : [id number] RECD: 11/10/24 STATUS: ROWENA PHAN NUM: [id number] PATRICIO: 11/10/[address] [facility] [address]: Rosa M Epstein MD ENTERED: 11/10/248835 SP TYPE: Surgical OTHR DR: Jason Corea [...] microscopic examination, 2 pieces in cassette A. ([facility]) IHC S/NG Disclaimer NOTE: Unless otherwise stated, all tissue is formalin-fixed and paraffin-embedded. Some or all of the immunohistochemical tests reported herein may have been developed and their performance characteristics determined by [facility]. They have not been cleared or approved by the U.S. Food and Drug Administration (FDA). However, the FDA has determined that such clearance or approval is not necessary. This laboratory is certified under the Clinical Laboratory Improvement Amendments of 1988 (CLIA) as qualified to perform high complexity clinical laboratory testing. Copies To: Jason Corea MD [address] [address] CONTINUED ON NEXT PAGE ----- ------- Name: Sonu Castillo Age/Sex: 49/M : 1975 Unit#: [id number] Attend Dr: Rosa M Epstein MD Re11/10/24 [place] [facility] [place]: [place] Disch: ----- ------- SPEC : [id number] RECD: 11/10/24 STATUS: ROWENA PHAN NUM: [id number] PATRICIO: 11/10/[address] [facility] [address]: Rosa M Epstein MD ENTERED: 11/10/245860 SP TYPE: Surgical OTHR DR: Jason Corea MD ORDERED: HE Stain/3, Gross Micro L4 Copies To: (Continued) Rosa M Epstein MD [facility] [address] [place] [phone] [email or web address] ----- ------- Signed (signature on file) Dave Cervantes MD 11/14/24 1531 ----- ------- END OF REPORT us Generic External Data Provider LAB BLOOD ORDERAB LES Final Result Performing Organization Address [facility]/ZIP Co de Phone Number [facility] [address] [place] [phone] * Hepatitis C Antibody with Reflex to HCV, RNA, Quantitative, Real-Time PCR (03/25/2024 9:32 AM EST) Hepatitis C Antibody Nonreactive Nonreactive [facility] Comment:Antibodies to HCV no t detected; does not exclude early acuteHCV infection. Blood Venous blood specimen / Unknown 03/25/2024 9:32 AM EST 03/25/2024 2:12 PM EST Jason Arnold MD LAB BLOOD ORDERABL ES Final Result Performing Organization Address [facility] de Phone Number [facility] [address] [place] [phone] * HIV-1/2 Antigen and Antibodies, Fourth Generation, with Reflexes (03/25/2024 9:32 AM EST) HIV AB/AG Nonreactive Nonreactive [facility] Comment:HIV-1 p24 Ag and/or HIV-1/HIV-2 Ab not detected.A test result that is nonreactive does not exclude thepossibility of exposure to or infection with HIV-1 and/orHIV-2. Nonreactive results in this assay for individualswith prior exposure to HIV-1 and/or HIV-2 may be due toantigen and antibody levels that are below the limit ofdetection of this assay.The [employer] HIV Ag/Ab Combo assay result andsupplemental assay results should be interpreted inconjunction with the patient's clinical presentation,history and other laboratory results. If the results areinconsistent with clinical evidence, additional testing issuggested to confirm the result. Blood Venous blood specimen / Unknown 03/25/2024 9:32 AM EST 03/25/2024 2:12 PM EST Jason Arnold MD LAB BLOOD ORDERABL ES Final Result Performing Organization Address [facility] Co de Phone Number [facility] [address] [place] [phone] * Hemoglobin A1c (03/25/2024 9:32 AM EST) Hemoglobin A1c 5.8 <6.0 % [facility] Comment:Hemoglobin A1C Refer ence Range Adults: 4.8 - 6.0 % Non diabetic: < 6.0 % Goal: < 7.0 %Additional Action Suggested: > 8.0 %Note: Hemoglobin A1c results are invalid for patients with abnormal amounts of HbF. Blood transfusions may impact the HbA1c concentration in the patient sample. Estimated Average Glucose 120 mg/dL [facility] Comment:eAG = Estimated ave rage glucose which is %A1C expressed asaverage glucose, using the formula of the P2U-QdhhbjlCijcuga Glucose study (ADAG), Diabetes Care, Vol.31,#8,Sep. 2007 Blood Venous blood specimen / Unknown 03/25/2024 9:32 AM EST 03/25/2024 1:55 PM EST Jason Arnold MD LAB BLOOD ORDERABL ES Final Result Performing Organization Address [facility] Co de Phone Number [facility] [address] [place] [phone] from Last 3 Months or Most Recently Relevant to Health Maintenance Insurance [facility] HMO Care Teams Manager Commodities Relationship Specialty Start Date End Date DrakeJason Zheng MD [address] [place] [address] [place] [phone] PCP - General Internal Medicine 12/29/23
--- OUTSIDE RECORDS SUMMARY | 2025-01-23 07:41 | XMS_ITS | Clinical Summary ---
Author Organization [facility] Address [address] [place] [address] Care Team Providers Care Asset Administrator Name Role Phone Janae Guillermo MD Primary Care Provider [phone] Surgical History Surgery Date Site/Laterality Comments KNEE [...] on file Sexual Orientation Not on file Plan of Treatment Health Maintenance Due Date [...] age to complete this topic Care Teams Asset Administrator Relationship Specialty Start Date End Date Janae Guillermo MD [address] [place] [address] PCP - General Internal Medicine 10/17/14
--- OUTSIDE RECORDS SUMMARY | 2025-01-23 07:41 | XMS_ITS | Clinical Summary ---
Author Organization [facility] Address [address] [place] [phone] Care Team Providers Care Rn Emergency Room Name Role Phone Antonette Grullon Primary Care [...] On Topamax, seeing Dr. Abreu, neurology at [facility] Arthritis of left knee 06/28/2014 Arthritis of [...] Vaccine (#1) 2024 0, 12/20/2015, 10/23/2014 Insurance [facility] [place] [phone] Medicaid [place] Care Teams Rn Emergency Room Relationship Specialty Start Date End Date Antonette Grullon [address] [place] [phone] PCP - General 11/03/23
--- OUTSIDE RECORDS SUMMARY | 2025-01-23 07:41 | XMS_ITS | Encounter Summary ---
Author Organization [employer] Address [address] [place] [address] Care Team Providers Care Mainframe Systems Engineer Name Role Phone Jason Corea MD Primary Care Prov ider Encounter Details Date Type Department Care Team (Late st Contact Info) Description 03/25/2024 Orders Only [facility] [address] [place], [place] [phone] Jason Corea MD [address] [place] [address] Elevated blood pressure reading (Primary Dx) Social History Tobacco Use Types Packs/Day Years Used Date Smoking Tobacco: Every Day Cigarettes 1 35 Started: 1990 Smokeless Tobacco: Never Alcohol Use [...] AM EST Narrative 04/06/2024 10:55 AM EST [facility] [address] [place] [address] XRay Report Signed Patient: Sonu Castillo MR#: [id number] : 1975 Acct:[id number] Age/Sex: 49 / M ADM Date: 04/04/24 Loc: HO.HOSX Attending Dr: Tommy MARTINEZ Ordering Physician: Tommy Rucker Date of Service: 04/04/24 Procedure(s): XR lumbar spine 4V min Accession Number(s): [id number] cc: Tommy Rucker; Antonette Padilla MD CLINICAL [...] Larson MD on 04/06/2024 10:55:02 Dictated By: Dvaid Larson MD Signed By: <Electronically signed by David Larson MD in OV> 04/06/24 1055 DD/ 1055 TD/TT: 04/06/24 1055 Inhalation Therapy Aide: Procedure Note Donotuseinterpreter, Image - 04/06/2024 [facility] [address] [place] [address] XRay Report Signed Patient: Sonu Castillo FMR#: [id number] : 1975Acct:[id number] Age/Sex: 49 / MADM Date: 04/04/24 Loc: HO.HOSX Attending Dr: Tommy MARTINEZ Ordering Physician: Tommy Rucker Date of Service: 04/04/24 Procedure(s): XR lumbar spine 4V min Accession Number(s): [id number] cc: Tommy Rucker; Antonette Padilla MD CLINICAL [...] 04/06/24 1055 DD/ 1055 TD/TT: 04/06/24 1055 Inhalation Therapy Aide: [facility] External Provider IMG XR PROCEDURES Final Result * Hepatitis C Antibody with Reflex to HCV, RNA, Quantitative, Real-Time PCR (03/25/2024 9:32 AM EST) Hepatitis C Antibody Nonreactive Nonreactive [facility] Comment:Antibodies to HCV no t detected; does not exclude early acuteHCV infection. Blood Venous blood specimen / Unknown 03/25/2024 9:32 AM EST 03/25/2024 2:12 PM EST Jason Arnold MD LAB BLOOD ORDERABL ES Final Result [facility] [address] [place] [phone] * HIV-1/2 Antigen and Antibodies, Fourth Generation, with Reflexes (03/25/2024 9:32 AM EST) HIV AB/AG Nonreactive Nonreactive [facility] Comment:HIV-1 p24 Ag and/or HIV-1/HIV-2 Ab not detected.A test result that is nonreactive does not exclude thepossibility of exposure to or infection with HIV-1 and/orHIV-2. Nonreactive results in this assay for individualswith prior exposure to HIV-1 and/or HIV-2 may be due toantigen and antibody levels that are below the limit ofdetection of this assay.The Last 2 Left HIV Ag/Ab Combo assay result andsupplemental assay results should be interpreted inconjunction with the patient's clinical presentation,history and other laboratory results. If the results areinconsistent with clinical evidence, additional testing issuggested to confirm the result. Blood Venous blood specimen / Unknown 03/25/2024 9:32 AM EST 03/25/2024 2:12 PM EST us Jason Arnold MD LAB BLOOD ORDERABL ES Final Result [facility] [address] [place] [phone] * Hemoglobin A1c (03/25/2024 9:32 AM EST) Hemoglobin A1c 5.8 <6.0 % [facility] Comment:Hemoglobin A1C Refer ence Range Adults: 4.8 - 6.0 % Non diabetic: < 6.0 % Goal: < 7.0 %Additional Action Suggested: > 8.0 %Note: Hemoglobin A1c results are invalid for patients with abnormal amounts of HbF. Blood transfusions may impact the HbA1c concentration in the patient sample. Estimated Average Glucose 120 mg/dL [facility] Comment:eAG = Estimated ave rage glucose which is %A1C expressed asaverage glucose, using the formula of the [id number] Glucose study (ADAG), Diabetes Care, Vol.31,#8,Sep. 2008 Blood Venous blood specimen / Unknown 03/25/2024 9:32 AM EST 03/25/2024 1:55 PM EST us Jason Arnold MD LAB BLOOD ORDERABL ES Final Result Performing Organization Address [facility] Co de Phone Number [facility] [address] [place] [phone] * TSH W/Reflex to FT4 (03/25/2024 9:32 AM EST) TSH reflex Free T4 0.60 0.32 - 4.0 uIU/mL [facility] Blood Venous blood specimen / Unknown 03/25/2024 9:32 AM EST 03/25/2024 2:12 PM EST us Jason Arnold MD LAB BLOOD ORDERABL ES Final Result Performing Organization Address [facility] Co de Phone Number [facility] [address] [place] [phone] * (ABNORMAL) Lipid Panel, Standard (03/25/2024 9:32 AM EST) Triglycerides 58 <150 mg/dL [facility] Comment:Desirable Triglyceri de: less than 150 mg/dLBorderline High Triglyceride 150-199 mg/dLHigh Triglyceride: 200-499 mg/dLVery High Triglyceride: greater than or equal to 5OO mg/dL Cholesterol 166 <200 mg/dL [facility] Comment:Desirable Cholestero l: less than 200 mg/dLBorderline High Cholesterol: 200-239 mg/dLHigh Cholesterol: greater than 239 mg/dL LDL Cholesterol Calculated 109(H) <100 mg/dL [facility] Comment:Desirable LDL: less than 100 mg/dLNear Optimal/Above Optimal LDL: 110- 129 mg/dLBorderline High LDL: 130-159 mg/dLHigh LDL: 160-189 mg/dLVery High LDL: greater than or equal to 190 mg/dL HDL Cholesterol 46 >40 mg/dL [facility] Comment:Desirable HDL: great er than 40 mg/dL Note: This HDL assay may give artificially low results in patients with liver disease. Blood Venous blood specimen / Unknown 03/25/2024 9:32 AM EST 03/25/2024 2:12 PM EST us Jason Arnold MD LAB BLOOD ORDERABL ES Final Result [facility] [address] [place] [phone] * Comprehensive Metabolic Panel (03/25/2024 9:32 AM EST) Sodium 138 135 - 145 mmol/L [facility] Potassium 4.3 3.3 - 5.1 mmol/L [facility] Chloride 105 96 - 108 mmol/L [facility] Carbon Dioxide 25 22 - 29 mmol/L [facility] Anion Gap 12 12 - 20 [facility] Urea Nitrogen (BUN) 13 9 - 16 mg/dL [facility] Creatinine, Serum 0.80 0.5 - 1.4 mg/dL [facility] Estimated Glomerular Filt Rate >60 [facility] Comment:Chronic Kidney Disea se: Estimated GFR < 60 mL/min/[id number] Kidney Disease: Estimated GFR < 15 mL/min/1.73m2 Glucose 76 60 - 115 mg/dL [facility] Calcium 9.2 8.4 - 10.2 mg/dL [facility] Bilirubin, Total 0.2 0.0 - 1.0 mg/dL [facility] Aspartate Amino Transferase 28 5 - 37 U/L [facility] Alanine Aminotransferase 27 0 - 40 U/L [facility] Total Protein 7.2 6.5 - 8.0 g/dL [facility] Albumin Level 4.0 3.5 - 5.0 g/dL [facility] Alkaline Phosphatase 111 39 - 117 U/L [facility] Blood Venous blood specimen / Unknown 03/25/2024 9:32 AM EST 03/25/2024 2:12 PM EST us Jason Arnold MD LAB BLOOD ORDERABL ES Final Result [facility] [address] [place] [phone] * (ABNORMAL) CBC auto differential (03/25/2024 9:32 AM EST) White Blood Count 12.7(H) 4.8 - 10.8 X10*3/uL [facility] Red Blood Count 5.03 4.60 - 5.80 X10*6/uL [facility] Hemoglobin 14.5 14.0 - 18.0 g/dl [facility] Hematocrit 43.1 42.0 - 52.0 % [facility] Mean Corpuscular Volume 85.7 80.0 - 98.0 fL [facility] Mean Corpuscular Hemoglobin 28.8 27.0 - 33.0 pg [facility] Mean Corpuscular HGB Conc 33.6 31.0 - 36.0 g/dl [facility] Red Cell Distribution Width 14.9 11.0 - 16.0 % [facility] Platelet Count 336 160 - 400 X10*3/uL [facility] Mean Platelet Volume 9.8 9.4 - 12.4 fL [facility] Neutrophils Percent Auto 62.0 45 - 73 % [facility] Imm Gran Pct Auto 0.3 0.0 - 0.4 % [facility] Lymphocytes Percent Auto 28.0 20 - 40 % [facility] Monocytes Percent Auto 7.7 2 - 11 % [facility] Eosinophils Percent Auto 1.4 0 - 4 % [facility] Basophils Percent Auto 0.6 0 - 2 % [facility] NRBC Pct Auto 0.0 0.0 - 0.2 /100WBC [facility] Neutrophils Absolute Auto 7.9 2.0 - 8.3 x10*3/uL [facility] Imm Gran Abs Auto 0.04(H) 0.00 - 0.03 X10*3/uL [facility] Lymphocytes Absolute Auto 3.5 1.2 - 4.9 X10*3/uL [facility] Monocytes Absolute Auto 1.0 0.1 - 1.2 X10*3/uL [facility] Eosinophils Absolute Auto 0.2 0.0 - 0.4 X10*3/uL [facility] Basophils Absolute Auto 0.1 0.0 - 0.2 X10*3/uL [facility] NRBC Abs Auto 0.000 0.0 - 0.012 X10*3/uL [facility] Blood Venous blood specimen / Unknown 03/25/2024 9:32 AM EST 03/25/2024 1:55 PM EST us Jason Arnold MD LAB BLOOD ORDERABL ES Final Result [facility] [address] [place] [phone] documented in this encounter Visit Diagnoses Diagnosis Elevated blood pressure reading- Primary Elevated blood pressure reading without diagnosis of hypertension documented in this encounter Additional Health Concerns Assessment Noted Time PHQ-9 Depression Total Score: 3 03/24/19 25 11:02 AM EST documented as of this encounter Care Teams Mainframe Systems Engineer Relationship Specialty Start Date End Date Jason Corea MD [address] [place] [phone] PCP - General Internal Medicine 12/29/23 documented as of this encounter
[2025-01-23] MEDS: diazePAM 10 MG/2 ML CARTRIDGE 5 MG IM (07:50)
[2025-01-23 09:07] VITALS: BP 170/94; PULSE 71; RESP 15; TEMP 36.6; O2SAT 94
[2025-01-23 09:10] VITALS: BP 170/94; PULSE 71; RESP 15; TEMP 36.6; O2SAT 94
== END 2025-01-23 09:11 | disposition home or self-care (01) ==
PROVIDERS: Emergency Provider Student in an Organized Health Care Education/Training Program; PCP Internal Medicine
DX: S39.012A Strain of muscle, fascia and tendon of lower back, initial encounter (principal); X58.XXXA Exposure to other specified factors, initial encounter; Y93.9 Activity, unspecified; Y92.9 Unspecified place or not applicable; M54.16 Radiculopathy, lumbar region; R20.2 Paresthesia of skin; Z98.1 Arthrodesis status
CPT/HCPCS: 72131; 96372; 99284; J1171; J3360

== ENCOUNTER → 2025-01-23 07:39 | Outpatient (BNV) | payer OTHER, SELFPAY | PROVIDERS: Emergency Provider Student in an Organized Health Care Education/Training Program; PCP Internal Medicine; Visit Provider Radiology Diagnostic Radiology | DX: M48.07 Spinal stenosis, lumbosacral region (principal); Z98.1 Arthrodesis status | CPT/HCPCS: 72131 ==

== ENCOUNTER → 2025-01-25 17:52 | Outpatient (BNV) | payer OTHER, SELFPAY | PROVIDERS: PCP Internal Medicine; Visit Provider Radiology Diagnostic Ultrasound | DX: M25.462 Effusion, left knee (principal) | CPT/HCPCS: 73721 ==

== ENCOUNTER 2025-01-25 17:54 | Outpatient (REF) | payer OTHER, SELFPAY ==
--- NOTE | ~2025-01-25 | MR_ITS ---
EXAMINATION: MR KNEE WITHOUT CONTRAST, LEFT CLINICAL INFORMATION: Knee pain COMPARISON: X-ray 09/25/2016 TECHNIQUE: MRI of the knee without contrast was performed using routine sequences on a high-field scanner. FINDINGS: Metallic artifact in the proximal tibia, limiting evaluation. MENISCI: Medial Meniscus: Intact Lateral Meniscus: Posterior horn is slightly small in caliber, with inner margin blunting, and T2 hyperintense signal extending to the undersurface, with undersurface irregularity. The posterior root is small in caliber. This could represent meniscal tear, postsurgical result, or a combination of these. Correlate with surgical history. Body is partially laterally extruded.. LIGAMENTS: Cruciate: Postoperative changes of prior ACL repair. T2 signal in the ACL graft could reflect degeneration or sprain. No ligament discontinuity or laxity is evident. No evidence of significant arthrofibrosis in this region. The tibial tunnel measures approximately 1.7 cm transverse. There is T2 bright septated focus within the tibial tunnel, measuring 2.4 cm in length, 1.7 cm transverse, suggestive of a cystic focus, nonspecific. This could reflect postsurgical result. Differential considerations include sequela of graft micromotion foreign body reaction, lack of graft integration. PCL is intact. Collateral: Intact EXTENSOR MECHANISM: Intact . The distal patellar tendon obscured by artifact. ARTICULAR CARTILAGE/BONE: Patellofemoral Compartment: No high-grade chondral loss Medial Compartment: No high-grade chondral loss Lateral Compartment: No high-grade chondral loss JOINT FLUID AND BURSAE: Small effusion. No significant Saldivar's cyst. Mild subcutaneous edema. MR/MR knee LT wo con IMPRESSION: * Findings in the posterior horn of the lateral meniscus could represent meniscal tear, postsurgical result, or a combination of these. Correlate with surgical history. * Status post ACL repair. T2 signal within the graft could reflect mucoid degeneration or sprain. No ligament discontinuity or laxity seen. * T2 bright cystic appearing focus in the tibial tunnel measuring 1.7 x 2.7 cm. This could reflect postsurgical result. Differential consideration include sequela of graft micromotion, foreign body reaction, lack of graft integration. Clinically correlate. * Small effusion. Electronically signed by: Thiago Costello MD 01/26/2025 08:59 AM EST
--- OUTSIDE RECORDS SUMMARY | 2025-01-25 21:06 | XMS_ITS | Clinical Summary ---
Author Organization [employer] Address [address] [facility] [address] [place] [address] Care Team Providers Care Home Demonstration Agent Name Role Phone Jason Corea MD Primary Care Prov ider Allergies Active Allergy Reactions Criticality Noted Date Comments Azithromycin Shortness of breath High 12/29/2023 Other 11/03/2023 SEASONAL ALLERGIES/RHINITIS Penicillin G Anaphylaxis High 12/29/2023 Procaine 11/03/2023 INCREASED SEVERE MIGRAINES Medications Blood Pressure kit 1 kit Once per day. 1 kit 03/24/2024 Active gabapentin (Neurontin) 300 MG capsule Take 2 capsules (600 mg) by mouth 3 times daily. 540 capsule 2 09/07/2024 Active amLODIPine (Norvasc) 10 MG tablet Take 1 tablet (10 mg) by mouth Once per day. 90 tablet 3 12/26/2024 12/27/19 26 Active Active Problems Problem Noted Date Diagnosed [...] Encounters Date Type Department Care Team Description 01/23/2025 Orders Only [facility] External Provider, [facility] 12/26/2024 8:30 AM EST Office Visit [facility] [address] [place] [address] Jason Corea MD Primary hypertension (Primary Dx); Chronic pain of left knee; Screening for colon cancer; Encounter for immunization 12/26/2024 Travel 12/25/2024 Travel 12/19/2024 Patient Outreach [facility] [address] [place] [address] Jason Corea MD Pre-visit Planning (SDOH Screening [...] Procedure Name Priority Date/Time Associated Diagnosis Comments CT LUMBAR SPINE WO CONTRAST Routine 01/23/2025 7:57 AM EST LIPID PANEL, STANDARD Routine 12/31/2024 10:12 AM [...] Recently Relevant to Health Maintenance Results * CT Lumbar Spine w/o Contrast (01/23/2025 7:57 AM EST) Anatomical Region Laterality Modality Spine, L-spine Computed Tomogra phy 01/23/2025 7:57 AM EST Narrative 01/23/2025 8:37 AM EST [address] [address] [address] Scan Report Signed Patient: Sonu Castillo MR#: [id number] : 1975 Acct:[id number] Age/Sex: 49 / M ADM Date: 01/23/25 Loc: HO.ED Attending Dr: Ordering Physician: Maria Elena Valladares NP Date of Service: 01/23/25 Procedure(s): CT lumbar spine wo IV con Accession Number(s): [id number] cc: Jason Corea MD; Maria Elena Valladares NP Report Number: [id number]: Total DLP = 661.00 mGy-cm Reason for Exam: severe pain s/p lumbar fusion 1 yr ago EXAMINATION: CT LUMBAR SPINE WITHOUT CONTRAST CLINICAL INFORMATION: Severe low back pain, status post fusion one year ago. COMPARISON: No prior CT. MR lumbar 09/05/2023. Lumbar radiographs 04/04/2024. TECHNIQUE: Spiral CT imaging of the lumbar spine performed in axial plane without contrast. Multiplanar reformatted images were constructed from the axial data set. This CT examination was performed using dose optimization techniques as appropriate, variously including the following: *Automated exposure control *Adjustment of mA and/or kV according to patient size (this includes techniques or standardized protocols for targeted exams where dose is matched to indication/reason for exam; i.e. extremities or head) *Use of iterative reconstruction technique FINDINGS: There is no scoliosis. There is a normal lordosis. There is no subluxation identified. There is no fracture, compression deformity, or suspicious bone lesion. Sagittal alignment is normal. There is a bone island in the L4 vertebral body. There has been fusion of L4-5 and L5-S1 with disc prostheses with oblique endplate anchors present . The hardware appears well seated, without gross evidence of migration or periprosthetic complication. No definite bony fusion through the L4-5 or L5-S1 disc spaces is evident although there has likely been bone grafting material placed within the prosthetic elements. There is no evidence of significant disc herniation, central canal, or subarticular recess stenosis at any level above the fusion. Minimal disc bulging is present posteriorly at L4-5 without any significant central canal or subarticular recess stenosis allowing for streak artifact present from the intervertebral hardware. Neural foramen are patent at L4-5. Mild posterior disc osteophytic ridge complex is present at L5-S1 without any significant central canal or subarticular recess stenosis allowing for streak artifact present from the intervertebral hardware. Mild neural foraminal narrowing is patent at L5-S1 bilaterally. No paravertebral or paraspinous soft tissue abnormality is evident. There is an incompletely imaged cyst arising from the posterior mid right kidney. The aorta is mild to moderately calcified but normal in caliber without aneurysm. The remainder the imaged retroperitoneal contents appear normal. CT/CT lumbar spine wo IV con IMPRESSION: 1. Fusion of L4-5 and L5-S1 without evidence of any bony or periprosthetic complication by CT. 2. No evidence of significant central canal, or subarticular recess stenosis at any level. Mild bilateral neural foraminal narrowing is present at L5-S1. Electronically signed by: Abdirahman Chandler MD 01/23/2025 08:35 AM EST Dictated By: Abdirahman Chandler MD Signed By: <Electronically signed by Abdirahman Chandler MD in OV> 01/23/25 0835 DD/ 0757 TD/TT: 01/23/25 0805 Roustabout: Procedure Note Donotuseinterpreter, Image - 01/23/[address] [place] [address] [address] Scan Report Signed Patient: Sonu Castillo FMR#: [id number] : 1975Acct:[id number] Age/Sex: 49 / MADM Date: 01/23/25 Loc: HO.ED Attending Dr: Ordering Physician: Maria Elena Valladares NP Date of Service: 01/23/25 Procedure(s): CT lumbar spine wo IV con Accession Number(s): [id number] cc: Jason Corea MD; Maria Elena Valladares NP Report Number: [id number]: Total DLP = 661.00 mGy-cm Reason for Exam: severe pain s/p lumbar fusion 1 yr ago EXAMINATION: CT LUMBAR SPINE WITHOUT CONTRAST CLINICAL INFORMATION: Severe low back pain, status post fusion one year ago. COMPARISON: No prior CT. MR lumbar 09/05/2023. Lumbar radiographs 04/04/2024. TECHNIQUE: Spiral CT imaging of the lumbar spine performed in axial plane without contrast. Multiplanar reformatted images were constructed from the axial data set. This CT examination was performed using dose optimization techniques as appropriate, variously including the following: *Automated exposure control *Adjustment of mA and/or kV according to patient size (this includes techniques or standardized protocols for targeted exams where dose is matched to indication/reason for exam; i.e. extremities or head) *Use of iterative reconstruction technique FINDINGS: There is no scoliosis. There is a normal lordosis. There is no subluxation identified. There is no fracture, compression deformity, or suspicious bone lesion. Sagittal alignment is normal. There is a bone island in the L4 vertebral body. There has been fusion of L4-5 and L5-S1 with disc prostheses with oblique endplate anchors present . The hardware appears well seated, without gross evidence of migration or periprosthetic complication. No definite bony fusion through the L4-5 or L5-S1 disc spaces is evident although there has likely been bone grafting material placed within the prosthetic elements. There is no evidence of significant disc herniation, central canal, or subarticular recess stenosis at any level above the fusion. Minimal disc bulging is present posteriorly at L4-5 without any significant central canal or subarticular recess stenosis allowing for streak artifact present from the intervertebral hardware. Neural foramen are patent at L4-5. Mild posterior disc osteophytic ridge complex is present at L5-S1 without any significant central canal or subarticular recess stenosis allowing for streak artifact present from the intervertebral hardware. Mild neural foraminal narrowing is patent at L5-S1 bilaterally. No paravertebral or paraspinous soft tissue abnormality is evident. There is an incompletely imaged cyst arising from the posterior mid right kidney. The aorta is mild to moderately calcified but normal in caliber without aneurysm. The remainder the imaged retroperitoneal contents appear normal. CT/CT lumbar spine wo IV con IMPRESSION: 1. Fusion of L4-5 and L5-S1 without evidence of any bony or periprosthetic complication by CT. 2. No evidence of significant central canal, or subarticular recess stenosis at any level. Mild bilateral neural foraminal narrowing is present at L5-S1. Electronically signed by: Abdirahman Chandler MD 01/23/2025 08:35 AM EST Dictated By: Abdirahman Chandler MD Signed By: <Electronically signed by Abdirahman Chandler MD in OV> 01/23/25 0835 DD/ 0757 TD/TT: 01/23/25 0805 Roustabout: us [facility] External Provider IMG CT PROCEDURES Final Result * (ABNORMAL) Lipid Panel, Standard (12/31/2024 10:12 AM EST) Triglycerides 82 <150 mg/dL [facility] Comment:Desirable Triglyceri de: less than 150 mg/dLBorderline High Triglyceride 150-199 mg/dLHigh Triglyceride: 200-499 mg/dLVery High Triglyceride: greater than or equal to 5OO mg/dL Cholesterol 189 <200 mg/dL [facility] Comment:Desirable Cholestero l: less than 200 mg/dLBorderline High Cholesterol: 200-239 mg/dLHigh Cholesterol: greater than 239 mg/dL LDL Cholesterol Calculated 133(H) <100 mg/dL [facility] Comment:Desirable LDL: less than 100 mg/dLNear Optimal/Above Optimal LDL: 110- 129 mg/dLBorderline High LDL: 130-159 mg/dLHigh LDL: 160-189 mg/dLVery High LDL: greater than or equal to 190 mg/dL HDL Cholesterol 40(L) >40 mg/dL [facility] Comment:Desirable HDL: great er than 40 mg/dL Note: This HDL assay may give artificially low results in patients with liver disease. Blood Venous blood specimen / Unknown 12/31/2024 10:12 AM EST 12/31/2024 10:12 AM EST Jason Arnold MD LAB BLOOD ORDERABL ES Final Result [facility] [address] [place] [phone] [phone] * (ABNORMAL) Comprehensive Metabolic Panel (12/31/2024 10:12 AM EST) Sodium 140 135 - 145 mmol/L [facility] Potassium 4.9 3.3 - 5.1 mmol/L [facility] Chloride 105 96 - 108 mmol/L [facility] Carbon Dioxide 28 22 - 29 mmol/L [facility] Anion Gap 12 12 - 20 [facility] Urea Nitrogen (BUN) 13 9 - 16 mg/dL [facility] Creatinine, Serum 0.84 0.5 - 1.4 mg/dL [facility] Estimated Glomerular Filt Rate >60 [facility] Comment:Chronic Kidney Disea se: Estimated GFR < 60 mL/min/[id number] Kidney Disease: Estimated GFR < 15 mL/min/1.73m2 Glucose 118(H) 60 - 115 mg/dL [facility] Calcium 9.4 8.4 - 10.2 mg/dL [facility] Bilirubin, Total 0.4 0.0 - 1.0 mg/dL [facility] Aspartate Amino Transferase 28 5 - 37 U/L [facility] Alanine Aminotransferase 32 0 - 40 U/L [facility] Total Protein 7.2 6.5 - 8.0 g/dL [facility] Albumin Level 4.3 3.5 - 5.0 g/dL [facility] Alkaline Phosphatase 114 39 - 117 U/L [facility] Blood Venous blood specimen / Unknown 12/31/2024 10:12 AM EST 12/31/2024 10:12 AM EST us Jason Arnold MD LAB BLOOD ORDERABL ES Final Result [facility] [address] [place] [phone] * Hematoxylin and Eosin Stain (11/10/2024 10:54 AM EDT) 11/10/2024 10:5 4 AM EDT 11/10/2024 1:37 PM EDT Narrative [facility] - 11/14/2024 3:31 PM EDT ----- ------- Name: Sonu Castillo Age/Sex: 49/M : 1975 Unit#: [id number] Attend Dr: Rosa M Epstein MD Re11/10/24 Status: [facility] Location: [facility] Disch: ----- ------- SPEC : [id number] RECD: 11/10/24-5597 STATUS: ROWENA PHAN NUM: [id number] PATRICIO: 11/10/24-[address] [facility] [address]: Rosa M Epstein MD ENTERED: 11/10/24-5554 SP TYPE: Surgical OTHR DR: Jason Corea [...] microscopic examination, 2 pieces in cassette A. ([facility]) IHC S/NG Disclaimer NOTE: Unless otherwise stated, all tissue is formalin-fixed and paraffin-embedded. Some or all of the immunohistochemical tests reported herein may have been developed and their performance characteristics determined by [facility]. They have not been cleared or approved by the U.S. Food and Drug Administration (FDA). However, the FDA has determined that such clearance or approval is not necessary. This laboratory is certified under the Clinical Laboratory Improvement Amendments of 1988 (CLIA) as qualified to perform high complexity clinical laboratory testing. Copies To: Jason Corea MD [address] [address] CONTINUED ON NEXT PAGE ----- ------- Name: Sonu Castillo Age/Sex: 49/M : 1975 Unit#: [id number] Attend Dr: Rosa M Epstein MD Re11/10/24 Status: [facility] Location: [facility] Disch: ----- ------- SPEC : [id number] RECD: 11/10/24 STATUS: ROWENA PHAN NUM: [id number] PATRICIO: 11/10/[address] [facility] DR: Rosa M Epstein MD ENTERED: 11/10/24-3233 SP TYPE: Surgical OTHR DR: Jason Corea MD ORDERED: HE Stain/3, Gross Micro L4 Copies To: (Continued) Rosa M Epstein MD [facility] [address] [place] [address] [phone] [email or web address] Media ----- ------- Signed (signature on file) Dave Cervantes MD 11/14/24 1531 ----- ------- END OF REPORT us Generic External Data Provider LAB BLOOD ORDERAB LES Final Result Performing Organization Address [facility] Co de Phone Number [facility] [address] [place] [phone] * Hepatitis C Antibody with Reflex to HCV, RNA, Quantitative, Real-Time PCR (03/25/2024 9:32 AM EST) Hepatitis C Antibody Nonreactive Nonreactive [facility] Comment:Antibodies to HCV no t detected; does not exclude early acuteHCV infection. Blood Venous blood specimen / Unknown 03/25/2024 9:32 AM EST 03/25/2024 2:12 PM EST us Jason Arnold MD LAB BLOOD ORDERABL ES Final Result Performing Organization Address [facility] Co de Phone Number [facility] [address] [place] [address] [phone] * HIV-1/2 Antigen and Antibodies, Fourth Generation, with Reflexes (03/25/2024 9:32 AM EST) HIV AB/AG Nonreactive Nonreactive [facility] Comment:HIV-1 p24 Ag and/or HIV-1/HIV-2 Ab not detected.A test result that is nonreactive does not exclude thepossibility of exposure to or infection with HIV-1 and/orHIV-2. Nonreactive results in this assay for individualswith prior exposure to HIV-1 and/or HIV-2 may be due toantigen and antibody levels that are below the limit ofdetection of this assay.The [employer] HIV Ag/Ab Combo assay result andsupplemental assay results should be interpreted inconjunction with the patient's clinical presentation,history and other laboratory results. If the results areinconsistent with clinical evidence, additional testing issuggested to confirm the result. Blood Venous blood specimen / Unknown 03/25/2024 9:32 AM EST 03/25/2024 2:12 PM EST Jason Arnold MD LAB BLOOD ORDERABL ES Final Result Performing Organization Address [facility] Co de Phone Number [facility] [address] [place] [phone] * Hemoglobin A1c (03/25/2024 9:32 AM EST) Hemoglobin A1c 5.8 <6.0 % [facility] Comment:Hemoglobin A1C Refer ence Range Adults: 4.8 - 6.0 % Non diabetic: < 6.0 % Goal: < 7.0 %Additional Action Suggested: > 8.0 %Note: Hemoglobin A1c results are invalid for patients with abnormal amounts of HbF. Blood transfusions may impact the HbA1c concentration in the patient sample. Estimated Average Glucose 120 mg/dL [facility] Comment:eAG = Estimated ave rage glucose which is %A1C expressed asaverage glucose, using the formula of the Y7O-LqrqsfkQldjcse Glucose study (ADAG), Diabetes Care, Vol.31,#8,Sep. 2007 Blood Venous blood specimen / Unknown 03/25/2024 9:32 AM EST 03/25/2024 1:55 PM EST Jason Arnold MD LAB BLOOD ORDERABL ES Final Result Performing Organization Address [facility] Co de Phone Number [facility] [address] [place] [phone] from Last 3 Months or Most Recently Relevant to Health Maintenance Insurance [facility] HMO Care Teams Home Demonstration Agent Relationship Specialty Start Date End Date Jason Corea MD [address] [place] [address] PCP - General Internal Medicine 12/29/23
--- OUTSIDE RECORDS SUMMARY | 2025-01-25 21:06 | XMS_ITS | Encounter Summary ---
Author Organization [employer] [facility] Prior to 12/11/2023 Address [address] [place] [address] Care Team Providers Care Physician Neonatology Name Role Phone Janae Guillermo MD Primary Care Provider Ramos cortez Encounter Details Date Type Department Care Team Description 12/15/2019 Refill Adult Medicine [address] [address] Janae Guillermo MD Social History Tobacco Use [...] will bring the proof into the office. [id number] FYI *PT is also asking to speak with the Outboard Technician of the practice when he arrives. * Telephone Encounter - Janae Guillermo - 12/16/2019 2:04 PM EST Script printed. * Telephone Encounter - Lacie Ellington M.A. - 12/16/2019 9:09 AM EST I called pt,Virginie Boogie MA was my witness and documentating the conversation, asked him if he is able to come into the office with proof that he was out of the area 11/30/19 when we had calledto request a pill count. Pt advises he is [place] miles away , out of state ,and will not be back in [place] until tonight. 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
--- OUTSIDE RECORDS SUMMARY | 2025-01-25 21:06 | XMS_ITS | Encounter Summary ---
Author Organization [employer] [facility] Prior to 12/11/2023 Address [address] [place] [address] Care Team Providers Care Sheet Ironworker Name Role Phone Janae Guillermo MD Primary Care Provider Ramos cortez Reason for Visit * Reason Comments E-prescribe Rx Request Encounter Details Date Type Department Care Team Description 08/07/2015 Refill Adult Medicine [facility] [address] [place] [phone] Tommy Joe PA-C [address] [place] [address] [phone] E-prescribe Rx Request Social History Tobacco Use [...] an upcoming appointment? No-unable to reach left [facility] to call for appointment due to refill request. Appt due (THE MEDICATION REQUESTED IS ON THE MED LIST ABOVE) All of the medications requested were on the CURRENT MEDS list Did you check the Pharmacy information above?: YES Patient wants: 30 -day supply Is this a mail order prescription request ? NO Patients current insurance carrier is: Payor: [email or web address] FFS / Plan: [employer] CARE PLUS PLAN / Product Type: MEDICAID RISK documented in this encounter Plan of Treatment Not on file documented as of this encounter Visit Diagnoses Not on filedocumented in this encounter Care Teams Sheet Ironworker Relationship Specialty Start Date End Date Janae Guillermo MD PCP - General Internal Medicine 10/17/14 documented as of this encounter
--- OUTSIDE RECORDS SUMMARY | 2025-01-25 21:06 | XMS_ITS | Encounter Summary ---
Author Organization [employer] [facility] Prior to 12/11/2023 Address [address] [place] [address] Care Team Providers Care Target Aircraft Technician Name Role Phone Janae Guillermo MD Primary Care Provider Ramos cortez Reason for Visit * Reason Onset Date Comments Mychart Rx Refill 09/24/2018 Encounter Details Date Type Department Care Team Description 09/24/2018 Refill Adult Medicine [facility] [address] [place] [phone] Tommy Joe PA-C [address] [place] [phone] Mychart Rx Refill Social History Tobacco Use [...] Telephone Encounter - Virginie Boogie M.A. - 09/24/2018 3:20 PM EDT RX printed and placed in PPU, Masspat reviewed by this day. * Telephone Encounter - Virginie Boogie M.A. - 09/24/2018 1:54 PM EDT Last refill 08-27-18 Controlled substance contract and last issue date of medication reviewed. Patient is due for medication. Masspat printed for review and placed in provider bin. Lab Results Component Value Date URBENZO NONE DETECTED 06/17/2018 UROPIATES NONE DETECTED 06/17/2018 URBARBITUATE NONE DETECTED 06/17/2018 PAINAMPHETAM NONE DETECTED 06/17/2018 URAMPHETAMIN NONE DETECTED 08/18/2017 PAINCOCAINE NONE DETECTED 06/17/2018 URCOCAINE NONE DETECTED 08/18/2017 PAINCANNABIN NONE DETECTED 06/17/2018 URMARIJUANA NONE DETECTED 08/18/2017 * Telephone Encounter - Lacie Ellington M.A. - 09/24/2018 1:23 PM EDTFrom: Sonu Castillo To: Tommy Joe PA-C Sent: 09/24/2018 12:38 PM EDT Subject: Medication Renewal Request Original authorizing provider: GALDINO Savage would like a refill of the following medications: tramadol (ULTRAM) 50 MG tablet [Tommy Joe PA-C] Preferred pharmacy: [facility] [address] [place] [address] AT [facility] Comment: documented in this encounter Plan of Treatment Not on file documented as of this encounter Visit Diagnoses Not on filedocumented in this encounter Care Teams Target Aircraft Technician Relationship Specialty Start Date End Date Janae Guillermo MD PCP - General Internal Medicine 10/17/14 documented as of this encounter
--- OUTSIDE RECORDS SUMMARY | 2025-01-25 21:06 | XMS_ITS | Encounter Summary ---
Author Organization [facility] Prior to 12/11/2023 Address [address] [place] [address] Care Team Providers Care Cable Television Access Coordinator Name Role Phone Janae Guillermo MD Primary Care Provider Ramos cortez Reason for Visit * Reason Comments E-prescribe Rx Request Encounter Details Date Type Department Care Team Description 06/24/2016 Refill Adult Medicine [address] [address] Trang Cavazos APRN E-prescribe Rx Request Social History Tobacco Use Types Packs/Day Years Used Date Smoking Tobacco: Every Day Cigarettes 0.5 25 Smokeless Tobacco: Never Alcohol Use Standard Drinks/Week Comments Yes 0 (1 standard drink = 0.6 oz pure alcohol) 3 x/year beer, mixed drink, or wine Sex Assigned at Date Recorded Not on file documented as of this encounter Miscellaneous Notes * Telephone Encounter - Kacie Reyes - 06/24/2016 10:07 AM EDT Patient would like script to be: E-PRESCRIBED/FAXED TO PHARMACY WHEN WAS THE PATIENT'S LAST APPOINTMENT IN ADULT MEDICINE? 06/18/16 WHEN WAS THE LAST TIME THE PATIENT SAW THEIR PCP? Same as above Does patient have an upcoming appointment? Yes 12/25/16 (THE MEDICATION REQUESTED IS ON THE MED LIST ABOVE) All of the medications requested were on the CURRENT MEDS list Did you check the Pharmacy information above?: YES Patient wants: 90 -day supply Is this a mail order prescription request ? NO Patients current insurance carrier is: Payor: [employer] FFS / Plan: [employer] PLAN / Product Type: MEDICAID RISK documented in this encounter Plan of Treatment Not on file documented as of this encounter Visit Diagnoses Not on filedocumented in this encounter Care Teams Cable Television Access Coordinator Relationship Specialty Start Date End Date Janae Guillermo MD PCP - General Internal Medicine 10/17/14 documented as of this encounter
--- OUTSIDE RECORDS SUMMARY | 2025-01-25 21:06 | XMS_ITS | Clinical Summary ---
Author [facility] Address [address] [place] [address] Care Team Providers Care Dry Cell Assembly Supervisor Name Role Phone Janae Guillermo MD Primary Care Provider [phone] Surgical History Surgery Date Site/Laterality Comments KNEE [...] age to complete this topic Care Teams Dry Cell Assembly Supervisor Relationship Specialty Start Date End Date Janae Guillermo MD [address] [place] [address] PCP - General Internal Medicine 10/17/14
--- OUTSIDE RECORDS SUMMARY | 2025-01-25 21:06 | XMS_ITS | Encounter Summary ---
Author Organization [employer] [facility] Prior to 12/11/2023 Address [address] [place] [address] Care Team Providers Care Servicing Manager Name Role Phone Janae Guillermo MD Primary Care Provider Ramos cortez Reason for Visit * Reason Onset Date Comments Mychart Rx Refill 04/12/2015 Encounter Details Date Type Department Care Team Description 04/12/2015 Refill Adult Medicine [address] [address] Janae Guillermo MD Mychart Rx Refill Social [...] MG tablet [Janae Guillermo MD] Preferred pharmacy: [facility][id number] - [place] [id number] [facility] Comment: I have enough of the prescription [...] on filedocumented in this encounter Care Teams Servicing Manager Relationship Specialty Start Date End Date Janae Guillermo MD PCP - General Internal Medicine 10/17/14 documented as of this encounter
--- OUTSIDE RECORDS SUMMARY | 2025-01-25 21:06 | XMS_ITS | Encounter Summary ---
Author Organization [facility] Prior to 12/11/2023 Address [address] [place] [address] Care Team Providers Care Refrigeration Service Inspector Name Role Phone Janae Guillermo MD Primary Care Provider Ramos cortez Encounter Details Date Type Department Care Team Description 11/05/2015 Refill Adult Medicine [address] [address] Juanita Mccarthy PA-C [address] [place] [address] Social History Tobacco Use Types Packs/Day Years [...] Subject: Medication Renewal Request Original authorizing provider: Juanita Mccarthy PA-C Sonu Castillo would like a refill of the following medications: tramadol (ULTRAM) 50 MG tablet [Juanita Mccarthy PA-C] Preferred pharmacy: [facility][id number] - [place] [address] [facility] Comment: documented in this encounter Plan of Treatment Not on file documented as of this encounter Visit Diagnoses Not on filedocumented in this encounter Care Teams Refrigeration Service Inspector Relationship Specialty Start Date End Date Janae Guillermo MD PCP - General Internal Medicine 10/17/14 documented as of this encounter
--- OUTSIDE RECORDS SUMMARY | 2025-01-25 21:06 | XMS_ITS | Clinical Summary ---
Author Organization [facility] Facility Address [address] [place] [address] Care Team Providers Care Manager Msw Name Role Phone Antonette Grullon Primary Care [...] On Topamax, seeing Dr. Abreu, neurology at [place] Arthritis of left knee 06/28/2014 Arthritis of [...] Vaccine (#1) 2024 0, 12/20/2015, 10/23/2014 Insurance [facility] [place] [phone] Medicaid [place] Care Teams Manager Msw Relationship Specialty Start Date End Date Antonette Grullon [address] [place] [phone] PCP - General 11/03/23
--- OUTSIDE RECORDS SUMMARY | 2025-01-25 21:06 | XMS_ITS | Encounter Summary ---
Author Organization [employer] Address [address] [facility] 7t [place] [address] Care Team Providers Care Algorithm Design Engineer Name Role Phone Jason Corea MD Primary Care Prov ider Encounter Details Date Type Department Care Team (Late st Contact Info) Description 03/25/2024 Orders Only [facility] [address] [place], [place] [phone] Jason Corea MD [address] [place] [address] Elevated blood pressure reading (Primary Dx) Social [...] AM EST Narrative 04/06/2024 10:55 AM EST [facility] [address] [place] [address] XRay Report Signed Patient: Sonu Castillo MR#: [id number] : 1975 Acct:[id number] Age/Sex: 49 / M ADM Date: 04/04/24 Loc: HO.HOSX Attending Dr: Tommy MARTINEZ Ordering Physician: Tommy Rucker Date of Service: 04/04/24 Procedure(s): XR lumbar spine 4V min Accession Number(s): [id number] cc: Tommy Rucker; Antonette Padilla MD CLINICAL [...] 04/06/24 1055 DD/ 1055 TD/TT: 04/06/24 1055 Tattoo And Body Artist: Procedure Note Donotuseinterpreter, Image - 04/06/2024 [facility] [address] [place] [address] XRay Report Signed Patient: Sonu Castillo FMR#: [id number] : 1975Acct:[id number] Age/Sex: 49 / MADM Date: 04/04/24 Loc: HO.HOSX Attending Dr: Tommy MARTINEZ Ordering Physician: Tommy Rucker Date of Service: 04/04/24 Procedure(s): XR lumbar spine 4V min Accession Number(s): [id number] cc: Tommy Rucker; Antonette Padilla MD CLINICAL [...] 04/06/24 1055 DD/ 1055 TD/TT: 04/06/24 1055 Tattoo And Body Artist: [facility] External Provider IMG XR PROCEDURES Final Result * Hepatitis C Antibody with Reflex to HCV, RNA, Quantitative, Real-Time PCR (03/25/2024 9:32 AM EST) Hepatitis C Antibody Nonreactive Nonreactive [facility] Comment:Antibodies to HCV no t detected; does not exclude early acuteHCV infection. Blood Venous blood specimen / Unknown 03/25/2024 9:32 AM EST 03/25/2024 2:12 PM EST Jason Arnold MD LAB BLOOD ORDERABL ES Final Result [facility] [address] [place] [phone] * HIV-1/2 Antigen and Antibodies, Fourth Generation, with Reflexes (03/25/2024 9:32 AM EST) HIV AB/AG Nonreactive Nonreactive [facility] Comment:HIV-1 p24 Ag and/or HIV-1/HIV-2 Ab not detected.A test result that is nonreactive does not exclude thepossibility of exposure to or infection with HIV-1 and/orHIV-2. Nonreactive results in this assay for individualswith prior exposure to HIV-1 and/or HIV-2 may be due toantigen and antibody levels that are below the limit ofdetection of this assay.The [employer] HIV Ag/Ab Combo assay result andsupplemental assay results should be interpreted inconjunction with the patient's clinical presentation,history and other laboratory results. If the results areinconsistent with clinical evidence, additional testing issuggested to confirm the result. Blood Venous blood specimen / Unknown 03/25/2024 9:32 AM EST 03/25/2024 2:12 PM EST us Jason Arnold MD LAB BLOOD ORDERABL ES Final Result [facility] [address] [place] [phone] * Hemoglobin A1c (03/25/2024 9:32 AM EST) Hemoglobin A1c 5.8 <6.0 % [facility] Comment:Hemoglobin A1C Refer ence Range Adults: 4.8 - 6.0 % Non diabetic: < 6.0 % Goal: < 7.0 %Additional Action Suggested: > 8.0 %Note: Hemoglobin A1c results are invalid for patients with abnormal amounts of HbF. Blood transfusions may impact the HbA1c concentration in the patient sample. Estimated Average Glucose 120 mg/dL [facility] Comment:eAG = Estimated ave rage glucose which is %A1C expressed asaverage glucose, using the formula of the V7R-TkwpyghOfbzdds Glucose study (ADAG), Diabetes Care, Vol.31,#8,Sep. 2008 Blood Venous blood specimen / Unknown 03/25/2024 9:32 AM EST 03/25/2024 1:55 PM EST us Jason Arnold MD LAB BLOOD ORDERABL ES Final Result Performing Organization Address [facility] Co de Phone Number [facility] [address] [place] [phone] * TSH W/Reflex to FT4 (03/25/2024 9:32 AM EST) TSH reflex Free T4 0.60 0.32 - 4.0 uIU/mL [facility] Blood Venous blood specimen / Unknown 03/25/2024 9:32 AM EST 03/25/2024 2:12 PM EST us Jason Arnold MD LAB BLOOD ORDERABL ES Final Result Performing Organization Address [facility] Co de Phone Number [facility] [address] [place] [phone] * (ABNORMAL) Lipid Panel, Standard (03/25/2024 9:32 AM EST) Triglycerides 58 <150 mg/dL [facility] Comment:Desirable Triglyceri de: less than 150 mg/dLBorderline High Triglyceride 150-199 mg/dLHigh Triglyceride: 200-499 mg/dLVery High Triglyceride: greater than or equal to 5OO mg/dL Cholesterol 166 <200 mg/dL [facility] Comment:Desirable Cholestero l: less than 200 mg/dLBorderline High Cholesterol: 200-239 mg/dLHigh Cholesterol: greater than 239 mg/dL LDL Cholesterol Calculated 109(H) <100 mg/dL [facility] Comment:Desirable LDL: less than 100 mg/dLNear Optimal/Above Optimal LDL: 110- 129 mg/dLBorderline High LDL: 130-159 mg/dLHigh LDL: 160-189 mg/dLVery High LDL: greater than or equal to 190 mg/dL HDL Cholesterol 46 >40 mg/dL [facility] Comment:Desirable HDL: great er than 40 mg/dL Note: This HDL assay may give artificially low results in patients with liver disease. Blood Venous blood specimen / Unknown 03/25/2024 9:32 AM EST 03/25/2024 2:12 PM EST us Jason Arnold MD LAB BLOOD ORDERABL ES Final Result [facility] [address] [place] [phone] * Comprehensive Metabolic Panel (03/25/2024 9:32 AM EST) Sodium 138 135 - 145 mmol/L [facility] Potassium 4.3 3.3 - 5.1 mmol/L [facility] Chloride 105 96 - 108 mmol/L [facility] Carbon Dioxide 25 22 - 29 mmol/L [facility] Anion Gap 12 12 - 20 [facility] Urea Nitrogen (BUN) 13 9 - 16 mg/dL [facility] Creatinine, Serum 0.80 0.5 - 1.4 mg/dL [facility] Estimated Glomerular Filt Rate >60 [facility] Comment:Chronic Kidney Disea se: Estimated GFR < 60 mL/min/1.01c8Vezkce Kidney Disease: Estimated GFR < 15 mL/min/1.73m2 Glucose 76 60 - 115 mg/dL [facility] Calcium 9.2 8.4 - 10.2 mg/dL [facility] Bilirubin, Total 0.2 0.0 - 1.0 mg/dL [facility] Aspartate Amino Transferase 28 5 - 37 U/L [facility] Alanine Aminotransferase 27 0 - 40 U/L [facility] Total Protein 7.2 6.5 - 8.0 g/dL [facility] Albumin Level 4.0 3.5 - 5.0 g/dL [facility] Alkaline Phosphatase 111 39 - 117 U/L [facility] Blood Venous blood specimen / Unknown 03/25/2024 9:32 AM EST 03/25/2024 2:12 PM EST us Jaosn Arnold MD LAB BLOOD ORDERABL ES Final Result [facility] [address] [place] [phone] * (ABNORMAL) CBC auto differential (03/25/2024 9:32 AM EST) White Blood Count 12.7(H) 4.8 - 10.8 X10*3/uL [facility] Red Blood Count 5.03 4.60 - 5.80 X10*6/uL [facility] Hemoglobin 14.5 14.0 - 18.0 g/dl [facility] Hematocrit 43.1 42.0 - 52.0 % [facility] Mean Corpuscular Volume 85.7 80.0 - 98.0 fL [facility] Mean Corpuscular Hemoglobin 28.8 27.0 - 33.0 pg [facility] Mean Corpuscular HGB Conc 33.6 31.0 - 36.0 g/dl [facility] Red Cell Distribution Width 14.9 11.0 - 16.0 % [facility] Platelet Count 336 160 - 400 X10*3/uL [facility] Mean Platelet Volume 9.8 9.4 - 12.4 fL [facility] Neutrophils Percent Auto 62.0 45 - 73 % [facility] Imm Gran Pct Auto 0.3 0.0 - 0.4 % [facility] Lymphocytes Percent Auto 28.0 20 - 40 % [facility] Monocytes Percent Auto 7.7 2 - 11 % [facility] Eosinophils Percent Auto 1.4 0 - 4 % [facility] Basophils Percent Auto 0.6 0 - 2 % [facility] NRBC Pct Auto 0.0 0.0 - 0.2 /100WBC [facility] Neutrophils Absolute Auto 7.9 2.0 - 8.3 x10*3/uL [facility] Imm Gran Abs Auto 0.04(H) 0.00 - 0.03 X10*3/uL [facility] Lymphocytes Absolute Auto 3.5 1.2 - 4.9 X10*3/uL [facility] Monocytes Absolute Auto 1.0 0.1 - 1.2 X10*3/uL [facility] Eosinophils Absolute Auto 0.2 0.0 - 0.4 X10*3/uL [facility] Basophils Absolute Auto 0.1 0.0 - 0.2 X10*3/uL [facility] NRBC Abs Auto 0.000 0.0 - 0.012 X10*3/uL [facility] Blood Venous blood specimen / Unknown 03/25/2024 9:32 AM EST 03/25/2024 1:55 PM EST us Jason Arnold MD LAB BLOOD ORDERABL ES Final Result [facility] [address] [place] [phone] documented in this encounter Visit Diagnoses Diagnosis Elevated blood pressure reading- Primary Elevated blood pressure reading without diagnosis of hypertension documented in this encounter Additional Health Concerns Assessment Noted Time PHQ-9 Depression Total Score: 3 03/24/19 25 11:02 AM EST documented as of this encounter Care Teams Algorithm Design Engineer Relationship Specialty Start Date End Date Jason Corea MD [address] [place] [phone] PCP - General Internal Medicine 12/29/23 documented as of this encounter
--- OUTSIDE RECORDS SUMMARY | 2025-01-25 21:06 | XMS_ITS | Encounter Summary ---
Author Organization [employer] [facility] Prior to 12/11/2023 Address [address] [place] [address] Care Team Providers Care Credit Portfolio Manager Name Role Phone Janae Guillermo MD Primary Care Provider Ramos cortez Encounter Details Date Type Department Care Team Description 09/12/2019 Telephone Adult Medicine [address] [phone] Janae Guillermo MD Social History Tobacco Use [...] in violation * Telephone Encounter - Sarahy Sancehz Thomas - 09/12/2019 9:23 AM EDT Spoke with patient to arrange a time for him to come in for a pill count. 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 Patient was again encouraged to complete [id number] hours. Patient continues to state he feels [...] on filedocumented in this encounter Care Teams Credit Portfolio Manager Relationship Specialty Start Date End Date Janae Guillermo MD PCP - General Internal Medicine 10/17/14 documented as of this encounter
--- OUTSIDE RECORDS SUMMARY | 2025-01-25 21:06 | XMS_ITS | Encounter Summary ---
Author Organization [facility] Prior to 12/11/2023 Address [address] [place] [address] Care Team Providers Care Vp Publisher Development Name Role Phone Janae Guillermo MD Primary Care Provider Ramos cortez Encounter Details Date Type Department Care Team Description 10/09/2015 Pt. Non Urgent Medic al Question Adult Medicine [address] [address] Janae Guillermo MD Social History Tobacco Use [...] on filedocumented in this encounter Care Teams Vp Publisher Development Relationship Specialty Start Date End Date Janae Guillermo MD PCP - General Internal Medicine 10/17/14 documented as of this encounter
--- OUTSIDE RECORDS SUMMARY | 2025-01-25 21:06 | XMS_ITS | Encounter Summary ---
Author Organization [employer] [facility] Prior to 12/11/2023 Address [address] [place] [address] Care Team Providers Care Traffic And Transport Planner Name Role Phone Janae Guillermo MD Primary Care Provider Ramos cortez Encounter Details Date Type Department Care Team Description 09/29/2018 [facility] Medical Records [address] [place] [address] Abstract, Provider Social History Tobacco Use Types [...] on filedocumented in this encounter Care Teams Traffic And Transport Planner Relationship Specialty Start Date End Date Janae Guillermo MD PCP - General Internal Medicine 10/17/14 documented as of this encounter
--- OUTSIDE RECORDS SUMMARY | 2025-01-25 21:06 | XMS_ITS | Encounter Summary ---
Author Organization [employer] [employer] [facility] Prior to 12/11/2023 Address [address] [place] [address] Care Team Providers Care Carpenter Supervisor Name Role Phone Janae Guillermo MD Primary Care Provider Ramos cortez Encounter Details Date Type Department Care Team Description 02/16/2018 Software Applications Architect Report Medical Records [address] [place] [address] Oliver Laguna MD Social History Tobacco Use [...] on filedocumented in this encounter Care Teams Carpenter Supervisor Relationship Specialty Start Date End Date Janae Guillermo MD PCP - General Internal Medicine 10/17/14 documented as of this encounter
--- OUTSIDE RECORDS SUMMARY | 2025-01-25 21:06 | XMS_ITS | Encounter Summary ---
Author Organization [employer] Prior to 12/11/2023 Address [address] [place] [address] Care Team Providers Care Sewing Department Supervisor Name Role Phone Janae Guillermo MD Primary Care Provider Ramos cortez Encounter Details Date Type Department Care Team Description 04/16/2017 [employer] Autom[employer] Design Report Medical Records [address] [place] [address] Oliver Laguna MD Social History Tobacco Use [...] on filedocumented in this encounter Care Teams Sewing Department Supervisor Relationship Specialty Start Date End Date Janae Guillermo MD PCP - General Internal Medicine 10/17/14 documented as of this encounter
--- OUTSIDE RECORDS SUMMARY | 2025-01-25 21:06 | XMS_ITS | Encounter Summary ---
Author Organization [employer] [facility] Prior to 12/11/2023 Address [address] [place] [address] Care Team Providers Care Outbound Sales Executive Name Role Phone Janae Guillermo MD Primary Care Provider Ramos cortez Encounter Details Date Type Department Care Team Description 04/02/2016 [facility] Medical Records [address] [place] [address] Abstract, Provider Social History Tobacco Use Types [...] on filedocumented in this encounter Care Teams Outbound Sales Executive Relationship Specialty Start Date End Date Janae Guillermo MD PCP - General Internal Medicine 10/17/14 documented as of this encounter
--- OUTSIDE RECORDS SUMMARY | 2025-01-25 21:06 | XMS_ITS | Encounter Summary ---
Author Organization [employer] Address [address] [facility] 7t [place] [address] Care Team Providers Care Nurse Educator Name Role Phone Jason Corea MD Primary Care Prov ider Encounter Details Date Type Department Care Team (Late st Contact Info) Description 01/23/2025 Orders Only [facility] External Provider, [facility] Social History Tobacco Use Types Packs/Day [...] is your housing situation today? I have duyenbrendan rice 12/29/[address] you [...] WO CONTRAST Routine 01/23/2025 7:57 AM EST documented in this encounter Results * CT Lumbar Spine w/o Contrast (01/23/2025 7:57 AM EST) Anatomical Region Laterality Modality Spine, L-spine Computed Tomogra phy 01/23/2025 7:57 AM EST Narrative 01/23/2025 8:37 AM EST [place] [address] CT Scan Report Signed Patient: Sonu Castillo MR#: [id number] : 1975 Acct:[id number] Age/Sex: 49 / M ADM Date: 01/23/25 Loc: .ED Attending Dr: Ordering Physician: Maria Elena Valladares NP Date of Service: 01/23/25 Procedure(s): CT lumbar spine wo IV con Accession Number(s): [id number] cc: Jason Corea MD; Maria Elena Valladares NP Report Number: [id number]: Total DLP = 661.00 mGy-cm Reason for [...] 01/23/25 0835 DD/ 0757 TD/TT: 01/23/25 0805 Skein Dyer: Procedure Note Donotuseinterpreter, Image - 01/23/[address] [address] [address] Scan Report Signed Patient: Sonu Castillo FMR#: [id number] : 1975Acct:[id number] Age/Sex: 49 / MADM Date: 01/23/25 Loc: HO.ED Attending Dr: Ordering Physician: Maria Elena Valladares NP Date of Service: 01/23/25 Procedure(s): CT lumbar spine wo IV con Accession Number(s): [id number] cc: Jason Corea MD; Maria Elena Valladares NP Report Number: [id number]: Total DLP = 661.00 mGy-cm Reason for [...] 01/23/25 0835 DD/ 0757 TD/TT: 01/23/25 0805 Skein Dyer: [facility] External Provider IMG CT PROCEDURES Final Result documented in this encounter Visit Diagnoses Not on filedocumented in this encounter Additional Health Concerns Assessment Noted Time PHQ-9 Depression Total Score: 3 03/24/19 25 11:02 AM EST documented as of this encounter Care Teams Nurse Educator Relationship Specialty Start Date End Date Jason Corea MD [address] [place] [phone] PCP - General Internal Medicine 12/29/23 documented as of this encounter
--- OUTSIDE RECORDS SUMMARY | 2025-01-25 21:06 | XMS_ITS | Encounter Summary ---
Author Organization [facility] [employer] [facility] Prior to 12/11/2023 Address [address] [place] [address] Care Team Providers Care Propeller Engineer Name Role Phone Janae Guillermo MD Primary Care Provider Ramos cortez Encounter Details Date Type Department Care Team Description 08/17/2017 Trade Clerk Report Medical Records [address] [place] [address] Oliver Laguna MD Social History Tobacco Use [...] on filedocumented in this encounter Care Teams Propeller Engineer Relationship Specialty Start Date End Date Janae Guillermo MD PCP - General Internal Medicine 10/17/14 documented as of this encounter
--- OUTSIDE RECORDS SUMMARY | 2025-01-25 21:07 | XMS_ITS | Encounter Summary ---
Author Organization [employer] [facility] Prior to 12/11/2023 Address [address] [place] [address] Care Team Providers Care Client Care Coordinator Name Role Phone Janae Guillermo MD Primary Care Provider Ramos cortez Encounter Details Date Type Department Care Team Description 09/29/2016 Release of Information Medical Records [address] [place] [address] Abstract, Provider Social History Tobacco Use Types [...] on filedocumented in this encounter Care Teams Client Care Coordinator Relationship Specialty Start Date End Date Janae Guillermo MD PCP - General Internal Medicine 10/17/14 documented as of this encounter
--- OUTSIDE RECORDS SUMMARY | 2025-01-25 21:07 | XMS_ITS | Encounter Summary ---
Author Organization [employer] Prior to 12/11/2023 Address [address] [place] [address] Care Team Providers Care Safety Scientist Name Role Phone Janae Guillermo MD Primary Care Provider Ramos cortez Encounter Details Date Type Department Care Team Description 09/23/2016 [facility] Medical Records [address] [place] [address] Abstract, Provider Social History Tobacco Use Types [...] on filedocumented in this encounter Care Teams Safety Scientist Relationship Specialty Start Date End Date Janae Guillermo MD PCP - General Internal Medicine 10/17/14 documented as of this encounter
--- OUTSIDE RECORDS SUMMARY | 2025-01-25 21:07 | XMS_ITS | Encounter Summary ---
Author Organization [employer] [employer] [facility] Prior to 12/11/2023 Address [address] [place] [address] Care Team Providers Care Fitter Mechanic Name Role Phone Janae Guillermo MD Primary Care Provider Ramos cortez Encounter Details Date Type Department Care Team Description 10/19/2014 All Round Butcher Report Medical Records [address] [place] [address] Cata Will PA-C [address] [place] [phone] Social History Tobacco Use Types Packs/Day Years [...] on filedocumented in this encounter Care Teams Fitter Mechanic Relationship Specialty Start Date End Date Janae Guillermo MD PCP - General Internal Medicine 10/17/14 documented as of this encounter
--- OUTSIDE RECORDS SUMMARY | 2025-01-25 21:07 | XMS_ITS | Encounter Summary ---
Author Organization [employer] [facility] Prior to 12/11/2023 Address [address] [place] [address] Care Team Providers Care Hedge Fund Principal Name Role Phone Janae Guillermo MD Primary Care Provider Ramos cortez Reason for Visit * Reason Comments E-prescribe Rx Request Encounter Details Date Type Department Care Team Description 01/19/2017 Refill Adult Medicine [address] [address] Janae Guillermo MD E-prescribe Rx Request Social [...] NO Patients current insurance carrier is: Payor: [employer] FFS / Plan: geolad PLUS PLAN / Product Type: MEDICAID RISK documented in this encounter Plan of Treatment Not on file documented as of this encounter Visit Diagnoses Not on filedocumented in this encounter Care Teams Hedge Fund Principal Relationship Specialty Start Date End Date Janae Guillermo MD PCP - General Internal Medicine 10/17/14 documented as of this encounter
--- OUTSIDE RECORDS SUMMARY | 2025-01-25 21:07 | XMS_ITS | Encounter Summary ---
Author Organization [employer] [facility] Prior to 12/11/2023 Address [address] [place] [address] Care Team Providers Care Pole Peeler Name Role Phone Janae Guillermo MD Primary Care Provider Ramos cortez Reason for Visit * Reason Comments E-prescribe Rx Request Encounter Details Date Type Department Care Team Description 02/17/2017 Refill Adult Medicine [address] [address] Janae Guillermo MD E-prescribe Rx Request Social [...] Miscellaneous Notes * Telephone Encounter - Nelly Nate - 02/17/2017 9:18 AM EST Patient would [...] NO Patients current insurance carrier is: Payor: [employer] FFS / Plan: [employer] PLUS PLAN / Product Type: MEDICAID RISK documented in this encounter Plan of Treatment Not on file documented as of this encounter Visit Diagnoses Not on filedocumented in this encounter Care Teams Pole Peeler Relationship Specialty Start Date End Date Janae Guillermo MD PCP - General Internal Medicine 10/17/14 documented as of this encounter
--- OUTSIDE RECORDS SUMMARY | 2025-01-25 21:07 | XMS_ITS | Encounter Summary ---
Author Organization [facility] Prior to 12/11/2023 Address [address] [place] [address] Care Team Providers Care Anthropologist Physical Name Role Phone Janae Guillermo MD Primary Care Provider Ramos cortez Reason for Visit * Reason Comments E-prescribe Rx Request Encounter Details Date Type Department Care Team Description 08/21/2020 Refill Adult Medicine [address] [address] Janae Guillermo MD E-prescribe Rx Request Social [...] THE PATIENT'S LAST APPOINTMENT IN ADULT MEDICINE? [id number] WHEN WAS THE LAST TIME THE PATIENT SAW THEIR PCP? Same as above Does patient have an upcoming appointment? Yes [id number] (THE MEDICATION REQUESTED IS ON THE MED [...] N/A Patients current insurance carrier is: Payor: [employer] FFS / Plan: [employer] [facility] / Product Type: MEDICAID RISK documented in this encounter Plan of Treatment Not on file documented as of this encounter Visit Diagnoses Not on filedocumented in this encounter Care Teams Anthropologist Physical Relationship Specialty Start Date End Date Janae Guillermo MD PCP - General Internal Medicine 10/17/14 documented as of this encounter
--- OUTSIDE RECORDS SUMMARY | 2025-01-25 21:07 | XMS_ITS | Encounter Summary ---
Author Organization [facility] [employer] [facility] Prior to 12/11/2023 Address [address] [place] [address] Care Team Providers Care Business Practices Supervisor Name Role Phone Keren Sunshine MD Primary Care Provider Unavaila Eliazar Copeland MD Primary Care Provider Unavail able Janae Guillermo MD Primary Care Provider Unavai Devon Persaud MD Primary Care Provider Barbie vailable Encounter Details Date Type Department Care Team Description 02/26/2011 [facility] Orthopedic Surgery [address] [place] [id number] Tommy Bryant MD Social History Tobacco Use [...] filedocumented in this encounter Care Teams Business Practices Supervisor Relationship Specialty Start Date End Date Keren Sunshine MD PCP - General 12/09/06 06/25/14 Eliazar Siu MD PCP - General Internal Medicine 06/28/14 10/16/14 Janae Guillermo MD PCP - General Internal Medicine 10/17/14 Devon Croft MD PCP - General 06/26/14 06/27/14 documented as of this encounter
--- OUTSIDE RECORDS SUMMARY | 2025-01-25 21:07 | XMS_ITS | Encounter Summary ---
Author Organization [email or web address] [facility] Prior to 12/11/2023 Address [address] [place] [address] Care Team Providers Care Tool Crib Manager Name Role Phone Janae Guillermo MD Primary Care Provider Ramos cortez Reason for Visit * Reason Onset Date Comments TEST RESULTS 09/26/2016 Encounter Details Date Type Department Care Team Description 09/26/2016 Pt. Non Urgent Medic al Question Adult Medicine [address] [address] Janae Guillermo MD Social History Tobacco Use [...] on filedocumented in this encounter Care Teams Tool Crib Manager Relationship Specialty Start Date End Date Janae Giullermo MD PCP - General Internal Medicine 10/17/14 documented as of this encounter
--- OUTSIDE RECORDS SUMMARY | 2025-01-25 21:07 | XMS_ITS | Encounter Summary ---
Author Organization [facility] Prior to 12/11/2023 Address [address] [facility] [place] [address] Care Team Providers Care Corporate Financial Analyst Name Role Phone Keren Sunshine MD Primary Care Provider Eliazar Hudson MD Primary Care Provider Unavail Janae Barry MD Primary Care Provider Devon Link MD Primary Care Provider Barbie vailable Encounter Details Date Type Department Care Team Description 04/02/2011 Telephone Orthopedic Surgery - [address] [place] [id number] Tommy Bryant MD Social History Tobacco Use Types Packs/Day Years Used Date Smoking Tobacco: Never Assessed Sex Assigned at Date Recorded Not on file documented as of this encounter Miscellaneous Notes * Telephone Encounter - Antonella Manny Mota - 04/02/2011 10:48 AM EST Patient called office, 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 He states he went to both [facility] ER and [facility] ER yesterday, but the wait times were too long forhim, so he was not seen. Patient became aggravated with event specialist staff, phone call was triaged to dane [...] treatment he received several weeks ago at [facility]. His surgery was cancelled by the [...] on filedocumented in this encounter Care Teams Corporate Financial Analyst Relationship Specialty Start Date End Date Keren Sunshine MD PCP - General 12/09/06 06/25/14 Eliazar Siu MD PCP - General Internal Medicine 06/28/14 10/16/14 Janae Guillermo MD PCP - General Internal Medicine 10/17/14 Devon Croft MD PCP - General 06/26/14 06/27/14 documented as of this encounter
--- OUTSIDE RECORDS SUMMARY | 2025-01-25 21:07 | XMS_ITS | Encounter Summary ---
Author Organization [facility] [facility] Prior to 12/11/2023 Address [address] [place] [address] Care Team Providers Care Aerial Applicator Pilot Name Role Phone Eliazar Siu MD Primary Care Provider Janae Jaime MD Primary Care Provider Ramos cortez Encounter Details Date Type Department Care Team Description 06/30/2014 Release of Information Medical Records [address] [place] [id number] Abstract, Provider Social History Tobacco Use Types [...] on filedocumented in this encounter Care Teams Aerial Applicator Pilot Relationship Specialty Start Date End Date Eliazar Siu MD PCP - General Internal Medicine 06/28/14 10/16/14 Janae Guillermo MD PCP - General Internal Medicine 10/17/14 documented as of this encounter
--- OUTSIDE RECORDS SUMMARY | 2025-01-25 21:07 | XMS_ITS | Encounter Summary ---
Author Organization [employer] [employer] [facility] Prior to 12/11/2023 Address [address] [place] [address] Care Team Providers Care Tire Mold Engraver Name Role Phone Janae Guillermo MD Primary Care Provider Ramos cortez Encounter Details Date Type Department Care Team Description 11/21/2014 Controlled Substance Contract with Plan Medical Records [address] [place] [address] Abstract, Provider Social History Tobacco Use Types [...] on filedocumented in this encounter Care Teams Tire Mold Engraver Relationship Specialty Start Date End Date Janae Guillermo MD PCP - General Internal Medicine 10/17/14 documented as of this encounter
--- OUTSIDE RECORDS SUMMARY | 2025-01-25 21:07 | XMS_ITS | Encounter Summary ---
Author Organization [facility] Prior to 12/11/2023 Address [address] [place] [address] Care Team Providers Care Veterinary Poultry Inspector Name Role Phone Janae Guillermo MD Primary Care Provider Ramos cortez Encounter Details Date Type Department Care Team Description 01/23/2017 [facility] Controlled Substance Contract Medical Records [address] [place] [address] Abstract, Provider Social History Tobacco Use Types [...] on filedocumented in this encounter Care Teams Veterinary Poultry Inspector Relationship Specialty Start Date End Date Janae Guillermo MD PCP - General Internal Medicine 10/17/14 documented as of this encounter
== END 2025-01-25 17:55 | disposition home or self-care (01) ==
LOC: HO.MRI 17:54
PROVIDERS: PCP Internal Medicine; Visit Provider Internal Medicine
DX: G89.29 Other chronic pain (principal); M25.562 Pain in left knee
CPT/HCPCS: 73721